=== PATIENT | male | born 1965 | race Caucasian/White ===

== ENCOUNTER 2016-07-04 22:48 | Inpatient (IN) | payer OTHER ==
[2016-07-04] MEDS ORDERED: ATIVAN IV PRN (23:13)
[2016-07-04] MEDS ORDERED: ATIVAN PO PRN (23:13)
[2016-07-04] MEDS ORDERED: NACL 0.9% 1000 ML 1,000 ML IV ONE (23:13)
--- NOTE | 2016-07-04 23:17 | Emergency Department Report ---
ED Alcohol HPI - General Chief Complaint: Alcohol Stated Complaint: AMS/ETOH Time Seen by Provider: 07/04/16 23:06 Source: EMS Mode of arrival: Stretcher Limitations: Altered Mental Status - History of Present Illness Initial Comments: 51-year-old male presents to the emergency department via EMS for evaluation of altered mental status. Per report, the patient has been drinking alcohol heavily for the past 6 days. There has been nausea and vomiting. EMS reports the patient was unable to walk without assistance. There are no other complaints. MD Complaint: alcohol intoxication Last Drink: unknown Chronic Alcohol Use: Yes Previous Visits for Alcohol Intoxication?: No Recent Trauma: No Associated Symptoms: nausea, vomiting Treatments Prior to Arrival: none - Related Data Home Medications Medication Instructions Recorded Confirmed Last Taken Unobtainable 07/04/16 07/04/16 Unknown Allergies Allergy/AdvReac Type Severity Reaction Status Date / Time No Known Allergies Allergy Verified 07/04/16 22:53 ED Review of Systems ROS: Stated complaint: AMS/ETOH Other details as noted in HPI Comment: All other systems reviewed and negative Gastrointestinal: nausea, vomiting Psychiatric: as per HPI ED Past Medical Hx - Past Medical History Additional medical history: Unknown - Surgical History Additional Surgical History: Unknown - Social History Smoking Status: Unknown if ever smoked Substance Use Type: Alcohol - Medications Home Medications: Home Medications Medication Instructions Recorded Confirmed Last Taken Type Unobtainable 07/04/16 07/04/16 Unknown History ED Physical Exam - General Limitations: Language Barrier, Altered Mental Status General appearance: alert, in no apparent distress, appears intoxicated - Head Head exam: Present: atraumatic, normocephalic - Eye Eye exam: Present: normal appearance, PERRL, EOMI - ENT ENT exam: Present: normal exam, normal orophraynx, mucous membranes moist - Neck Neck exam: Present: normal inspection, full ROM. Absent: tenderness - Respiratory Respiratory exam: Present: normal lung sounds bilaterally. Absent: respiratory distress - Cardiovascular Cardiovascular Exam: Present: regular rate, normal rhythm, normal heart sounds - GI/Abdominal GI/Abdominal exam: Present: soft, normal bowel sounds. Absent: distended, tenderness - Extremities Exam Extremities exam: Present: normal inspection, full ROM. Absent: tenderness - Back Exam Back exam: Present: normal inspection, full ROM. Absent: tenderness - Neurological Exam Neurological exam: Present: alert, oriented X3. Absent: motor sensory deficit - Skin Skin exam: Present: warm, dry, intact ED Course Vital Signs 07/04/16 07/04/16 23:32 23:33 Temperature 97.3 F L Pulse Rate 79 Respiratory 18 Rate Blood Pressure 116/92 [Left] O2 Sat by Pulse 98 Oximetry ED Medical Decision Making - Lab Data Result diagrams: 07/04/16 23:27 07/04/16 23:27 - Medical Decision Making Lab results reviewed. Patient with a significant hyponatremia. It is likely that this is a subacute finding due to the patient's clinical findings. Obtaining a head CT. Administering normal saline for slow increase in serum sodium. I spoke with the hospitalist, who will admit. - Differential Diagnosis alcohol intoxication, alcoholic gastritis Critical care attestation.: If time is entered above; I have spent that time in minutes in the direct care of this critically ill patient, excluding procedure time. ED Disposition Clinical Impression: Hyponatremia Alcohol intoxication Qualifiers: Complication of substance-induced condition: uncomplicated Qualified Code(s): F10.120 - Alcohol abuse with intoxication, uncomplicated Disposition: OP ADMITTED IP TO THIS HOSP Is pt being admited?: Yes Condition: Stable Time of Disposition: 00:29
[2016-07-04 23:24] LABS: Urine Drugs of Abuse Note Disclamer
[2016-07-04 23:30] LABS: Bilirubin,Urine NEG (Negative); Blood,Urine MOD (Negative); Ketones,Urine 80 mg/dL (Negative); Leukocyte Esterase,Urine NEG (Negative); Nitrite,Urine NEG (Negative); Protein,Urine <15 mg/dL mg/dL (Negative); Urobilinogen,Urine < 2.0 mg/dL (<2.0)
[2016-07-04 23:52] LABS: Basophils % (Auto) 0.1 % (0.0-1.8); Mean Corpuscular HGB Conc 36 % (32-34); Mean Corpuscular Hemoglobin 31 pg (28-32); Mean Corpuscular Volume 86 fl (84-94); Platelet Count 260 K/mm3 (140-440); Red Blood Count 5.27 M/mm3 (3.65-5.03); Red Cell Distribution Width 13.1 % (13.2-15.2)
[2016-07-05 00:01] LABS: Alanine Aminotransferase 65 units/L (7-56); Albumin 3.8 g/dL (3.9-5); Albumin/Globulin Ratio 1.3 %; Alkaline Phosphatase 85 units/L (35-129); Bilirubin,Total 1.8 mg/dL (0.1-1.2); Blood Urea Nitrogen 9 mg/dL (9-20); Calcium 8.1 mg/dL (8.4-10.2); Carbon Dioxide 13 mmol/L (22-30); Chloride 70.3 mmol/L (98-107); Glucose 240 mg/dL (75-100); Magnesium 1.9 mg/dL (1.7-2.3); Potassium 3.9 mmol/L (3.6-5.0); Total Protein 6.8 g/dL (6.3-8.2)
[2016-07-05 00:03] LABS: Anion Gap 29 mmol/L
[2016-07-05 00:04] LABS: Sodium 108 mmol/L (137-145)
[2016-07-05 00:10] LABS: Hematocrit 45.1 % (35.5-45.6); Hemoglobin 16.2 gm/dl (11.8-15.2)
--- NOTE | 2016-07-05 01:09 | Admit Criteria Form ---
Admission Criteria Documentation: ALCOHOL AND PSYCHOACTIVE SUBSTANCE WITHDRAWAL Clinical Indications for Inpatient Care (Place ' X' for any and all applicable criteria): Ongoing inpatient care may be indicated for substance withdrawal[B][C] with ANY ONE of the following(1)(2)(3)(4)(21): [ ]I. Delirium due to alcohol or sedative[D] withdrawal is present. [ ]II. Marked signs of withdrawal are present as indicated by ANY ONE of the following(15)(22)(23) [ ]a) Heart rate greater than 120 beats per minute is present. [ ]b) Severe vomiting is present (eg, precludes maintenance of oral hydration). [ ]c) Grossly visible tremor is present. [ ]d) Profuse perspiration is present. [ ]e) Temperature greater than 101 degrees F (38.3 degrees C) is present. [ ]f) Other signs of severe withdrawal are present (eg, Altered mental status ) [ ]g) Severe withdrawal identified by standardized assessment score[A] [ ]III. Signs of withdrawal that require continued inpatient treatment as indicated by ANY ONE of the following(15)(22)(23): [ ]a) Inadequate response to pharmacotherapy (eg, benzodiazepines) [ ]b) Outpatient or lower level of care is not feasible or appropriate (eg, unavailable or inappropriate to patient condition or treatment history). [ ]IV. Withdrawal signs with high-risk indicator are present as manifested by ALL of the following[A](15)(22)(23) [ ]a) Signs of withdrawal are present as indicated by ANY ONE of the following: [ ]i. Tachycardia is present. [ ]ii. Nausea or vomiting is present. [ ]iii. Tremor is present. [ ]iv. Increased perspiration is present. [ ]v. Other signs of withdrawal are present. [ ]vi. Withdrawal identified by standardized assessment score [A] [ ]b) Elevated risk due to historical or comorbid factor is present as indicated by ANY ONE of the following: [ ]i. History of delirium due to withdrawal is present. [ ]ii. History of seizures due to withdrawal is present.[E] [ ]iii. Intrinsic seizure disorder (epilepsy) is present. [ ]iv. Patient is . [ ]v. Other significant medical history (eg, severe cardiac disease) is present, which is assessed to be at risk for destabilization due to withdrawal. [ X]V. Serious electrolyte abnormalities (eg, hyponatremia, hypokalemia, hypophosphatemia) requiring correction performable only in inpatient setting(6)(25) [ ]. Severe hypoglycemia requiring glucose infusions performable only in inpatient setting(6) [ ]VII. Drug toxicity or instability, such as Altered mental status, respiratory depression, or arrhythmias, that requires inpatient care [ ]VIII. Danger judged unmanageable at lower level of care because of ANY ONE of the following [ ]a) Danger to self [ ]b) Danger to others [ ]c) Grave disability (eg, inability to perform self-care necessary at lower level of care) The original [facility] Care Guidelines content created by [facility] Care Guidelines has been revised. The portions of the content which have been revised are identified through the use of italic text or in bold. [facility] Guidelines has neither reviewed nor approved the modified material. All other unmodified content is copyright [facility] Care Guidelines. Please see references footnoted in the original [facility] CareGuidelines edition 2016 Admission Criteria Met: Yes
[2016-07-05] MEDS ORDERED: NACL 3% 500 ML IV ONE ×2 (01:11→02:00)
--- NOTE | 2016-07-05 01:36 | History and Physical Report ---
History of Present Illness Date of examination: 07/05/16 Chief complaint: Altered mental status History of present illness: 51-year-old male presents to the emergency department via EMS for evaluation of altered mental status. Per report, the patient has been drinking alcohol heavily for the past 6 days. There has been nausea and vomiting. EMS reports the patient was unable to walk without assistance. There are no other complaints. Patient follows simple commands with communicating well. Past History Past Medical History: diabetes, hypertension Past Surgical History: Other (couldn't obtain because of altered mental status) Social history: other (couldn't obtain because of altered mental status) Family history: other (couldn't obtain because of altered mental status) Medications and Allergies Allergies Allergy/AdvReac Type Severity Reaction Status Date / Time No Known Allergies Allergy Verified 07/04/16 22:53 Home Medications Medication Instructions Recorded Confirmed Last Taken Type Unobtainable 07/04/16 07/04/16 Unknown History Active Meds: Active Medications Sodium Chloride (Nacl 3%) 250 mls @ 50 mls/hr IV DIRECT ASPEN Lorazepam (Ativan) 2 mg PO Q1HR PRN PRN Reason: CIWA-Ar 8-15 Lorazepam (Ativan) 4 mg PO Q1HR PRN PRN Reason: CIWA-Ar 16-25 Lorazepam (Ativan) 4 mg IV Q15MIN PRN PRN Reason: CIWA-Ar >25 Phenobarbital (Phenobarbital) 130 mg IV Q15M PRN PRN Reason: DT's refractory to BZD's Review of Systems ROS unobtainable: due to mental status (some bruising in his face, vomited on himself, smells alcohol) Exam - Physical Exam Narrative exam: patient is not communicating well smells alcohol vomited on himself Able to take care of his respiratory system. The patient appeared well nourished and normally developed. Vital signs as documented. Head exam is unremarkable. No scleral icterus . Neck is without jugular venous distension, thyromegaly, or carotid bruits. Lungs are clear to auscultation. Cardiac exam reveals regular rate and Rhythm. First and second heart sounds normal. No murmurs, rubs or gallops. Abdominal exam reveals normal bowel sounds, no masses, no organomegaly and no aortic enlargement. Extremities are nonedematous and both femoral and pedal pulses are normal. CLAY PUDDLER: Alert. - Constitutional Vitals: Temp Pulse Resp BP Pulse Ox 97.3 F L 100 H 21 116/92 100 07/04/16 23:32 07/05/16 01:01 07/05/16 01:01 07/04/16 23:33 07/05/16 01:01 Results - Labs CBC & Chem 7: 07/04/16 23:27 07/04/16 23: Labs: Laboratory Last Values WBC 20.0 K/mm3 (4.5-11.0) H 07/04/16 23: RBC 5.27 M/mm3 (3.65-5.03) H 07/04/16 23: Hgb 16.2 gm/dl (11.8-15.2) H 07/04/16: Hct 45.1 % (35.5-45.6) 07/04/16 23: MCV 86 fl (84-94) 07/04/16 23: MCH 31 pg (28-32) 07/04/16: MCHC 36 % (32-34) H 07/04/16 23: RDW 13.1 % (13.2-15.2) L 07/04/16 23: Plt Count 260 K/mm3 (140-440) 07/04/16 23: Lymph % (Auto) 6.6 % (13.4-35.0) L 07/04/16 23: Tama % (Auto) 5.1 % (0.0-7.3) 07/04/16: Eos % (Auto) 0.0 % (0.0-4.3) 07/04/16 23: Baso % (Auto) 0.1 % (0.0-1.8) 07/04/16: Lymph # 1.3 K/mm3 (1.2-5.4) 07/04/16 23: Tama # 1.0 K/mm3 (0.0-0.8) H 07/04/16 23: Eos # 0.0 K/mm3 (0.0-0.4) 07/04/16 23: Baso # 0.0 K/mm3 (0.0-0.1) 07/04/16 23:27 Seg Neutrophils % 88.2 % (40.0-70.0) H 07/04/16 23:27 Seg Neutrophils # 17.6 K/mm3 (1.8-7.7) H 07/04/16 23:27 Sodium 108 mmol/L (137-145) L* 07/04/16 23:27 Potassium 3.9 mmol/L (3.6-5.0) 07/04/16 23:27 Chloride 70.3 mmol/L (98-107) L 07/04/16 23:27 Carbon Dioxide 13 mmol/L (22-30) L 07/04/16 23:27 Anion Gap 29 mmol/L 07/04/16 23:27 BUN 9 mg/dL (9-20) 07/04/16 23:27 Creatinine 0.5 mg/dL (0.8-1.5) L 07/04/16 23:27 Estimated GFR > 60 ml/min 07/04/16 23: BUN/Creatinine Ratio 18.00 % 07/04/16 23: Glucose 240 mg/dL (75-100) H 07/04/16 23:27 Calcium 8.1 mg/dL (8.4-10.2) L 07/04/16 23: Magnesium 1.9 mg/dL (1.7-2.3) 07/04/16 23:27 Total Bilirubin 1.8 mg/dL (0.1-1.2) H 07/04/16 23:27 AST 62 units/L (5-40) H 07/04/16 23:27 ALT 65 units/L (7-56) H 07/04/16 23:27 Alkaline Phosphatase 85 units/L (35-129) 07/04/16 23:27 Total Protein 6.8 g/dL (6.3-8.2) 07/04/16 23:27 Albumin 3.8 g/dL (3.9-5) L 07/04/16 23:27 Albumin/Globulin Ratio 1.3 % 07/04/16 23:27 Urine Color Yellow (Yellow) 07/04/16 23:20 Urine Turbidity Clear (Clear) 07/04/16 23:20 Urine pH 6.0 (5.0-7.0) 07/04/16 23:20 Ur Specific [place] 1.024 (1.003-1.030) 07/04/16 23:20 Urine Protein <15 mg/dl mg/dL (Negative) 07/04/16 23:20 Urine Glucose (UA) >=500 mg/dL (Negative) 07/04/16 23:20 Urine Ketones 80 mg/dL (Negative) 07/04/16 23:20 Urine Blood Mod (Negative) 07/04/16 23:20 Urine Nitrite Neg (Negative) 07/04/16 23:20 Urine Bilirubin Neg (Negative) 07/04/16 23:20 Urine Urobilinogen < 2.0 mg/dL (<2.0) 07/04/16 23:20 Ur Leukocyte Esterase Neg (Negative) 07/04/16 23:20 Urine WBC (Auto) 1.0 /HPF (0.0-6.0) 07/04/16 23:20 Urine RBC (Auto) 1.0 /HPF (0.0-6.0) 07/04/16 23:20 Urine Opiates Screen Presumptive negative 07/04/16 23:20 Urine Methadone Screen Presumptive negative 07/04/16 23:20 Ur Barbiturates Screen Presumptive negative 07/04/16 23:20 Ur Phencyclidine Scrn Presumptive negative 07/04/16 23:20 Ur Amphetamines Screen Presumptive negative 07/04/16 23:20 U Benzodiazepines Scrn Presumptive negative 07/04/16 23:20 Urine Cocaine Screen Presumptive negative 07/04/16 23:20 U Marijuana (THC) Screen Presumptive negative 07/04/16 23:20 Drugs of Abuse Note Disclamer 07/04/16 23:20 Plasma/Serum Alcohol 0.17 gm% (0-0.07) H 07/04/16 23:27 - Imaging and Cardiology Chest x-ray: image reviewed (Right paracardiac haziness) Assessment and Plan Assessment and plan: Alcohol intoxication Severe hyponatremia Leukocytosis Pneumonia - Whiskey Filterer was consulted and given him 250 mL of 3% - BMP every 4 hours - IV normal saline to increase the sodium - Patient is on CIWA - On IV Zosyn DVT prophylaxis - Lovenox Disposition - Admit to ICU Advance Directives: Yes VTE prophylaxis?: Chemical Plan of care discussed with patient/family: Yes
[2016-07-05] MEDS ORDERED: D50W (25GM) IV PRN (01:44)
--- NOTE | 2016-07-05 01:57 | Cat Scan Report ---
FINAL REPORT PROCEDURE: CT HEAD/BRAIN WO CON TECHNIQUE: Computerized tomography of the head was performed without contrast material. HISTORY: altered mental status COMPARISON: No prior studies are available for comparison. FINDINGS: Skull and scalp: Normal. Paranasal sinuses: Normal. Ventricles and subarachnoid spaces: Normal. Cerebrum: No evidence of hemorrhage, acute infarction or mass . Cerebellum and brainstem: No evidence of hemorrhage, acute infarction or mass. Vasculature: Normal. Comments: None. IMPRESSION: Normal Examination
[2016-07-05] MEDS ORDERED: NACL 3% 250 ML IV SCH (02:00)
[2016-07-05 03:04] LABS: Anion Gap 28 mmol/L; Blood Urea Nitrogen 9 mg/dL (9-20); Calcium 8.1 mg/dL (8.4-10.2); Carbon Dioxide 13 mmol/L (22-30); Chloride 72.5 mmol/L (98-107); Glucose 190 mg/dL (75-100); Potassium 3.8 mmol/L (3.6-5.0)
[2016-07-05 03:12] LABS: Sodium 110 mmol/L (137-145)
[2016-07-05 03:39] LABS: Hematocrit 44.5 % (35.5-45.6); Hemoglobin 15.7 gm/dl (11.8-15.2); Mean Corpuscular HGB Conc 35 % (32-34); Mean Corpuscular Hemoglobin 31 pg (28-32); Mean Corpuscular Volume 86 fl (84-94); Platelet Count 230 K/mm3 (140-440); Red Blood Count 5.17 M/mm3 (3.65-5.03); Red Cell Distribution Width 13.1 % (13.2-15.2)
[2016-07-05 03:43] LABS: White Blood Count 20.7 K/mm3 (4.5-11.0)
[2016-07-05] MEDS ORDERED: NACL 0.9% 1000 ML 1,000 ML IV SCH (04:00)
[2016-07-05] MEDS ORDERED: ATIVAN ONE (04:30)
[2016-07-05] MEDS: ATIVAN PO PRN ×2 (04:46→08:15)
[2016-07-05 05:15] LABS: Basophils % (Manual) 0 % (0.0-1.8); Blastocytes % (Manual) 0 %; Diff Status Complete; Eosinophils % (Manual) 0 % (0.0-4.3); Hypochromasia Few
[2016-07-05] MEDS: ZOSYN/NS 3.375GM/50ML 50 ML IV SCH ×3 (06:15→17:35)
[2016-07-05] MEDS ORDERED: ZOFRAN IV PRN (06:28)
[2016-07-05 07:58] LABS: Anion Gap 28 mmol/L; Blood Urea Nitrogen 10 mg/dL (9-20); Calcium 7.8 mg/dL (8.4-10.2); Carbon Dioxide 12 mmol/L (22-30); Chloride 75.4 mmol/L (98-107); Glucose 177 mg/dL (75-100); Potassium 3.6 mmol/L (3.6-5.0)
[2016-07-05 08:22] LABS: Sodium 115 mmol/L (137-145)
--- NOTE | 2016-07-05 08:50 | XRay Report ---
FINAL REPORT EXAM: XR CHEST 1V AP HISTORY: fluid overload TECHNIQUE: Chest, portable semi upright PRIORS: None. FINDINGS: There is no cardiomegaly. There is no pulmonary vascular congestion, infiltrate or pleural effusion seen. There is no pneumothorax seen. IMPRESSION: There is no acute abnormality identified.
--- NOTE | 2016-07-05 09:48 | XRay Report ---
AP chest History: Fever, leukocytosis. Findings: Compared to 03/07/12. Mild cardiomegaly is suspected. There is poor inspiration but the lungs are grossly clear. No evidence for pneumonia, pleural effusion or pneumothorax. Impression: Borderline to mild cardiomegaly. No obvious pneumonia.
[2016-07-05] MEDS ORDERED: ATIVAN IV PRN (10:22)
[2016-07-05] MEDS ORDERED: ATIVAN IV ONE (10:22)
--- NOTE | 2016-07-05 10:41 | Consultation ---
History of Present Illness - Reason for Consult Consult date: 07/05/16 hyponatremia, hypokalemia, metabolic acidosis - History of Present Illness Patient is a 51 year old HM with history significant for Obesity, DM type and HTN male was brought into the emergency department via EMS for evaluation of altered mental status. Patient speaks only Cymro and information obtained through a granite fabricator. The patient has been drinking alcohol heavily for the past 6 days. He didnot eat any thing for the past few days. His daughter called EMS due to AMS. He has nausea and vomiting. Patient denies any MOSES, fever, abd pain, dysuria, hematuria, dizziness, cp, sob or syncope. He is found to have multiple electrolyte abnormalities including Sodium of 108. Most recent Na level is 115. Creatinine is normal. Past History Past Medical History: diabetes, hypertension Past Surgical History: Other (couldn't obtain because of altered mental status) Social history: other (couldn't obtain because of altered mental status) Family history: other (couldn't obtain because of altered mental status) Medications and Allergies Allergies Allergy/AdvReac Type Severity Reaction Status Date / Time No Known Allergies Allergy Verified 07/04/16 22:53 Home Medications Medication Instructions Recorded Confirmed Last Taken Type Unobtainable 07/04/16 07/04/16 Unknown History Active Meds: Active Medications Albuterol/Ipratropium (Duoneb 0.5 Mg-3 Mg/3 Ml Soln) 1 ampul IH Q6HRT [facility] Dextrose (D50w (25gm)) 50 ml IV PRN PRN PRN Reason: Hypoglycemia Enoxaparin Sodium (Lovenox) 40 mg SUB-Q QDAY [facility] Haloperidol Lactate (Haldol) 5 mg IV Q1H PRN PRN Reason: Unrespon. to mult. doses BZD's Sodium Chloride (Nacl 0.9% 1000 Ml) 1,000 mls @ 100 mls/hr IV DIRECT ASPEN Stop: 07/06/16 13:59 Last Admin: 07/05/16 06:54 Dose: 100 mls/hr Piperacillin Sod/Tazobactam Sod (Zosyn/Ns 3.375gm/50ml) 50 mls @ 100 mls/hr IV Q6HR [facility] Last Admin: 07/05/16 06:15 Dose: 100 mls/hr Insulin Aspart (Novolog) 0 units SUB-Q QHS ASPEN PRN Reason: Protocol Lorazepam (Ativan) 2 mg IV Q1H PRN PRN Reason: CIWA-Ar 8-15 Lorazepam (Ativan) 4 mg IV Q1H PRN PRN Reason: CIWA-Ar 16-25 Ondansetron HCl (Zofran) 4 mg IV Q6H PRN PRN Reason: Nausea And Vomiting Pantoprazole Sodium (Protonix) 40 mg IV QDAY [facility] Review of Systems Constitutional: fatigue Ears, nose, mouth and throat: no sinus pressure, no sinus pain Cardiovascular: no chest pain, no edema, no syncope, no lightheadedness, no shortness of breath Respiratory: no cough Gastrointestinal: nausea, vomiting, no abdominal pain, no diarrhea, no BRBPR, no melena Genitourinary Male: no dysuria, no hematuria Musculoskeletal: no neck stiffness Integumentary: no rash Neurological: no paralysis Hematologic/Lymphatic: no easy bleeding Exam - Vital Signs Vital signs: Vital Signs Temp Pulse 97.3 F L 79 07/04/16 23:32 07/04/16 23:32 - General Appearance General appearance: well-developed, well-nourished, obese, other (no distress) EENT: PERRL, mucous membranes dry, hearing intact, vision intact Neck: Present: neck supple, trachea midline Respiratory: Clear to Ascultation Heart: regular, tachycardia, S1S2 Gastrointestinal: Present: normoactive bowel sounds. Absent: tenderness, distended, guarding Integumentary: no rash, warm and dry Neurologic: no focal deficit, no asterixis, CN 3-12 intact Musculoskeletal: Present: other (no edema) Psychiatric: mood/affect appropriate, cooperative Results - Lab Results 07/05/16 03:27 07/05/16 07:24 Most recent lab results Calcium 7.8 mg/dL (8.4-10.2) L 07/05/16 07:24 Magnesium 1.9 mg/dL (1.7-2.3) 07/04/16 23:27 Assessment and Plan - Patient Problems (1) Hyponatremia Current Visit: Yes Status: Acute Plan to address problem: Hyponatremia in the setting of heavy alcohol consumption and decreased PO intake. Sodium level is improving with IV fluids. Monitor sodium level. (2) Metabolic acidosis Current Visit: Yes Status: Acute Plan to address problem: Will continue to monitor. (3) Hypokalemia Current Visit: Yes Status: Acute (4) Alcohol intoxication Current Visit: Yes Status: Acute Qualifiers: Complication of substance-induced condition: uncomplicated Qualified Code(s ): F10.120 - Alcohol abuse with intoxication, uncomplicated (5) DM type 2 (diabetes mellitus, type 2) Current Visit: Yes Status: Acute
--- NOTE | 2016-07-05 10:47 | XRay Report ---
AP CHEST: HISTORY: Shortness of breath AP view of the chest demonstrates a normal mediastinal and cardiac contour with clear lungs and normal bony and soft tissue structures. IMPRESSION: Unremarkable AP chest.
[2016-07-05] MEDS: DUONEB 0.5 MG-3 MG/3 ML SOLN IH SCH ×4 (10:52→19:26)
[2016-07-05] MEDS ORDERED: PROTONIX IV SCH (11:00)
[2016-07-05] MEDS ORDERED: HALDOL IV PRN (11:00)
--- NOTE | 2016-07-05 11:11 | Progress Note ---
Assessment and Plan Assessment and plan: Alcohol intoxication * cont Patient is on CIWA Severe hyponatremia * Instructor [employer] was consulted and given him 250 mL of 3% on admission * cont BMP every 4 hours * IV normal saline to increase the sodium * consult nephrology Leukocytosis, likely stress induced SIRS, r/o infection * On IV Zosyn for possible underlying infection Hypertension, uncontrolled * place on clonidine po DVT prophylaxis - Lovenox Disposition - monitor at ICU History Interval history: Patient seen and examined. Medical records and medication list reviewed. No acute event overnight noted by the RN. Patient denies any chest pain. He is coughing out YELLOWISH green sputum. Discussed plan of care at bedside with patient. Hospitalist Physical - Physical exam Narrative exam: GENERAL: well-developed obese male lying on bed appeared to be in moderate discomfort. HEENT: Normocephalic. Atraumatic. No conjunctival congestion or icterus. Patient has moist mucous membranes. His face appears to be plethoric with diaphoresis. NECK: Supple. Trachea midline. CHEST/LUNGS: Restricted breathing sound auscultated bilaterally, breathing nonlabored. No crackles or rhonchi. HEART/CARDIOVASCULAR: Tachycardic. S1 and S2 positive. ABDOMEN: Abdomen is soft, nontender. Patient has normal bowel sounds. SKIN: There is no rash. Warm and dry. NEURO: No focal motor deficit. Follows command. MUSCULOSKELETAL: No joint effusion or tenderness. EXTRIMITY: No edema, no cyanosis or clubbing. PSYCH: Cooperative. - Constitutional Vitals: Temp Pulse Resp BP Pulse Ox 98.9 F 123 H 16 166/94 97 07/05/16 07:41 07/05/16 10:52 07/05/16 10:52 07/05/16 08:00 07/05/16 10:45 Results - Labs CBC & Chem 7: 07/05/16 03:27 07/05/16 07:24 Labs: Laboratory Last Values WBC 20.7 K/mm3 (4.5-11.0) H 07/05/16 03:27 RBC 5.17 M/mm3 (3.65-5.03) H 07/05/16 03:27 Hgb 15.7 gm/dl (11.8-15.2) H 07/05/16 03:27 Hct 44.5 % (35.5-45.6) 07/05/16 03:27 MCV 86 fl (84-94) 07/05/16 03:27 MCH 31 pg (28-32) 07/05/16 03:27 MCHC 35 % (32-34) H 07/05/16 03:27 RDW 13.1 % (13.2-15.2) L 07/05/16 03:27 Plt Count 230 K/mm3 (140-440) 07/05/16 03:27 Lymph % (Auto) 6.6 % (13.4-35.0) L 07/04/16 23:27 [place] % (Auto) 5.1 % (0.0-7.3) 07/04/16 23:27 Eos % (Auto) 0.0 % (0.0-4.3) 07/04/16 23:27 Baso % (Auto) 0.1 % (0.0-1.8) 07/04/16 23:27 Lymph # 1.3 K/mm3 (1.2-5.4) 07/04/16 23:27 [place] # 1.0 K/mm3 (0.0-0.8) H 07/04/16 23:27 Eos # 0.0 K/mm3 (0.0-0.4) 07/04/16 23:27 Baso # 0.0 K/mm3 (0.0-0.1) 07/04/16 23:27 Add Manual Diff Complete 07/05/16 03:27 Total Counted 100 07/05/16 03:27 Seg Neutrophils % 88.2 % (40.0-70.0) H 07/04/16 23:27 Seg Neuts % (Manual) 61.0 % (40.0-70.0) 07/05/16 03:27 Band Neutrophils % 28.0 % 07/05/16 03:27 Lymphocytes % (Manual) 4.0 % (13.4-35.0) L 07/05/16 03:27 Reactive Lymphs % (Man) 0 % 07/05/16 03:27 Monocytes % (Manual) 7.0 % (0.0-7.3) 07/05/16 03:27 Eosinophils % (Manual) 0 % (0.0-4.3) 07/05/16 03:27 Basophils % (Manual) 0 % (0.0-1.8) 07/05/16 03:27 Metamyelocytes % 0 % 07/05/16 03:27 Myelocytes % 0 % 07/05/16 03:27 Promyelocytes % 0 % 07/05/16 03:27 Blast Cells % 0 % 07/05/16 03:27 Nucleated RBC % Not Reportable 07/05/16 03:27 Seg Neutrophils # 17.6 K/mm3 (1.8-7.7) H 07/04/16 23:27 Seg Neutrophils # Man 12.6 K/mm3 (1.8-7.7) H 07/05/16 03:27 Band Neutrophils # 5.8 K/mm3 07/05/16 03:27 Lymphocytes # (Manual) 0.8 K/mm3 (1.2-5.4) L 07/05/16 03:27 Abs React Lymphs (Man) 0.0 K/mm3 07/05/16 03:27 Monocytes # (Manual) 1.4 K/mm3 (0.0-0.8) H 07/05/16 03:27 Eosinophils # (Manual) 0.0 K/mm3 (0.0-0.4) 07/05/16 03:27 Basophils # (Manual) 0.0 K/mm3 (0.0-0.1) 07/05/16 03:27 Metamyelocytes # 0.0 K/mm3 07/05/16 03:27 Myelocytes # 0.0 K/mm3 07/05/16 03:27 Promyelocytes # 0.0 K/mm3 07/05/16 03:27 Blast Cells # 0.0 K/mm3 07/05/16 03:27 WBC Morphology Not Reportable 07/05/16 03:27 Hypersegmented Neuts Not Reportable 07/05/16 03:27 Hyposegmented Neuts Not Reportable 07/05/16 03:27 Hypogranular Neuts Not Reportable 07/05/16 03:27 Smudge Cells Not Reportable 07/05/16 03:27 Toxic Granulation Not Reportable 07/05/16 03:27 Toxic Vacuolation Not Reportable 07/05/16 03:27 Dohle Bodies Not Reportable 07/05/16 03:27 Pelger-Huet Anomaly Not Reportable 07/05/16 03:27 Maruqes Rods Not Reportable 07/05/16 03:27 Platelet Estimate Appears normal 07/05/16 03:27 Clumped Platelets Not Reportable 07/05/16 03:27 Plt Clumps, EDTA Not Reportable 07/05/16 03:27 Large Platelets Not Reportable 07/05/16 03:27 Giant Platelets Not Reportable 07/05/16 03:27 Platelet Satelliting Not Reportable 07/05/16 03:27 Plt Morphology Comment Not Reportable 07/05/16 03:27 RBC Morphology Not Reportable 07/05/16 03:27 Dimorphic RBCs Not Reportable 07/05/16 03:27 Polychromasia Not Reportable 07/05/16 03:27 Hypochromasia Few 07/05/16 03:27 Poikilocytosis Not Reportable 07/05/16 03:27 Anisocytosis Not Reportable 07/05/16 03:27 Microcytosis Not Reportable 07/05/16 03:27 Macrocytosis Not Reportable 07/05/16 03:27 Spherocytes Not Reportable 07/05/16 03:27 Pappenheimer Bodies Not Reportable 07/05/16 03:27 Sickle Cells Not Reportable 07/05/16 03:27 Target Cells Not Reportable 07/05/16 03:27 Tear Drop Cells Not Reportable 07/05/16 03:27 Ovalocytes Not Reportable 07/05/16 03:27 Helmet Cells Not Reportable 07/05/16 03:27 [place] Bodies Not Reportable 07/05/16 03:27 [place] Rings Not Reportable 07/05/16 03:27 Marcell Cells Not Reportable 07/05/16 03:27 Bite Cells Not Reportable 07/05/16 03:27 Crenated Cell Not Reportable 07/05/16 03:27 Elliptocytes Not Reportable 07/05/16 03:27 Acanthocytes (Spur) Not Reportable 07/05/16 03:27 Rouleaux Not Reportable 07/05/16 03:27 Hemoglobin C Crystals Not Reportable 07/05/16 03:27 Schistocytes Not Reportable 07/05/16 03:27 Malaria parasites Not Reportable 07/05/16 03:27 Danny Bodies Not Reportable 07/05/16 03:27 Hem Pathologist Commnt No 07/05/16 03:27 Sodium 115 mmol/L (137-145) L* 07/05/16 07:24 Potassium 3.6 mmol/L (3.6-5.0) 07/05/16 07:24 Chloride 75.4 mmol/L (98-107) L 07/05/16 07:24 Carbon Dioxide 12 mmol/L (22-30) L 07/05/16 07:24 Anion Gap 28 mmol/L 07/05/16 07:24 BUN 10 mg/dL (9-20) 07/05/16 07:24 Creatinine 0.5 mg/dL (0.8-1.5) L 07/05/16 07:24 Estimated GFR > 60 ml/min 07/05/16 07:24 BUN/Creatinine Ratio 20.00 % 07/05/16 07:24 Glucose 177 mg/dL (75-100) H 07/05/16 07:24 POC Glucose 158 (70-105) H 07/05/16 07:32 Calcium 7.8 mg/dL (8.4-10.2) L 07/05/16 07:24 Magnesium 1.9 mg/dL (1.7-2.3) 07/04/16 23:27 Total Bilirubin 1.8 mg/dL (0.1-1.2) H 07/04/16 23:27 AST 62 units/L (5-40) H 07/04/16 23:27 ALT 65 units/L (7-56) H 07/04/16 23:27 Alkaline Phosphatase 85 units/L (35-129) 07/04/16 23:27 Total Protein 6.8 g/dL (6.3-8.2) 07/04/16 23:27 Albumin 3.8 g/dL (3.9-5) L 07/04/16 23:27 Albumin/Globulin Ratio 1.3 % 07/04/16 23:27 Urine Color Yellow (Yellow) 07/04/16 23:20 Urine Turbidity Clear (Clear) 07/04/16 23:20 Urine pH 6.0 (5.0-7.0) 07/04/16 23:20 Ur Specific [place] 1.024 (1.003-1.030) 07/04/16 23:20 Urine Protein <15 mg/dl mg/dL (Negative) 07/04/16 23:20 Urine Glucose (UA) >=500 mg/dL (Negative) 07/04/16 23:20 Urine Ketones 80 mg/dL (Negative) 07/04/16 23:20 Urine Blood Mod (Negative) 07/04/16 23:20 Urine Nitrite Neg (Negative) 07/04/16 23:20 Urine Bilirubin Neg (Negative) 07/04/16 23:20 Urine Urobilinogen < 2.0 mg/dL (<2.0) 07/04/16 23:20 Ur Leukocyte Esterase Neg (Negative) 07/04/16 23:20 Urine WBC (Auto) 1.0 /HPF (0.0-6.0) 07/04/16 23:20 Urine RBC (Auto) 1.0 /HPF (0.0-6.0) 07/04/16 23:20 Urine Opiates Screen Presumptive negative 07/04/16 23:20 Urine Methadone Screen Presumptive negative 07/04/16 23:20 Ur Barbiturates Screen Presumptive negative 07/04/16 23:20 Ur Phencyclidine Scrn Presumptive negative 07/04/16 23:20 Ur Amphetamines Screen Presumptive negative 07/04/16 23:20 U Benzodiazepines Scrn Presumptive negative 07/04/16 23:20 Urine Cocaine Screen Presumptive negative 07/04/16 23:20 U Marijuana (THC) Screen Presumptive negative 07/04/16 23:20 Drugs of Abuse Note Disclamer 07/04/16 23:20 Plasma/Serum Alcohol 0.17 gm% (0-0.07) H 07/04/16 23:27
[2016-07-05] MEDS: ATIVAN IV PRN ×5 (11:18→20:43)
[2016-07-05 11:25] LABS: Anion Gap 27 mmol/L; Blood Urea Nitrogen 12 mg/dL (9-20); Calcium 7.6 mg/dL (8.4-10.2); Carbon Dioxide 12 mmol/L (22-30); Chloride 76.7 mmol/L (98-107); Glucose 195 mg/dL (75-100); Potassium 3.8 mmol/L (3.6-5.0)
[2016-07-05 11:27] LABS: Albumin 3.4 g/dL (3.9-5); Albumin/Globulin Ratio 1.2 %; Bilirubin,Direct 1.1 mg/dL (0-0.2); Bilirubin,Indirect 1.4 mg/dL; Bilirubin,Total 2.5 mg/dL (0.1-1.2); Magnesium 1.8 mg/dL (1.7-2.3); Phosphorous 2.3 mg/dL (2.5-4.5); Total Protein 6.3 g/dL (6.3-8.2)
[2016-07-05 11:29] LABS: Sodium 112 mmol/L (137-145)
[2016-07-05 11:31] LABS: ISTAT Base Excess -12; ISTAT HCO3 13.1; ISTAT PCO2 21.2 (35-45); ISTAT PH 7.399 (7.35-7.45); ISTAT PO2 90 (80-105); ISTAT SO2 97; ISTAT TCO2 14
[2016-07-05] MEDS ORDERED: CATAPRES PO SCH (12:00)
[2016-07-05] MEDS: LOVENOX SUB-Q SCH (12:23)
[2016-07-05] MEDS ORDERED: KPHOS 30 MMOL in NACL 0.9% 500 ML 500 ML IV ONE (12:24)
--- NOTE | 2016-07-05 13:19 | Consultation ---
History of Present Illness Consult date: 07/05/16 Reason for consult: other (Alcohol intoxication, Hyponatremia.) History of present illness: This is 51-year-old male presents to the emergency department via EMS for evaluation of altered mental status. Per report, the patient has been drinking alcohol heavily for the past 6 days. There has been nausea and vomiting. Patient electrolytes showed severe hyponatremia.Patient has history of hypertension and Diabetes. No known drug allergies. Patient intoxicated. Un able to give much history. Patients smoking history and alcohol history not known at this time. Patient is on 2 litres O2 and O2 satuaration 95%. No complaint of chest pain or shortness of breath. Past History Past Medical History: diabetes, hypertension Past Surgical History: Other (couldn't obtain because of altered mental status) Social history: other (couldn't obtain because of altered mental status) Family history: other (couldn't obtain because of altered mental status) Medications and Allergies Allergies Allergy/AdvReac Type Severity Reaction Status Date / Time No Known Allergies Allergy Verified 07/04/16 22:53 Home Medications Medication Instructions Recorded Confirmed Last Taken Type Unobtainable 07/04/16 07/04/16 Unknown History Active Meds: Active Medications Albuterol/Ipratropium (Duoneb 0.5 Mg-3 Mg/3 Ml Soln) 1 ampul IH Q6HRT [facility] Last Admin: 07/05/16 10:52 Dose: 1 ampul Clonidine HCl (Catapres) 0.1 mg PO Q12HR [facility] Last Admin: 07/05/16 12:23 Dose: 0.1 mg Dextrose (D50w (25gm)) 50 ml IV PRN PRN PRN Reason: Hypoglycemia Enoxaparin Sodium (Lovenox) 40 mg SUB-Q QDAY [facility] Last Admin: 07/05/16 12:23 Dose: 40 mg Haloperidol Lactate (Haldol) 5 mg IV Q1H PRN PRN Reason: Unrespon. to mult. doses BZD's Sodium Chloride (Nacl 0.9% 1000 Ml) 1,000 mls @ 100 mls/hr IV DIRECT [facility] Stop: 07/06/16 13:59 Last Admin: 07/05/16 06:54 Dose: 100 mls/hr Piperacillin Sod/Tazobactam Sod (Zosyn/Ns 3.375gm/50ml) 50 mls @ 100 mls/hr IV Q6HR [facility] Last Admin: 07/05/16 12:24 Dose: 100 mls/hr Potassium Phosphate 30 mmol/ (Sodium Chloride) 510 mls @ 83 mls/hr IV ONCE ONE Stop: 07/05/16 18:32 Insulin Aspart (Novolog) 0 units SUB-Q QHS [facility] PRN Reason: Protocol Lorazepam (Ativan) 2 mg IV Q1H PRN PRN Reason: [facility] 8-15 Last Admin: 07/05/16 12:24 Dose: 2 mg Lorazepam (Ativan) 4 mg IV Q1H PRN PRN Reason: [facility] 16-25 Ondansetron HCl (Zofran) 4 mg IV Q6H PRN PRN Reason: Nausea And Vomiting Pantoprazole Sodium (Protonix) 40 mg IV QDAY [facility] Last Admin: 07/05/16 12:23 Dose: 40 mg Review of Systems All systems: negative Physical Examination Vital signs: Vital Signs Temp Pulse 97.3 F L 79 07/04/16 23:32 07/04/16 23:32 General appearance: lethargic, asleep Eyes: non-icteric ENT: oropharynx moist Neck: supple, no JVD Ascultation: Bilateral: diminished breath sounds Cardiovascular: regular rate and rhythm Gastrointestinal: normoactive bowel sounds, soft, non-tender Integumentary: normal Extremities: no cyanosis, no edema Musculoskeletal: no deformities Gait: other (Can not assess at this time) unable to assess other (Unable assess, Patient intoxicated.) Results - Laboratory Findings CBC and BMP: 07/05/16 03:27 07/05/16 10:50 ABG POC ABG pH 7.399 (7.35-7.45) 07/05/16 10:45 POC ABG pCO2 21.2 (35-45) L 07/05/16 10:45 POC ABG pO2 90 (80-105) 07/05/16 10:45 POC ABG HCO3 13.1 07/05/16 10:45 POC ABG Total CO2 14 07/05/16 10:45 POC ABG O2 Sat 97 07/05/16 10:45 Abnormal lab findings: Abnormal Labs 07/05/16 07/05/16 07/05/16 02:11 03:27 03:27 WBC 20.7 H RBC 5.17 H Hgb 15.7 H MCHC 35 H RDW 13.1 L Lymphocytes % (Manual) 4.0 L Seg Neutrophils # Man 12.6 H Lymphocytes # (Manual) 0.8 L Monocytes # (Manual) 1.4 H POC ABG pCO2 Sodium 110 L* 110 L* Chloride 72.5 L Carbon Dioxide 13 L Creatinine 0.5 L Glucose 190 H POC Glucose Calcium 8.1 L Phosphorus Total Bilirubin Direct Bilirubin AST Albumin 07/05/16 07/05/16 07/05/16 07:24 07:32 10:45 WBC RBC Hgb MCHC RDW Lymphocytes % (Manual) Seg Neutrophils # Man Lymphocytes # (Manual) Monocytes # (Manual) POC ABG pCO2 21.2 L Sodium 115 L* Chloride 75.4 L Carbon Dioxide 12 L Creatinine 0.5 L Glucose 177 H POC Glucose 158 H Calcium 7.8 L Phosphorus Total Bilirubin Direct Bilirubin AST Albumin 07/05/16 07/05/16 07/05/16 10:50 10:50 10:50 WBC RBC Hgb MCHC RDW Lymphocytes % (Manual) Seg Neutrophils # Man Lymphocytes # (Manual) Monocytes # (Manual) POC ABG pCO2 Sodium 112 L* Chloride 76.7 L Carbon Dioxide 12 L Creatinine 0.5 L Glucose 195 H POC Glucose Calcium 7.6 L Phosphorus 2.3 L Total Bilirubin 2.5 H Direct Bilirubin 1.1 H AST 55 H Albumin 3.5 L 3.4 L 07/05/16 12:00 WBC RBC Hgb MCHC RDW Lymphocytes % (Manual) Seg Neutrophils # Man Lymphocytes # (Manual) Monocytes # (Manual) POC ABG pCO2 Sodium Chloride Carbon Dioxide Creatinine Glucose POC Glucose 242 H Calcium Phosphorus Total Bilirubin Direct Bilirubin AST Albumin - Diagnostic Findings Chest x-ray: report reviewed (Unremarkable AP chest.), image reviewed Assessment and Plan This is 51-year-old male presents to the emergency department via EMS for evaluation of altered mental status. Per report, the patient has been drinking alcohol heavily for the past 6 days. There has been nausea and vomiting. Patient electrolytes showed severe hyponatremia.Patient has history of hypertension and Diabetes. No known drug allergies. Patient intoxicated. Un able to give much history. Patients smoking history and alcohol history not known at this time. Patients O2 satuaration 95% on 2 litres O2. No complaint of chest pain or shortness of breath. - Patient Problems (1) Alcohol intoxication Current Visit: Yes Status: Acute Qualifiers: Complication of substance-induced condition: uncomplicated Qualified Code(s ): F10.120 - Alcohol abuse with intoxication, uncomplicated Plan to address problem: Watch for DTs. Patient is on CIWA protocol. (2) DM type 2 (diabetes mellitus, type 2) Current Visit: Yes Status: Acute Plan to address problem: Management as per primary care. (3) Hyponatremia Current Visit: Yes Status: Acute Plan to address problem: Management as per Nephrology. (4) Metabolic acidosis Current Visit: Yes Status: Acute Plan to address problem: Patients Bicarb is 12. However PH is compensated.
[2016-07-05 14:48] LABS: Anion Gap 27 mmol/L; BUN/Creatinine Ratio 21.66; Blood Urea Nitrogen 13 mg/dL (9-20); Calcium 7.7 mg/dL (8.4-10.2); Carbon Dioxide 12 mmol/L (22-30); Chloride 77.4 mmol/L (98-107); Glucose 207 mg/dL (75-100); Potassium 3.9 mmol/L (3.6-5.0)
[2016-07-05 14:53] LABS: Sodium 112 mmol/L (137-145)
[2016-07-05] MEDS ORDERED: NORMODYNE IV PRN (15:37)
[2016-07-05] MEDS ORDERED: CATAPRES-TTS PATCH TD SCH (16:00)
[2016-07-05] MEDS ORDERED: NACL 0.9% 1000 ML 1,000 ML with SODIUM BICARBONATE 50 MEQ IV SCH (16:00)
[2016-07-05] MEDS ORDERED: SODIUM BICARBONATE 50 MEQ in NACL 0.9% 1000 ML 1,000 ML IV SCH (17:00)
[2016-07-05 19:21] LABS: Blood Urea Nitrogen 14 mg/dL (9-20); Calcium 7.7 mg/dL (8.4-10.2); Carbon Dioxide 12 mmol/L (22-30); Chloride 80.6 mmol/L (98-107); Glucose 186 mg/dL (75-100); Potassium 4.5 mmol/L (3.6-5.0)
[2016-07-05 19:41] LABS: Anion Gap 27 mmol/L; Sodium 115 mmol/L (137-145)
[2016-07-05] MEDS ORDERED: PNEUMOVAX 23 IM ONE (20:57)
[2016-07-05] MEDS ORDERED: FLUARIX QUAD 2016-2017(36 MOS+) IM ONE (20:57)
[2016-07-05 22:41] LABS: Anion Gap 22 mmol/L; BUN/Creatinine Ratio 23.33; Blood Urea Nitrogen 14 mg/dL (9-20); Calcium 7.7 mg/dL (8.4-10.2); Carbon Dioxide 14 mmol/L (22-30); Chloride 81.7 mmol/L (98-107); Glucose 182 mg/dL (75-100); Potassium 3.8 mmol/L (3.6-5.0)
[2016-07-05 22:51] LABS: Sodium 114 mmol/L (137-145)
[2016-07-05] MEDS ORDERED: SODIUM BICARBONATE IV ONE (22:54)
[2016-07-06] MEDS: ZOSYN/NS 3.375GM/50ML 50 ML IV SCH ×4 (00:01→18:35)
[2016-07-06] MEDS: NOVOLOG SUB-Q SCH ×2 (01:19→22:45)
[2016-07-06] MEDS: DUONEB 0.5 MG-3 MG/3 ML SOLN IH SCH ×4 (01:46→19:21)
[2016-07-06] MEDS ORDERED: LOPRESSOR IV PRN (02:14)
[2016-07-06] MEDS ORDERED: NACL 0.9% 500 ML 500 ML ONE (03:33)
[2016-07-06] MEDS ORDERED: DIPRIVAN 10 MG/ML 100 ML IV ONE (03:35)
[2016-07-06] MEDS ORDERED: VERSED IV ONE (04:00)
[2016-07-06] MEDS ORDERED: ARTIFICIAL TEARS OPHTH OINT OU PRN (04:07)
[2016-07-06] MEDS ORDERED: VASELINE LIP THERAPY TP PRN (04:07)
--- NOTE | 2016-07-06 04:07 | Progress Note ---
Subjective Date of service: 07/06/16 Interval history: Help was requested by ICU/Pulmonary to intubate this obese male. Patient was admitted with alcohol intoxication, altered mental status and severe hyponatremia. Due to recurrent vomiting, intubation was needed for airway protection. Potassium was 3.8. After proper positioning the patient was given 200 mg of propofol and 120 mg of succinylcholine. He was intubated by direct laryngoscopy over a tube changer. Post procedure, there was positive ETCO2 and bilateral breath sounds. A CXR was requested. Objective - Constitutional Vitals: Vital Signs - 12hr 07/05/16 07/05/16 07/05/16 16:00 16:03 17:01 Temperature 98.4 F Pulse Rate 127 H 120 H 127 H Pulse Rate [ Posterior Throughout] Respiratory 20 15 Rate Respiratory Rate [Posterior Throughout] Blood Pressure 134/76 134/76 142/85 O2 Sat by Pulse 96 94 96 Oximetry 07/05/16 07/05/16 07/05/16 17:14 18:00 18:13 Temperature Pulse Rate 135 H 141 H 108 H Pulse Rate [ Posterior Throughout] Respiratory 22 29 H 30 H Rate Respiratory Rate [Posterior Throughout] Blood Pressure 152/81 142/85 149/98 O2 Sat by Pulse 95 91 95 Oximetry 07/05/16 07/05/16 07/05/16 18:19 19:00 19:28 Temperature Pulse Rate 137 H 112 H Pulse Rate [ 112 H Posterior Throughout] Respiratory 24 Rate Respiratory 23 Rate [Posterior Throughout] Blood Pressure 149/98 141/76 O2 Sat by Pulse 94 Oximetry 07/05/16 07/05/16 07/05/16 19:29 19:51 19:58 Temperature 99.6 F Pulse Rate Pulse Rate [ 112 H Posterior Throughout] Respiratory Rate Respiratory 23 Rate [Posterior Throughout] Blood Pressure O2 Sat by Pulse 98 Oximetry 07/05/16 07/05/16 07/06/16 20:00 21:54 00:00 Temperature 100.9 F H Pulse Rate 114 H 124 H Pulse Rate [ Posterior Throughout] Respiratory 18 25 H Rate Respiratory Rate [Posterior Throughout] Blood Pressure 150/82 131/91 O2 Sat by Pulse 96 96 Oximetry 07/06/16 07/06/16 01:46 01:56 Temperature Pulse Rate Pulse Rate [ 140 H 147 H Posterior Throughout] Respiratory Rate Respiratory 34 H 23 Rate [Posterior Throughout] Blood Pressure O2 Sat by Pulse Oximetry - Labs CBC & Chem 7: 07/05/16 03:27 07/05/16 21:13 Labs: Abnormal lab results 07/05/16 07/05/16 07/05/16 Range/Units 03:27 03:27 07:24 Lymphocytes % (Manual) 4.0 L (13.4-35.0) % Seg Neutrophils # Man 12.6 H (1.8-7.7) K/mm3 Lymphocytes # (Manual) 0.8 L (1.2-5.4) K/mm3 Monocytes # (Manual) 1.4 H (0.0-0.8) K/mm3 POC ABG pCO2 (35-45) Sodium 110 L* 115 L* (137-145) mmol/L Chloride 75.4 L (98-107) mmol/L Carbon Dioxide 12 L (22-30) mmol/L Creatinine 0.5 L (0.8-1.5) mg/dL Glucose 177 H (75-100) mg/dL POC Glucose (70-105) Calcium 7.8 L (8.4-10.2) mg/dL Phosphorus (2.5-4.5) mg/dL Total Bilirubin (0.1-1.2) mg/dL Direct Bilirubin (0-0.2) mg/dL AST (5-40) units/L Albumin (3.9-5) g/dL 07/05/16 07/05/16 07/05/16 Range/Units 07:32 10:45 10:50 Lymphocytes % (Manual) (13.4-35.0) % Seg Neutrophils # Man (1.8-7.7) K/mm3 Lymphocytes # (Manual) (1.2-5.4) K/mm3 Monocytes # (Manual) (0.0-0.8) K/mm3 POC ABG pCO2 21.2 L (35-45) Sodium 112 L* (137-145) mmol/L Chloride 76.7 L (98-107) mmol/L Carbon Dioxide 12 L (22-30) mmol/L Creatinine 0.5 L (0.8-1.5) mg/dL Glucose 195 H (75-100) mg/dL POC Glucose 158 H (70-105) Calcium 7.6 L (8.4-10.2) mg/dL Phosphorus (2.5-4.5) mg/dL Total Bilirubin (0.1-1.2) mg/dL Direct Bilirubin (0-0.2) mg/dL AST (5-40) units/L Albumin (3.9-5) g/dL 07/05/16 07/05/16 07/05/16 Range/Units 10:50 10:50 12:00 Lymphocytes % (Manual) (13.4-35.0) % Seg Neutrophils # Man (1.8-7.7) K/mm3 Lymphocytes # (Manual) (1.2-5.4) K/mm3 Monocytes # (Manual) (0.0-0.8) K/mm3 POC ABG pCO2 (35-45) Sodium (137-145) mmol/L Chloride (98-107) mmol/L Carbon Dioxide (22-30) mmol/L Creatinine (0.8-1.5) mg/dL Glucose (75-100) mg/dL POC Glucose 242 H (70-105) Calcium (8.4-10.2) mg/dL Phosphorus 2.3 L (2.5-4.5) mg/dL Total Bilirubin 2.5 H (0.1-1.2) mg/dL Direct Bilirubin 1.1 H (0-0.2) mg/dL AST 55 H (5-40) units/L Albumin 3.5 L 3.4 L (3.9-5) g/dL 07/05/16 07/05/16 07/05/16 Range/Units 13:57 16:13 18:26 Lymphocytes % (Manual) (13.4-35.0) % Seg Neutrophils # Man (1.8-7.7) K/mm3 Lymphocytes # (Manual) (1.2-5.4) K/mm3 Monocytes # (Manual) (0.0-0.8) K/mm3 POC ABG pCO2 (35-45) Sodium 112 L* 115 L* (137-145) mmol/L Chloride 77.4 L 80.6 L (98-107) mmol/L Carbon Dioxide 12 L 12 L (22-30) mmol/L Creatinine 0.6 L 0.4 L (0.8-1.5) mg/dL Glucose 207 H 186 H (75-100) mg/dL POC Glucose 139 H (70-105) Calcium 7.7 L 7.7 L (8.4-10.2) mg/dL Phosphorus (2.5-4.5) mg/dL Total Bilirubin (0.1-1.2) mg/dL Direct Bilirubin (0-0.2) mg/dL AST (5-40) units/L Albumin (3.9-5) g/dL 07/05/16 07/05/16 Range/Units 21:13 21:23 Lymphocytes % (Manual) (13.4-35.0) % Seg Neutrophils # Man (1.8-7.7) K/mm3 Lymphocytes # (Manual) (1.2-5.4) K/mm3 Monocytes # (Manual) (0.0-0.8) K/mm3 POC ABG pCO2 (35-45) Sodium 114 L* (137-145) mmol/L Chloride 81.7 L (98-107) mmol/L Carbon Dioxide 14 L (22-30) mmol/L Creatinine 0.6 L (0.8-1.5) mg/dL Glucose 182 H (75-100) mg/dL POC Glucose 154 H (70-105) Calcium 7.7 L (8.4-10.2) mg/dL Phosphorus (2.5-4.5) mg/dL Total Bilirubin (0.1-1.2) mg/dL Direct Bilirubin (0-0.2) mg/dL AST (5-40) units/L Albumin (3.9-5) g/dL
[2016-07-06] MEDS ORDERED: NACL 0.9% 500 ML IV SCH (05:00)
[2016-07-06 05:37] LABS: ISTAT Base Excess -2; ISTAT HCO3 21.7; ISTAT PCO2 31.7 (35-45); ISTAT PH 7.443 (7.35-7.45); ISTAT PO2 350 (80-105); ISTAT SO2 100; ISTAT TCO2 23
[2016-07-06 06:16] LABS: Basophils % (Auto) 0.1 % (0.0-1.8); Mean Corpuscular HGB Conc 36 % (32-34); Mean Corpuscular Hemoglobin 31 pg (28-32); Mean Corpuscular Volume 86 fl (84-94); Platelet Count 158 K/mm3 (140-440); Red Blood Count 4.62 M/mm3 (3.65-5.03); Red Cell Distribution Width 13.1 % (13.2-15.2); White Blood Count 13.7 K/mm3 (4.5-11.0)
[2016-07-06 06:19] LABS: Hematocrit 39.7 % (35.5-45.6); Hemoglobin 14.3 gm/dl (11.8-15.2)
[2016-07-06 06:37] LABS: Anion Gap 19 mmol/L; BUN/Creatinine Ratio 23.33; Blood Urea Nitrogen 14 mg/dL (9-20); Calcium 7.9 mg/dL (8.4-10.2); Carbon Dioxide 19 mmol/L (22-30); Glucose 189 mg/dL (75-100); Magnesium 2.1 mg/dL (1.7-2.3); Sodium 122 mmol/L (137-145)
[2016-07-06] MEDS ORDERED: DIPRIVAN 10 MG/ML IV ONE (08:00)
--- NOTE | 2016-07-06 08:33 | Progress Note ---
Assessment and Plan - Patient Problems (1) Hyponatremia Current Visit: Yes Status: Acute Plan to address problem: Hyponatremia in the setting of heavy alcohol consumption and decreased PO intake. Sodium level is improving with IV fluids. Monitor sodium level. (2) Metabolic acidosis Current Visit: Yes Status: Acute Plan to address problem: Improving. (3) Hypokalemia Current Visit: Yes Status: Acute (4) Respiratory failure Current Visit: Yes Status: Acute Plan to address problem: Patient is intuabted and on vent. (5) Alcohol intoxication Current Visit: Yes Status: Acute Qualifiers: Complication of substance-induced condition: uncomplicated Qualified Code(s ): F10.120 - Alcohol abuse with intoxication, uncomplicated (6) DM type 2 (diabetes mellitus, type 2) Current Visit: Yes Status: Acute Subjective Date of service: 07/06/16 Interval history: Patient is intubated. Objective - Vital Signs Vital signs: Vital Signs - 12hr 07/05/16 07/06/16 07/06/16 21:54 00:00 01:46 Temperature 100.9 F H Pulse Rate 124 H Pulse Rate [ 140 H Posterior Throughout] Respiratory 25 H Rate Respiratory 34 H Rate [Posterior Throughout] Blood Pressure 131/91 O2 Sat by Pulse 96 Oximetry 07/06/16 07/06/16 07/06/16 01:56 04:00 04:14 Temperature 100.2 F H Pulse Rate 116 H Pulse Rate [ 147 H Posterior Throughout] Respiratory Rate Respiratory 23 Rate [Posterior Throughout] Blood Pressure 127/74 O2 Sat by Pulse 98 Oximetry 07/06/16 07/06/16 07/06/16 04:20 05:46 07:07 Temperature Pulse Rate 145 H 116 H 116 H Pulse Rate [ Posterior Throughout] Respiratory Rate Respiratory Rate [Posterior Throughout] Blood Pressure 167/89 111/75 121/76 O2 Sat by Pulse 97 97 Oximetry 07/06/16 07/06/16 07/06/16 07:12 07:27 08:00 Temperature 99.8 F H Pulse Rate Pulse Rate [ 116 H 118 H Posterior Throughout] Respiratory Rate Respiratory 19 19 Rate [Posterior Throughout] Blood Pressure O2 Sat by Pulse Oximetry - General Appearance General appearance: well-developed, well-nourished, obese, sedated on ventilator (FiO2 50%), intubated EENT: PERRL Neck: no carotid bruit, supple Respiratory: Present: Other (coarse breath sounds) Cardiology: regular, S1S2, no murmurs Gastrointestinal: normoactive bowel sounds, no tenderness, no distended, no guarding Integumentary: no rash Neurologic: other (sedated) Musculoskeletal: other (no edema) Psychiatric: other (sedated) - Lab 07/06/16 06:06 07/06/16 06:06 Most recent lab results Calcium 7.9 mg/dL (8.4-10.2) L 07/06/16 06:06 Phosphorus 2.0 mg/dL (2.5-4.5) L 07/06/16 06:06 Magnesium 2.1 mg/dL (1.7-2.3) 07/06/16 06:06
[2016-07-06] MEDS ORDERED: QUELICIN ONE (08:34)
[2016-07-06] MEDS ORDERED: KPHOS 15 MMOL in NACL 0.9% 250ML 250 ML IV ONE (09:53)
[2016-07-06] MEDS: NACL 0.9% 1000 ML 1,000 ML IV SCH (10:03)
[2016-07-06] MEDS: LOVENOX SUB-Q SCH (10:04)
[2016-07-06] MEDS: PEPCID IV SCH ×2 (10:05→22:45)
--- NOTE | 2016-07-06 10:13 | Progress Note ---
Assessment and Plan Acute hypoxic respiratory failure on MVS * Likely due to delirium tremens, with possible aspiration. Did not tolerated BIPAP and was intubated for failed NIPPV * Vent settings- AC-VC 18/500/5/50% with adequate gas excchange. * Lung protective strategies * HOB >30, aspiration precautions * Initiate enteral feeding, with accucheck and glycemic control * Araujo catheter * Bronchodilators with airway clearance techniques * VTE/Stress ulcer prophylaxis * SBTs and SATs to be initiated in the morning * Analgesia and Sedation * Wean off as tolerated Alcohol intoxication with delirium tremens * cont Patient is on CIWA Severe hyponatremia- probably related to alcohhol and intravascular volume depletion * s/p 250 mL of 3% on admission * cont BMP every 4 hours * Nephrology following, sodium level improving Leukocytosis, likely stress induced SIRS, r/o infection * On IV Zosyn for possible aspiration * Blood culture so far negative * De-escalate antibiotics if no source of infection identified. Hypertension * Currently acceptable control, probably related to alcohol withdrawal DVT prophylaxis - Lovenox - Patient Problems (1) Respiratory failure Current Visit: Yes Status: Acute (2) Hyponatremia Current Visit: Yes Status: Acute (3) Alcohol intoxication Current Visit: Yes Status: Acute Qualifiers: Complication of substance-induced condition: uncomplicated Qualified Code(s ): F10.120 - Alcohol abuse with intoxication, uncomplicated Subjective Date of service: 07/06/16 Interval history: This is 51-year-old male presented to the emergency department via EMS for evaluation of altered mental status. Past medical history of diabetes and HTN Per report, the patient has been drinking alcohol heavily for the past 6 days. There has been nausea and vomiting. Patient electrolytes showed severe hyponatremia. No documented drug allergies. Patient had been placed on NIPPV but required intubation and mechanical ventilatory support for de-saturations and encephalopathy this morning Objective - Exam Narrative Exam: GENERAL: well-developed obese male lying on bed appeared to be in no discomfort. HEENT: Normocephalic. Atraumatic. No conjunctival congestion or icterus. Patient has moist mucous membranes. His face appears to be plethoric with diaphoresis. NECK: Supple. Trachea midline. ET tube on place CHEST/LUNGS: Restricted breathing sound auscultated bilaterally, breathing nonlabored. No crackles or rhonchi. HEART/CARDIOVASCULAR: Tachycardic. S1 and S2 positive. ABDOMEN: Abdomen is soft, nontender. Patient has normal bowel sounds. SKIN: There is no rash. Warm and dry. NEURO: No focal motor deficit. Follows command. MUSCULOSKELETAL: No joint effusion or tenderness. EXTREMITY: No edema, no cyanosis or clubbing. Vital Signs - 12hr 07/05/16 07/06/16 07/06/16 23:00 00:00 01:00 Temperature 100.9 F H Pulse Rate 146 H 137 H 138 H Pulse Rate [ Left Radial] Pulse Rate [ Posterior Throughout] Respiratory 19 29 H 17 Rate Respiratory Rate [Posterior Throughout] Blood Pressure 147/84 159/87 144/83 O2 Sat by Pulse 98 93 93 Oximetry 07/06/16 07/06/16 07/06/16 01:46 01:56 02:00 Temperature Pulse Rate 147 H Pulse Rate [ Left Radial] Pulse Rate [ 140 H 147 H Posterior Throughout] Respiratory 39 H Rate Respiratory 34 H 23 Rate [Posterior Throughout] Blood Pressure 144/83 O2 Sat by Pulse 94 Oximetry 07/06/16 07/06/16 07/06/16 03:00 04:00 04:14 Temperature 100.2 F H Pulse Rate 140 H 116 H 116 H Pulse Rate [ 145 H Left Radial] Pulse Rate [ Posterior Throughout] Respiratory 34 H 25 H Rate Respiratory Rate [Posterior Throughout] Blood Pressure 130/108 125/83 127/74 O2 Sat by Pulse 94 96 98 Oximetry 07/06/16 07/06/16 07/06/16 04:20 05:00 05:46 Temperature Pulse Rate 145 H 119 H 116 H Pulse Rate [ Left Radial] Pulse Rate [ Posterior Throughout] Respiratory 22 Rate Respiratory Rate [Posterior Throughout] Blood Pressure 167/89 112/77 111/75 O2 Sat by Pulse 97 97 Oximetry 07/06/16 07/06/16 07/06/16 06:00 07:00 07:07 Temperature Pulse Rate 116 H 113 H 116 H Pulse Rate [ Left Radial] Pulse Rate [ Posterior Throughout] Respiratory 18 20 Rate Respiratory Rate [Posterior Throughout] Blood Pressure 116/73 121/76 121/76 O2 Sat by Pulse 94 95 97 Oximetry 07/06/16 07/06/16 07/06/16 07:12 07:27 08:00 Temperature 99.8 F H Pulse Rate 116 H Pulse Rate [ Left Radial] Pulse Rate [ 116 H 118 H Posterior Throughout] Respiratory 19 Rate Respiratory 19 19 Rate [Posterior Throughout] Blood Pressure 116/76 O2 Sat by Pulse 95 Oximetry 07/06/16 09:00 Temperature Pulse Rate 118 H Pulse Rate [ Left Radial] Pulse Rate [ Posterior Throughout] Respiratory 18 Rate Respiratory Rate [Posterior Throughout] Blood Pressure 116/68 O2 Sat by Pulse 93 Oximetry Constitutional: lethargic, asleep Eyes: non-icteric ENT: oropharynx moist Neck: supple, no JVD Ascultation: Bilateral: diminished breath sounds Cardiovascular: regular rate and rhythm Gastrointestinal: normoactive bowel sounds, soft, non-tender Integumentary: normal Extremities: no cyanosis, no edema Neurologic: unable to assess Psychiatric: other (Unable assess, Patient intoxicated.) CBC and BMP: 07/06/16 06:06 07/06/16 19:03 ABG, PT/INR, D-dimer: ABG POC ABG pH 7.443 (7.35-7.45) 07/06/16 05:03 POC ABG pCO2 31.7 (35-45) L 07/06/16 05:03 POC ABG pO2 350 (80-105) H 07/06/16 05:03 POC ABG HCO3 21.7 07/06/16 05:03 POC ABG Total CO2 23 07/06/16 05:03 POC ABG O2 Sat 100 07/06/16 05:03 Abnormal lab findings: Abnormal Labs 07/05/16 07/05/16 07/05/16 02:11 03:27 03:27 WBC 20.7 H RBC 5.17 H Hgb 15.7 H MCHC 35 H RDW 13.1 L Lymph % (Auto) Lymph # Seg Neutrophils % Lymphocytes % (Manual) 4.0 L Seg Neutrophils # Seg Neutrophils # Man 12.6 H Lymphocytes # (Manual) 0.8 L Monocytes # (Manual) 1.4 H POC ABG pCO2 POC ABG pO2 Sodium 110 L* 110 L* Chloride 72.5 L Carbon Dioxide 13 L Creatinine 0.5 L Glucose 190 H POC Glucose Calcium 8.1 L Phosphorus Total Bilirubin Direct Bilirubin AST Albumin 07/05/16 07/05/16 07/05/16 07:24 07:32 10:45 WBC RBC Hgb MCHC RDW Lymph % (Auto) Lymph # Seg Neutrophils % Lymphocytes % (Manual) Seg Neutrophils # Seg Neutrophils # Man Lymphocytes # (Manual) Monocytes # (Manual) POC ABG pCO2 21.2 L POC ABG pO2 Sodium 115 L* Chloride 75.4 L Carbon Dioxide 12 L Creatinine 0.5 L Glucose 177 H POC Glucose 158 H Calcium 7.8 L Phosphorus Total Bilirubin Direct Bilirubin AST Albumin 07/05/16 07/05/16 07/05/16 10:50 10:50 10:50 WBC RBC Hgb MCHC RDW Lymph % (Auto) Lymph # Seg Neutrophils % Lymphocytes % (Manual) Seg Neutrophils # Seg Neutrophils # Man Lymphocytes # (Manual) Monocytes # (Manual) POC ABG pCO2 POC ABG pO2 Sodium 112 L* Chloride 76.7 L Carbon Dioxide 12 L Creatinine 0.5 L Glucose 195 H POC Glucose Calcium 7.6 L Phosphorus 2.3 L Total Bilirubin 2.5 H Direct Bilirubin 1.1 H AST 55 H Albumin 3.5 L 3.4 L 07/05/16 07/05/16 07/05/16 12:00 13:57 16:13 WBC RBC Hgb MCHC RDW Lymph % (Auto) Lymph # Seg Neutrophils % Lymphocytes % (Manual) Seg Neutrophils # Seg Neutrophils # Man Lymphocytes # (Manual) Monocytes # (Manual) POC ABG pCO2 POC ABG pO2 Sodium 112 L* Chloride 77.4 L Carbon Dioxide 12 L Creatinine 0.6 L Glucose 207 H POC Glucose 242 H 139 H Calcium 7.7 L Phosphorus Total Bilirubin Direct Bilirubin AST Albumin 07/05/16 07/05/16 07/05/16 18:26 21:13 21:23 WBC RBC Hgb MCHC RDW Lymph % (Auto) Lymph # Seg Neutrophils % Lymphocytes % (Manual) Seg Neutrophils # Seg Neutrophils # Man Lymphocytes # (Manual) Monocytes # (Manual) POC ABG pCO2 POC ABG pO2 Sodium 115 L* 114 L* Chloride 80.6 L 81.7 L Carbon Dioxide 12 L 14 L Creatinine 0.4 L 0.6 L Glucose 186 H 182 H POC Glucose 154 H Calcium 7.7 L 7.7 L Phosphorus Total Bilirubin Direct Bilirubin AST Albumin 07/06/16 07/06/16 07/06/16 05:03 06:06 06:06 WBC 13.7 H RBC Hgb MCHC 36 H RDW 13.1 L Lymph % (Auto) 6.9 L Lymph # 0.9 L Seg Neutrophils % 87.0 H Lymphocytes % (Manual) Seg Neutrophils # 11.9 H Seg Neutrophils # Man Lymphocytes # (Manual) Monocytes # (Manual) POC ABG pCO2 31.7 L POC ABG pO2 350 H Sodium 122 L D Chloride 88.0 L Carbon Dioxide 19 L Creatinine 0.6 L Glucose 189 H POC Glucose Calcium 7.9 L Phosphorus 2.0 L Total Bilirubin Direct Bilirubin AST Albumin Chest x-ray: image reviewed
--- NOTE | 2016-07-06 10:26 | Progress Note ---
Assessment and Plan Assessment and plan: Acute hypoxic respiratory failure * Likely due to delirium tremens * Continue vent management by pulmonary * Periodic breathing treatment * Monitored with ABG * Wean off as tolerated Alcohol intoxication with delirium tremens * cont Patient is on CIWA * Currently getting sedated with Versed * Start on tube feeding Severe hyponatremia * Rate And Cost Analyst was consulted and given him 250 mL of 3% on admission * cont BMP every 4 hours * IV normal saline to increase the sodium * Nephrology following, sodium level improved Leukocytosis, likely stress induced SIRS, r/o infection * On IV Zosyn for possible underlying infection * Blood culture so far negative Hypertension * Blood pressure is uncontrolled initially and was placed on clonidine patch * BP normotensive now and getting IV fluid to prevent from dehydration DVT prophylaxis - Lovenox Disposition - monitor at ICU The high probability of a clinically significant, sudden or life threatening deterioration of the system(s) required my full and direct attention, intervention and personal management. The aggregate critical care time was [35] minutes. This time is in addition to time spent performing reported procedures but includes the following: [x] Data Review and interpretation [x] Patient assessment and monitoring of vital signs [x] Documentation [x] Medication orders and management History Interval history: Patient seen and examined. Medical records and medication list reviewed. Patient was placed on BiPAP last night but eventually he got intubated this morning Patient currently on fentanyl and Versed for sedation Sodium level improved today, still on CIWA protocol. Hospitalist Physical - Physical exam Narrative exam: GENERAL: well-developed obese male lying on bed appeared to be in no discomfort. HEENT: Normocephalic. Atraumatic. No conjunctival congestion or icterus. Patient has moist mucous membranes. His face appears to be plethoric with diaphoresis. NECK: Supple. Trachea midline. ET tube on place CHEST/LUNGS: Restricted breathing sound auscultated bilaterally, breathing nonlabored. No crackles or rhonchi. HEART/CARDIOVASCULAR: Tachycardic. S1 and S2 positive. ABDOMEN: Abdomen is soft, nontender. Patient has normal bowel sounds. SKIN: There is no rash. Warm and dry. NEURO: No focal motor deficit. Follows command. MUSCULOSKELETAL: No joint effusion or tenderness. EXTRIMITY: No edema, no cyanosis or clubbing. PSYCH: Cooperative. - Constitutional Vitals: Temp Pulse Resp BP Pulse Ox 99.8 F H 118 H 18 116/68 93 07/06/16 08:00 07/06/16 09:00 07/06/16 09:00 07/06/16 09:00 07/06/16 09:00 Results - Labs CBC & Chem 7: 07/06/16 06:06 07/06/16 15:17 Labs: Laboratory Last Values WBC 13.7 K/mm3 (4.5-11.0) H 07/06/16 06:06 RBC 4.62 M/mm3 (3.65-5.03) 07/06/16 06:06 Hgb 14.3 gm/dl (11.8-15.2) 07/06/16 06:06 Hct 39.7 % (35.5-45.6) 07/06/16 06:06 MCV 86 fl (84-94) 07/06/16 06:06 MCH 31 pg (28-32) 07/06/16 06:06 MCHC 36 % (32-34) H 07/06/16 06:06 RDW 13.1 % (13.2-15.2) L 07/06/16 06:06 Plt Count 158 K/mm3 (140-440) 07/06/16 06:06 Lymph % (Auto) 6.9 % (13.4-35.0) L 07/06/16 06:06 [place] % (Auto) 6.0 % (0.0-7.3) 07/06/16 06:06 Eos % (Auto) 0.0 % (0.0-4.3) 07/06/16 06:06 Baso % (Auto) 0.1 % (0.0-1.8) 07/06/16 06:06 Lymph # 0.9 K/mm3 (1.2-5.4) L 07/06/16 06:06 [place] # 0.8 K/mm3 (0.0-0.8) 07/06/16 06:06 Eos # 0.0 K/mm3 (0.0-0.4) 07/06/16 06:06 Baso # 0.0 K/mm3 (0.0-0.1) 07/06/16 06:06 Add Manual Diff Complete 07/05/16 03:27 Total Counted 100 07/05/16 03:27 Seg Neutrophils % 87.0 % (40.0-70.0) H 07/06/16 06:06 Seg Neuts % (Manual) 61.0 % (40.0-70.0) 07/05/16 03:27 Band Neutrophils % 28.0 % 07/05/16 03:27 Lymphocytes % (Manual) 4.0 % (13.4-35.0) L 07/05/16 03:27 Reactive Lymphs % (Man) 0 % 07/05/16 03:27 Monocytes % (Manual) 7.0 % (0.0-7.3) 07/05/16 03:27 Eosinophils % (Manual) 0 % (0.0-4.3) 07/05/16 03:27 Basophils % (Manual) 0 % (0.0-1.8) 07/05/16 03:27 Metamyelocytes % 0 % 07/05/16 03:27 Myelocytes % 0 % 07/05/16 03:27 Promyelocytes % 0 % 07/05/16 03:27 Blast Cells % 0 % 07/05/16 03:27 Nucleated RBC % Not Reportable 07/05/16 03:27 Seg Neutrophils # 11.9 K/mm3 (1.8-7.7) H 07/06/16 06:06 Seg Neutrophils # Man 12.6 K/mm3 (1.8-7.7) H 07/05/16 03:27 Band Neutrophils # 5.8 K/mm3 07/05/16 03:27 Lymphocytes # (Manual) 0.8 K/mm3 (1.2-5.4) L 07/05/16 03:27 Abs React Lymphs (Man) 0.0 K/mm3 07/05/16 03:27 Monocytes # (Manual) 1.4 K/mm3 (0.0-0.8) H 07/05/16 03:27 Eosinophils # (Manual) 0.0 K/mm3 (0.0-0.4) 07/05/16 03:27 Basophils # (Manual) 0.0 K/mm3 (0.0-0.1) 07/05/16 03:27 Metamyelocytes # 0.0 K/mm3 07/05/16 03:27 Myelocytes # 0.0 K/mm3 07/05/16 03:27 Promyelocytes # 0.0 K/mm3 07/05/16 03:27 Blast Cells # 0.0 K/mm3 07/05/16 03:27 WBC Morphology Not Reportable 07/05/16 03:27 Hypersegmented Neuts Not Reportable 07/05/16 03:27 Hyposegmented Neuts Not Reportable 07/05/16 03:27 Hypogranular Neuts Not Reportable 07/05/16 03:27 Smudge Cells Not Reportable 07/05/16 03:27 Toxic Granulation Not Reportable 07/05/16 03:27 Toxic Vacuolation Not Reportable 07/05/16 03:27 Dohle Bodies Not Reportable 07/05/16 03:27 Pelger-Huet Anomaly Not Reportable 07/05/16 03:27 Marques Rods Not Reportable 07/05/16 03:27 Platelet Estimate Appears normal 07/05/16 03:27 Clumped Platelets Not Reportable 07/05/16 03:27 Plt Clumps, EDTA Not Reportable 07/05/16 03:27 Large Platelets Not Reportable 07/05/16 03:27 Giant Platelets Not Reportable 07/05/16 03:27 Platelet Satelliting Not Reportable 07/05/16 03:27 Plt Morphology Comment Not Reportable 07/05/16 03:27 RBC Morphology Not Reportable 07/05/16 03:27 Dimorphic RBCs Not Reportable 07/05/16 03:27 Polychromasia Not Reportable 07/05/16 03:27 Hypochromasia Few 07/05/16 03:27 Poikilocytosis Not Reportable 07/05/16 03:27 Anisocytosis Not Reportable 07/05/16 03:27 Microcytosis Not Reportable 07/05/16 03:27 Macrocytosis Not Reportable 07/05/16 03:27 Spherocytes Not Reportable 07/05/16 03:27 Pappenheimer Bodies Not Reportable 07/05/16 03:27 Sickle Cells Not Reportable 07/05/16 03:27 Target Cells Not Reportable 07/05/16 03:27 Tear Drop Cells Not Reportable 07/05/16 03:27 Ovalocytes Not Reportable 07/05/16 03:27 Helmet Cells Not Reportable 07/05/16 03:27 [place] Bodies Not Reportable 07/05/16 03:27 [place] Rings Not Reportable 07/05/16 03:27 [place] Cells Not Reportable 07/05/16 03:27 Bite Cells Not Reportable 07/05/16 03:27 Crenated Cell Not Reportable 07/05/16 03:27 Elliptocytes Not Reportable 07/05/16 03:27 Acanthocytes (Spur) Not Reportable 07/05/16 03:27 Rouleaux Not Reportable 07/05/16 03:27 Hemoglobin C Crystals Not Reportable 07/05/16 03:27 Schistocytes Not Reportable 07/05/16 03:27 Malaria parasites Not Reportable 07/05/16 03:27 [place] Bodies Not Reportable 07/05/16 03:27 Hem Pathologist Commnt No 07/05/16 03:27 POC ABG pH 7.443 (7.35-7.45) 07/06/16 05:03 POC ABG pCO2 31.7 (35-45) L 07/06/16 05:03 POC ABG pO2 350 (80-105) H 07/06/16 05:03 POC ABG HCO3 21.7 07/06/16 05:03 POC ABG Total CO2 23 07/06/16 05:03 POC ABG O2 Sat 100 07/06/16 05:03 POC ABG Base Excess -2 07/06/16 05:03 FiO2 100 % 07/06/16 05:03 Sodium 122 mmol/L (137-145) L D 07/06/16 06:06 Potassium 4.0 mmol/L (3.6-5.0) 07/06/16 06:06 Chloride 88.0 mmol/L (98-107) L 07/06/16 06:06 Carbon Dioxide 19 mmol/L (22-30) L 07/06/16 06:06 Anion Gap 19 mmol/L 07/06/16 06:06 BUN 14 mg/dL (9-20) 07/06/16 06:06 Creatinine 0.6 mg/dL (0.8-1.5) L 07/06/16 06:06 Estimated GFR > 60 ml/min 07/06/16 06:06 BUN/Creatinine Ratio 23.33 % 07/06/16 06:06 Glucose 189 mg/dL (75-100) H 07/06/16 06:06 POC Glucose 154 (70-105) H 07/05/16 21:23 Calcium 7.9 mg/dL (8.4-10.2) L 07/06/16 06:06 Phosphorus 2.0 mg/dL (2.5-4.5) L 07/06/16 06:06 Magnesium 2.1 mg/dL (1.7-2.3) 07/06/16 06:06 Total Bilirubin 2.5 mg/dL (0.1-1.2) H 07/05/16 10:50 Direct Bilirubin 1.1 mg/dL (0-0.2) H 07/05/16 10:50 Indirect Bilirubin 1.4 mg/dL 07/05/16 10:50 AST 55 units/L (5-40) H 07/05/16 10:50 ALT 55 units/L (7-56) 07/05/16 10:50 Alkaline Phosphatase 72 units/L (35-129) 07/05/16 10:50 Ammonia 58.0 umol/L (25-60) 07/05/16 10:50 Total Protein 6.3 g/dL (6.3-8.2) 07/05/16 10:50 Albumin 3.4 g/dL (3.9-5) L 07/05/16 10:50 Albumin/Globulin Ratio 1.2 % 07/05/16 10:50 Urine Color Yellow (Yellow) 07/04/16 23:20 Urine Turbidity Clear (Clear) 07/04/16 23:20 Urine pH 6.0 (5.0-7.0) 07/04/16 23:20 Ur Specific [place] 1.024 (1.003-1.030) 07/04/16 23:20 Urine Protein <15 mg/dl mg/dL (Negative) 07/04/16 23:20 Urine Glucose (UA) >=500 mg/dL (Negative) 07/04/16 23:20 Urine Ketones 80 mg/dL (Negative) 07/04/16 23:20 Urine Blood Mod (Negative) 07/04/16 23:20 Urine Nitrite Neg (Negative) 07/04/16 23:20 Urine Bilirubin Neg (Negative) 07/04/16 23:20 Urine Urobilinogen < 2.0 mg/dL (<2.0) 07/04/16 23:20 Ur Leukocyte Esterase Neg (Negative) 07/04/16 23:20 Urine WBC (Auto) 1.0 /HPF (0.0-6.0) 07/04/16 23:20 Urine RBC (Auto) 1.0 /HPF (0.0-6.0) 07/04/16 23:20 Urine Opiates Screen Presumptive negative 07/04/16 23:20 Urine Methadone Screen Presumptive negative 07/04/16 23:20 Ur Barbiturates Screen Presumptive negative 07/04/16 23:20 Ur Phencyclidine Scrn Presumptive negative 07/04/16 23:20 Ur Amphetamines Screen Presumptive negative 07/04/16 23:20 U Benzodiazepines Scrn Presumptive negative 07/04/16 23:20 Urine Cocaine Screen Presumptive negative 07/04/16 23:20 U Marijuana (THC) Screen Presumptive negative 07/04/16 23:20 Drugs of Abuse Note Disclamer 07/04/16 23:20 Plasma/Serum Alcohol 0.17 gm% (0-0.07) H 07/04/16 23:27
[2016-07-06] MEDS: ATIVAN IV PRN (11:29)
[2016-07-06] MEDS: fentaNYL DRIP Premix 100 ML IV SCH (11:29)
[2016-07-06] MEDS: VERSED/NS 100MG/100ML 100 ML IV SCH (11:48)
[2016-07-06] MEDS ORDERED: PNEUMOVAX 23 IM ONE (12:00)
[2016-07-06] MEDS ORDERED: FLUARIX QUAD 2016-2017(36 MOS+) IM ONE (12:00)
[2016-07-06] MEDS ORDERED: SODIUM BICARBONATE FEEDTUBE PRN (12:44)
[2016-07-06] MEDS ORDERED: PANCREAZE DR 10,500 UNIT FEEDTUBE PRN (12:44)
[2016-07-06] MEDS ORDERED: SIMPLE SYRUP FEEDTUBE PRN ×2 (12:44)
--- NOTE | 2016-07-06 15:07 | XRay Report ---
SUPINE KUB: History: Dobbhoff tube placement. The abdominal gas pattern is unremarkable. No masses or organomegaly is identified and there is no gross evidence of free air or fluid. No significant soft tissue calcifications are noted. A Dobbhoff tube has been inserted which terminates in the duodenal bulb. IMPRESSION: Normal study.
[2016-07-06 15:53] LABS: Anion Gap 17 mmol/L; BUN/Creatinine Ratio 21.42; Blood Urea Nitrogen 15 mg/dL (9-20); Calcium 7.6 mg/dL (8.4-10.2); Carbon Dioxide 20 mmol/L (22-30); Chloride 92.1 mmol/L (98-107); Glucose 184 mg/dL (75-100); Potassium 3.5 mmol/L (3.6-5.0); Sodium 126 mmol/L (137-145)
[2016-07-07] MEDS: ZOSYN/NS 3.375GM/50ML 50 ML IV SCH ×2 (00:45→06:05)
[2016-07-07] MEDS: fentaNYL DRIP Premix 100 ML IV SCH ×2 (00:47→09:30)
[2016-07-07] MEDS: DUONEB 0.5 MG-3 MG/3 ML SOLN IH SCH ×4 (01:53→20:33)
[2016-07-07 05:21] LABS: Anion Gap 16 mmol/L; BUN/Creatinine Ratio 27.14; Blood Urea Nitrogen 19 mg/dL (9-20); Calcium 7.8 mg/dL (8.4-10.2); Carbon Dioxide 22 mmol/L (22-30); Chloride 95.9 mmol/L (98-107); Glucose 165 mg/dL (75-100); Phosphorous 1.8 mg/dL (2.5-4.5); Potassium 3.7 mmol/L (3.6-5.0); Sodium 130 mmol/L (137-145)
[2016-07-07] MEDS ORDERED: KPHOS 30 MMOL in NACL 0.9% 500 ML 500 ML IV ONE (05:25)
--- NOTE | 2016-07-07 05:26 | Progress Note ---
Assessment and Plan - Patient Problems (1) Hyponatremia Current Visit: Yes Status: Acute Plan to address problem: Hyponatremia in the setting of heavy alcohol consumption and decreased PO intake. Sodium level has improved. Will follow labs only. (2) Metabolic acidosis Current Visit: Yes Status: Acute Plan to address problem: Improved. (3) Hypokalemia Current Visit: Yes Status: Acute Plan to address problem: K level is better. Replete K and Phos. (4) Respiratory failure Current Visit: Yes Status: Acute Plan to address problem: Patient is intuabted and on vent. (5) Alcohol intoxication Current Visit: Yes Status: Acute Qualifiers: Complication of substance-induced condition: uncomplicated Qualified Code(s ): F10.120 - Alcohol abuse with intoxication, uncomplicated (6) DM type 2 (diabetes mellitus, type 2) Current Visit: Yes Status: Acute Subjective Date of service: 07/07/16 Interval history: Patient is intubated. Objective - Vital Signs Vital signs: Vital Signs - 12hr 07/06/16 07/06/16 07/06/16 18:00 18:32 19:00 Temperature Pulse Rate 103 H 109 H 105 H Pulse Rate [ Anterior Bilateral] Pulse Rate [ Left Radial] Respiratory 21 13 14 Rate Respiratory Rate [Anterior Bilateral] Blood Pressure 99/62 113/75 109/73 O2 Sat by Pulse 98 98 99 Oximetry 07/06/16 07/06/16 07/06/16 19:21 19:31 19:46 Temperature Pulse Rate 107 H Pulse Rate [ 105 H 107 H Anterior Bilateral] Pulse Rate [ Left Radial] Respiratory Rate Respiratory 19 19 Rate [Anterior Bilateral] Blood Pressure 105/66 O2 Sat by Pulse 98 Oximetry 07/06/16 07/06/16 07/06/16 20:00 20:13 21:00 Temperature 98.7 F Pulse Rate 115 H 106 H Pulse Rate [ Anterior Bilateral] Pulse Rate [ 140 H Left Radial] Respiratory 15 14 Rate Respiratory Rate [Anterior Bilateral] Blood Pressure 107/67 100/64 O2 Sat by Pulse 98 Oximetry 07/06/16 07/06/16 07/06/16 22:00 23:00 23:10 Temperature Pulse Rate 107 H 106 H 109 H Pulse Rate [ Anterior Bilateral] Pulse Rate [ Left Radial] Respiratory 15 18 19 Rate Respiratory Rate [Anterior Bilateral] Blood Pressure 96/64 100/68 100/68 O2 Sat by Pulse 97 Oximetry 07/06/16 07/07/16 07/07/16 23:33 00:00 00:01 Temperature 99.5 F Pulse Rate 108 H 105 H Pulse Rate [ Anterior Bilateral] Pulse Rate [ Left Radial] Respiratory 18 Rate Respiratory Rate [Anterior Bilateral] Blood Pressure 103/70 101/68 O2 Sat by Pulse 98 98 Oximetry 07/07/16 07/07/16 07/07/16 01:00 01:08 01:50 Temperature Pulse Rate 106 H 106 H 112 H Pulse Rate [ Anterior Bilateral] Pulse Rate [ Left Radial] Respiratory 18 16 11 L Rate Respiratory Rate [Anterior Bilateral] Blood Pressure 112/67 112/67 109/73 O2 Sat by Pulse 98 92 Oximetry 07/07/16 07/07/16 07/07/16 01:53 02:00 02:02 Temperature Pulse Rate 110 H 110 H Pulse Rate [ 111 H Anterior Bilateral] Pulse Rate [ Left Radial] Respiratory 16 15 Rate Respiratory 18 Rate [Anterior Bilateral] Blood Pressure 105/71 109/73 O2 Sat by Pulse 98 99 Oximetry 07/07/16 07/07/16 07/07/16 02:08 03:00 04:18 Temperature 99.0 F Pulse Rate 109 H Pulse Rate [ 113 H Anterior Bilateral] Pulse Rate [ Left Radial] Respiratory 18 Rate Respiratory 18 Rate [Anterior Bilateral] Blood Pressure 103/63 O2 Sat by Pulse 96 Oximetry 07/07/16 05:10 Temperature Pulse Rate 109 H Pulse Rate [ Anterior Bilateral] Pulse Rate [ Left Radial] Respiratory Rate Respiratory Rate [Anterior Bilateral] Blood Pressure 102/64 O2 Sat by Pulse 97 Oximetry - General Appearance General appearance: well-developed, obese, sedated on ventilator (FiO2 50%), intubated EENT: PERRL Neck: no carotid bruit, supple Respiratory: Present: Other (coarse breath sounds) Cardiology: regular, S1S2, no murmurs Gastrointestinal: normoactive bowel sounds, no tenderness, no distended Integumentary: no rash, warm and dry Neurologic: other (sedated) Musculoskeletal: other (no edema) Psychiatric: other (sedated) - Lab 07/06/16 06:06 07/07/16 04:04 Most recent lab results Calcium 7.8 mg/dL (8.4-10.2) L 07/07/16 04:04 Phosphorus 1.8 mg/dL (2.5-4.5) L 07/07/16 04:04 Magnesium 2.1 mg/dL (1.7-2.3) 07/06/16 06:06
[2016-07-07 05:58] LABS: ISTAT Base Excess -5; ISTAT HCO3 21.5; ISTAT PH 7.317 (7.35-7.45); ISTAT PO2 77 (80-105); ISTAT SO2 94; ISTAT TCO2 23
--- NOTE | 2016-07-07 07:15 | XRay Report ---
AP CHEST: HISTORY: Follow-up respiratory failure. FINDINGS: An endotracheal tube has been inserted since yesterday's exam which terminates 3 cm superior to the kyle. There is poor inspiration. Heart size and pulmonary vascularity are grossly normal. Mild right perihilar opacity is identified which could represent a developing infiltrate or atelectatic changes. The remainder of the lungs are clear. No pleural effusion or pneumothorax.
--- NOTE | 2016-07-07 08:29 | XRay Report ---
AP CHEST: HISTORY: Follow-up respiratory failure. FINDINGS: The endotracheal tube remains in good position. A feeding tube has been inserted which is followed to the distal stomach. There is slightly better aeration of the lungs on today's exam. Right perihilar prominence has resolved. No new consolidation, pleural effusion or pneumothorax is appreciated. Heart size is stable.
--- NOTE | 2016-07-07 09:57 | Progress Note ---
Assessment and Plan - Patient Problems (1) Respiratory failure Current Visit: Yes Status: Acute Plan to address problem: Lung protective strategies ARDS net protocol VAP bundle addressed HOB>30 with aspiration precautions Airway clearance techniques Enteric feeding, accucheck with glycemic control VTE and stress ulcer prophylaxis Sedation and analgesia. Agitation management Araujo catheter for accurate intake and output monitoring. (2) Hyponatremia Current Visit: Yes Status: Acute Plan to address problem: Continue with saline infusion. monitor BMPs and seizure prophylaxis (3) Alcohol intoxication Current Visit: Yes Status: Acute Qualifiers: Complication of substance-induced condition: uncomplicated Qualified Code(s ): F10.120 - Alcohol abuse with intoxication, uncomplicated Subjective Date of service: 07/07/16 Interval history: This is 51-year-old male presented to the emergency department via EMS for evaluation of altered mental status. Past medical history of diabetes and HTN Per report, the patient has been drinking alcohol heavily for the past 6 days. There has been nausea and vomiting. Patient electrolytes showed severe hyponatremia. No documented drug allergies. Patient had been placed on NIPPV but required intubation and mechanical ventilatory support for de-saturations and encephalopathy this morning Objective Vital Signs - 12hr 07/06/16 07/06/16 07/06/16 22:00 23:00 23:10 Temperature Pulse Rate 107 H 106 H 109 H Pulse Rate [ Anterior Bilateral] Pulse Rate [ Left Radial] Respiratory 15 18 19 Rate Respiratory Rate [Anterior Bilateral] Blood Pressure 96/64 100/68 100/68 O2 Sat by Pulse 97 Oximetry 07/06/16 07/07/16 07/07/16 23:33 00:00 00:01 Temperature 99.5 F Pulse Rate 108 H 105 H Pulse Rate [ Anterior Bilateral] Pulse Rate [ Left Radial] Respiratory 18 Rate Respiratory Rate [Anterior Bilateral] Blood Pressure 103/70 101/68 O2 Sat by Pulse 98 98 Oximetry 07/07/16 07/07/16 07/07/16 01:00 01:08 01:50 Temperature Pulse Rate 106 H 106 H 112 H Pulse Rate [ Anterior Bilateral] Pulse Rate [ Left Radial] Respiratory 18 16 11 L Rate Respiratory Rate [Anterior Bilateral] Blood Pressure 112/67 112/67 109/73 O2 Sat by Pulse 98 92 Oximetry 07/07/16 07/07/16 07/07/16 01:53 02:00 02:02 Temperature Pulse Rate 110 H 110 H Pulse Rate [ 111 H Anterior Bilateral] Pulse Rate [ Left Radial] Respiratory 16 15 Rate Respiratory 18 Rate [Anterior Bilateral] Blood Pressure 105/71 109/73 O2 Sat by Pulse 98 99 Oximetry 07/07/16 07/07/16 07/07/16 02:08 03:00 03:24 Temperature Pulse Rate 109 H 106 H Pulse Rate [ 113 H Anterior Bilateral] Pulse Rate [ Left Radial] Respiratory 18 18 Rate Respiratory 18 Rate [Anterior Bilateral] Blood Pressure 103/63 99/62 O2 Sat by Pulse 96 96 Oximetry 07/07/16 07/07/16 07/07/16 04:00 04:02 04:18 Temperature 99.0 F Pulse Rate 109 H Pulse Rate [ Anterior Bilateral] Pulse Rate [ 108 H Left Radial] Respiratory 18 Rate Respiratory Rate [Anterior Bilateral] Blood Pressure 101/63 O2 Sat by Pulse 98 95 Oximetry 07/07/16 07/07/16 07/07/16 05:00 05:10 06:00 Temperature Pulse Rate 110 H 109 H 108 H Pulse Rate [ Anterior Bilateral] Pulse Rate [ Left Radial] Respiratory 18 18 Rate Respiratory Rate [Anterior Bilateral] Blood Pressure 102/64 102/64 105/63 O2 Sat by Pulse 95 97 94 Oximetry 07/07/16 07/07/16 07/07/16 06:34 06:58 07:41 Temperature Pulse Rate 108 H 108 H Pulse Rate [ 114 H Anterior Bilateral] Pulse Rate [ Left Radial] Respiratory 18 18 Rate Respiratory 18 Rate [Anterior Bilateral] Blood Pressure 99/64 104/61 O2 Sat by Pulse 97 97 Oximetry 07/07/16 07/07/16 07:42 08:00 Temperature 100.6 F H Pulse Rate 105 H Pulse Rate [ Anterior Bilateral] Pulse Rate [ 104 H Left Radial] Respiratory 18 Rate Respiratory Rate [Anterior Bilateral] Blood Pressure 103/63 O2 Sat by Pulse 97 97 Oximetry Constitutional: lethargic, asleep Eyes: non-icteric ENT: oropharynx moist Neck: supple, no JVD Ascultation: Bilateral: diminished breath sounds Cardiovascular: regular rate and rhythm Gastrointestinal: normoactive bowel sounds, soft, non-tender Integumentary: normal Extremities: no cyanosis, no edema Neurologic: unable to assess Psychiatric: other (Unable assess, Patient intoxicated.) CBC and BMP: 07/06/16 06:06 07/09/16 09:28 ABG, PT/INR, D-dimer: ABG POC ABG pH 7.317 (7.35-7.45) L 07/07/16 05:25 POC ABG pCO2 42.0 (35-45) 07/07/16 05:25 POC ABG pO2 77 (80-105) L 07/07/16 05:25 POC ABG HCO3 21.5 07/07/16 05:25 POC ABG Total CO2 23 07/07/16 05:25 POC ABG O2 Sat 94 07/07/16 05:25 Abnormal lab findings: Abnormal Labs 07/05/16 07/05/16 07/05/16 02:11 03:27 03:27 WBC 20.7 H RBC 5.17 H Hgb 15.7 H MCHC 35 H RDW 13.1 L Lymph % (Auto) Lymph # Seg Neutrophils % Lymphocytes % (Manual) 4.0 L Seg Neutrophils # Seg Neutrophils # Man 12.6 H Lymphocytes # (Manual) 0.8 L Monocytes # (Manual) 1.4 H POC ABG pH POC ABG pCO2 POC ABG pO2 Sodium 110 L* 110 L* Potassium Chloride 72.5 L Carbon Dioxide 13 L Creatinine 0.5 L Glucose 190 H POC Glucose Calcium 8.1 L Phosphorus Total Bilirubin Direct Bilirubin AST Albumin 07/05/16 07/05/16 07/05/16 07:24 07:32 10:45 WBC RBC Hgb MCHC RDW Lymph % (Auto) Lymph # Seg Neutrophils % Lymphocytes % (Manual) Seg Neutrophils # Seg Neutrophils # Man Lymphocytes # (Manual) Monocytes # (Manual) POC ABG pH POC ABG pCO2 21.2 L POC ABG pO2 Sodium 115 L* Potassium Chloride 75.4 L Carbon Dioxide 12 L Creatinine 0.5 L Glucose 177 H POC Glucose 158 H Calcium 7.8 L Phosphorus Total Bilirubin Direct Bilirubin AST Albumin 07/05/16 07/05/16 07/05/16 10:50 10:50 10:50 WBC RBC Hgb MCHC RDW Lymph % (Auto) Lymph # Seg Neutrophils % Lymphocytes % (Manual) Seg Neutrophils # Seg Neutrophils # Man Lymphocytes # (Manual) Monocytes # (Manual) POC ABG pH POC ABG pCO2 POC ABG pO2 Sodium 112 L* Potassium Chloride 76.7 L Carbon Dioxide 12 L Creatinine 0.5 L Glucose 195 H POC Glucose Calcium 7.6 L Phosphorus 2.3 L Total Bilirubin 2.5 H Direct Bilirubin 1.1 H AST 55 H Albumin 3.5 L 3.4 L 07/05/16 07/05/16 07/05/16 12:00 13:57 16:13 WBC RBC Hgb MCHC RDW Lymph % (Auto) Lymph # Seg Neutrophils % Lymphocytes % (Manual) Seg Neutrophils # Seg Neutrophils # Man Lymphocytes # (Manual) Monocytes # (Manual) POC ABG pH POC ABG pCO2 POC ABG pO2 Sodium 112 L* Potassium Chloride 77.4 L Carbon Dioxide 12 L Creatinine 0.6 L Glucose 207 H POC Glucose 242 H 139 H Calcium 7.7 L Phosphorus Total Bilirubin Direct Bilirubin AST Albumin 07/05/16 07/05/16 07/05/16 18:26 21:13 21:23 WBC RBC Hgb MCHC RDW Lymph % (Auto) Lymph # Seg Neutrophils % Lymphocytes % (Manual) Seg Neutrophils # Seg Neutrophils # Man Lymphocytes # (Manual) Monocytes # (Manual) POC ABG pH POC ABG pCO2 POC ABG pO2 Sodium 115 L* 114 L* Potassium Chloride 80.6 L 81.7 L Carbon Dioxide 12 L 14 L Creatinine 0.4 L 0.6 L Glucose 186 H 182 H POC Glucose 154 H Calcium 7.7 L 7.7 L Phosphorus Total Bilirubin Direct Bilirubin AST Albumin 07/06/16 07/06/16 07/06/16 05:03 06:06 06:06 WBC 13.7 H RBC Hgb MCHC 36 H RDW 13.1 L Lymph % (Auto) 6.9 L Lymph # 0.9 L Seg Neutrophils % 87.0 H Lymphocytes % (Manual) Seg Neutrophils # 11.9 H Seg Neutrophils # Man Lymphocytes # (Manual) Monocytes # (Manual) POC ABG pH POC ABG pCO2 31.7 L POC ABG pO2 350 H Sodium 122 L D Potassium Chloride 88.0 L Carbon Dioxide 19 L Creatinine 0.6 L Glucose 189 H POC Glucose Calcium 7.9 L Phosphorus 2.0 L Total Bilirubin Direct Bilirubin AST Albumin 07/06/16 07/06/16 07/06/16 08:00 10:57 15:17 WBC RBC Hgb MCHC RDW Lymph % (Auto) Lymph # Seg Neutrophils % Lymphocytes % (Manual) Seg Neutrophils # Seg Neutrophils # Man Lymphocytes # (Manual) Monocytes # (Manual) POC ABG pH POC ABG pCO2 POC ABG pO2 Sodium 126 L Potassium 3.5 L Chloride 92.1 L Carbon Dioxide 20 L Creatinine 0.7 L Glucose 184 H POC Glucose 164 H 156 H Calcium 7.6 L Phosphorus Total Bilirubin Direct Bilirubin AST Albumin 07/06/16 07/06/16 07/06/16 16:18 19:03 21:42 WBC RBC Hgb MCHC RDW Lymph % (Auto) Lymph # Seg Neutrophils % Lymphocytes % (Manual) Seg Neutrophils # Seg Neutrophils # Man Lymphocytes # (Manual) Monocytes # (Manual) POC ABG pH POC ABG pCO2 POC ABG pO2 Sodium 126 L Potassium Chloride Carbon Dioxide Creatinine Glucose POC Glucose 159 H 164 H Calcium Phosphorus Total Bilirubin Direct Bilirubin AST Albumin 07/07/16 07/07/16 04:04 05:25 WBC RBC Hgb MCHC RDW Lymph % (Auto) Lymph # Seg Neutrophils % Lymphocytes % (Manual) Seg Neutrophils # Seg Neutrophils # Man Lymphocytes # (Manual) Monocytes # (Manual) POC ABG pH 7.317 L POC ABG pCO2 POC ABG pO2 77 L Sodium 130 L Potassium Chloride 95.9 L Carbon Dioxide Creatinine 0.7 L Glucose 165 H POC Glucose Calcium 7.8 L Phosphorus 1.8 L Total Bilirubin Direct Bilirubin AST Albumin
[2016-07-07] MEDS: PEPCID PO SCH ×2 (10:14→21:21)
[2016-07-07] MEDS: LOVENOX SUB-Q SCH (10:14)
--- NOTE | 2016-07-07 11:55 | Progress Note ---
Assessment and Plan Assessment and plan: 1. Acute hypoxic respiratory failure * Likely due to delirium tremens * Continue vent management by pulmonary * Periodic breathing treatment * Monitored with ABG * Wean off as tolerated 2. Alcohol intoxication with delirium tremens * Currently sedated with Versed; when weaned off, will use CIWA protocol * Started on tube feeding 3. Severe hyponatremia on admission * 112; received 250 mL of 3% on admission * Now on NS * Improved significantly, 130 today * Continue to monitor * Nephrology following also 4. SIRS * Rule out infection * On empiric IV Zosyn 5. Hypertension * Blood pressure uncontrolled initially,so was placed on clonidine patch * Normotensive now 6. DM * Accu-Cheks and SSI 7. DVT prophylaxis * Lovenox 8. Disposition * Continue to monitor in ICU The high probability of a clinically significant, sudden or life threatening deterioration of the [] system(s) required my full and direct attention, intervention and personal management. The aggregate critical care time was [35] minutes. This time is in addition to time spent performing reported procedures but includes the following: [x] Data Review and interpretation [x] Patient assessment and monitoring of vital signs [x] Documentation [x] Medication orders and management History Interval history: intubated, sedated, no acute events overnight Hospitalist Physical - Constitutional Vitals: Temp Pulse Resp BP Pulse Ox 100.6 F H 96 H 18 95/59 96 07/07/16 08:00 07/07/16 11:00 07/07/16 11:00 07/07/16 11:00 07/07/16 11:00 General appearance: Present: no acute distress, obese - EENT Eyes: Present: PERRL - Neck Neck: Present: supple. Absent: enlarged thyroid, masses or JVD - Respiratory Respiratory effort: other (ETT in place) Respiratory: bilateral: CTA, negative: rhonchi, wheezing - Cardiovascular Rhythm: other (tachycardic) Heart Sounds: Present: S1 & S2. Absent: systolic murmur - Extremities Extremities: no ischemia - Abdominal General gastrointestinal: soft, non-tender, non-distended, normal bowel sounds - Psychiatric Psychiatric: other (sedated) - Neurologic Neurologic: other (unable to assess) Results - Labs CBC & Chem 7: 07/06/16 06:06 07/07/16 04:04 Labs: Laboratory Last Values WBC 13.7 K/mm3 (4.5-11.0) H 07/06/16 06:06 RBC 4.62 M/mm3 (3.65-5.03) 07/06/16 06:06 Hgb 14.3 gm/dl (11.8-15.2) 07/06/16 06:06 Hct 39.7 % (35.5-45.6) 07/06/16 06:06 MCV 86 fl (84-94) 07/06/16 06:06 MCH 31 pg (28-32) 07/06/16 06:06 MCHC 36 % (32-34) H 07/06/16 06:06 RDW 13.1 % (13.2-15.2) L 07/06/16 06:06 Plt Count 158 K/mm3 (140-440) 07/06/16 06:06 Lymph % (Auto) 6.9 % (13.4-35.0) L 07/06/16 06:06 [place] % (Auto) 6.0 % (0.0-7.3) 07/06/16 06:06 Eos % (Auto) 0.0 % (0.0-4.3) 07/06/16 06:06 Baso % (Auto) 0.1 % (0.0-1.8) 07/06/16 06:06 Lymph # 0.9 K/mm3 (1.2-5.4) L 07/06/16 06:06 [place] # 0.8 K/mm3 (0.0-0.8) 07/06/16 06:06 Eos # 0.0 K/mm3 (0.0-0.4) 07/06/16 06:06 Baso # 0.0 K/mm3 (0.0-0.1) 07/06/16 06:06 Add Manual Diff Complete 07/05/16 03:27 Total Counted 100 07/05/16 03:27 Seg Neutrophils % 87.0 % (40.0-70.0) H 07/06/16 06:06 Seg Neuts % (Manual) 61.0 % (40.0-70.0) 07/05/16 03:27 Band Neutrophils % 28.0 % 07/05/16 03:27 Lymphocytes % (Manual) 4.0 % (13.4-35.0) L 07/05/16 03:27 Reactive Lymphs % (Man) 0 % 07/05/16 03:27 Monocytes % (Manual) 7.0 % (0.0-7.3) 07/05/16 03:27 Eosinophils % (Manual) 0 % (0.0-4.3) 07/05/16 03:27 Basophils % (Manual) 0 % (0.0-1.8) 07/05/16 03:27 Metamyelocytes % 0 % 07/05/16 03:27 Myelocytes % 0 % 07/05/16 03:27 Promyelocytes % 0 % 07/05/16 03:27 Blast Cells % 0 % 07/05/16 03:27 Nucleated RBC % Not Reportable 07/05/16 03:27 Seg Neutrophils # 11.9 K/mm3 (1.8-7.7) H 07/06/16 06:06 Seg Neutrophils # Man 12.6 K/mm3 (1.8-7.7) H 07/05/16 03:27 Band Neutrophils # 5.8 K/mm3 07/05/16 03:27 Lymphocytes # (Manual) 0.8 K/mm3 (1.2-5.4) L 07/05/16 03:27 Abs React Lymphs (Man) 0.0 K/mm3 07/05/16 03:27 Monocytes # (Manual) 1.4 K/mm3 (0.0-0.8) H 07/05/16 03:27 Eosinophils # (Manual) 0.0 K/mm3 (0.0-0.4) 07/05/16 03:27 Basophils # (Manual) 0.0 K/mm3 (0.0-0.1) 07/05/16 03:27 Metamyelocytes # 0.0 K/mm3 07/05/16 03:27 Myelocytes # 0.0 K/mm3 07/05/16 03:27 Promyelocytes # 0.0 K/mm3 07/05/16 03:27 Blast Cells # 0.0 K/mm3 07/05/16 03:27 WBC Morphology Not Reportable 07/05/16 03:27 Hypersegmented Neuts Not Reportable 07/05/16 03:27 Hyposegmented Neuts Not Reportable 07/05/16 03:27 Hypogranular Neuts Not Reportable 07/05/16 03:27 Smudge Cells Not Reportable 07/05/16 03:27 Toxic Granulation Not Reportable 07/05/16 03:27 Toxic Vacuolation Not Reportable 07/05/16 03:27 Dohle Bodies Not Reportable 07/05/16 03:27 Pelger-Huet Anomaly Not Reportable 07/05/16 03:27 Marques Rods Not Reportable 07/05/16 03:27 Platelet Estimate Appears normal 07/05/16 03:27 Clumped Platelets Not Reportable 07/05/16 03:27 Plt Clumps, EDTA Not Reportable 07/05/16 03:27 Large Platelets Not Reportable 07/05/16 03:27 Giant Platelets Not Reportable 07/05/16 03:27 Platelet Satelliting Not Reportable 07/05/16 03:27 Plt Morphology Comment Not Reportable 07/05/16 03:27 RBC Morphology Not Reportable 07/05/16 03:27 Dimorphic RBCs Not Reportable 07/05/16 03:27 Polychromasia Not Reportable 07/05/16 03:27 Hypochromasia Few 07/05/16 03:27 Poikilocytosis Not Reportable 07/05/16 03:27 Anisocytosis Not Reportable 07/05/16 03:27 Microcytosis Not Reportable 07/05/16 03:27 Macrocytosis Not Reportable 07/05/16 03:27 Spherocytes Not Reportable 07/05/16 03:27 Pappenheimer Bodies Not Reportable 07/05/16 03:27 Sickle Cells Not Reportable 07/05/16 03:27 Target Cells Not Reportable 07/05/16 03:27 Tear Drop Cells Not Reportable 07/05/16 03:27 Ovalocytes Not Reportable 07/05/16 03:27 Helmet Cells Not Reportable 07/05/16 03:27 Villalpando-Montour Bodies Not Reportable 07/05/16 03:27 Gulliver Rings Not Reportable 07/05/16 03:27 Lenora Cells Not Reportable 07/05/16 03:27 Bite Cells Not Reportable 07/05/16 03:27 Crenated Cell Not Reportable 07/05/16 03:27 Elliptocytes Not Reportable 07/05/16 03:27 Acanthocytes (Spur) Not Reportable 07/05/16 03:27 Rouleaux Not Reportable 07/05/16 03:27 Hemoglobin C Crystals Not Reportable 07/05/16 03:27 Schistocytes Not Reportable 07/05/16 03:27 Malaria parasites Not Reportable 07/05/16 03:27 Danny Bodies Not Reportable 07/05/16 03:27 Hem Pathologist Commnt No 07/05/16 03:27 POC ABG pH 7.317 (7.35-7.45) L 07/07/16 05:25 POC ABG pCO2 42.0 (35-45) 07/07/16 05:25 POC ABG pO2 77 (80-105) L 07/07/16 05:25 POC ABG HCO3 21.5 07/07/16 05:25 POC ABG Total CO2 23 07/07/16 05:25 POC ABG O2 Sat 94 07/07/16 05:25 POC ABG Base Excess -5 07/07/16 05:25 FiO2 50 % 07/07/16 05:25 Sodium 130 mmol/L (137-145) L 07/07/16 04:04 Potassium 3.7 mmol/L (3.6-5.0) 07/07/16 04:04 Chloride 95.9 mmol/L (98-107) L 07/07/16 04:04 Carbon Dioxide 22 mmol/L (22-30) 07/07/16 04:04 Anion Gap 16 mmol/L 07/07/16 04:04 BUN 19 mg/dL (9-20) 07/07/16 04:04 Creatinine 0.7 mg/dL (0.8-1.5) L 07/07/16 04:04 Estimated GFR > 60 ml/min 07/07/16 04:04 BUN/Creatinine Ratio 27.14 % 07/07/16 04:04 Glucose 165 mg/dL (75-100) H 07/07/16 04:04 POC Glucose 164 (70-105) H 07/06/16 21:42 Calcium 7.8 mg/dL (8.4-10.2) L 07/07/16 04:04 Phosphorus 1.8 mg/dL (2.5-4.5) L 07/07/16 04:04 Magnesium 2.1 mg/dL (1.7-2.3) 07/06/16 06:06 Total Bilirubin 2.5 mg/dL (0.1-1.2) H 07/05/16 10:50 Direct Bilirubin 1.1 mg/dL (0-0.2) H 07/05/16 10:50 Indirect Bilirubin 1.4 mg/dL 07/05/16 10:50 AST 55 units/L (5-40) H 07/05/16 10:50 ALT 55 units/L (7-56) 07/05/16 10:50 Alkaline Phosphatase 72 units/L (35-129) 07/05/16 10:50 Ammonia 58.0 umol/L (25-60) 07/05/16 10:50 Total Protein 6.3 g/dL (6.3-8.2) 07/05/16 10:50 Albumin 3.4 g/dL (3.9-5) L 07/05/16 10:50 Albumin/Globulin Ratio 1.2 % 07/05/16 10:50 Urine Color Yellow (Yellow) 07/04/16 23:20 Urine Turbidity Clear (Clear) 07/04/16 23:20 Urine pH 6.0 (5.0-7.0) 07/04/16 23:20 Ur Specific [place] 1.024 (1.003-1.030) 07/04/16 23:20 Urine Protein <15 mg/dl mg/dL (Negative) 07/04/16 23:20 Urine Glucose (UA) >=500 mg/dL (Negative) 07/04/16 23:20 Urine Ketones 80 mg/dL (Negative) 07/04/16 23:20 Urine Blood Mod (Negative) 07/04/16 23:20 Urine Nitrite Neg (Negative) 07/04/16 23:20 Urine Bilirubin Neg (Negative) 07/04/16 23:20 Urine Urobilinogen < 2.0 mg/dL (<2.0) 07/04/16 23:20 Ur Leukocyte Esterase Neg (Negative) 07/04/16 23:20 Urine WBC (Auto) 1.0 /HPF (0.0-6.0) 07/04/16 23:20 Urine RBC (Auto) 1.0 /HPF (0.0-6.0) 07/04/16 23:20 Urine Opiates Screen Presumptive negative 07/04/16 23:20 Urine Methadone Screen Presumptive negative 07/04/16 23:20 Ur Barbiturates Screen Presumptive negative 07/04/16 23:20 Ur Phencyclidine Scrn Presumptive negative 07/04/16 23:20 Ur Amphetamines Screen Presumptive negative 07/04/16 23:20 U Benzodiazepines Scrn Presumptive negative 07/04/16 23:20 Urine Cocaine Screen Presumptive negative 07/04/16 23:20 U Marijuana (THC) Screen Presumptive negative 07/04/16 23:20 Drugs of Abuse Note Disclamer 07/04/16 23:20 Plasma/Serum Alcohol 0.17 gm% (0-0.07) H 07/04/16 23:27 - Imaging and Cardiology Chest x-ray: image reviewed (ETT and NGT good positions, no acute findings)
[2016-07-07] MEDS ORDERED: NOVOLOG SUB-Q SCH (12:00)
[2016-07-07] MEDS: NACL 0.9% 1000 ML 1,000 ML IV SCH (16:46)
[2016-07-07] MEDS: NOVOLOG SUB-Q SCH ×2 (16:48→17:50)
[2016-07-07] MEDS ORDERED: TYLENOL ONE (21:22)
[2016-07-08] MEDS: DUONEB 0.5 MG-3 MG/3 ML SOLN IH SCH ×4 (01:40→19:21)
[2016-07-08] MEDS: NOVOLOG SUB-Q SCH ×4 (03:01→18:15)
[2016-07-08 05:16] LABS: ISTAT Base Excess -1; ISTAT HCO3 24.5; ISTAT PCO2 40.9 (35-45); ISTAT PH 7.386 (7.35-7.45); ISTAT PO2 163 (80-105); ISTAT SO2 99; ISTAT TCO2 26
[2016-07-08 05:44] LABS: Anion Gap 14 mmol/L; Blood Urea Nitrogen 16 mg/dL (9-20); Calcium 7.8 mg/dL (8.4-10.2); Carbon Dioxide 24 mmol/L (22-30); Chloride 96.3 mmol/L (98-107); Glucose 172 mg/dL (75-100); Magnesium 2.1 mg/dL (1.7-2.3); Phosphorous 1.7 mg/dL (2.5-4.5); Potassium 3.7 mmol/L (3.6-5.0); Sodium 131 mmol/L (137-145)
[2016-07-08] MEDS ORDERED: KPHOS 30 MMOL in NACL 0.9% 500 ML 500 ML IV ONE (08:00)
--- NOTE | 2016-07-08 09:31 | XRay Report ---
PORTABLE CHEST: INDICATION: Follow-up respiratory failure. COMPARISON: Yesterday. FINDINGS: Portable, frontal chest radiograph, 2:06 AM, 07/08/2016 demonstrates stable cardiomediastinal silhouette, supporting devices, EKG leads and osseous structures. Minor changes in overall lung appearance with mild atelectasis/infiltrates again suspected in the right upper and left lower lung zones. CONCLUSION: Slight interval variation in overall appearance of the lungs, as described. Stable supporting devices. Thank you for the opportunity to participate in this patient's care.
[2016-07-08] MEDS: LOVENOX SUB-Q SCH (09:48)
[2016-07-08] MEDS: PEPCID PO SCH (09:48)
[2016-07-08] MEDS ORDERED: TYLENOL PO ONE (10:00)
[2016-07-08] MEDS: ATIVAN IV PRN ×2 (10:29→16:33)
--- NOTE | 2016-07-08 12:08 | Progress Note ---
Assessment and Plan Assessment and plan: 1. Acute hypoxic respiratory failure * Likely due to delirium tremens * Continue vent management by pulmonary * Periodic breathing treatment * Monitored with ABG * CPAP trial * Wean off as tolerated 2. Alcohol intoxication with delirium tremens * Currently sedated with Versed; when weaned off, will use CIWA protocol * Started on tube feeding 3. Severe hyponatremia on admission * 112; received 250 mL of 3% on admission * Now on NS * Improved significantly, 131 today * Continue to monitor * Nephrology following also 4. Hypophosphatemia * Continue replacement; recheck in a.m. 5. SIRS * Rule out infection * On empiric IV Zosyn 6. Hypertension * Blood pressure uncontrolled initially,so was placed on clonidine patch * Normotensive now 7. DM * Accu-Cheks and SSI 8. DVT prophylaxis * Lovenox 9. Disposition * Continue to monitor in ICU The high probability of a clinically significant, sudden or life threatening deterioration of the [] system(s) required my full and direct attention, intervention and personal management. The aggregate critical care time was [35] minutes. This time is in addition to time spent performing reported procedures but includes the following: [x] Data Review and interpretation [x] Patient assessment and monitoring of vital signs [x] Documentation [x] Medication orders and management History Interval history: Intubated, sedated, no acute events overnight Failed CPAP trial yesterday, plan to repeat today Becomes agitated when sedation of Hospitalist Physical - Constitutional Vitals: Temp Pulse Resp BP Pulse Ox 100.6 F H 101 H 16 135/85 98 07/08/16 04:00 07/08/16 11:00 07/08/16 11:00 07/08/16 11:23 07/08/16 11:23 General appearance: Present: no acute distress, obese - EENT Eyes: Present: PERRL - Neck Neck: Present: supple, normal ROM. Absent: masses or JVD - Respiratory Respiratory effort: other (intubated) Respiratory: bilateral: diminished, negative: rhonchi, wheezing - Cardiovascular Rhythm: other (tachycardia) Heart Sounds: Present: S1 & S2. Absent: systolic murmur - Extremities Extremities: no ischemia - Abdominal General gastrointestinal: soft, non-tender, non-distended, normal bowel sounds - Psychiatric Psychiatric: other (sedated) - Neurologic Neurologic: moves all extremities Results - Labs CBC & Chem 7: 07/06/16 06:06 07/08/16 04:27 Labs: Laboratory Last Values WBC 13.7 K/mm3 (4.5-11.0) H 07/06/16 06:06 RBC 4.62 M/mm3 (3.65-5.03) 07/06/16 06:06 Hgb 14.3 gm/dl (11.8-15.2) 07/06/16 06:06 Hct 39.7 % (35.5-45.6) 07/06/16 06:06 MCV 86 fl (84-94) 07/06/16 06:06 MCH 31 pg (28-32) 07/06/16 06:06 MCHC 36 % (32-34) H 07/06/16 06:06 RDW 13.1 % (13.2-15.2) L 07/06/16 06:06 Plt Count 158 K/mm3 (140-440) 07/06/16 06:06 Lymph % (Auto) 6.9 % (13.4-35.0) L 07/06/16 06:06 [place] % (Auto) 6.0 % (0.0-7.3) 07/06/16 06:06 Eos % (Auto) 0.0 % (0.0-4.3) 07/06/16 06:06 Baso % (Auto) 0.1 % (0.0-1.8) 07/06/16 06:06 Lymph # 0.9 K/mm3 (1.2-5.4) L 07/06/16 06:06 [place] # 0.8 K/mm3 (0.0-0.8) 07/06/16 06:06 Eos # 0.0 K/mm3 (0.0-0.4) 07/06/16 06:06 Baso # 0.0 K/mm3 (0.0-0.1) 07/06/16 06:06 Add Manual Diff Complete 07/05/16 03:27 Total Counted 100 07/05/16 03:27 Seg Neutrophils % 87.0 % (40.0-70.0) H 07/06/16 06:06 Seg Neuts % (Manual) 61.0 % (40.0-70.0) 07/05/16 03:27 Band Neutrophils % 28.0 % 07/05/16 03:27 Lymphocytes % (Manual) 4.0 % (13.4-35.0) L 07/05/16 03:27 Reactive Lymphs % (Man) 0 % 07/05/16 03:27 Monocytes % (Manual) 7.0 % (0.0-7.3) 07/05/16 03:27 Eosinophils % (Manual) 0 % (0.0-4.3) 07/05/16 03:27 Basophils % (Manual) 0 % (0.0-1.8) 07/05/16 03:27 Metamyelocytes % 0 % 07/05/16 03:27 Myelocytes % 0 % 07/05/16 03:27 Promyelocytes % 0 % 07/05/16 03:27 Blast Cells % 0 % 07/05/16 03:27 Nucleated RBC % Not Reportable 07/05/16 03:27 Seg Neutrophils # 11.9 K/mm3 (1.8-7.7) H 07/06/16 06:06 Seg Neutrophils # Man 12.6 K/mm3 (1.8-7.7) H 07/05/16 03:27 Band Neutrophils # 5.8 K/mm3 07/05/16 03:27 Lymphocytes # (Manual) 0.8 K/mm3 (1.2-5.4) L 07/05/16 03:27 Abs React Lymphs (Man) 0.0 K/mm3 07/05/16 03:27 Monocytes # (Manual) 1.4 K/mm3 (0.0-0.8) H 07/05/16 03:27 Eosinophils # (Manual) 0.0 K/mm3 (0.0-0.4) 07/05/16 03:27 Basophils # (Manual) 0.0 K/mm3 (0.0-0.1) 07/05/16 03:27 Metamyelocytes # 0.0 K/mm3 07/05/16 03:27 Myelocytes # 0.0 K/mm3 07/05/16 03:27 Promyelocytes # 0.0 K/mm3 07/05/16 03:27 Blast Cells # 0.0 K/mm3 07/05/16 03:27 WBC Morphology Not Reportable 07/05/16 03:27 Hypersegmented Neuts Not Reportable 01/15/17 03:27 Hyposegmented Neuts Not Reportable 07/05/16 03:27 Hypogranular Neuts Not Reportable 07/05/16 03:27 Smudge Cells Not Reportable 07/05/16 03:27 Toxic Granulation Not Reportable 07/05/16 03:27 Toxic Vacuolation Not Reportable 07/05/16 03:27 Dohle Bodies Not Reportable 07/05/16 03:27 Pelger-Huet Anomaly Not Reportable 07/05/16 03:27 Marques Rods Not Reportable 07/05/16 03:27 Platelet Estimate Appears normal 07/05/16 03:27 Clumped Platelets Not Reportable 07/05/16 03:27 Plt Clumps, EDTA Not Reportable 07/05/16 03:27 Large Platelets Not Reportable 07/05/16 03:27 Giant Platelets Not Reportable 07/05/16 03:27 Platelet Satelliting Not Reportable 07/05/16 03:27 Plt Morphology Comment Not Reportable 07/05/16 03:27 RBC Morphology Not Reportable 07/05/16 03:27 Dimorphic RBCs Not Reportable 07/05/16 03:27 Polychromasia Not Reportable 07/05/16 03:27 Hypochromasia Few 07/05/16 03:27 Poikilocytosis Not Reportable 07/05/16 03:27 Anisocytosis Not Reportable 07/05/16 03:27 Microcytosis Not Reportable 07/05/16 03:27 Macrocytosis Not Reportable 07/05/16 03:27 Spherocytes Not Reportable 07/05/16 03:27 Pappenheimer Bodies Not Reportable 07/05/16 03:27 Sickle Cells Not Reportable 07/05/16 03:27 Target Cells Not Reportable 07/05/16 03:27 Tear Drop Cells Not Reportable 07/05/16 03:27 Ovalocytes Not Reportable 07/05/16 03:27 Helmet Cells Not Reportable 07/05/16 03:27 [place] Bodies Not Reportable 07/05/16 03:27 [place] Rings Not Reportable 07/05/16 03:27 [place] Cells Not Reportable 07/05/16 03:27 Bite Cells Not Reportable 07/05/16 03:27 Crenated Cell Not Reportable 07/05/16 03:27 Elliptocytes Not Reportable 07/05/16 03:27 Acanthocytes (Spur) Not Reportable 07/05/16 03:27 Rouleaux Not Reportable 07/05/16 03:27 Hemoglobin C Crystals Not Reportable 07/05/16 03:27 Schistocytes Not Reportable 07/05/16 03:27 Malaria parasites Not Reportable 07/05/16 03:27 Danny Bodies Not Reportable 07/05/16 03:27 Hem Pathologist Commnt No 07/05/16 03:27 POC ABG pH 7.386 (7.35-7.45) 07/08/16 04:27 POC ABG pCO2 40.9 (35-45) 07/08/16 04:27 POC ABG pO2 163 (80-105) H 07/08/16 04:27 POC ABG HCO3 24.5 07/08/16 04:27 POC ABG Total CO2 26 07/08/16 04:27 POC ABG O2 Sat 99 07/08/16 04:27 POC ABG Base Excess -1 07/08/16 04:27 FiO2 50 % 07/08/16 04:27 Sodium 131 mmol/L (137-145) L 07/08/16 04:27 Potassium 3.7 mmol/L (3.6-5.0) 07/08/16 04:27 Chloride 96.3 mmol/L (98-107) L 07/08/16 04:27 Carbon Dioxide 24 mmol/L (22-30) 07/08/16 04:27 Anion Gap 14 mmol/L 07/08/16 04:27 BUN 16 mg/dL (9-20) 07/08/16 04:27 Creatinine 0.4 mg/dL (0.8-1.5) L 07/08/16 04:27 Estimated GFR > 60 ml/min 07/08/16 04:27 BUN/Creatinine Ratio 40.00 % 07/08/16 04:27 Glucose 172 mg/dL (75-100) H 07/08/16 04:27 POC Glucose 174 (70-105) H 07/07/16 23:35 Calcium 7.8 mg/dL (8.4-10.2) L 07/08/16 04:27 Phosphorus 1.7 mg/dL (2.5-4.5) L 07/08/16 04:27 Magnesium 2.1 mg/dL (1.7-2.3) 07/08/16 04:27 Total Bilirubin 2.5 mg/dL (0.1-1.2) H 07/05/16 10:50 Direct Bilirubin 1.1 mg/dL (0-0.2) H 07/05/16 10:50 Indirect Bilirubin 1.4 mg/dL 07/05/16 10:50 AST 55 units/L (5-40) H 07/05/16 10:50 ALT 55 units/L (7-56) 07/05/16 10:50 Alkaline Phosphatase 72 units/L (35-129) 07/05/16 10:50 Ammonia 58.0 umol/L (25-60) 07/05/16 10:50 Total Protein 6.3 g/dL (6.3-8.2) 07/05/16 10:50 Albumin 3.4 g/dL (3.9-5) L 07/05/16 10:50 Albumin/Globulin Ratio 1.2 % 07/05/16 10:50 Urine Color Yellow (Yellow) 07/04/16 23:20 Urine Turbidity Clear (Clear) 07/04/16 23:20 Urine pH 6.0 (5.0-7.0) 07/04/16 23:20 Ur Specific [place] 1.024 (1.003-1.030) 07/04/16 23:20 Urine Protein <15 mg/dl mg/dL (Negative) 07/04/16 23:20 Urine Glucose (UA) >=500 mg/dL (Negative) 07/04/16 23:20 Urine Ketones 80 mg/dL (Negative) 07/04/16 23:20 Urine Blood Mod (Negative) 07/04/16 23:20 Urine Nitrite Neg (Negative) 07/04/16 23:20 Urine Bilirubin Neg (Negative) 07/04/16 23:20 Urine Urobilinogen < 2.0 mg/dL (<2.0) 07/04/16 23:20 Ur Leukocyte Esterase Neg (Negative) 07/04/16 23:20 Urine WBC (Auto) 1.0 /HPF (0.0-6.0) 07/04/16 23:20 Urine RBC (Auto) 1.0 /HPF (0.0-6.0) 07/04/16 23:20 Urine Opiates Screen Presumptive negative 07/04/16 23:20 Urine Methadone Screen Presumptive negative 07/04/16 23:20 Ur Barbiturates Screen Presumptive negative 07/04/16 23:20 Ur Phencyclidine Scrn Presumptive negative 07/04/16 23:20 Ur Amphetamines Screen Presumptive negative 07/04/16 23:20 U Benzodiazepines Scrn Presumptive negative 07/04/16 23:20 Urine Cocaine Screen Presumptive negative 07/04/16 23:20 U Marijuana (THC) Screen Presumptive negative 07/04/16 23:20 Drugs of Abuse Note Disclamer 07/04/16 23:20 Plasma/Serum Alcohol 0.17 gm% (0-0.07) H 07/04/16 23:27
--- NOTE | 2016-07-08 15:03 | Progress Note ---
Assessment and Plan Acute hypoxic respiratory failure on MVS * Likely due to delirium tremens, with possible aspiration. Did not tolerated BIPAP and was intubated for failed NIPPV * Vent settings- AC-VC 18/500/5/50% with adequate gas excchange. * Lung protective strategies * HOB >30, aspiration precautions * Initiate enteral feeding, with accucheck and glycemic control * Araujo catheter * Bronchodilators with airway clearance techniques * VTE/Stress ulcer prophylaxis * SBTs and SATs to be initiated in the morning * Analgesia and Sedation * Wean off as tolerated Alcohol intoxication with delirium tremens * cont Patient is on CIWA Severe hyponatremia- probably related to alcohhol and intravascular volume depletion * s/p 250 mL of 3% on admission * cont BMP * Nephrology following, sodium level improving Leukocytosis, likely stress induced SIRS, r/o infection * On IV Zosyn for possible aspiration * Blood culture so far negative * De-escalate antibiotics if no source of infection identified. Hypertension * Currently acceptable control, probably related to alcohol withdrawal DVT prophylaxis - Lovenox - Patient Problems (1) Respiratory failure Current Visit: Yes Status: Acute (2) Hyponatremia Current Visit: Yes Status: Acute (3) Alcohol intoxication Current Visit: Yes Status: Acute Qualifiers: Complication of substance-induced condition: uncomplicated Qualified Code(s ): F10.120 - Alcohol abuse with intoxication, uncomplicated Subjective Date of service: 07/08/16 Interval history: This is 51-year-old male presented to the emergency department via EMS for evaluation of altered mental status. Past medical history of diabetes and HTN Per report, the patient has been drinking alcohol heavily for the past 6 days. There has been nausea and vomiting. Patient electrolytes showed severe hyponatremia. No documented drug allergies. Patient had been placed on NIPPV but required intubation and mechanical ventilatory support for de-saturations and encephalopathy More awake and alert today, obeying one step commands. Objective - Exam Narrative Exam: GENERAL: well-developed obese male lying on bed appeared to be in no discomfort. HEENT: Normocephalic. Atraumatic. No conjunctival congestion or icterus. Patient has moist mucous membranes. His face appears to be plethoric with diaphoresis. NECK: Supple. Trachea midline. ET tube on place CHEST/LUNGS: Restricted breathing sound auscultated bilaterally, breathing nonlabored. No crackles or rhonchi. HEART/CARDIOVASCULAR: Tachycardic. S1 and S2 positive. ABDOMEN: Abdomen is soft, nontender. Patient has normal bowel sounds. SKIN: There is no rash. Warm and dry. NEURO: No focal motor deficit. Follows commands. MUSCULOSKELETAL: No joint effusion or tenderness. EXTREMITY: No edema, no cyanosis or clubbing. Vital Signs - 12hr 07/08/16 07/08/16 07/08/16 04:00 04:20 05:00 Temperature 100.6 F H Pulse Rate 100 H 105 H 98 H Pulse Rate [ Anterior Bilateral] Respiratory 16 18 Rate Respiratory Rate [Anterior Bilateral] Blood Pressure 127/76 127/76 114/67 O2 Sat by Pulse 99 99 98 Oximetry 07/08/16 07/08/16 07/08/16 05:16 06:00 06:24 Temperature Pulse Rate 93 H 106 H 97 H Pulse Rate [ Anterior Bilateral] Respiratory 18 15 18 Rate Respiratory Rate [Anterior Bilateral] Blood Pressure 114/67 127/80 127/80 O2 Sat by Pulse 98 97 98 Oximetry 07/08/16 07/08/16 07/08/16 07:00 07:18 07:38 Temperature Pulse Rate 101 H 99 H Pulse Rate [ 104 H Anterior Bilateral] Respiratory 18 17 Rate Respiratory 18 Rate [Anterior Bilateral] Blood Pressure 120/76 120/76 O2 Sat by Pulse 97 98 Oximetry 07/08/16 07/08/16 07/08/16 07:39 07:55 08:00 Temperature Pulse Rate 106 H 113 H Pulse Rate [ Anterior Bilateral] Respiratory 19 17 Rate Respiratory Rate [Anterior Bilateral] Blood Pressure 136/87 138/94 O2 Sat by Pulse 98 97 97 Oximetry 07/08/16 07/08/16 07/08/16 08:06 09:00 10:00 Temperature Pulse Rate 104 H 97 H 98 H Pulse Rate [ Anterior Bilateral] Respiratory 17 17 17 Rate Respiratory Rate [Anterior Bilateral] Blood Pressure 138/94 127/75 129/83 O2 Sat by Pulse 98 98 96 Oximetry 07/08/16 07/08/16 07/08/16 10:34 11:00 11:23 Temperature Pulse Rate 99 H 101 H Pulse Rate [ Anterior Bilateral] Respiratory 17 16 Rate Respiratory Rate [Anterior Bilateral] Blood Pressure 131/85 135/85 135/85 O2 Sat by Pulse 97 96 98 Oximetry 07/08/16 07/08/16 07/08/16 11:48 12:00 12:18 Temperature Pulse Rate 97 H 100 H 104 H Pulse Rate [ Anterior Bilateral] Respiratory 17 16 17 Rate Respiratory Rate [Anterior Bilateral] Blood Pressure 140/96 130/88 130/88 O2 Sat by Pulse 99 99 99 Oximetry 07/08/16 07/08/16 07/08/16 13:00 13:55 13:58 Temperature Pulse Rate 106 H 112 H Pulse Rate [ 95 H Anterior Bilateral] Respiratory 17 Rate Respiratory 16 Rate [Anterior Bilateral] Blood Pressure 147/88 155/96 O2 Sat by Pulse 98 99 Oximetry 07/08/16 07/08/16 14:00 14:28 Temperature Pulse Rate 117 H 97 H Pulse Rate [ Anterior Bilateral] Respiratory 15 Rate Respiratory Rate [Anterior Bilateral] Blood Pressure 147/88 155/96 O2 Sat by Pulse 100 100 Oximetry Constitutional: lethargic, asleep Eyes: non-icteric ENT: oropharynx moist Neck: supple, no JVD Ascultation: Bilateral: diminished breath sounds Cardiovascular: regular rate and rhythm Gastrointestinal: normoactive bowel sounds, soft, non-tender Integumentary: normal Extremities: no cyanosis, no edema Neurologic: unable to assess Psychiatric: other (Unable assess, Patient intoxicated.) CBC and BMP: 07/06/16 06:06 07/08/16 04:27 ABG, PT/INR, D-dimer: ABG POC ABG pH 7.386 (7.35-7.45) 07/08/16 04:27 POC ABG pCO2 40.9 (35-45) 07/08/16 04:27 POC ABG pO2 163 (80-105) H 07/08/16 04:27 POC ABG HCO3 24.5 07/08/16 04:27 POC ABG Total CO2 26 07/08/16 04:27 POC ABG O2 Sat 99 07/08/16 04:27 Abnormal lab findings: Abnormal Labs 07/05/16 07/05/16 07/05/16 02:11 03:27 03:27 WBC 20.7 H RBC 5.17 H Hgb 15.7 H MCHC 35 H RDW 13.1 L Lymph % (Auto) Lymph # Seg Neutrophils % Lymphocytes % (Manual) 4.0 L Seg Neutrophils # Seg Neutrophils # Man 12.6 H Lymphocytes # (Manual) 0.8 L Monocytes # (Manual) 1.4 H POC ABG pH POC ABG pCO2 POC ABG pO2 Sodium 110 L* 110 L* Potassium Chloride 72.5 L Carbon Dioxide 13 L Creatinine 0.5 L Glucose 190 H POC Glucose Calcium 8.1 L Phosphorus Total Bilirubin Direct Bilirubin AST Albumin 07/05/16 07/05/16 07/05/16 07:24 07:32 10:45 WBC RBC Hgb MCHC RDW Lymph % (Auto) Lymph # Seg Neutrophils % Lymphocytes % (Manual) Seg Neutrophils # Seg Neutrophils # Man Lymphocytes # (Manual) Monocytes # (Manual) POC ABG pH POC ABG pCO2 21.2 L POC ABG pO2 Sodium 115 L* Potassium Chloride 75.4 L Carbon Dioxide 12 L Creatinine 0.5 L Glucose 177 H POC Glucose 158 H Calcium 7.8 L Phosphorus Total Bilirubin Direct Bilirubin AST Albumin 07/05/16 07/05/16 07/05/16 10:50 10:50 10:50 WBC RBC Hgb MCHC RDW Lymph % (Auto) Lymph # Seg Neutrophils % Lymphocytes % (Manual) Seg Neutrophils # Seg Neutrophils # Man Lymphocytes # (Manual) Monocytes # (Manual) POC ABG pH POC ABG pCO2 POC ABG pO2 Sodium 112 L* Potassium Chloride 76.7 L Carbon Dioxide 12 L Creatinine 0.5 L Glucose 195 H POC Glucose Calcium 7.6 L Phosphorus 2.3 L Total Bilirubin 2.5 H Direct Bilirubin 1.1 H AST 55 H Albumin 3.5 L 3.4 L 07/05/16 07/05/16 07/05/16 12:00 13:57 16:13 WBC RBC Hgb MCHC RDW Lymph % (Auto) Lymph # Seg Neutrophils % Lymphocytes % (Manual) Seg Neutrophils # Seg Neutrophils # Man Lymphocytes # (Manual) Monocytes # (Manual) POC ABG pH POC ABG pCO2 POC ABG pO2 Sodium 112 L* Potassium Chloride 77.4 L Carbon Dioxide 12 L Creatinine 0.6 L Glucose 207 H POC Glucose 242 H 139 H Calcium 7.7 L Phosphorus Total Bilirubin Direct Bilirubin AST Albumin 07/05/16 07/05/16 07/05/16 18:26 21:13 21:23 WBC RBC Hgb MCHC RDW Lymph % (Auto) Lymph # Seg Neutrophils % Lymphocytes % (Manual) Seg Neutrophils # Seg Neutrophils # Man Lymphocytes # (Manual) Monocytes # (Manual) POC ABG pH POC ABG pCO2 POC ABG pO2 Sodium 115 L* 114 L* Potassium Chloride 80.6 L 81.7 L Carbon Dioxide 12 L 14 L Creatinine 0.4 L 0.6 L Glucose 186 H 182 H POC Glucose 154 H Calcium 7.7 L 7.7 L Phosphorus Total Bilirubin Direct Bilirubin AST Albumin 07/06/16 07/06/16 07/06/16 05:03 06:06 06:06 WBC 13.7 H RBC Hgb MCHC 36 H RDW 13.1 L Lymph % (Auto) 6.9 L Lymph # 0.9 L Seg Neutrophils % 87.0 H Lymphocytes % (Manual) Seg Neutrophils # 11.9 H Seg Neutrophils # Man Lymphocytes # (Manual) Monocytes # (Manual) POC ABG pH POC ABG pCO2 31.7 L POC ABG pO2 350 H Sodium 122 L D Potassium Chloride 88.0 L Carbon Dioxide 19 L Creatinine 0.6 L Glucose 189 H POC Glucose Calcium 7.9 L Phosphorus 2.0 L Total Bilirubin Direct Bilirubin AST Albumin 07/06/16 07/06/16 07/06/16 08:00 10:57 15:17 WBC RBC Hgb MCHC RDW Lymph % (Auto) Lymph # Seg Neutrophils % Lymphocytes % (Manual) Seg Neutrophils # Seg Neutrophils # Man Lymphocytes # (Manual) Monocytes # (Manual) POC ABG pH POC ABG pCO2 POC ABG pO2 Sodium 126 L Potassium 3.5 L Chloride 92.1 L Carbon Dioxide 20 L Creatinine 0.7 L Glucose 184 H POC Glucose 164 H 156 H Calcium 7.6 L Phosphorus Total Bilirubin Direct Bilirubin AST Albumin 07/06/16 07/06/16 07/06/16 16:18 19:03 21:42 WBC RBC Hgb MCHC RDW Lymph % (Auto) Lymph # Seg Neutrophils % Lymphocytes % (Manual) Seg Neutrophils # Seg Neutrophils # Man Lymphocytes # (Manual) Monocytes # (Manual) POC ABG pH POC ABG pCO2 POC ABG pO2 Sodium 126 L Potassium Chloride Carbon Dioxide Creatinine Glucose POC Glucose 159 H 164 H Calcium Phosphorus Total Bilirubin Direct Bilirubin AST Albumin 07/07/16 07/07/16 07/07/16 04:04 05:25 12:04 WBC RBC Hgb MCHC RDW Lymph % (Auto) Lymph # Seg Neutrophils % Lymphocytes % (Manual) Seg Neutrophils # Seg Neutrophils # Man Lymphocytes # (Manual) Monocytes # (Manual) POC ABG pH 7.317 L POC ABG pCO2 POC ABG pO2 77 L Sodium 130 L Potassium Chloride 95.9 L Carbon Dioxide Creatinine 0.7 L Glucose 165 H POC Glucose 160 H Calcium 7.8 L Phosphorus 1.8 L Total Bilirubin Direct Bilirubin AST Albumin 07/07/16 07/07/16 07/08/16 17:39 23:35 04:27 WBC RBC Hgb MCHC RDW Lymph % (Auto) Lymph # Seg Neutrophils % Lymphocytes % (Manual) Seg Neutrophils # Seg Neutrophils # Man Lymphocytes # (Manual) Monocytes # (Manual) POC ABG pH POC ABG pCO2 POC ABG pO2 Sodium 131 L Potassium Chloride 96.3 L Carbon Dioxide Creatinine 0.4 L Glucose 172 H POC Glucose 157 H 174 H Calcium 7.8 L Phosphorus 1.7 L Total Bilirubin Direct Bilirubin AST Albumin 07/08/16 07/08/16 07/08/16 04:27 05:40 12:14 WBC RBC Hgb MCHC RDW Lymph % (Auto) Lymph # Seg Neutrophils % Lymphocytes % (Manual) Seg Neutrophils # Seg Neutrophils # Man Lymphocytes # (Manual) Monocytes # (Manual) POC ABG pH POC ABG pCO2 POC ABG pO2 163 H Sodium Potassium Chloride Carbon Dioxide Creatinine Glucose POC Glucose 158 H 171 H Calcium Phosphorus Total Bilirubin Direct Bilirubin AST Albumin
[2016-07-08] MEDS: VERSED/NS 100MG/100ML 100 ML IV SCH (19:01)
[2016-07-09] MEDS: NOVOLOG SUB-Q SCH ×5 (00:20→23:53)
[2016-07-09] MEDS: DUONEB 0.5 MG-3 MG/3 ML SOLN IH SCH ×4 (01:35→20:05)
[2016-07-09 04:50] LABS: ISTAT Base Excess -1; ISTAT HCO3 23.6; ISTAT PCO2 39.5 (35-45); ISTAT PH 7.384 (7.35-7.45); ISTAT PO2 87 (80-105); ISTAT SO2 96; ISTAT TCO2 25
--- NOTE | 2016-07-09 08:04 | XRay Report ---
AP CHEST: HISTORY: Follow-up respiratory failure. FINDINGS: Lines and support devices remain in adequate position. Mild cardiomegaly and pulmonary venous congestion are stable. Subtle increase in a right upper lobe opacity is demonstrated which could represent segmental atelectasis or developing infiltrate. Small left pleural effusion is suspected. No pneumothorax.
[2016-07-09] MEDS: LOVENOX SUB-Q SCH (09:27)
[2016-07-09] MEDS: PEPCID PO SCH ×2 (09:27→22:14)
[2016-07-09] MEDS: fentaNYL DRIP Premix 100 ML IV SCH (09:51)
[2016-07-09 10:34] LABS: Anion Gap 15 mmol/L; Blood Urea Nitrogen 16 mg/dL (9-20); Calcium 7.7 mg/dL (8.4-10.2); Carbon Dioxide 24 mmol/L (22-30); Chloride 98.4 mmol/L (98-107); Glucose 189 mg/dL (75-100); Potassium 3.7 mmol/L (3.6-5.0); Sodium 134 mmol/L (137-145)
--- NOTE | 2016-07-09 10:38 | Progress Note ---
Assessment and Plan - Patient Problems (1) Alcohol intoxication Current Visit: Yes Status: Acute Qualifiers: Complication of substance-induced condition: uncomplicated Qualified Code(s ): F10.120 - Alcohol abuse with intoxication, uncomplicated Plan to address problem: - now in withdrawal likely - begin thiamine, folate and MVI - add seroquel and wean of other IV sedation - continue CIWA protocol (2) DM type 2 (diabetes mellitus, type 2) Current Visit: Yes Status: Acute Plan to address problem: - continue SSI (3) Acute hypoxemic respiratory failure Current Visit: Yes Status: Acute Plan to address problem: - continue bronchodilators & pulmonary toilet - continue aspiration precautions/VAP bundles - Daily PSV trials as tolerated - wean oxygen to keep sats >/= 94% (4) Discharge planning issues Current Visit: Yes Status: Acute Plan to address problem: - hopefully weans off ventilator and can be discharged home - remains critically ill on life sustaining interventions including MVS and at risk for further deterioration ......32' CCT Subjective Date of service: 07/09/16 Principal diagnosis: Acute Hypoxemic Respiratory Failure Interval history: seen and examined at bedside; 24hour events reviewed; nursing and respiratory care staff consulted; no adverse overnight events reported to me; remains on MVS ; delirium persistent during sedation vacations; no emesis or overt aspiration; hyponatremia noted Objective Vital Signs - 12hr 07/08/16 07/09/16 07/09/16 23:00 00:00 00:07 Temperature 99.0 F Pulse Rate 123 H 103 H 109 H Pulse Rate [ Anterior Bilateral] Respiratory 17 19 Rate Respiratory Rate [Anterior Bilateral] Blood Pressure 142/92 128/78 128/78 O2 Sat by Pulse 96 99 98 Oximetry 07/09/16 07/09/16 07/09/16 00:09 01:01 01:36 Temperature Pulse Rate 105 H 130 H Pulse Rate [ 98 H Anterior Bilateral] Respiratory 19 20 Rate Respiratory 19 Rate [Anterior Bilateral] Blood Pressure 128/78 160/100 O2 Sat by Pulse 98 97 Oximetry 07/09/16 07/09/16 07/09/16 01:43 02:01 03:00 Temperature Pulse Rate 129 H 119 H Pulse Rate [ 101 H Anterior Bilateral] Respiratory 24 20 Rate Respiratory 20 Rate [Anterior Bilateral] Blood Pressure 114/78 119/86 O2 Sat by Pulse 97 95 Oximetry 01/07/09/16 07/09/16 03:11 03:52 03:54 Temperature 99.2 F Pulse Rate 109 H 104 H Pulse Rate [ Anterior Bilateral] Respiratory 21 Rate Respiratory Rate [Anterior Bilateral] Blood Pressure 119/86 127/72 O2 Sat by Pulse 98 98 Oximetry 07/09/16 07/09/16 07/09/16 04:00 05:00 05:13 Temperature Pulse Rate 103 H 95 H 93 H Pulse Rate [ Anterior Bilateral] Respiratory 20 14 17 Rate Respiratory Rate [Anterior Bilateral] Blood Pressure 126/73 98/56 98/56 O2 Sat by Pulse 96 98 99 Oximetry 07/09/16 07/09/16 07/09/16 06:00 06:11 07:01 Temperature Pulse Rate 92 H 95 H 117 H Pulse Rate [ Anterior Bilateral] Respiratory 18 17 26 H Rate Respiratory Rate [Anterior Bilateral] Blood Pressure 90/52 90/52 139/83 O2 Sat by Pulse 96 99 95 Oximetry 07/09/16 07/09/16 07/09/16 07:09 07:17 07:43 Temperature Pulse Rate 115 H 98 H Pulse Rate [ 112 H Anterior Bilateral] Respiratory 21 Rate Respiratory 23 Rate [Anterior Bilateral] Blood Pressure 139/83 121/72 O2 Sat by Pulse 99 98 Oximetry 07/09/16 07/09/16 07/09/16 07:45 07:50 08:00 Temperature 98.8 F Pulse Rate 111 H Pulse Rate [ Anterior Bilateral] Respiratory 20 Rate Respiratory Rate [Anterior Bilateral] Blood Pressure 140/101 O2 Sat by Pulse 98 96 Oximetry 07/09/16 07/09/16 07/09/16 08:03 09:00 09:29 Temperature Pulse Rate 106 H 97 H 93 H Pulse Rate [ Anterior Bilateral] Respiratory 22 22 17 Rate Respiratory Rate [Anterior Bilateral] Blood Pressure 140/101 115/72 147/97 O2 Sat by Pulse 98 97 98 Oximetry 07/09/16 07/09/16 09:57 10:00 Temperature Pulse Rate 90 89 Pulse Rate [ Anterior Bilateral] Respiratory 19 18 Rate Respiratory Rate [Anterior Bilateral] Blood Pressure 130/81 140/77 O2 Sat by Pulse 97 96 Oximetry Constitutional: other (sedated) Eyes: non-icteric ENT: oropharynx moist Neck: supple, no JVD Effort: mildly labored Ascultation: Bilateral: diminished breath sounds, rhonchi Cardiovascular: regular rate and rhythm Gastrointestinal: normoactive bowel sounds, soft, non-tender, non-distended Integumentary: normal Extremities: no cyanosis, no edema, pulses normal Neurologic: unable to assess Psychiatric: other (Unable t9o assess re: AMS.) CBC and BMP: 07/10/16 10:37 07/09/16 09:28 ABG, PT/INR, D-dimer: ABG POC ABG pH 7.384 (7.35-7.45) 07/09/16 03:57 POC ABG pCO2 39.5 (35-45) 07/09/16 03:57 POC ABG pO2 87 (80-105) 07/09/16 03:57 POC ABG HCO3 23.6 07/09/16 03:57 POC ABG Total CO2 25 07/09/16 03:57 POC ABG O2 Sat 96 07/09/16 03:57 Abnormal lab findings: Abnormal Labs 07/05/16 07/05/16 07/05/16 02:11 03:27 03:27 WBC 20.7 H RBC 5.17 H Hgb 15.7 H MCHC 35 H RDW 13.1 L Lymph % (Auto) Lymph # Seg Neutrophils % Lymphocytes % (Manual) 4.0 L Seg Neutrophils # Seg Neutrophils # Man 12.6 H Lymphocytes # (Manual) 0.8 L Monocytes # (Manual) 1.4 H POC ABG pH POC ABG pCO2 POC ABG pO2 Sodium 110 L* 110 L* Potassium Chloride 72.5 L Carbon Dioxide 13 L Creatinine 0.5 L Glucose 190 H POC Glucose Calcium 8.1 L Phosphorus Total Bilirubin Direct Bilirubin AST Albumin 07/05/16 07/05/16 07/05/16 07:24 07:32 10:45 WBC RBC Hgb MCHC RDW Lymph % (Auto) Lymph # Seg Neutrophils % Lymphocytes % (Manual) Seg Neutrophils # Seg Neutrophils # Man Lymphocytes # (Manual) Monocytes # (Manual) POC ABG pH POC ABG pCO2 21.2 L POC ABG pO2 Sodium 115 L* Potassium Chloride 75.4 L Carbon Dioxide 12 L Creatinine 0.5 L Glucose 177 H POC Glucose 158 H Calcium 7.8 L Phosphorus Total Bilirubin Direct Bilirubin AST Albumin 07/05/16 07/05/16 07/05/16 10:50 10:50 10:50 WBC RBC Hgb MCHC RDW Lymph % (Auto) Lymph # Seg Neutrophils % Lymphocytes % (Manual) Seg Neutrophils # Seg Neutrophils # Man Lymphocytes # (Manual) Monocytes # (Manual) POC ABG pH POC ABG pCO2 POC ABG pO2 Sodium 112 L* Potassium Chloride 76.7 L Carbon Dioxide 12 L Creatinine 0.5 L Glucose 195 H POC Glucose Calcium 7.6 L Phosphorus 2.3 L Total Bilirubin 2.5 H Direct Bilirubin 1.1 H AST 55 H Albumin 3.5 L 3.4 L 07/05/16 07/05/16 07/05/16 12:00 13:57 16:13 WBC RBC Hgb MCHC RDW Lymph % (Auto) Lymph # Seg Neutrophils % Lymphocytes % (Manual) Seg Neutrophils # Seg Neutrophils # Man Lymphocytes # (Manual) Monocytes # (Manual) POC ABG pH POC ABG pCO2 POC ABG pO2 Sodium 112 L* Potassium Chloride 77.4 L Carbon Dioxide 12 L Creatinine 0.6 L Glucose 207 H POC Glucose 242 H 139 H Calcium 7.7 L Phosphorus Total Bilirubin Direct Bilirubin AST Albumin 07/05/16 07/05/16 07/05/16 18:26 21:13 21:23 WBC RBC Hgb MCHC RDW Lymph % (Auto) Lymph # Seg Neutrophils % Lymphocytes % (Manual) Seg Neutrophils # Seg Neutrophils # Man Lymphocytes # (Manual) Monocytes # (Manual) POC ABG pH POC ABG pCO2 POC ABG pO2 Sodium 115 L* 114 L* Potassium Chloride 80.6 L 81.7 L Carbon Dioxide 12 L 14 L Creatinine 0.4 L 0.6 L Glucose 186 H 182 H POC Glucose 154 H Calcium 7.7 L 7.7 L Phosphorus Total Bilirubin Direct Bilirubin AST Albumin 07/06/16 07/06/16 07/06/16 05:03 06:06 06:06 WBC 13.7 H RBC Hgb MCHC 36 H RDW 13.1 L Lymph % (Auto) 6.9 L Lymph # 0.9 L Seg Neutrophils % 87.0 H Lymphocytes % (Manual) Seg Neutrophils # 11.9 H Seg Neutrophils # Man Lymphocytes # (Manual) Monocytes # (Manual) POC ABG pH POC ABG pCO2 31.7 L POC ABG pO2 350 H Sodium 122 L D Potassium Chloride 88.0 L Carbon Dioxide 19 L Creatinine 0.6 L Glucose 189 H POC Glucose Calcium 7.9 L Phosphorus 2.0 L Total Bilirubin Direct Bilirubin AST Albumin 07/06/16 07/06/16 07/06/16 08:00 10:57 15:17 WBC RBC Hgb MCHC RDW Lymph % (Auto) Lymph # Seg Neutrophils % Lymphocytes % (Manual) Seg Neutrophils # Seg Neutrophils # Man Lymphocytes # (Manual) Monocytes # (Manual) POC ABG pH POC ABG pCO2 POC ABG pO2 Sodium 126 L Potassium 3.5 L Chloride 92.1 L Carbon Dioxide 20 L Creatinine 0.7 L Glucose 184 H POC Glucose 164 H 156 H Calcium 7.6 L Phosphorus Total Bilirubin Direct Bilirubin AST Albumin 07/06/16 07/06/16 07/06/16 16:18 19:03 21:42 WBC RBC Hgb MCHC RDW Lymph % (Auto) Lymph # Seg Neutrophils % Lymphocytes % (Manual) Seg Neutrophils # Seg Neutrophils # Man Lymphocytes # (Manual) Monocytes # (Manual) POC ABG pH POC ABG pCO2 POC ABG pO2 Sodium 126 L Potassium Chloride Carbon Dioxide Creatinine Glucose POC Glucose 159 H 164 H Calcium Phosphorus Total Bilirubin Direct Bilirubin AST Albumin 07/07/16 07/07/16 07/07/16 04:04 05:25 12:04 WBC RBC Hgb MCHC RDW Lymph % (Auto) Lymph # Seg Neutrophils % Lymphocytes % (Manual) Seg Neutrophils # Seg Neutrophils # Man Lymphocytes # (Manual) Monocytes # (Manual) POC ABG pH 7.317 L POC ABG pCO2 POC ABG pO2 77 L Sodium 130 L Potassium Chloride 95.9 L Carbon Dioxide Creatinine 0.7 L Glucose 165 H POC Glucose 160 H Calcium 7.8 L Phosphorus 1.8 L Total Bilirubin Direct Bilirubin AST Albumin 07/07/16 07/07/16 07/08/16 17:39 23:35 04:27 WBC RBC Hgb MCHC RDW Lymph % (Auto) Lymph # Seg Neutrophils % Lymphocytes % (Manual) Seg Neutrophils # Seg Neutrophils # Man Lymphocytes # (Manual) Monocytes # (Manual) POC ABG pH POC ABG pCO2 POC ABG pO2 Sodium 131 L Potassium Chloride 96.3 L Carbon Dioxide Creatinine 0.4 L Glucose 172 H POC Glucose 157 H 174 H Calcium 7.8 L Phosphorus 1.7 L Total Bilirubin Direct Bilirubin AST Albumin 07/08/16 07/08/16 07/08/16 04:27 05:40 12:14 WBC RBC Hgb MCHC RDW Lymph % (Auto) Lymph # Seg Neutrophils % Lymphocytes % (Manual) Seg Neutrophils # Seg Neutrophils # Man Lymphocytes # (Manual) Monocytes # (Manual) POC ABG pH POC ABG pCO2 POC ABG pO2 163 H Sodium Potassium Chloride Carbon Dioxide Creatinine Glucose POC Glucose 158 H 171 H Calcium Phosphorus Total Bilirubin Direct Bilirubin AST Albumin 07/08/16 07/08/16 07/09/16 17:29 23:45 04:25 WBC RBC Hgb MCHC RDW Lymph % (Auto) Lymph # Seg Neutrophils % Lymphocytes % (Manual) Seg Neutrophils # Seg Neutrophils # Man Lymphocytes # (Manual) Monocytes # (Manual) POC ABG pH POC ABG pCO2 POC ABG pO2 Sodium Potassium Chloride Carbon Dioxide Creatinine Glucose POC Glucose 178 H 181 H Calcium Phosphorus 2.2 L D Total Bilirubin Direct Bilirubin AST Albumin 07/09/16 07/09/16 05:20 09:28 WBC RBC Hgb MCHC RDW Lymph % (Auto) Lymph # Seg Neutrophils % Lymphocytes % (Manual) Seg Neutrophils # Seg Neutrophils # Man Lymphocytes # (Manual) Monocytes # (Manual) POC ABG pH POC ABG pCO2 POC ABG pO2 Sodium 134 L Potassium Chloride Carbon Dioxide Creatinine 0.5 L Glucose 189 H POC Glucose 184 H Calcium 7.7 L Phosphorus Total Bilirubin Direct Bilirubin AST Albumin Chest x-ray: image reviewed
[2016-07-09] MEDS: Centrum Liq PO SCH (12:19)
[2016-07-09] MEDS: VITAMIN B-1 PO SCH (12:19)
[2016-07-09] MEDS: FOLVITE PO SCH (12:20)
[2016-07-09] MEDS ORDERED: SODIUM PHOSPHATE 30 MMOL in NACL 0.9% 500 ML 500 ML IV ONE (13:00)
--- NOTE | 2016-07-09 13:11 | Progress Note ---
Assessment and Plan Assessment and plan: 1. Acute hypoxic respiratory failure * Likely due to delirium tremens * Continue vent management by pulmonary * Prn breathing treatment * CPAP trial daily * Wean off vent as tolerated 2. Alcohol intoxication with delirium tremens * Currently sedated with Versed; when weaned off, will use CIWA protocol * Started on tube feeding 3. Severe hyponatremia on admission * 112; received 250 mL of 3% on admission * Now on NS * Resolved 4. Hypophosphatemia * Continue replacement; recheck 5. SIRS * Rule out infection * On empiric IV Zosyn 6. Hypertension * Blood pressure uncontrolled initially,so was placed on clonidine patch * Normotensive now 7. DM * Accu-Cheks and SSI 8. DVT prophylaxis * Lovenox 9. Disposition * Continue to monitor in ICU The high probability of a clinically significant, sudden or life threatening deterioration of the [] system(s) required my full and direct attention, intervention and personal management. The aggregate critical care time was [35] minutes. This time is in addition to time spent performing reported procedures but includes the following: [x] Data Review and interpretation [x] Patient assessment and monitoring of vital signs [x] Documentation [x] Medication orders and management History Interval history: Agitated this morning, tachycardic, sedation increased Plan to repeat CPAP trial later Hospitalist Physical - Constitutional Vitals: Temp Pulse Resp BP Pulse Ox 99.0 F 94 H 16 148/85 99 07/09/16 11:57 07/09/16 12:00 07/09/16 12:00 07/09/16 12:00 07/09/16 12:00 General appearance: Present: no acute distress, obese - Neck Neck: Present: supple. Absent: enlarged thyroid, masses or JVD - Respiratory Respiratory effort: other (intubated) Respiratory: bilateral: diminished, negative: rhonchi, wheezing - Cardiovascular Rhythm: other (tachycardic) Heart Sounds: Present: S1 & S2. Absent: systolic murmur - Extremities Extremities: no ischemia - Abdominal General gastrointestinal: soft, non-tender, non-distended, normal bowel sounds - Psychiatric Psychiatric: other (sedated) - Neurologic Neurologic: moves all extremities Results - Labs CBC & Chem 7: 07/06/16 06:06 07/09/16 09:28 Labs: Laboratory Last Values WBC 13.7 K/mm3 (4.5-11.0) H 07/06/16 06:06 RBC 4.62 M/mm3 (3.65-5.03) 07/06/16 06:06 Hgb 14.3 gm/dl (11.8-15.2) 07/06/16 06:06 Hct 39.7 % (35.5-45.6) 07/06/16 06:06 MCV 86 fl (84-94) 07/06/16 06:06 MCH 31 pg (28-32) 07/06/16 06:06 MCHC 36 % (32-34) H 07/06/16 06:06 RDW 13.1 % (13.2-15.2) L 07/06/16 06:06 Plt Count 158 K/mm3 (140-440) 07/06/16 06:06 Lymph % (Auto) 6.9 % (13.4-35.0) L 07/06/16 06:06 [place] % (Auto) 6.0 % (0.0-7.3) 07/06/16 06:06 Eos % (Auto) 0.0 % (0.0-4.3) 07/06/16 06:06 Baso % (Auto) 0.1 % (0.0-1.8) 07/06/16 06:06 Lymph # 0.9 K/mm3 (1.2-5.4) L 07/06/16 06:06 [place] # 0.8 K/mm3 (0.0-0.8) 07/06/16 06:06 Eos # 0.0 K/mm3 (0.0-0.4) 07/06/16 06:06 Baso # 0.0 K/mm3 (0.0-0.1) 07/06/16 06:06 Add Manual Diff Complete 07/05/16 03:27 Total Counted 100 07/05/16 03:27 Seg Neutrophils % 87.0 % (40.0-70.0) H 07/06/16 06:06 Seg Neuts % (Manual) 61.0 % (40.0-70.0) 07/05/16 03:27 Band Neutrophils % 28.0 % 07/05/16 03:27 Lymphocytes % (Manual) 4.0 % (13.4-35.0) L 07/05/16 03:27 Reactive Lymphs % (Man) 0 % 07/05/16 03:27 Monocytes % (Manual) 7.0 % (0.0-7.3) 07/05/16 03:27 Eosinophils % (Manual) 0 % (0.0-4.3) 07/05/16 03:27 Basophils % (Manual) 0 % (0.0-1.8) 07/05/16 03:27 Metamyelocytes % 0 % 07/05/16 03:27 Myelocytes % 0 % 07/05/16 03:27 Promyelocytes % 0 % 07/05/16 03:27 Blast Cells % 0 % 07/05/16 03:27 Nucleated RBC % Not Reportable 07/05/16 03:27 Seg Neutrophils # 11.9 K/mm3 (1.8-7.7) H 07/06/16 06:06 Seg Neutrophils # Man 12.6 K/mm3 (1.8-7.7) H 07/05/16 03:27 Band Neutrophils # 5.8 K/mm3 07/05/16 03:27 Lymphocytes # (Manual) 0.8 K/mm3 (1.2-5.4) L 07/05/16 03:27 Abs React Lymphs (Man) 0.0 K/mm3 07/05/16 03:27 Monocytes # (Manual) 1.4 K/mm3 (0.0-0.8) H 07/05/16 03:27 Eosinophils # (Manual) 0.0 K/mm3 (0.0-0.4) 07/05/16 03:27 Basophils # (Manual) 0.0 K/mm3 (0.0-0.1) 07/05/16 03:27 Metamyelocytes # 0.0 K/mm3 07/05/16 03:27 Myelocytes # 0.0 K/mm3 07/05/16 03:27 Promyelocytes # 0.0 K/mm3 07/05/16 03:27 Blast Cells # 0.0 K/mm3 07/05/16 03:27 WBC Morphology Not Reportable 07/05/16 03:27 Hypersegmented Neuts Not Reportable 07/05/16 03:27 Hyposegmented Neuts Not Reportable 07/05/16 03:27 Hypogranular Neuts Not Reportable 07/05/16 03:27 Smudge Cells Not Reportable 07/05/16 03:27 Toxic Granulation Not Reportable 07/05/16 03:27 Toxic Vacuolation Not Reportable 07/05/16 03:27 Dohle Bodies Not Reportable 07/05/16 03:27 Pelger-Huet Anomaly Not Reportable 07/05/16 03:27 [place] Rods Not Reportable 07/05/16 03:27 Platelet Estimate Appears normal 07/05/16 03:27 Clumped Platelets Not Reportable 07/05/16 03:27 Plt Clumps, EDTA Not Reportable 07/05/16 03:27 Large Platelets Not Reportable 07/05/16 03:27 Giant Platelets Not Reportable 07/05/16 03:27 Platelet Satelliting Not Reportable 07/05/16 03:27 Plt Morphology Comment Not Reportable 07/05/16 03:27 RBC Morphology Not Reportable 07/05/16 03:27 Dimorphic RBCs Not Reportable 07/05/16 03:27 Polychromasia Not Reportable 07/05/16 03:27 Hypochromasia Few 07/05/16 03:27 Poikilocytosis Not Reportable 07/05/16 03:27 Anisocytosis Not Reportable 07/05/16 03:27 Microcytosis Not Reportable 07/05/16 03:27 Macrocytosis Not Reportable 07/05/16 03:27 Spherocytes Not Reportable 07/05/16 03:27 Pappenheimer Bodies Not Reportable 07/05/16 03:27 Sickle Cells Not Reportable 07/05/16 03:27 Target Cells Not Reportable 07/05/16 03:27 Tear Drop Cells Not Reportable 07/05/16 03:27 Ovalocytes Not Reportable 07/05/16 03:27 Helmet Cells Not Reportable 07/05/16 03:27 [place] Bodies Not Reportable 07/05/16 03:27 [place] Rings Not Reportable 07/05/16 03:27 [place] Cells Not Reportable 07/05/16 03:27 Bite Cells Not Reportable 07/05/16 03:27 Crenated Cell Not Reportable 07/05/16 03:27 Elliptocytes Not Reportable 07/05/16 03:27 Acanthocytes (Spur) Not Reportable 07/05/16 03:27 Rouleaux Not Reportable 07/05/16 03:27 Hemoglobin C Crystals Not Reportable 07/05/16 03:27 Schistocytes Not Reportable 07/05/16 03:27 Malaria parasites Not Reportable 07/05/16 03:27 Danny Bodies Not Reportable 07/05/16 03:27 Hem Pathologist Commnt No 07/05/16 03:27 POC ABG pH 7.384 (7.35-7.45) 07/09/16 03:57 POC ABG pCO2 39.5 (35-45) 07/09/16 03:57 POC ABG pO2 87 (80-105) 07/09/16 03:57 POC ABG HCO3 23.6 07/09/16 03:57 POC ABG Total CO2 25 07/09/16 03:57 POC ABG O2 Sat 96 07/09/16 03:57 POC ABG Base Excess -1 07/09/16 03:57 FiO2 35 % 07/09/16 03:57 Sodium 134 mmol/L (137-145) L 07/09/16 09:28 Potassium 3.7 mmol/L (3.6-5.0) 07/09/16 09:28 Chloride 98.4 mmol/L (98-107) 07/09/16 09:28 Carbon Dioxide 24 mmol/L (22-30) 07/09/16 09:28 Anion Gap 15 mmol/L 07/09/16 09:28 BUN 16 mg/dL (9-20) 07/09/16 09:28 Creatinine 0.5 mg/dL (0.8-1.5) L 07/09/16 09:28 Estimated GFR > 60 ml/min 07/09/16 09:28 BUN/Creatinine Ratio 32.00 % 07/09/16 09:28 Glucose 189 mg/dL (75-100) H 07/09/16 09:28 POC Glucose 176 (70-105) H 07/09/16 11:10 Calcium 7.7 mg/dL (8.4-10.2) L 07/09/16 09:28 Phosphorus 2.2 mg/dL (2.5-4.5) L D 07/09/16 04:25 Magnesium 2.1 mg/dL (1.7-2.3) 07/08/16 04:27 Total Bilirubin 2.5 mg/dL (0.1-1.2) H 07/05/16 10:50 Direct Bilirubin 1.1 mg/dL (0-0.2) H 07/05/16 10:50 Indirect Bilirubin 1.4 mg/dL 07/05/16 10:50 AST 55 units/L (5-40) H 07/05/16 10:50 ALT 55 units/L (7-56) 07/05/16 10:50 Alkaline Phosphatase 72 units/L (35-129) 07/05/16 10:50 Ammonia 58.0 umol/L (25-60) 07/05/16 10:50 Total Protein 6.3 g/dL (6.3-8.2) 07/05/16 10:50 Albumin 3.4 g/dL (3.9-5) L 07/05/16 10:50 Albumin/Globulin Ratio 1.2 % 07/05/16 10:50 Urine Color Yellow (Yellow) 07/04/16 23:20 Urine Turbidity Clear (Clear) 07/04/16 23:20 Urine pH 6.0 (5.0-7.0) 07/04/16 23:20 Ur Specific [place] 1.024 (1.003-1.030) 07/04/16 23:20 Urine Protein <15 mg/dl mg/dL (Negative) 07/04/16 23:20 Urine Glucose (UA) >=500 mg/dL (Negative) 07/04/16 23:20 Urine Ketones 80 mg/dL (Negative) 07/04/16 23:20 Urine Blood Mod (Negative) 07/04/16 23:20 Urine Nitrite Neg (Negative) 07/04/16 23:20 Urine Bilirubin Neg (Negative) 07/04/16 23:20 Urine Urobilinogen < 2.0 mg/dL (<2.0) 07/04/16 23:20 Ur Leukocyte Esterase Neg (Negative) 07/04/16 23:20 Urine WBC (Auto) 1.0 /HPF (0.0-6.0) 07/04/16 23:20 Urine RBC (Auto) 1.0 /HPF (0.0-6.0) 07/04/16 23:20 Urine Opiates Screen Presumptive negative 07/04/16 23:20 Urine Methadone Screen Presumptive negative 07/04/16 23:20 Ur Barbiturates Screen Presumptive negative 07/04/16 23:20 Ur Phencyclidine Scrn Presumptive negative 07/04/16 23:20 Ur Amphetamines Screen Presumptive negative 07/04/16 23:20 U Benzodiazepines Scrn Presumptive negative 07/04/16 23:20 Urine Cocaine Screen Presumptive negative 07/04/16 23:20 U Marijuana (THC) Screen Presumptive negative 07/04/16 23:20 Drugs of Abuse Note Disclamer 07/04/16 23:20 Plasma/Serum Alcohol 0.17 gm% (0-0.07) H 07/04/16 23:27
[2016-07-09] MEDS: SUBLIMAZE 2,000 MCG in NACL 0.9% 60 ML IV SCH (20:15)
[2016-07-10] MEDS: DUONEB 0.5 MG-3 MG/3 ML SOLN IH SCH ×4 (02:21→20:24)
[2016-07-10] MEDS: VERSED/NS 100MG/100ML 100 ML IV SCH (05:36)
[2016-07-10] MEDS: SUBLIMAZE 2,000 MCG in NACL 0.9% 60 ML IV SCH (05:56)
[2016-07-10] MEDS: NOVOLOG SUB-Q SCH ×3 (06:05→18:28)
[2016-07-10 06:31] LABS: ISTAT Base Excess 1; ISTAT HCO3 26.3; ISTAT PCO2 48.3 (35-45); ISTAT PH 7.344 (7.35-7.45); ISTAT PO2 81 (80-105); ISTAT SO2 95; ISTAT TCO2 28
[2016-07-10] MEDS: VITAMIN B-1 PO SCH (09:16)
[2016-07-10] MEDS: LOVENOX SUB-Q SCH (09:16)
[2016-07-10] MEDS: Centrum Liq PO SCH (09:16)
[2016-07-10] MEDS: PEPCID PO SCH ×2 (09:17→21:37)
[2016-07-10] MEDS: FOLVITE PO SCH (09:17)
--- NOTE | 2016-07-10 09:28 | XRay Report ---
PORTABLE CHEST INDICATION: Follow up respiratory failure. COMPARISON: Yesterday. FINDINGS: Portable, frontal chest radiograph, 1:59 AM, 07/10/2016 again demonstrates hypoinflation with stable to slight increased atelectasis/infiltrate in inferior aspect of the right upper lobe, marginated by the fissure. Left basilar opacification with obscured left hemidiaphragm also again seen. No large right pleural effusion suspected. Stable cardiomediastinal silhouette, supporting devices, EKG leads and osseous structures. CONCLUSION: No significant interval change, allowing for the difference in technique with right upper lobe and left lower lung opacities again noted, as described. Thank you for the opportunity to participate in this patient's care.
[2016-07-10] MEDS ORDERED: VANCOMYCIN VIAL IV ONE (10:04)
--- NOTE | 2016-07-10 10:22 | Progress Note ---
Assessment and Plan Acute hypoxic respiratory failure on MVS * Likely due to delirium tremens, with possible aspiration. Did not tolerated BIPAP and was intubated for failed NIPPV * Vent settings- AC-VC 18/500/5/50% with adequate gas exchange. * Lung protective strategies * HOB >30, aspiration precautions * Hold enteral feeding, get KUB and continue with accucheck and glycemic control * Araujo catheter * Bronchodilators with airway clearance techniques * VTE/Stress ulcer prophylaxis * SBTs and SATs to be initiated in the morning * Analgesia and Sedation * Wean off as tolerated * Get CXR today, CBC- patient has a new RUL infiltrate. * Initiate empiric antibiotic therapy * Obtain deep tracheal cultures. Alcohol intoxication with delirium tremens * cont Patient is on CIWA Severe hyponatremia- probably related to alcohhol and intravascular volume depletion * s/p 250 mL of 3% on admission * cont BMP * Nephrology following, sodium level improving Leukocytosis, likely stress induced SIRS, r/o infection * Restart Zosyn and add vancomycin for aspiration * Blood culture so far negative Hypertension * Currently acceptable control, probably related to alcohol withdrawal DVT prophylaxis/Stress ulcer prophylaxis - Lovenox/Famotidine - Patient Problems (1) Respiratory failure Current Visit: Yes Status: Acute (2) Hyponatremia Current Visit: Yes Status: Acute (3) Alcohol intoxication Current Visit: Yes Status: Acute Qualifiers: Complication of substance-induced condition: uncomplicated Qualified Code(s ): F10.120 - Alcohol abuse with intoxication, uncomplicated Subjective Date of service: 07/10/16 Principal diagnosis: Acute Hypoxemic Respiratory Failure Interval history: This is 51-year-old male presented to the emergency department via EMS for evaluation of altered mental status. Past medical history of diabetes and HTN Per report, the patient has been drinking alcohol heavily for the past 6 days. There has been nausea and vomiting. Patient electrolytes showed severe hyponatremia. No documented drug allergies. Patient had been placed on NIPPV but required intubation and mechanical ventilatory support for de-saturations and encephalopathy 07/06/2016 Today 07/10/2016 yellow tracheal secretions and oral secretions. Residuals are high, more agitated. CXR from yesterday showed a new right upper lobe infiltrate. No reported fevers. Objective - Exam Narrative Exam: GENERAL: well-developed obese male lying on bed appeared to be in no discomfort. HEENT: Normocephalic. Atraumatic. No conjunctival congestion or icterus. Patient has moist mucous membranes. His face appears to be plethoric with diaphoresis. NECK: Supple. Trachea midline. ET tube on place- thick yellow oral secretions CHEST/LUNGS: Restricted breathing sound auscultated bilaterally, breathing nonlabored. No crackles or rhonchi. HEART/CARDIOVASCULAR: Tachycardic. S1 and S2 positive. ABDOMEN: Abdomen is soft, nontender. Patient has normal bowel sounds. SKIN: There is no rash. Warm and dry. NEURO: No focal motor deficit. Follows commands. MUSCULOSKELETAL: No joint effusion or tenderness. EXTREMITY: No edema, no cyanosis or clubbing. Vital Signs - 12hr 07/09/16 07/09/16 07/10/16 23:00 23:02 00:00 Temperature Pulse Rate 98 H 99 H 99 H Pulse Rate [ Anterior Bilateral Throughout] Pulse Rate [ Anterior Bilateral] Respiratory 18 18 18 Rate Respiratory Rate [Anterior Bilateral Throughout] Respiratory Rate [Anterior Bilateral] Blood Pressure 116/70 115/70 114/69 O2 Sat by Pulse 96 97 95 Oximetry 07/10/16 07/10/16 07/10/16 01:00 01:57 02:00 Temperature Pulse Rate 100 H 90 93 H Pulse Rate [ Anterior Bilateral Throughout] Pulse Rate [ Anterior Bilateral] Respiratory 18 18 Rate Respiratory Rate [Anterior Bilateral Throughout] Respiratory Rate [Anterior Bilateral] Blood Pressure 110/65 108/61 108/61 O2 Sat by Pulse 96 97 96 Oximetry 07/10/16 07/10/16 07/10/16 02:20 02:31 03:00 Temperature Pulse Rate 96 H Pulse Rate [ Anterior Bilateral Throughout] Pulse Rate [ 94 H 92 H Anterior Bilateral] Respiratory 18 Rate Respiratory Rate [Anterior Bilateral Throughout] Respiratory 18 17 Rate [Anterior Bilateral] Blood Pressure 113/62 O2 Sat by Pulse 96 Oximetry 07/10/16 07/10/16 07/10/16 04:00 04:03 04:43 Temperature 99.2 F Pulse Rate 107 H 100 H Pulse Rate [ Anterior Bilateral Throughout] Pulse Rate [ Anterior Bilateral] Respiratory 18 Rate Respiratory Rate [Anterior Bilateral Throughout] Respiratory Rate [Anterior Bilateral] Blood Pressure 114/66 114/67 O2 Sat by Pulse 98 96 97 Oximetry 07/10/16 07/10/16 07/10/16 05:00 05:56 06:00 Temperature Pulse Rate 99 H 95 H Pulse Rate [ Anterior Bilateral Throughout] Pulse Rate [ Anterior Bilateral] Respiratory 18 18 18 Rate Respiratory Rate [Anterior Bilateral Throughout] Respiratory Rate [Anterior Bilateral] Blood Pressure 113/64 113/69 117/70 O2 Sat by Pulse 95 95 Oximetry 07/10/16 07/10/16 07/10/16 06:27 07:00 07:26 Temperature Pulse Rate 94 H 91 H 91 H Pulse Rate [ 91 H Anterior Bilateral Throughout] Pulse Rate [ Anterior Bilateral] Respiratory 18 18 Rate Respiratory 18 Rate [Anterior Bilateral Throughout] Respiratory Rate [Anterior Bilateral] Blood Pressure 117/70 113/64 113/64 O2 Sat by Pulse 97 95 97 Oximetry 07/10/16 07/10/16 07/10/16 07:33 07:50 08:00 Temperature 99.5 F Pulse Rate 96 H Pulse Rate [ 91 H Anterior Bilateral Throughout] Pulse Rate [ Anterior Bilateral] Respiratory 18 Rate Respiratory 18 Rate [Anterior Bilateral Throughout] Respiratory Rate [Anterior Bilateral] Blood Pressure 112/62 O2 Sat by Pulse 93 Oximetry 07/10/16 07/10/16 08:25 09:00 Temperature Pulse Rate 98 H 96 H Pulse Rate [ Anterior Bilateral Throughout] Pulse Rate [ Anterior Bilateral] Respiratory 18 18 Rate Respiratory Rate [Anterior Bilateral Throughout] Respiratory Rate [Anterior Bilateral] Blood Pressure 112/62 110/66 O2 Sat by Pulse 95 94 Oximetry Constitutional: lethargic, asleep Eyes: non-icteric ENT: oropharynx moist Neck: supple, no JVD Ascultation: Bilateral: diminished breath sounds Cardiovascular: regular rate and rhythm Gastrointestinal: normoactive bowel sounds, soft, non-tender Integumentary: normal Extremities: no cyanosis, no edema Neurologic: unable to assess Psychiatric: other (Unable assess, Patient intoxicated.) CBC and BMP: 07/10/16 10:37 07/11/16 04:21 ABG, PT/INR, D-dimer: ABG POC ABG pH 7.344 (7.35-7.45) L 07/10/16 04:44 POC ABG pCO2 48.3 (35-45) H 07/10/16 04:44 POC ABG pO2 81 (80-105) 07/10/16 04:44 POC ABG HCO3 26.3 07/10/16 04:44 POC ABG Total CO2 28 07/10/16 04:44 POC ABG O2 Sat 95 07/10/16 04:44 Abnormal lab findings: Abnormal Labs 07/05/16 07/05/16 07/05/16 02:11 03:27 03:27 WBC 20.7 H RBC 5.17 H Hgb 15.7 H MCHC 35 H RDW 13.1 L Lymph % (Auto) Lymph # Seg Neutrophils % Lymphocytes % (Manual) 4.0 L Seg Neutrophils # Seg Neutrophils # Man 12.6 H Lymphocytes # (Manual) 0.8 L Monocytes # (Manual) 1.4 H POC ABG pH POC ABG pCO2 POC ABG pO2 Sodium 110 L* 110 L* Potassium Chloride 72.5 L Carbon Dioxide 13 L Creatinine 0.5 L Glucose 190 H POC Glucose Calcium 8.1 L Phosphorus Total Bilirubin Direct Bilirubin AST Albumin 07/05/16 07/05/16 07/05/16 07:24 07:32 10:45 WBC RBC Hgb MCHC RDW Lymph % (Auto) Lymph # Seg Neutrophils % Lymphocytes % (Manual) Seg Neutrophils # Seg Neutrophils # Man Lymphocytes # (Manual) Monocytes # (Manual) POC ABG pH POC ABG pCO2 21.2 L POC ABG pO2 Sodium 115 L* Potassium Chloride 75.4 L Carbon Dioxide 12 L Creatinine 0.5 L Glucose 177 H POC Glucose 158 H Calcium 7.8 L Phosphorus Total Bilirubin Direct Bilirubin AST Albumin 07/05/16 07/05/16 07/05/16 10:50 10:50 10:50 WBC RBC Hgb MCHC RDW Lymph % (Auto) Lymph # Seg Neutrophils % Lymphocytes % (Manual) Seg Neutrophils # Seg Neutrophils # Man Lymphocytes # (Manual) Monocytes # (Manual) POC ABG pH POC ABG pCO2 POC ABG pO2 Sodium 112 L* Potassium Chloride 76.7 L Carbon Dioxide 12 L Creatinine 0.5 L Glucose 195 H POC Glucose Calcium 7.6 L Phosphorus 2.3 L Total Bilirubin 2.5 H Direct Bilirubin 1.1 H AST 55 H Albumin 3.5 L 3.4 L 07/05/16 07/05/16 07/05/16 12:00 13:57 16:13 WBC RBC Hgb MCHC RDW Lymph % (Auto) Lymph # Seg Neutrophils % Lymphocytes % (Manual) Seg Neutrophils # Seg Neutrophils # Man Lymphocytes # (Manual) Monocytes # (Manual) POC ABG pH POC ABG pCO2 POC ABG pO2 Sodium 112 L* Potassium Chloride 77.4 L Carbon Dioxide 12 L Creatinine 0.6 L Glucose 207 H POC Glucose 242 H 139 H Calcium 7.7 L Phosphorus Total Bilirubin Direct Bilirubin AST Albumin 07/05/16 07/05/16 07/05/16 18:26 21:13 21:23 WBC RBC Hgb MCHC RDW Lymph % (Auto) Lymph # Seg Neutrophils % Lymphocytes % (Manual) Seg Neutrophils # Seg Neutrophils # Man Lymphocytes # (Manual) Monocytes # (Manual) POC ABG pH POC ABG pCO2 POC ABG pO2 Sodium 115 L* 114 L* Potassium Chloride 80.6 L 81.7 L Carbon Dioxide 12 L 14 L Creatinine 0.4 L 0.6 L Glucose 186 H 182 H POC Glucose 154 H Calcium 7.7 L 7.7 L Phosphorus Total Bilirubin Direct Bilirubin AST Albumin 07/06/16 07/06/16 07/06/16 05:03 06:06 06:06 WBC 13.7 H RBC Hgb MCHC 36 H RDW 13.1 L Lymph % (Auto) 6.9 L Lymph # 0.9 L Seg Neutrophils % 87.0 H Lymphocytes % (Manual) Seg Neutrophils # 11.9 H Seg Neutrophils # Man Lymphocytes # (Manual) Monocytes # (Manual) POC ABG pH POC ABG pCO2 31.7 L POC ABG pO2 350 H Sodium 122 L D Potassium Chloride 88.0 L Carbon Dioxide 19 L Creatinine 0.6 L Glucose 189 H POC Glucose Calcium 7.9 L Phosphorus 2.0 L Total Bilirubin Direct Bilirubin AST Albumin 07/06/16 07/06/16 07/06/16 08:00 10:57 15:17 WBC RBC Hgb MCHC RDW Lymph % (Auto) Lymph # Seg Neutrophils % Lymphocytes % (Manual) Seg Neutrophils # Seg Neutrophils # Man Lymphocytes # (Manual) Monocytes # (Manual) POC ABG pH POC ABG pCO2 POC ABG pO2 Sodium 126 L Potassium 3.5 L Chloride 92.1 L Carbon Dioxide 20 L Creatinine 0.7 L Glucose 184 H POC Glucose 164 H 156 H Calcium 7.6 L Phosphorus Total Bilirubin Direct Bilirubin AST Albumin 07/06/16 07/06/16 07/06/16 16:18 19:03 21:42 WBC RBC Hgb MCHC RDW Lymph % (Auto) Lymph # Seg Neutrophils % Lymphocytes % (Manual) Seg Neutrophils # Seg Neutrophils # Man Lymphocytes # (Manual) Monocytes # (Manual) POC ABG pH POC ABG pCO2 POC ABG pO2 Sodium 126 L Potassium Chloride Carbon Dioxide Creatinine Glucose POC Glucose 159 H 164 H Calcium Phosphorus Total Bilirubin Direct Bilirubin AST Albumin 07/07/16 07/07/16 07/07/16 04:04 05:25 12:04 WBC RBC Hgb MCHC RDW Lymph % (Auto) Lymph # Seg Neutrophils % Lymphocytes % (Manual) Seg Neutrophils # Seg Neutrophils # Man Lymphocytes # (Manual) Monocytes # (Manual) POC ABG pH 7.317 L POC ABG pCO2 POC ABG pO2 77 L Sodium 130 L Potassium Chloride 95.9 L Carbon Dioxide Creatinine 0.7 L Glucose 165 H POC Glucose 160 H Calcium 7.8 L Phosphorus 1.8 L Total Bilirubin Direct Bilirubin AST Albumin 07/07/16 07/07/16 07/08/16 17:39 23:35 04:27 WBC RBC Hgb MCHC RDW Lymph % (Auto) Lymph # Seg Neutrophils % Lymphocytes % (Manual) Seg Neutrophils # Seg Neutrophils # Man Lymphocytes # (Manual) Monocytes # (Manual) POC ABG pH POC ABG pCO2 POC ABG pO2 Sodium 131 L Potassium Chloride 96.3 L Carbon Dioxide Creatinine 0.4 L Glucose 172 H POC Glucose 157 H 174 H Calcium 7.8 L Phosphorus 1.7 L Total Bilirubin Direct Bilirubin AST Albumin 07/08/16 07/08/16 07/08/16 04:27 05:40 12:14 WBC RBC Hgb MCHC RDW Lymph % (Auto) Lymph # Seg Neutrophils % Lymphocytes % (Manual) Seg Neutrophils # Seg Neutrophils # Man Lymphocytes # (Manual) Monocytes # (Manual) POC ABG pH POC ABG pCO2 POC ABG pO2 163 H Sodium Potassium Chloride Carbon Dioxide Creatinine Glucose POC Glucose 158 H 171 H Calcium Phosphorus Total Bilirubin Direct Bilirubin AST Albumin 07/08/16 07/08/16 07/09/16 17:29 23:45 04:25 WBC RBC Hgb MCHC RDW Lymph % (Auto) Lymph # Seg Neutrophils % Lymphocytes % (Manual) Seg Neutrophils # Seg Neutrophils # Man Lymphocytes # (Manual) Monocytes # (Manual) POC ABG pH POC ABG pCO2 POC ABG pO2 Sodium Potassium Chloride Carbon Dioxide Creatinine Glucose POC Glucose 178 H 181 H Calcium Phosphorus 2.2 L D Total Bilirubin Direct Bilirubin AST Albumin 07/09/16 07/09/16 07/09/16 05:20 09:28 11:10 WBC RBC Hgb MCHC RDW Lymph % (Auto) Lymph # Seg Neutrophils % Lymphocytes % (Manual) Seg Neutrophils # Seg Neutrophils # Man Lymphocytes # (Manual) Monocytes # (Manual) POC ABG pH POC ABG pCO2 POC ABG pO2 Sodium 134 L Potassium Chloride Carbon Dioxide Creatinine 0.5 L Glucose 189 H POC Glucose 184 H 176 H Calcium 7.7 L Phosphorus Total Bilirubin Direct Bilirubin AST Albumin 07/09/16 07/09/16 07/09/16 17:27 23:45 23:58 WBC RBC Hgb MCHC RDW Lymph % (Auto) Lymph # Seg Neutrophils % Lymphocytes % (Manual) Seg Neutrophils # Seg Neutrophils # Man Lymphocytes # (Manual) Monocytes # (Manual) POC ABG pH POC ABG pCO2 POC ABG pO2 Sodium Potassium Chloride Carbon Dioxide Creatinine Glucose POC Glucose 170 H 230 H 187 H Calcium Phosphorus Total Bilirubin Direct Bilirubin AST Albumin 07/10/16 07/10/16 04:44 05:55 WBC RBC Hgb MCHC RDW Lymph % (Auto) Lymph # Seg Neutrophils % Lymphocytes % (Manual) Seg Neutrophils # Seg Neutrophils # Man Lymphocytes # (Manual) Monocytes # (Manual) POC ABG pH 7.344 L POC ABG pCO2 48.3 H POC ABG pO2 Sodium Potassium Chloride Carbon Dioxide Creatinine Glucose POC Glucose 166 H Calcium Phosphorus Total Bilirubin Direct Bilirubin AST Albumin Chest x-ray: image reviewed (low lung volumes, new RUL infiltrate)
[2016-07-10 10:45] LABS: Hematocrit 37.7 % (35.5-45.6); Hemoglobin 13.2 gm/dl (11.8-15.2); Mean Corpuscular HGB Conc 35 % (32-34); Mean Corpuscular Hemoglobin 32 pg (28-32); Mean Corpuscular Volume 90 fl (84-94); Platelet Count 259 K/mm3 (140-440); Red Blood Count 4.17 M/mm3 (3.65-5.03); Red Cell Distribution Width 13.3 % (13.2-15.2); White Blood Count 10.6 K/mm3 (4.5-11.0)
--- NOTE | 2016-07-10 11:22 | XRay Report ---
ABDOMEN RADIOGRAPHS: INDICATION: Aspiration. COMPARISON: 07/06/2016 FINDINGS: Frontal abdominal radiographs demonstrate interval change in Dobbhoff tube appearance, possibly retracted to about the mid stomach and partly folded upon itself. Nonobstructive bowel gas pattern with increased ascending colon stool as also remainder colonic air. Possible air-containing sigmoid rising into the abdomen with caliber of approximately 6 cm noted. No focal suspicious calcifications or pneumatosis. Lung bases incompletely imaged. Mild multilevel spinal degenerative changes. CONCLUSION: Few incidental findings, as above. Thank you for the opportunity to participate in this patient's care.
[2016-07-10 11:30] LABS: Basophils % (Manual) 0 % (0.0-1.8); Blastocytes % (Manual) 0 %; Diff Status Complete; Eosinophils % (Manual) 0 % (0.0-4.3); RBC Morphology Normal
[2016-07-10] MEDS ORDERED: VANCOMYCIN VIAL 1,500 MG in NACL 0.9% 500 ML 500 ML IV ONE (14:00)
[2016-07-10] MEDS ORDERED: VANCOMYCIN PHARMACY TO DOSE IV SCH (14:00)
[2016-07-10] MEDS: ZOSYN/NS 4.5GM/100ML 100 ML IV SCH ×2 (17:19→23:37)
[2016-07-10] MEDS: fentaNYL DRIP Premix 100 ML IV SCH (18:03)
--- NOTE | 2016-07-10 20:53 | Progress Note ---
Assessment and Plan Assessment and plan: 1. Acute hypoxic respiratory failure * Likely due to delirium tremens * Continue vent management by pulmonary * Prn breathing treatment * CPAP trial daily * Wean off vent as tolerated 2. Alcohol intoxication with delirium tremens * Currently sedated with Versed; on CIWA protocol * On thiamine, folate 3. Severe hyponatremia on admission * 112; received 250 mL of 3% on admission, then NS * Now resolved 4. Hypophosphatemia * Replaced * Continue to monitor 5. SIRS * On empiric IV Zosyn 6. Hypertension * Blood pressure uncontrolled initially,so was placed on clonidine patch * Normotensive now 7. DM * Accu-Cheks and SSI 8. DVT prophylaxis * Lovenox 9. Disposition * Continue to monitor in ICU The high probability of a clinically significant, sudden or life threatening deterioration of the [] system(s) required my full and direct attention, intervention and personal management. The aggregate critical care time was [35] minutes. This time is in addition to time spent performing reported procedures but includes the following: [x] Data Review and interpretation [x] Patient assessment and monitoring of vital signs [x] Documentation [x] Medication orders and management History Interval history: in withdrawal, remains intubated, trying to wean and decrease sedation Hospitalist Physical - Constitutional Vitals: Temp Pulse Resp BP Pulse Ox 99.3 F 88 18 93/60 96 07/10/16 20:00 07/10/16 20:29 07/10/16 20:29 07/10/16 20:24 07/10/16 20:24 General appearance: Present: no acute distress, obese - Neck Neck: Present: supple. Absent: enlarged thyroid, masses or JVD - Respiratory Respiratory effort: other (intubated) Respiratory: bilateral: diminished, negative: rhonchi, wheezing - Cardiovascular Rhythm: other (tachycardic) Heart Sounds: Present: S1 & S2. Absent: systolic murmur - Extremities Extremities: no ischemia - Abdominal General gastrointestinal: soft, non-tender, non-distended, normal bowel sounds - Psychiatric Psychiatric: other (sedated) Results - Labs CBC & Chem 7: 07/10/16 10:37 07/09/16 09:28 Labs: Laboratory Last Values WBC 10.6 K/mm3 (4.5-11.0) 07/10/16 10:37 RBC 4.17 M/mm3 (3.65-5.03) 07/10/16 10:37 Hgb 13.2 gm/dl (11.8-15.2) 07/10/16 10:37 Hct 37.7 % (35.5-45.6) 07/10/16 10:37 MCV 90 fl (84-94) 07/10/16 10:37 MCH 32 pg (28-32) 07/10/16 10:37 MCHC 35 % (32-34) H 07/10/16 10:37 RDW 13.3 % (13.2-15.2) 07/10/16 10:37 Plt Count 259 K/mm3 (140-440) 07/10/16 10:37 Lymph % (Auto) 6.9 % (13.4-35.0) L 07/06/16 06:06 [place] % (Auto) 6.0 % (0.0-7.3) 07/06/16 06:06 Eos % (Auto) 0.0 % (0.0-4.3) 07/06/16 06:06 Baso % (Auto) 0.1 % (0.0-1.8) 07/06/16 06:06 Lymph # 0.9 K/mm3 (1.2-5.4) L 07/06/16 06:06 [place] # 0.8 K/mm3 (0.0-0.8) 07/06/16 06:06 Eos # 0.0 K/mm3 (0.0-0.4) 07/06/16 06:06 Baso # 0.0 K/mm3 (0.0-0.1) 07/06/16 06:06 Add Manual Diff Complete 07/10/16 10:37 Total Counted 100 07/10/16 10:37 Seg Neutrophils % 87.0 % (40.0-70.0) H 07/06/16 06:06 Seg Neuts % (Manual) 58.0 % (40.0-70.0) 07/10/16 10:37 Band Neutrophils % 5.0 % 07/10/16 10:37 Lymphocytes % (Manual) 17.0 % (13.4-35.0) 07/10/16 10:37 Reactive Lymphs % (Man) 0 % 07/10/16 10:37 Monocytes % (Manual) 16.0 % (0.0-7.3) H 07/10/16 10:37 Eosinophils % (Manual) 0 % (0.0-4.3) 07/10/16 10:37 Basophils % (Manual) 0 % (0.0-1.8) 07/10/16 10:37 Metamyelocytes % 4.0 % 07/10/16 10:37 Myelocytes % 0 % 07/10/16 10:37 Promyelocytes % 0 % 07/10/16 10:37 Blast Cells % 0 % 07/10/16 10:37 Nucleated RBC % Not Reportable 07/10/16 10:37 Seg Neutrophils # 11.9 K/mm3 (1.8-7.7) H 07/06/16 06:06 Seg Neutrophils # Man 6.1 K/mm3 (1.8-7.7) 07/10/16 10:37 Band Neutrophils # 0.5 K/mm3 07/10/16 10:37 Lymphocytes # (Manual) 1.8 K/mm3 (1.2-5.4) 07/10/16 10:37 Abs React Lymphs (Man) 0.0 K/mm3 07/10/16 10:37 Monocytes # (Manual) 1.7 K/mm3 (0.0-0.8) H 07/10/16 10:37 Eosinophils # (Manual) 0.0 K/mm3 (0.0-0.4) 07/10/16 10:37 Basophils # (Manual) 0.0 K/mm3 (0.0-0.1) 07/10/16 10:37 Metamyelocytes # 0.4 K/mm3 07/10/16 10:37 Myelocytes # 0.0 K/mm3 07/10/16 10:37 Promyelocytes # 0.0 K/mm3 07/10/16 10:37 Blast Cells # 0.0 K/mm3 07/10/16 10:37 WBC Morphology Not Reportable 07/10/16 10:37 Hypersegmented Neuts Not Reportable 07/10/16 10:37 Hyposegmented Neuts Not Reportable 07/10/16 10:37 Hypogranular Neuts Not Reportable 07/10/16 10:37 Smudge Cells Not Reportable 07/10/16 10:37 Toxic Granulation Not Reportable 07/10/16 10:37 Toxic Vacuolation Not Reportable 07/10/16 10:37 Dohle Bodies Not Reportable 07/10/16 10:37 Pelger-Huet Anomaly Not Reportable 07/10/16 10:37 Marques Rods Not Reportable 07/10/16 10:37 Platelet Estimate Appears normal 07/10/16 10:37 Clumped Platelets Not Reportable 07/10/16 10:37 Plt Clumps, EDTA Not Reportable 07/10/16 10:37 Large Platelets Not Reportable 07/10/16 10:37 Giant Platelets Not Reportable 07/10/16 10:37 Platelet Satelliting Not Reportable 07/10/16 10:37 Plt Morphology Comment Not Reportable 07/10/16 10:37 RBC Morphology Normal 07/10/16 10:37 Dimorphic RBCs Not Reportable 07/10/16 10:37 Polychromasia Not Reportable 07/10/16 10:37 Hypochromasia Not Reportable 07/10/16 10:37 Poikilocytosis Not Reportable 07/10/16 10:37 Anisocytosis Not Reportable 07/10/16 10:37 Microcytosis Not Reportable 07/10/16 10:37 Macrocytosis Not Reportable 07/10/16 10:37 Spherocytes Not Reportable 07/10/16 10:37 Pappenheimer Bodies Not Reportable 07/10/16 10:37 Sickle Cells Not Reportable 07/10/16 10:37 Target Cells Not Reportable 07/10/16 10:37 Tear Drop Cells Not Reportable 07/10/16 10:37 Ovalocytes Not Reportable 07/10/16 10:37 Helmet Cells Not Reportable 07/10/16 10:37 [place] Bodies Not Reportable 07/10/16 10:37 [place] Rings Not Reportable 07/10/16 10:37 [place] Cells Not Reportable 07/10/16 10:37 Bite Cells Not Reportable 07/10/16 10:37 Crenated Cell Not Reportable 07/10/16 10:37 Elliptocytes Not Reportable 07/10/16 10:37 Acanthocytes (Spur) Not Reportable 07/10/16 10:37 Rouleaux Not Reportable 07/10/16 10:37 Hemoglobin C Crystals Not Reportable 07/10/16 10:37 Schistocytes Not Reportable 07/10/16 10:37 Malaria parasites Not Reportable 07/10/16 10:37 Danny Bodies Not Reportable 07/10/16 10:37 Hem Pathologist Commnt No 07/10/16 10:37 POC ABG pH 7.344 (7.35-7.45) L 07/10/16 04:44 POC ABG pCO2 48.3 (35-45) H 07/10/16 04:44 POC ABG pO2 81 (80-105) 07/10/16 04:44 POC ABG HCO3 26.3 07/10/16 04:44 POC ABG Total CO2 28 07/10/16 04:44 POC ABG O2 Sat 95 07/10/16 04:44 POC ABG Base Excess 1 07/10/16 04:44 FiO2 35 % 07/10/16 04:44 Sodium 134 mmol/L (137-145) L 07/09/16 09:28 Potassium 3.7 mmol/L (3.6-5.0) 07/09/16 09:28 Chloride 98.4 mmol/L (98-107) 07/09/16 09:28 Carbon Dioxide 24 mmol/L (22-30) 07/09/16 09:28 Anion Gap 15 mmol/L 07/09/16 09:28 BUN 16 mg/dL (9-20) 07/09/16 09:28 Creatinine 0.5 mg/dL (0.8-1.5) L 07/09/16 09:28 Estimated GFR > 60 ml/min 07/09/16 09:28 BUN/Creatinine Ratio 32.00 % 07/09/16 09:28 Glucose 189 mg/dL (75-100) H 07/09/16 09:28 POC Glucose 171 (70-105) H 07/10/16 18:08 Calcium 7.7 mg/dL (8.4-10.2) L 07/09/16 09:28 Phosphorus 2.2 mg/dL (2.5-4.5) L D 07/09/16 04:25 Magnesium 2.1 mg/dL (1.7-2.3) 07/08/16 04:27 Total Bilirubin 2.5 mg/dL (0.1-1.2) H 07/05/16 10:50 Direct Bilirubin 1.1 mg/dL (0-0.2) H 07/05/16 10:50 Indirect Bilirubin 1.4 mg/dL 07/05/16 10:50 AST 55 units/L (5-40) H 07/05/16 10:50 ALT 55 units/L (7-56) 07/05/16 10:50 Alkaline Phosphatase 72 units/L (35-129) 07/05/16 10:50 Ammonia 58.0 umol/L (25-60) 07/05/16 10:50 Total Protein 6.3 g/dL (6.3-8.2) 07/05/16 10:50 Albumin 3.4 g/dL (3.9-5) L 07/05/16 10:50 Albumin/Globulin Ratio 1.2 % 07/05/16 10:50 Urine Color Yellow (Yellow) 07/04/16 23:20 Urine Turbidity Clear (Clear) 07/04/16 23:20 Urine pH 6.0 (5.0-7.0) 07/04/16 23:20 Ur Specific [place] 1.024 (1.003-1.030) 07/04/16 23:20 Urine Protein <15 mg/dl mg/dL (Negative) 07/04/16 23:20 Urine Glucose (UA) >=500 mg/dL (Negative) 07/04/16 23:20 Urine Ketones 80 mg/dL (Negative) 07/04/16 23:20 Urine Blood Mod (Negative) 07/04/16 23:20 Urine Nitrite Neg (Negative) 07/04/16 23:20 Urine Bilirubin Neg (Negative) 07/04/16 23:20 Urine Urobilinogen < 2.0 mg/dL (<2.0) 07/04/16 23:20 Ur Leukocyte Esterase Neg (Negative) 07/04/16 23:20 Urine WBC (Auto) 1.0 /HPF (0.0-6.0) 07/04/16 23:20 Urine RBC (Auto) 1.0 /HPF (0.0-6.0) 07/04/16 23:20 Urine Opiates Screen Presumptive negative 07/04/16 23:20 Urine Methadone Screen Presumptive negative 07/04/16 23:20 Ur Barbiturates Screen Presumptive negative 07/04/16 23:20 Ur Phencyclidine Scrn Presumptive negative 07/04/16 23:20 Ur Amphetamines Screen Presumptive negative 07/04/16 23:20 U Benzodiazepines Scrn Presumptive negative 07/04/16 23:20 Urine Cocaine Screen Presumptive negative 07/04/16 23:20 U Marijuana (THC) Screen Presumptive negative 07/04/16 23:20 Drugs of Abuse Note Disclamer 07/04/16 23:20 Plasma/Serum Alcohol 0.17 gm% (0-0.07) H 07/04/16 23:27
[2016-07-11] MEDS: NOVOLOG SUB-Q SCH ×4 (00:35→18:34)
[2016-07-11] MEDS: DUONEB 0.5 MG-3 MG/3 ML SOLN IH SCH ×4 (01:54→19:17)
[2016-07-11] MEDS: SUBLIMAZE 2,000 MCG in NACL 0.9% 60 ML IV SCH (02:00)
[2016-07-11] MEDS: VANCOMYCIN VIAL 1,500 MG in NACL 0.9% 500 ML 500 ML IV SCH ×2 (02:15→14:00)
[2016-07-11 05:13] LABS: Alanine Aminotransferase 63 units/L (7-56); Albumin 2.5 g/dL (3.9-5); Albumin/Globulin Ratio 0.9 %; Alkaline Phosphatase 46 units/L (35-129); BUN/Creatinine Ratio 32.85; Bilirubin,Total 0.7 mg/dL (0.1-1.2); Blood Urea Nitrogen 23 mg/dL (9-20); Calcium 7.6 mg/dL (8.4-10.2); Carbon Dioxide 26 mmol/L (22-30); Chloride 100.1 mmol/L (98-107); Glucose 138 mg/dL (75-100); Magnesium 2.1 mg/dL (1.7-2.3); Phosphorous 2.8 mg/dL (2.5-4.5); Potassium 3.8 mmol/L (3.6-5.0); Sodium 136 mmol/L (137-145); Total Protein 5.4 g/dL (6.3-8.2)
[2016-07-11 05:14] LABS: Anion Gap 14 mmol/L
[2016-07-11 05:54] LABS: ISTAT Base Excess 0; ISTAT HCO3 25.4; ISTAT PCO2 41.6 (35-45); ISTAT PH 7.393 (7.35-7.45); ISTAT PO2 78 (80-105); ISTAT SO2 95; ISTAT TCO2 27
[2016-07-11] MEDS: LOVENOX SUB-Q SCH (09:37)
[2016-07-11] MEDS: FOLVITE PO SCH (09:38)
[2016-07-11] MEDS: VITAMIN B-1 PO SCH (09:38)
[2016-07-11] MEDS: ZOSYN/NS 4.5GM/100ML 100 ML IV SCH ×3 (09:38→23:47)
[2016-07-11] MEDS: PEPCID PO SCH ×3 (09:38→22:03)
--- NOTE | 2016-07-11 09:40 | XRay Report ---
Single view chest: Compared to 07/10/16. History: Followup of respiratory failure. Findings: Cardiomegaly. Trachea is midline. Support system in place. Decrease in airspace opacity right upper lobe compared to previous study. Impression: Partial resolution of consolidation right upper lobe compared to previous study
[2016-07-11 11:46] LABS: ISTAT Base Excess 2; ISTAT HCO3 26.7; ISTAT PH 7.422 (7.35-7.45); ISTAT PO2 60 (80-105); ISTAT SO2 91; ISTAT TCO2 28
[2016-07-11] MEDS: Centrum Liq PO SCH (13:05)
--- NOTE | 2016-07-11 15:36 | Progress Note ---
Assessment and Plan Assessment and plan: 1. Acute hypoxic respiratory failure * Likely due to delirium tremens * Continue vent management by pulmonary * Prn breathing treatment * CPAP trial daily * Wean off vent as tolerated 2. Alcohol intoxication with delirium tremens * Currently sedated with Versed; on CIWA protocol * On thiamine, folate 3. Severe hyponatremia on admission * 112; received 250 mL of 3% on admission, then NS * Now resolved 4. Hypophosphatemia * Replaced * Continue to monitor 5. SIRS * On empiric IV Zosyn * Sputum culture positive for staph; will discuss with pulmonary if Vancomycin needed 6. Hypertension * Blood pressure uncontrolled initially,so was placed on clonidine patch * Normotensive now 7. DM * Accu-Cheks and SSI 8. DVT prophylaxis * Lovenox 9. Disposition * Continue to monitor in ICU The high probability of a clinically significant, sudden or life threatening deterioration of the [] system(s) required my full and direct attention, intervention and personal management. The aggregate critical care time was [35] minutes. This time is in addition to time spent performing reported procedures but includes the following: [x] Data Review and interpretation [x] Patient assessment and monitoring of vital signs [x] Documentation [x] Medication orders and management History Interval history: no acute events and no issues overnight; sedated; plan CPAP trial Hospitalist Physical - Constitutional Vitals: Temp Pulse Resp BP Pulse Ox 99.3 F 107 H 14 121/83 93 07/11/16 12:00 07/11/16 12:00 07/11/16 12:00 07/11/16 12:00 07/11/16 12:00 General appearance: Present: mild distress, obese - Neck Neck: Present: supple. Absent: enlarged thyroid, masses or JVD - Respiratory Respiratory effort: other (intubated) Respiratory: bilateral: diminished, rhonchi, negative: wheezing - Cardiovascular Rhythm: regular Heart Sounds: Present: S1 & S2. Absent: systolic murmur - Extremities Extremities: no ischemia - Abdominal General gastrointestinal: soft, non-tender, non-distended, normal bowel sounds, other (protuberant) - Psychiatric Psychiatric: other (sedated) - Neurologic Neurologic: moves all extremities Results - Labs CBC & Chem 7: 07/10/16 10:37 07/11/16 04:21 Labs: Laboratory Last Values WBC 10.6 K/mm3 (4.5-11.0) 07/10/16 10:37 RBC 4.17 M/mm3 (3.65-5.03) 07/10/16 10:37 Hgb 13.2 gm/dl (11.8-15.2) 07/10/16 10:37 Hct 37.7 % (35.5-45.6) 07/10/16 10:37 MCV 90 fl (84-94) 07/10/16 10:37 MCH 32 pg (28-32) 07/10/16 10:37 MCHC 35 % (32-34) H 07/10/16 10:37 RDW 13.3 % (13.2-15.2) 07/10/16 10:37 Plt Count 259 K/mm3 (140-440) 07/10/16 10:37 Lymph % (Auto) 6.9 % (13.4-35.0) L 07/06/16 06:06 [place] % (Auto) 6.0 % (0.0-7.3) 07/06/16 06:06 Eos % (Auto) 0.0 % (0.0-4.3) 07/06/16 06:06 Baso % (Auto) 0.1 % (0.0-1.8) 07/06/16 06:06 Lymph # 0.9 K/mm3 (1.2-5.4) L 07/06/16 06:06 [place] # 0.8 K/mm3 (0.0-0.8) 07/06/16 06:06 Eos # 0.0 K/mm3 (0.0-0.4) 07/06/16 06:06 Baso # 0.0 K/mm3 (0.0-0.1) 07/06/16 06:06 Add Manual Diff Complete 07/10/16 10:37 Total Counted 100 07/10/16 10:37 Seg Neutrophils % 87.0 % (40.0-70.0) H 07/06/16 06:06 Seg Neuts % (Manual) 58.0 % (40.0-70.0) 07/10/16 10:37 Band Neutrophils % 5.0 % 07/10/16 10:37 Lymphocytes % (Manual) 17.0 % (13.4-35.0) 07/10/16 10:37 Reactive Lymphs % (Man) 0 % 07/10/16 10:37 Monocytes % (Manual) 16.0 % (0.0-7.3) H 07/10/16 10:37 Eosinophils % (Manual) 0 % (0.0-4.3) 07/10/16 10:37 Basophils % (Manual) 0 % (0.0-1.8) 07/10/16 10:37 Metamyelocytes % 4.0 % 07/10/16 10:37 Myelocytes % 0 % 07/10/16 10:37 Promyelocytes % 0 % 07/10/16 10:37 Blast Cells % 0 % 07/10/16 10:37 Nucleated RBC % Not Reportable 07/10/16 10:37 Seg Neutrophils # 11.9 K/mm3 (1.8-7.7) H 07/06/16 06:06 Seg Neutrophils # Man 6.1 K/mm3 (1.8-7.7) 07/10/16 10:37 Band Neutrophils # 0.5 K/mm3 07/10/16 10:37 Lymphocytes # (Manual) 1.8 K/mm3 (1.2-5.4) 07/10/16 10:37 Abs React Lymphs (Man) 0.0 K/mm3 07/10/16 10:37 Monocytes # (Manual) 1.7 K/mm3 (0.0-0.8) H 07/10/16 10:37 Eosinophils # (Manual) 0.0 K/mm3 (0.0-0.4) 07/10/16 10:37 Basophils # (Manual) 0.0 K/mm3 (0.0-0.1) 07/10/16 10:37 Metamyelocytes # 0.4 K/mm3 07/10/16 10:37 Myelocytes # 0.0 K/mm3 07/10/16 10:37 Promyelocytes # 0.0 K/mm3 07/10/16 10:37 Blast Cells # 0.0 K/mm3 07/10/16 10:37 WBC Morphology Not Reportable 07/10/16 10:37 Hypersegmented Neuts Not Reportable 07/10/16 10:37 Hyposegmented Neuts Not Reportable 07/10/16 10:37 Hypogranular Neuts Not Reportable 07/10/16 10:37 Smudge Cells Not Reportable 07/10/16 10:37 Toxic Granulation Not Reportable 07/10/16 10:37 Toxic Vacuolation Not Reportable 07/10/16 10:37 Dohle Bodies Not Reportable 07/10/16 10:37 Pelger-Huet Anomaly Not Reportable 07/10/16 10:37 Marques Rods Not Reportable 07/10/16 10:37 Platelet Estimate Appears normal 07/10/16 10:37 Clumped Platelets Not Reportable 07/10/16 10:37 Plt Clumps, EDTA Not Reportable 07/10/16 10:37 Large Platelets Not Reportable 07/10/16 10:37 Giant Platelets Not Reportable 07/10/16 10:37 Platelet Satelliting Not Reportable 07/10/16 10:37 Plt Morphology Comment Not Reportable 07/10/16 10:37 RBC Morphology Normal 07/10/16 10:37 Dimorphic RBCs Not Reportable 07/10/16 10:37 Polychromasia Not Reportable 07/10/16 10:37 Hypochromasia Not Reportable 07/10/16 10:37 Poikilocytosis Not Reportable 07/10/16 10:37 Anisocytosis Not Reportable 07/10/16 10:37 Microcytosis Not Reportable 07/10/16 10:37 Macrocytosis Not Reportable 07/10/16 10:37 Spherocytes Not Reportable 07/10/16 10:37 Pappenheimer Bodies Not Reportable 07/10/16 10:37 Sickle Cells Not Reportable 07/10/16 10:37 Target Cells Not Reportable 07/10/16 10:37 Tear Drop Cells Not Reportable 07/10/16 10:37 Ovalocytes Not Reportable 07/10/16 10:37 Helmet Cells Not Reportable 07/10/16 10:37 [place] Bodies Not Reportable 07/10/16 10:37 [place] Rings Not Reportable 07/10/16 10:37 [place] Cells Not Reportable 07/10/16 10:37 Bite Cells Not Reportable 07/10/16 10:37 Crenated Cell Not Reportable 07/10/16 10:37 Elliptocytes Not Reportable 07/10/16 10:37 Acanthocytes (Spur) Not Reportable 07/10/16 10:37 Rouleaux Not Reportable 07/10/16 10:37 Hemoglobin C Crystals Not Reportable 07/10/16 10:37 Schistocytes Not Reportable 07/10/16 10:37 Malaria parasites Not Reportable 07/10/16 10:37 Danny Bodies Not Reportable 07/10/16 10:37 Hem Pathologist Commnt No 07/10/16 10:37 POC ABG pH 7.422 (7.35-7.45) 07/11/16 11:32 POC ABG pCO2 41.0 (35-45) 07/11/16 11:32 POC ABG pO2 60 (80-105) L 07/11/16 11:32 POC ABG HCO3 26.7 07/11/16 11:32 POC ABG Total CO2 28 07/11/16 11:32 POC ABG O2 Sat 91 07/11/16 11:32 POC ABG Base Excess 2 07/11/16 11:32 FiO2 30 % 07/11/16 11:32 Sodium 136 mmol/L (137-145) L 07/11/16 04:21 Potassium 3.8 mmol/L (3.6-5.0) 07/11/16 04:21 Chloride 100.1 mmol/L (98-107) 07/11/16 04:21 Carbon Dioxide 26 mmol/L (22-30) 07/11/16 04:21 Anion Gap 14 mmol/L 07/11/16 04:21 BUN 23 mg/dL (9-20) H 07/11/16 04:21 Creatinine 0.7 mg/dL (0.8-1.5) L 07/11/16 04:21 Estimated GFR > 60 ml/min 07/11/16 04:21 BUN/Creatinine Ratio 32.85 % 07/11/16 04:21 Glucose 138 mg/dL (75-100) H 07/11/16 04:21 POC Glucose 143 (70-105) H 07/11/16 05:15 Calcium 7.6 mg/dL (8.4-10.2) L 07/11/16 04:21 Phosphorus 2.8 mg/dL (2.5-4.5) 07/11/16 04:21 Magnesium 2.1 mg/dL (1.7-2.3) 07/11/16 04:21 Total Bilirubin 0.7 mg/dL (0.1-1.2) 07/11/16 04:21 Direct Bilirubin 1.1 mg/dL (0-0.2) H 07/05/16 10:50 Indirect Bilirubin 1.4 mg/dL 07/05/16 10:50 AST 41 units/L (5-40) H 07/11/16 04:21 ALT 63 units/L (7-56) H 07/11/16 04:21 Alkaline Phosphatase 46 units/L (35-129) 07/11/16 04:21 Ammonia 58.0 umol/L (25-60) 07/05/16 10:50 Total Protein 5.4 g/dL (6.3-8.2) L 07/11/16 04:21 Albumin 2.5 g/dL (3.9-5) L 07/11/16 04:21 Albumin/Globulin Ratio 0.9 % 07/11/16 04:21 Urine Color Yellow (Yellow) 07/04/16 23:20 Urine Turbidity Clear (Clear) 07/04/16 23:20 Urine pH 6.0 (5.0-7.0) 07/04/16 23:20 Ur Specific [place] 1.024 (1.003-1.030) 07/04/16 23:20 Urine Protein <15 mg/dl mg/dL (Negative) 07/04/16 23:20 Urine Glucose (UA) >=500 mg/dL (Negative) 07/04/16 23:20 Urine Ketones 80 mg/dL (Negative) 07/04/16 23:20 Urine Blood Mod (Negative) 07/04/16 23:20 Urine Nitrite Neg (Negative) 07/04/16 23:20 Urine Bilirubin Neg (Negative) 07/04/16 23:20 Urine Urobilinogen < 2.0 mg/dL (<2.0) 07/04/16 23:20 Ur Leukocyte Esterase Neg (Negative) 07/04/16 23:20 Urine WBC (Auto) 1.0 /HPF (0.0-6.0) 07/04/16 23:20 Urine RBC (Auto) 1.0 /HPF (0.0-6.0) 07/04/16 23:20 Urine Opiates Screen Presumptive negative 07/04/16 23:20 Urine Methadone Screen Presumptive negative 07/04/16 23:20 Ur Barbiturates Screen Presumptive negative 07/04/16 23:20 Ur Phencyclidine Scrn Presumptive negative 07/04/16 23:20 Ur Amphetamines Screen Presumptive negative 07/04/16 23:20 U Benzodiazepines Scrn Presumptive negative 07/04/16 23:20 Urine Cocaine Screen Presumptive negative 07/04/16 23:20 U Marijuana (THC) Screen Presumptive negative 07/04/16 23:20 Drugs of Abuse Note Disclamer 07/04/16 23:20 Plasma/Serum Alcohol 0.17 gm% (0-0.07) H 07/04/16 23:27
[2016-07-11] MEDS ORDERED: LASIX IV ONE (16:33)
--- NOTE | 2016-07-11 16:56 | Progress Note ---
Assessment and Plan Acute hypoxic respiratory failure on MVS * Likely due to delirium tremens, with possible aspiration. Did not tolerated BIPAP and was intubated for failed NIPPV * Vent settings- AC-VC 18/500/5/50% with adequate gas exchange. * Lung protective strategies * HOB >30, aspiration precautions * Enteral feeding, get KUB and continue with accucheck and glycemic control * Araujo catheter * Bronchodilators with airway clearance techniques * VTE/Stress ulcer prophylaxis * SBTs and SATs to be initiated in the morning * Analgesia and Sedation * Wean as tolerated. Place back on full support and resume PSV today. * One dose of lasix today * Obtain deep tracheal cultures- positive for Staph, currently on Vancomycin being dosed by pharmacy for trough 10-15 Alcohol intoxication with delirium tremens * much improved Severe hyponatremia- probably related to alcohhol and intravascular volume depletion * s/p 250 mL of 3% on admission * cont BMP * Nephrology following, sodium level improved Leukocytosis, likely stress induced SIRS, r/o infection * On Zosyn and add vancomycin for aspiration * Blood cultures -negative to date Hypertension * Currently acceptable control, probably related to alcohol withdrawal DVT prophylaxis/Stress ulcer prophylaxis - Lovenox/Famotidine - Patient Problems (1) Respiratory failure Current Visit: Yes Status: Acute Plan to address problem: Lung protective strategies ARDS net protocol VAP bundle addressed HOB>30 with aspiration precautions Airway clearance techniques Enteric feeding, accucheck with glycemic control VTE and stress ulcer prophylaxis Sedation and analgesia. Agitation management Araujo catheter for accurate intake and output monitoring. (2) Hyponatremia Current Visit: Yes Status: Acute Plan to address problem: Continue with saline infusion. monitor BMPs and seizure prophylaxis (3) Alcohol intoxication Current Visit: Yes Status: Acute Qualifiers: Complication of substance-induced condition: uncomplicated Qualified Code(s ): F10.120 - Alcohol abuse with intoxication, uncomplicated Subjective Date of service: 07/11/16 Principal diagnosis: Acute Hypoxemic Respiratory Failure Interval history: This is 51-year-old male presented to the emergency department via EMS for evaluation of altered mental status. Past medical history of diabetes and HTN Per report, the patient has been drinking alcohol heavily for the past 6 days. There has been nausea and vomiting. Patient electrolytes showed severe hyponatremia. No documented drug allergies. Patient had been placed on NIPPV but required intubation and mechanical ventilatory support for de-saturations and encephalopathy 07/06/2016 Today 07/10/2016 yellow tracheal secretions and oral secretions. Residuals are high, more agitated. CXR from yesterday showed a new right upper lobe infiltrate. No reported fevers Today 07/11/2016 some hypoxemia on ABG. Tolerating PSV but has some agitation and tachycardia. Inadvertently dislodged SBFT. Awake and alert, motioning to me.. Objective - Exam Narrative Exam: GENERAL: well-developed obese male lying on bed appeared to be in no discomfort. HEENT: Normocephalic. Atraumatic. No conjunctival congestion or icterus. Patient has moist mucous membranes. His face appears to be plethoric with diaphoresis. NECK: Supple. Trachea midline. ET tube on place- thick yellow oral secretions CHEST/LUNGS: Restricted breathing sound auscultated bilaterally, breathing non labored. No crackles or rhonchi. HEART/CARDIOVASCULAR: Tachycardic. S1 and S2 positive. ABDOMEN: Abdomen is soft, non tender. Patient has normal bowel sounds. SKIN: There is no rash. Warm and dry. NEURO: No focal motor deficit. Follows commands. MUSCULOSKELETAL: No joint effusion or tenderness. EXTREMITY: No edema, no cyanosis or clubbing. Vital Signs - 12hr 07/11/16 07/11/16 07/11/16 04:53 04:55 05:00 Temperature Pulse Rate 95 H 93 H 93 H Pulse Rate [ Anterior Bilateral Throughout] Respiratory 18 18 18 Rate Respiratory Rate [Anterior Bilateral Throughout] Blood Pressure 110/75 105/67 O2 Sat by Pulse 96 95 94 Oximetry 07/11/16 07/11/16 07/11/16 06:00 06:33 06:47 Temperature Pulse Rate 88 87 87 Pulse Rate [ Anterior Bilateral Throughout] Respiratory 18 18 18 Rate Respiratory Rate [Anterior Bilateral Throughout] Blood Pressure 100/65 99/63 99/63 O2 Sat by Pulse 95 96 96 Oximetry 07/11/16 07/11/16 07/11/16 06:49 07:00 07:15 Temperature Pulse Rate 86 85 84 Pulse Rate [ 84 Anterior Bilateral Throughout] Respiratory 18 18 Rate Respiratory 18 Rate [Anterior Bilateral Throughout] Blood Pressure 99/63 97/65 97/65 O2 Sat by Pulse 96 94 96 Oximetry 07/11/16 07/11/16 07/11/16 07:30 08:00 09:00 Temperature 99.7 F H Pulse Rate 91 H 88 Pulse Rate [ 88 Anterior Bilateral Throughout] Respiratory 18 18 Rate Respiratory 18 Rate [Anterior Bilateral Throughout] Blood Pressure 98/62 100/66 O2 Sat by Pulse 96 95 Oximetry 07/11/16 07/11/16 07/11/16 10:00 10:08 10:37 Temperature Pulse Rate 90 89 96 H Pulse Rate [ Anterior Bilateral Throughout] Respiratory 16 15 12 Rate Respiratory Rate [Anterior Bilateral Throughout] Blood Pressure 111/75 111/75 113/75 O2 Sat by Pulse 96 98 95 Oximetry 07/11/16 07/11/16 07/11/16 11:00 11:20 12:00 Temperature 99.3 F Pulse Rate 143 H 103 H 107 H Pulse Rate [ Anterior Bilateral Throughout] Respiratory 20 14 14 Rate Respiratory Rate [Anterior Bilateral Throughout] Blood Pressure 115/98 115/98 121/83 O2 Sat by Pulse 96 92 93 Oximetry 07/11/16 07/11/16 07/11/16 12:30 13:00 14:00 Temperature Pulse Rate 107 H 117 H 107 H Pulse Rate [ Anterior Bilateral Throughout] Respiratory 15 17 16 Rate Respiratory Rate [Anterior Bilateral Throughout] Blood Pressure 124/79 137/97 140/88 O2 Sat by Pulse 93 94 97 Oximetry 07/11/16 07/11/16 07/11/16 15:00 15:54 16:00 Temperature Pulse Rate 99 H 134 H 131 H Pulse Rate [ 134 H Anterior Bilateral Throughout] Respiratory 15 22 18 Rate Respiratory 25 H Rate [Anterior Bilateral Throughout] Blood Pressure 137/90 143/93 127/94 O2 Sat by Pulse 96 97 95 Oximetry 07/11/16 16:09 Temperature Pulse Rate Pulse Rate [ 138 H Anterior Bilateral Throughout] Respiratory Rate Respiratory 20 Rate [Anterior Bilateral Throughout] Blood Pressure O2 Sat by Pulse Oximetry Constitutional: no acute distress, alert, lethargic, asleep Eyes: non-icteric ENT: oropharynx moist Neck: supple, no JVD Effort: mildly labored Ascultation: Bilateral: diminished breath sounds, rhonchi Cardiovascular: regular rate and rhythm Gastrointestinal: normoactive bowel sounds, soft, non-tender, non-distended Integumentary: normal Extremities: no cyanosis, no edema, edema Neurologic: non-focal exam, unable to assess Psychiatric: other (Unable assess, Patient intoxicated.) CBC and BMP: 07/10/16 10:37 07/11/16 04:21 ABG, PT/INR, D-dimer: ABG POC ABG pH 7.422 (7.35-7.45) 07/11/16 11:32 POC ABG pCO2 41.0 (35-45) 07/11/16 11:32 POC ABG pO2 60 (80-105) L 07/11/16 11:32 POC ABG HCO3 26.7 07/11/16 11:32 POC ABG Total CO2 28 07/11/16 11:32 POC ABG O2 Sat 91 07/11/16 11:32 Abnormal lab findings: Abnormal Labs 07/05/16 07/05/16 07/05/16 02:11 03:27 03:27 WBC 20.7 H RBC 5.17 H Hgb 15.7 H MCHC 35 H RDW 13.1 L Lymph % (Auto) Lymph # Seg Neutrophils % Lymphocytes % (Manual) 4.0 L Monocytes % (Manual) Seg Neutrophils # Seg Neutrophils # Man 12.6 H Lymphocytes # (Manual) 0.8 L Monocytes # (Manual) 1.4 H POC ABG pH POC ABG pCO2 POC ABG pO2 Sodium 110 L* 110 L* Potassium Chloride 72.5 L Carbon Dioxide 13 L BUN Creatinine 0.5 L Glucose 190 H POC Glucose Calcium 8.1 L Phosphorus Total Bilirubin Direct Bilirubin AST ALT Total Protein Albumin 07/05/16 07/05/16 07/05/16 07:24 07:32 10:45 WBC RBC Hgb MCHC RDW Lymph % (Auto) Lymph # Seg Neutrophils % Lymphocytes % (Manual) Monocytes % (Manual) Seg Neutrophils # Seg Neutrophils # Man Lymphocytes # (Manual) Monocytes # (Manual) POC ABG pH POC ABG pCO2 21.2 L POC ABG pO2 Sodium 115 L* Potassium Chloride 75.4 L Carbon Dioxide 12 L BUN Creatinine 0.5 L Glucose 177 H POC Glucose 158 H Calcium 7.8 L Phosphorus Total Bilirubin Direct Bilirubin AST ALT Total Protein Albumin 07/05/16 07/05/16 07/05/16 10:50 10:50 10:50 WBC RBC Hgb MCHC RDW Lymph % (Auto) Lymph # Seg Neutrophils % Lymphocytes % (Manual) Monocytes % (Manual) Seg Neutrophils # Seg Neutrophils # Man Lymphocytes # (Manual) Monocytes # (Manual) POC ABG pH POC ABG pCO2 POC ABG pO2 Sodium 112 L* Potassium Chloride 76.7 L Carbon Dioxide 12 L BUN Creatinine 0.5 L Glucose 195 H POC Glucose Calcium 7.6 L Phosphorus 2.3 L Total Bilirubin 2.5 H Direct Bilirubin 1.1 H AST 55 H ALT Total Protein Albumin 3.5 L 3.4 L 07/05/16 07/05/16 07/05/16 12:00 13:57 16:13 WBC RBC Hgb MCHC RDW Lymph % (Auto) Lymph # Seg Neutrophils % Lymphocytes % (Manual) Monocytes % (Manual) Seg Neutrophils # Seg Neutrophils # Man Lymphocytes # (Manual) Monocytes # (Manual) POC ABG pH POC ABG pCO2 POC ABG pO2 Sodium 112 L* Potassium Chloride 77.4 L Carbon Dioxide 12 L BUN Creatinine 0.6 L Glucose 207 H POC Glucose 242 H 139 H Calcium 7.7 L Phosphorus Total Bilirubin Direct Bilirubin AST ALT Total Protein Albumin 07/05/16 07/05/16 07/05/16 18:26 21:13 21:23 WBC RBC Hgb MCHC RDW Lymph % (Auto) Lymph # Seg Neutrophils % Lymphocytes % (Manual) Monocytes % (Manual) Seg Neutrophils # Seg Neutrophils # Man Lymphocytes # (Manual) Monocytes # (Manual) POC ABG pH POC ABG pCO2 POC ABG pO2 Sodium 115 L* 114 L* Potassium Chloride 80.6 L 81.7 L Carbon Dioxide 12 L 14 L BUN Creatinine 0.4 L 0.6 L Glucose 186 H 182 H POC Glucose 154 H Calcium 7.7 L 7.7 L Phosphorus Total Bilirubin Direct Bilirubin AST ALT Total Protein Albumin 07/06/16 07/06/16 07/06/16 05:03 06:06 06:06 WBC 13.7 H RBC Hgb MCHC 36 H RDW 13.1 L Lymph % (Auto) 6.9 L Lymph # 0.9 L Seg Neutrophils % 87.0 H Lymphocytes % (Manual) Monocytes % (Manual) Seg Neutrophils # 11.9 H Seg Neutrophils # Man Lymphocytes # (Manual) Monocytes # (Manual) POC ABG pH POC ABG pCO2 31.7 L POC ABG pO2 350 H Sodium 122 L D Potassium Chloride 88.0 L Carbon Dioxide 19 L BUN Creatinine 0.6 L Glucose 189 H POC Glucose Calcium 7.9 L Phosphorus 2.0 L Total Bilirubin Direct Bilirubin AST ALT Total Protein Albumin 07/06/16 07/06/16 07/06/16 08:00 10:57 15:17 WBC RBC Hgb MCHC RDW Lymph % (Auto) Lymph # Seg Neutrophils % Lymphocytes % (Manual) Monocytes % (Manual) Seg Neutrophils # Seg Neutrophils # Man Lymphocytes # (Manual) Monocytes # (Manual) POC ABG pH POC ABG pCO2 POC ABG pO2 Sodium 126 L Potassium 3.5 L Chloride 92.1 L Carbon Dioxide 20 L BUN Creatinine 0.7 L Glucose 184 H POC Glucose 164 H 156 H Calcium 7.6 L Phosphorus Total Bilirubin Direct Bilirubin AST ALT Total Protein Albumin 07/06/16 07/06/16 07/06/16 16:18 19:03 21:42 WBC RBC Hgb MCHC RDW Lymph % (Auto) Lymph # Seg Neutrophils % Lymphocytes % (Manual) Monocytes % (Manual) Seg Neutrophils # Seg Neutrophils # Man Lymphocytes # (Manual) Monocytes # (Manual) POC ABG pH POC ABG pCO2 POC ABG pO2 Sodium 126 L Potassium Chloride Carbon Dioxide BUN Creatinine Glucose POC Glucose 159 H 164 H Calcium Phosphorus Total Bilirubin Direct Bilirubin AST ALT Total Protein Albumin 07/07/16 07/07/16 07/07/16 04:04 05:25 12:04 WBC RBC Hgb MCHC RDW Lymph % (Auto) Lymph # Seg Neutrophils % Lymphocytes % (Manual) Monocytes % (Manual) Seg Neutrophils # Seg Neutrophils # Man Lymphocytes # (Manual) Monocytes # (Manual) POC ABG pH 7.317 L POC ABG pCO2 POC ABG pO2 77 L Sodium 130 L Potassium Chloride 95.9 L Carbon Dioxide BUN Creatinine 0.7 L Glucose 165 H POC Glucose 160 H Calcium 7.8 L Phosphorus 1.8 L Total Bilirubin Direct Bilirubin AST ALT Total Protein Albumin 07/07/16 07/07/16 07/08/16 17:39 23:35 04:27 WBC RBC Hgb MCHC RDW Lymph % (Auto) Lymph # Seg Neutrophils % Lymphocytes % (Manual) Monocytes % (Manual) Seg Neutrophils # Seg Neutrophils # Man Lymphocytes # (Manual) Monocytes # (Manual) POC ABG pH POC ABG pCO2 POC ABG pO2 Sodium 131 L Potassium Chloride 96.3 L Carbon Dioxide BUN Creatinine 0.4 L Glucose 172 H POC Glucose 157 H 174 H Calcium 7.8 L Phosphorus 1.7 L Total Bilirubin Direct Bilirubin AST ALT Total Protein Albumin 07/08/16 07/08/16 07/08/16 04:27 05:40 12:14 WBC RBC Hgb MCHC RDW Lymph % (Auto) Lymph # Seg Neutrophils % Lymphocytes % (Manual) Monocytes % (Manual) Seg Neutrophils # Seg Neutrophils # Man Lymphocytes # (Manual) Monocytes # (Manual) POC ABG pH POC ABG pCO2 POC ABG pO2 163 H Sodium Potassium Chloride Carbon Dioxide BUN Creatinine Glucose POC Glucose 158 H 171 H Calcium Phosphorus Total Bilirubin Direct Bilirubin AST ALT Total Protein Albumin 07/08/16 07/08/16 07/09/16 17:29 23:45 04:25 WBC RBC Hgb MCHC RDW Lymph % (Auto) Lymph # Seg Neutrophils % Lymphocytes % (Manual) Monocytes % (Manual) Seg Neutrophils # Seg Neutrophils # Man Lymphocytes # (Manual) Monocytes # (Manual) POC ABG pH POC ABG pCO2 POC ABG pO2 Sodium Potassium Chloride Carbon Dioxide BUN Creatinine Glucose POC Glucose 178 H 181 H Calcium Phosphorus 2.2 L D Total Bilirubin Direct Bilirubin AST ALT Total Protein Albumin 07/09/16 07/09/16 07/09/16 05:20 09:28 11:10 WBC RBC Hgb MCHC RDW Lymph % (Auto) Lymph # Seg Neutrophils % Lymphocytes % (Manual) Monocytes % (Manual) Seg Neutrophils # Seg Neutrophils # Man Lymphocytes # (Manual) Monocytes # (Manual) POC ABG pH POC ABG pCO2 POC ABG pO2 Sodium 134 L Potassium Chloride Carbon Dioxide BUN Creatinine 0.5 L Glucose 189 H POC Glucose 184 H 176 H Calcium 7.7 L Phosphorus Total Bilirubin Direct Bilirubin AST ALT Total Protein Albumin 07/09/16 07/09/16 07/09/16 17:27 23:45 23:58 WBC RBC Hgb MCHC RDW Lymph % (Auto) Lymph # Seg Neutrophils % Lymphocytes % (Manual) Monocytes % (Manual) Seg Neutrophils # Seg Neutrophils # Man Lymphocytes # (Manual) Monocytes # (Manual) POC ABG pH POC ABG pCO2 POC ABG pO2 Sodium Potassium Chloride Carbon Dioxide BUN Creatinine Glucose POC Glucose 170 H 230 H 187 H Calcium Phosphorus Total Bilirubin Direct Bilirubin AST ALT Total Protein Albumin 07/10/16 07/10/16 07/10/16 04:44 05:55 10:37 WBC RBC Hgb MCHC 35 H RDW Lymph % (Auto) Lymph # Seg Neutrophils % Lymphocytes % (Manual) Monocytes % (Manual) 16.0 H Seg Neutrophils # Seg Neutrophils # Man Lymphocytes # (Manual) Monocytes # (Manual) 1.7 H POC ABG pH 7.344 L POC ABG pCO2 48.3 H POC ABG pO2 Sodium Potassium Chloride Carbon Dioxide BUN Creatinine Glucose POC Glucose 166 H Calcium Phosphorus Total Bilirubin Direct Bilirubin AST ALT Total Protein Albumin 07/10/16 07/10/16 07/11/16 11:32 18:08 04:21 WBC RBC Hgb MCHC RDW Lymph % (Auto) Lymph # Seg Neutrophils % Lymphocytes % (Manual) Monocytes % (Manual) Seg Neutrophils # Seg Neutrophils # Man Lymphocytes # (Manual) Monocytes # (Manual) POC ABG pH POC ABG pCO2 POC ABG pO2 Sodium 136 L Potassium Chloride Carbon Dioxide BUN 23 H Creatinine 0.7 L Glucose 138 H POC Glucose 156 H 171 H Calcium 7.6 L Phosphorus Total Bilirubin Direct Bilirubin AST 41 H ALT 63 H Total Protein 5.4 L Albumin 2.5 L 07/11/16 07/11/16 07/11/16 04:53 05:15 11:32 WBC RBC Hgb MCHC RDW Lymph % (Auto) Lymph # Seg Neutrophils % Lymphocytes % (Manual) Monocytes % (Manual) Seg Neutrophils # Seg Neutrophils # Man Lymphocytes # (Manual) Monocytes # (Manual) POC ABG pH POC ABG pCO2 POC ABG pO2 78 L 60 L Sodium Potassium Chloride Carbon Dioxide BUN Creatinine Glucose POC Glucose 143 H Calcium Phosphorus Total Bilirubin Direct Bilirubin AST ALT Total Protein Albumin
[2016-07-11] MEDS: fentaNYL DRIP Premix 100 ML IV SCH (17:18)
--- NOTE | 2016-07-11 17:48 | XRay Report ---
FINAL REPORT EXAM: XR ABDOMEN 1V AP HISTORY: dobhoff placement COMPARISON: None available. FINDINGS: AP view of the upper abdomen obtained. Distal tip of feeding tube projects over the proximal to mid stomach. This could be advanced another 20 centimeters to be within the proximal duodenum. IMPRESSION: Distal tip of feeding tube projects over the proximal to mid stomach.
[2016-07-12] MEDS: NOVOLOG SUB-Q SCH ×4 (00:32→21:14)
[2016-07-12] MEDS: DUONEB 0.5 MG-3 MG/3 ML SOLN IH SCH ×4 (01:26→20:53)
[2016-07-12] MEDS: VANCOMYCIN VIAL 1,500 MG in NACL 0.9% 500 ML 500 ML IV SCH ×2 (02:15→14:24)
[2016-07-12] MEDS: fentaNYL DRIP Premix 100 ML IV SCH (02:19)
[2016-07-12] MEDS: VERSED/NS 100MG/100ML 100 ML IV SCH (02:22)
[2016-07-12 06:40] LABS: BUN/Creatinine Ratio 33.33; Blood Urea Nitrogen 20 mg/dL (9-20); Calcium 7.7 mg/dL (8.4-10.2); Carbon Dioxide 28 mmol/L (22-30); Glucose 162 mg/dL (75-100); Potassium 3.5 mmol/L (3.6-5.0); Sodium 136 mmol/L (137-145)
[2016-07-12 06:42] LABS: Hematocrit 36.8 % (35.5-45.6); Hemoglobin 12.7 gm/dl (11.8-15.2); Mean Corpuscular HGB Conc 35 % (32-34); Mean Corpuscular Hemoglobin 31 pg (28-32); Mean Corpuscular Volume 90 fl (84-94); Platelet Count 276 K/mm3 (140-440); Red Blood Count 4.07 M/mm3 (3.65-5.03); Red Cell Distribution Width 13.2 % (13.2-15.2); White Blood Count 6.6 K/mm3 (4.5-11.0)
[2016-07-12 06:44] LABS: Anion Gap 15 mmol/L
[2016-07-12 07:48] LABS: Blastocytes % (Manual) 0 %
[2016-07-12 07:49] LABS: Basophils % (Manual) 0 % (0.0-1.8)
[2016-07-12 07:51] LABS: Anisocytosis 1+; Diff Status Complete
[2016-07-12] MEDS ORDERED: CATAPRES-TTS PATCH TD SCH (08:00)
[2016-07-12] MEDS: ZOSYN/NS 4.5GM/100ML 100 ML IV SCH ×2 (09:10→17:19)
[2016-07-12] MEDS: FOLVITE PO SCH (09:11)
[2016-07-12] MEDS: LOVENOX SUB-Q SCH (09:11)
[2016-07-12] MEDS: Centrum Liq PO SCH (09:11)
[2016-07-12] MEDS: VITAMIN B-1 PO SCH (09:11)
[2016-07-12] MEDS: PEPCID PO SCH ×2 (09:12→21:13)
[2016-07-12] MEDS ORDERED: LASIX IV ONE (10:36)
--- NOTE | 2016-07-12 10:38 | Progress Note ---
Assessment and Plan - Patient Problems (1) Respiratory failure Current Visit: Yes Status: Acute (2) Hyponatremia Current Visit: Yes Status: Acute (3) Alcohol intoxication Current Visit: Yes Status: Acute Qualifiers: Complication of substance-induced condition: uncomplicated Qualified Code(s ): F10.120 - Alcohol abuse with intoxication, uncomplicated Subjective Date of service: 07/12/16 Principal diagnosis: Acute Hypoxemic Respiratory Failure Interval history: This is 51-year-old male presented to the emergency department via EMS for evaluation of altered mental status. Past medical history of diabetes and HTN Per report, the patient has been drinking alcohol heavily for the past 6 days. There has been nausea and vomiting. Patient electrolytes showed severe hyponatremia. No documented drug allergies. Patient had been placed on NIPPV but required intubation and mechanical ventilatory support for de-saturations and encephalopathy 07/06/2016 Today 07/10/2016 yellow tracheal secretions and oral secretions. Residuals are high, more agitated. CXR from yesterday showed a new right upper lobe infiltrate. No reported fevers Today 07/11/2016 some hypoxemia on ABG. Tolerating PSV but has some agitation and tachycardia. Inadvertently dislodged SBFT. Awake and alert, motioning to me.. Today 07/12/2016- tolerating SBT , awake and alert. No agitation. Get weaning parameters if acceptable plan to liberate from the ventilator. Objective Vital Signs - 12hr 07/11/16 07/11/16 07/12/16 23:00 23:31 00:00 Temperature 100.6 F H Pulse Rate 90 89 89 Pulse Rate [ Anterior Bilateral Throughout] Pulse Rate [ From Monitor] Respiratory 18 18 Rate Respiratory Rate [Anterior Bilateral Throughout] Blood Pressure 99/66 99/64 99/63 O2 Sat by Pulse 95 97 95 Oximetry 07/12/16 07/12/16 07/12/16 00:03 00:42 00:54 Temperature Pulse Rate 89 82 Pulse Rate [ Anterior Bilateral Throughout] Pulse Rate [ 85 From Monitor] Respiratory 18 18 Rate Respiratory Rate [Anterior Bilateral Throughout] Blood Pressure 99/63 O2 Sat by Pulse 96 Oximetry 07/12/16 07/12/16 07/12/16 01:00 01:26 01:35 Temperature Pulse Rate 82 Pulse Rate [ 83 86 Anterior Bilateral Throughout] Pulse Rate [ From Monitor] Respiratory 18 Rate Respiratory 18 23 Rate [Anterior Bilateral Throughout] Blood Pressure 92/56 O2 Sat by Pulse 97 Oximetry 07/12/16 07/12/16 07/12/16 02:00 03:00 04:00 Temperature 98.9 F Pulse Rate 93 H 94 H 74 Pulse Rate [ Anterior Bilateral Throughout] Pulse Rate [ 74 From Monitor] Respiratory 20 22 18 Rate Respiratory Rate [Anterior Bilateral Throughout] Blood Pressure 102/62 95/74 99/69 O2 Sat by Pulse 95 96 98 Oximetry 07/12/16 07/12/16 07/12/16 04:03 04:24 05:00 Temperature Pulse Rate 75 74 72 Pulse Rate [ Anterior Bilateral Throughout] Pulse Rate [ From Monitor] Respiratory 18 18 Rate Respiratory Rate [Anterior Bilateral Throughout] Blood Pressure 99/69 93/62 96/62 O2 Sat by Pulse 98 97 98 Oximetry 07/12/16 07/12/16 07/12/16 05:45 06:00 06:35 Temperature Pulse Rate 85 79 Pulse Rate [ Anterior Bilateral Throughout] Pulse Rate [ From Monitor] Respiratory 8 L 18 Rate Respiratory Rate [Anterior Bilateral Throughout] Blood Pressure 102/70 103/72 O2 Sat by Pulse 95 97 95 Oximetry 07/12/16 07/12/16 07/12/16 07:00 08:00 08:30 Temperature 98.1 F Pulse Rate 78 81 Pulse Rate [ 98 H Anterior Bilateral Throughout] Pulse Rate [ From Monitor] Respiratory 14 15 Rate Respiratory 15 Rate [Anterior Bilateral Throughout] Blood Pressure 96/67 136/86 O2 Sat by Pulse 96 97 Oximetry 07/12/16 08:40 Temperature Pulse Rate Pulse Rate [ 106 H Anterior Bilateral Throughout] Pulse Rate [ From Monitor] Respiratory Rate Respiratory 19 Rate [Anterior Bilateral Throughout] Blood Pressure O2 Sat by Pulse Oximetry Constitutional: no acute distress, alert, lethargic, asleep Eyes: non-icteric ENT: oropharynx moist Neck: supple, no JVD Effort: mildly labored Ascultation: Bilateral: diminished breath sounds, rhonchi Cardiovascular: regular rate and rhythm Gastrointestinal: normoactive bowel sounds, soft, non-tender, non-distended Integumentary: normal Extremities: no cyanosis, no edema, edema Neurologic: non-focal exam, unable to assess Psychiatric: other (Unable assess, Patient intoxicated.) CBC and BMP: 07/12/16 06:04 07/12/16 06:04 ABG, PT/INR, D-dimer: ABG POC ABG pH 7.422 (7.35-7.45) 07/11/16 11:32 POC ABG pCO2 41.0 (35-45) 07/11/16 11:32 POC ABG pO2 60 (80-105) L 07/11/16 11:32 POC ABG HCO3 26.7 07/11/16 11:32 POC ABG Total CO2 28 07/11/16 11:32 POC ABG O2 Sat 91 07/11/16 11:32 Abnormal lab findings: Abnormal Labs 07/05/16 07/05/16 07/05/16 02:11 03:27 03:27 WBC 20.7 H RBC 5.17 H Hgb 15.7 H MCHC 35 H RDW 13.1 L Lymph % (Auto) Lymph # Seg Neutrophils % Lymphocytes % (Manual) 4.0 L Monocytes % (Manual) Eosinophils % (Manual) Seg Neutrophils # Seg Neutrophils # Man 12.6 H Lymphocytes # (Manual) 0.8 L Monocytes # (Manual) 1.4 H Eosinophils # (Manual) POC ABG pH POC ABG pCO2 POC ABG pO2 Sodium 110 L* 110 L* Potassium Chloride 72.5 L Carbon Dioxide 13 L BUN Creatinine 0.5 L Glucose 190 H POC Glucose Calcium 8.1 L Phosphorus Total Bilirubin Direct Bilirubin AST ALT Total Protein Albumin 07/05/16 07/05/16 07/05/16 07:24 07:32 10:45 WBC RBC Hgb MCHC RDW Lymph % (Auto) Lymph # Seg Neutrophils % Lymphocytes % (Manual) Monocytes % (Manual) Eosinophils % (Manual) Seg Neutrophils # Seg Neutrophils # Man Lymphocytes # (Manual) Monocytes # (Manual) Eosinophils # (Manual) POC ABG pH POC ABG pCO2 21.2 L POC ABG pO2 Sodium 115 L* Potassium Chloride 75.4 L Carbon Dioxide 12 L BUN Creatinine 0.5 L Glucose 177 H POC Glucose 158 H Calcium 7.8 L Phosphorus Total Bilirubin Direct Bilirubin AST ALT Total Protein Albumin 07/05/16 07/05/16 07/05/16 10:50 10:50 10:50 WBC RBC Hgb MCHC RDW Lymph % (Auto) Lymph # Seg Neutrophils % Lymphocytes % (Manual) Monocytes % (Manual) Eosinophils % (Manual) Seg Neutrophils # Seg Neutrophils # Man Lymphocytes # (Manual) Monocytes # (Manual) Eosinophils # (Manual) POC ABG pH POC ABG pCO2 POC ABG pO2 Sodium 112 L* Potassium Chloride 76.7 L Carbon Dioxide 12 L BUN Creatinine 0.5 L Glucose 195 H POC Glucose Calcium 7.6 L Phosphorus 2.3 L Total Bilirubin 2.5 H Direct Bilirubin 1.1 H AST 55 H ALT Total Protein Albumin 3.5 L 3.4 L 07/05/16 07/05/16 07/05/16 12:00 13:57 16:13 WBC RBC Hgb MCHC RDW Lymph % (Auto) Lymph # Seg Neutrophils % Lymphocytes % (Manual) Monocytes % (Manual) Eosinophils % (Manual) Seg Neutrophils # Seg Neutrophils # Man Lymphocytes # (Manual) Monocytes # (Manual) Eosinophils # (Manual) POC ABG pH POC ABG pCO2 POC ABG pO2 Sodium 112 L* Potassium Chloride 77.4 L Carbon Dioxide 12 L BUN Creatinine 0.6 L Glucose 207 H POC Glucose 242 H 139 H Calcium 7.7 L Phosphorus Total Bilirubin Direct Bilirubin AST ALT Total Protein Albumin 07/05/16 07/05/16 07/05/16 18:26 21:13 21:23 WBC RBC Hgb MCHC RDW Lymph % (Auto) Lymph # Seg Neutrophils % Lymphocytes % (Manual) Monocytes % (Manual) Eosinophils % (Manual) Seg Neutrophils # Seg Neutrophils # Man Lymphocytes # (Manual) Monocytes # (Manual) Eosinophils # (Manual) POC ABG pH POC ABG pCO2 POC ABG pO2 Sodium 115 L* 114 L* Potassium Chloride 80.6 L 81.7 L Carbon Dioxide 12 L 14 L BUN Creatinine 0.4 L 0.6 L Glucose 186 H 182 H POC Glucose 154 H Calcium 7.7 L 7.7 L Phosphorus Total Bilirubin Direct Bilirubin AST ALT Total Protein Albumin 07/06/16 07/06/16 07/06/16 05:03 06:06 06:06 WBC 13.7 H RBC Hgb MCHC 36 H RDW 13.1 L Lymph % (Auto) 6.9 L Lymph # 0.9 L Seg Neutrophils % 87.0 H Lymphocytes % (Manual) Monocytes % (Manual) Eosinophils % (Manual) Seg Neutrophils # 11.9 H Seg Neutrophils # Man Lymphocytes # (Manual) Monocytes # (Manual) Eosinophils # (Manual) POC ABG pH POC ABG pCO2 31.7 L POC ABG pO2 350 H Sodium 122 L D Potassium Chloride 88.0 L Carbon Dioxide 19 L BUN Creatinine 0.6 L Glucose 189 H POC Glucose Calcium 7.9 L Phosphorus 2.0 L Total Bilirubin Direct Bilirubin AST ALT Total Protein Albumin 07/06/16 07/06/16 07/06/16 08:00 10:57 15:17 WBC RBC Hgb MCHC RDW Lymph % (Auto) Lymph # Seg Neutrophils % Lymphocytes % (Manual) Monocytes % (Manual) Eosinophils % (Manual) Seg Neutrophils # Seg Neutrophils # Man Lymphocytes # (Manual) Monocytes # (Manual) Eosinophils # (Manual) POC ABG pH POC ABG pCO2 POC ABG pO2 Sodium 126 L Potassium 3.5 L Chloride 92.1 L Carbon Dioxide 20 L BUN Creatinine 0.7 L Glucose 184 H POC Glucose 164 H 156 H Calcium 7.6 L Phosphorus Total Bilirubin Direct Bilirubin AST ALT Total Protein Albumin 07/06/16 07/06/16 07/06/16 16:18 19:03 21:42 WBC RBC Hgb MCHC RDW Lymph % (Auto) Lymph # Seg Neutrophils % Lymphocytes % (Manual) Monocytes % (Manual) Eosinophils % (Manual) Seg Neutrophils # Seg Neutrophils # Man Lymphocytes # (Manual) Monocytes # (Manual) Eosinophils # (Manual) POC ABG pH POC ABG pCO2 POC ABG pO2 Sodium 126 L Potassium Chloride Carbon Dioxide BUN Creatinine Glucose POC Glucose 159 H 164 H Calcium Phosphorus Total Bilirubin Direct Bilirubin AST ALT Total Protein Albumin 07/07/16 07/07/16 07/07/16 04:04 05:25 12:04 WBC RBC Hgb MCHC RDW Lymph % (Auto) Lymph # Seg Neutrophils % Lymphocytes % (Manual) Monocytes % (Manual) Eosinophils % (Manual) Seg Neutrophils # Seg Neutrophils # Man Lymphocytes # (Manual) Monocytes # (Manual) Eosinophils # (Manual) POC ABG pH 7.317 L POC ABG pCO2 POC ABG pO2 77 L Sodium 130 L Potassium Chloride 95.9 L Carbon Dioxide BUN Creatinine 0.7 L Glucose 165 H POC Glucose 160 H Calcium 7.8 L Phosphorus 1.8 L Total Bilirubin Direct Bilirubin AST ALT Total Protein Albumin 07/07/16 07/07/16 07/08/16 17:39 23:35 04:27 WBC RBC Hgb MCHC RDW Lymph % (Auto) Lymph # Seg Neutrophils % Lymphocytes % (Manual) Monocytes % (Manual) Eosinophils % (Manual) Seg Neutrophils # Seg Neutrophils # Man Lymphocytes # (Manual) Monocytes # (Manual) Eosinophils # (Manual) POC ABG pH POC ABG pCO2 POC ABG pO2 Sodium 131 L Potassium Chloride 96.3 L Carbon Dioxide BUN Creatinine 0.4 L Glucose 172 H POC Glucose 157 H 174 H Calcium 7.8 L Phosphorus 1.7 L Total Bilirubin Direct Bilirubin AST ALT Total Protein Albumin 07/08/16 07/08/16 07/08/16 04:27 05:40 12:14 WBC RBC Hgb MCHC RDW Lymph % (Auto) Lymph # Seg Neutrophils % Lymphocytes % (Manual) Monocytes % (Manual) Eosinophils % (Manual) Seg Neutrophils # Seg Neutrophils # Man Lymphocytes # (Manual) Monocytes # (Manual) Eosinophils # (Manual) POC ABG pH POC ABG pCO2 POC ABG pO2 163 H Sodium Potassium Chloride Carbon Dioxide BUN Creatinine Glucose POC Glucose 158 H 171 H Calcium Phosphorus Total Bilirubin Direct Bilirubin AST ALT Total Protein Albumin 07/08/16 07/08/16 07/09/16 17:29 23:45 04:25 WBC RBC Hgb MCHC RDW Lymph % (Auto) Lymph # Seg Neutrophils % Lymphocytes % (Manual) Monocytes % (Manual) Eosinophils % (Manual) Seg Neutrophils # Seg Neutrophils # Man Lymphocytes # (Manual) Monocytes # (Manual) Eosinophils # (Manual) POC ABG pH POC ABG pCO2 POC ABG pO2 Sodium Potassium Chloride Carbon Dioxide BUN Creatinine Glucose POC Glucose 178 H 181 H Calcium Phosphorus 2.2 L D Total Bilirubin Direct Bilirubin AST ALT Total Protein Albumin 07/09/16 07/09/16 07/09/16 05:20 09:28 11:10 WBC RBC Hgb MCHC RDW Lymph % (Auto) Lymph # Seg Neutrophils % Lymphocytes % (Manual) Monocytes % (Manual) Eosinophils % (Manual) Seg Neutrophils # Seg Neutrophils # Man Lymphocytes # (Manual) Monocytes # (Manual) Eosinophils # (Manual) POC ABG pH POC ABG pCO2 POC ABG pO2 Sodium 134 L Potassium Chloride Carbon Dioxide BUN Creatinine 0.5 L Glucose 189 H POC Glucose 184 H 176 H Calcium 7.7 L Phosphorus Total Bilirubin Direct Bilirubin AST ALT Total Protein Albumin 07/09/16 07/09/16 07/09/16 17:27 23:45 23:58 WBC RBC Hgb MCHC RDW Lymph % (Auto) Lymph # Seg Neutrophils % Lymphocytes % (Manual) Monocytes % (Manual) Eosinophils % (Manual) Seg Neutrophils # Seg Neutrophils # Man Lymphocytes # (Manual) Monocytes # (Manual) Eosinophils # (Manual) POC ABG pH POC ABG pCO2 POC ABG pO2 Sodium Potassium Chloride Carbon Dioxide BUN Creatinine Glucose POC Glucose 170 H 230 H 187 H Calcium Phosphorus Total Bilirubin Direct Bilirubin AST ALT Total Protein Albumin 07/10/16 07/10/16 07/10/16 04:44 05:55 10:37 WBC RBC Hgb MCHC 35 H RDW Lymph % (Auto) Lymph # Seg Neutrophils % Lymphocytes % (Manual) Monocytes % (Manual) 16.0 H Eosinophils % (Manual) Seg Neutrophils # Seg Neutrophils # Man Lymphocytes # (Manual) Monocytes # (Manual) 1.7 H Eosinophils # (Manual) POC ABG pH 7.344 L POC ABG pCO2 48.3 H POC ABG pO2 Sodium Potassium Chloride Carbon Dioxide BUN Creatinine Glucose POC Glucose 166 H Calcium Phosphorus Total Bilirubin Direct Bilirubin AST ALT Total Protein Albumin 07/10/16 07/10/16 07/11/16 11:32 18:08 04:21 WBC RBC Hgb MCHC RDW Lymph % (Auto) Lymph # Seg Neutrophils % Lymphocytes % (Manual) Monocytes % (Manual) Eosinophils % (Manual) Seg Neutrophils # Seg Neutrophils # Man Lymphocytes # (Manual) Monocytes # (Manual) Eosinophils # (Manual) POC ABG pH POC ABG pCO2 POC ABG pO2 Sodium 136 L Potassium Chloride Carbon Dioxide BUN 23 H Creatinine 0.7 L Glucose 138 H POC Glucose 156 H 171 H Calcium 7.6 L Phosphorus Total Bilirubin Direct Bilirubin AST 41 H ALT 63 H Total Protein 5.4 L Albumin 2.5 L 07/11/16 07/11/16 07/11/16 04:53 05:15 11:32 WBC RBC Hgb MCHC RDW Lymph % (Auto) Lymph # Seg Neutrophils % Lymphocytes % (Manual) Monocytes % (Manual) Eosinophils % (Manual) Seg Neutrophils # Seg Neutrophils # Man Lymphocytes # (Manual) Monocytes # (Manual) Eosinophils # (Manual) POC ABG pH POC ABG pCO2 POC ABG pO2 78 L 60 L Sodium Potassium Chloride Carbon Dioxide BUN Creatinine Glucose POC Glucose 143 H Calcium Phosphorus Total Bilirubin Direct Bilirubin AST ALT Total Protein Albumin 07/11/16 07/11/16 07/11/16 11:43 18:07 23:24 WBC RBC Hgb MCHC RDW Lymph % (Auto) Lymph # Seg Neutrophils % Lymphocytes % (Manual) Monocytes % (Manual) Eosinophils % (Manual) Seg Neutrophils # Seg Neutrophils # Man Lymphocytes # (Manual) Monocytes # (Manual) Eosinophils # (Manual) POC ABG pH POC ABG pCO2 POC ABG pO2 Sodium Potassium Chloride Carbon Dioxide BUN Creatinine Glucose POC Glucose 184 H 190 H 190 H Calcium Phosphorus Total Bilirubin Direct Bilirubin AST ALT Total Protein Albumin 07/12/16 07/12/16 07/12/16 05:47 06:04 06:04 WBC RBC Hgb MCHC 35 H RDW Lymph % (Auto) Lymph # Seg Neutrophils % Lymphocytes % (Manual) 13.0 L Monocytes % (Manual) 17.0 H Eosinophils % (Manual) 7.0 H Seg Neutrophils # Seg Neutrophils # Man Lymphocytes # (Manual) 0.9 L Monocytes # (Manual) 1.1 H Eosinophils # (Manual) 0.5 H POC ABG pH POC ABG pCO2 POC ABG pO2 Sodium 136 L Potassium 3.5 L Chloride 97.0 L Carbon Dioxide BUN Creatinine 0.6 L Glucose 162 H POC Glucose 174 H Calcium 7.7 L Phosphorus Total Bilirubin Direct Bilirubin AST ALT Total Protein Albumin
--- NOTE | 2016-07-12 10:53 | Progress Note ---
Assessment and Plan Assessment and plan: 1. Acute hypoxic respiratory failure * Due to delirium tremens * Wean off vent; possible extubation today 2. Alcohol intoxication with delirium tremens * Sedated with Versed * Cn [facility] protocol * On thiamine, folate 3. Severe hyponatremia on admission * 112; received 250 mL of 3% on admission, then NS * Now resolved 4. Hypophosphatemia * Replaced * Continue to monitor 5. SIRS * On empiric IV Zosyn * Sputum culture positive for staph; started on Vancomycin 6. Hypertension * Blood pressure uncontrolled initially,so was placed on clonidine patch * Normotensive now 7. DM * Accu-Cheks and SSI 8. DVT prophylaxis * Lovenox 9. Disposition * Continue to monitor in ICU The high probability of a clinically significant, sudden or life threatening deterioration of the [] system(s) required my full and direct attention, intervention and personal management. The aggregate critical care time was [32] minutes. This time is in addition to time spent performing reported procedures but includes the following: [x] Data Review and interpretation [x] Patient assessment and monitoring of vital signs [x] Documentation [x] Medication orders and management History Interval history: sedation hold this morning, awake, alert, following commands, doing well; hopefully ready for extubation Hospitalist Physical - Constitutional Vitals: Temp Pulse Resp BP Pulse Ox 98.1 F 106 H 19 136/86 97 07/12/16 08:00 07/12/16 08:40 07/12/16 08:40 07/12/16 08:00 07/12/16 08:00 General appearance: Present: no acute distress, obese - EENT Eyes: Present: PERRL, EOM intact. Absent: scleral icterus, conjunctival injection - Neck Neck: Present: supple. Absent: enlarged thyroid, masses or JVD - Respiratory Respiratory effort: other (intubated) Respiratory: bilateral: diminished, negative: rhonchi, wheezing - Cardiovascular Rhythm: other (tachycardic) Heart Sounds: Present: S1 & S2. Absent: systolic murmur - Extremities Extremities: no ischemia - Abdominal General gastrointestinal: other (abdomen protuberant, soft, nontender, normal bowel sounds) - Psychiatric Psychiatric: cooperative - Neurologic Neurologic: moves all extremities Results - Labs CBC & Chem 7: 07/12/16 06:04 07/12/16 06:04 Labs: Laboratory Last Values WBC 6.6 K/mm3 (4.5-11.0) 07/12/16 06:04 RBC 4.07 M/mm3 (3.65-5.03) 07/12/16 06:04 Hgb 12.7 gm/dl (11.8-15.2) 07/12/16 06:04 Hct 36.8 % (35.5-45.6) 07/12/16 06:04 MCV 90 fl (84-94) 07/12/16 06:04 MCH 31 pg (28-32) 07/12/16 06:04 MCHC 35 % (32-34) H 07/12/16 06:04 RDW 13.2 % (13.2-15.2) 07/12/16 06:04 Plt Count 276 K/mm3 (140-440) 07/12/16 06:04 Lymph % (Auto) 6.9 % (13.4-35.0) L 07/06/16 06:06 [place] % (Auto) 6.0 % (0.0-7.3) 07/06/16 06:06 Eos % (Auto) 0.0 % (0.0-4.3) 07/06/16 06:06 Baso % (Auto) 0.1 % (0.0-1.8) 07/06/16 06:06 Lymph # 0.9 K/mm3 (1.2-5.4) L 07/06/16 06:06 [place] # 0.8 K/mm3 (0.0-0.8) 07/06/16 06:06 Eos # 0.0 K/mm3 (0.0-0.4) 07/06/16 06:06 Baso # 0.0 K/mm3 (0.0-0.1) 07/06/16 06:06 Add Manual Diff Complete 07/12/16 06:04 Total Counted 100 07/12/16 06:04 Seg Neutrophils % 87.0 % (40.0-70.0) H 07/06/16 06:06 Seg Neuts % (Manual) 46.0 % (40.0-70.0) 07/12/16 06:04 Band Neutrophils % 17.0 % 07/12/16 06:04 Lymphocytes % (Manual) 13.0 % (13.4-35.0) L 07/12/16 06:04 Reactive Lymphs % (Man) 0 % 07/12/16 06:04 Monocytes % (Manual) 17.0 % (0.0-7.3) H 07/12/16 06:04 Eosinophils % (Manual) 7.0 % (0.0-4.3) H 07/12/16 06:04 Basophils % (Manual) 0 % (0.0-1.8) 07/12/16 06:04 Metamyelocytes % 0 % 07/12/16 06:04 Myelocytes % 0 % 07/12/16 06:04 Promyelocytes % 0 % 07/12/16 06:04 Blast Cells % 0 % 07/12/16 06:04 Nucleated RBC % Not Reportable 07/12/16 06:04 Seg Neutrophils # 11.9 K/mm3 (1.8-7.7) H 07/06/16 06:06 Seg Neutrophils # Man 3.0 K/mm3 (1.8-7.7) 07/12/16 06:04 Band Neutrophils # 1.1 K/mm3 07/12/16 06:04 Lymphocytes # (Manual) 0.9 K/mm3 (1.2-5.4) L 07/12/16 06:04 Abs React Lymphs (Man) 0.0 K/mm3 07/12/16 06:04 Monocytes # (Manual) 1.1 K/mm3 (0.0-0.8) H 07/12/16 06:04 Eosinophils # (Manual) 0.5 K/mm3 (0.0-0.4) H 07/12/16 06:04 Basophils # (Manual) 0.0 K/mm3 (0.0-0.1) 07/12/16 06:04 Metamyelocytes # 0.0 K/mm3 07/12/16 06:04 Myelocytes # 0.0 K/mm3 07/12/16 06:04 Promyelocytes # 0.0 K/mm3 07/12/16 06:04 Blast Cells # 0.0 K/mm3 07/12/16 06:04 WBC Morphology Not Reportable 07/12/16 06:04 Hypersegmented Neuts Not Reportable 07/12/16 06:04 Hyposegmented Neuts Not Reportable 07/12/16 06:04 Hypogranular Neuts Not Reportable 07/12/16 06:04 Smudge Cells Not Reportable 07/12/16 06:04 Toxic Granulation Not Reportable 07/12/16 06:04 Toxic Vacuolation Not Reportable 07/12/16 06:04 Dohle Bodies Not Reportable 07/12/16 06:04 Pelger-Huet Anomaly Not Reportable 07/12/16 06:04 Marques Rods Not Reportable 07/12/16 06:04 Platelet Estimate Appears normal 07/12/16 06:04 Clumped Platelets Not Reportable 07/12/16 06:04 Plt Clumps, EDTA Not Reportable 07/12/16 06:04 Large Platelets Not Reportable 07/12/16 06:04 Giant Platelets Not Reportable 07/12/16 06:04 Platelet Satelliting Not Reportable 07/12/16 06:04 Plt Morphology Comment Not Reportable 07/12/16 06:04 RBC Morphology Not Reportable 07/12/16 06:04 Dimorphic RBCs Not Reportable 07/12/16 06:04 Polychromasia Not Reportable 07/12/16 06:04 Hypochromasia Not Reportable 07/12/16 06:04 Poikilocytosis Not Reportable 07/12/16 06:04 Anisocytosis 1+ 07/12/16 06:04 Microcytosis Not Reportable 07/12/16 06:04 Macrocytosis Not Reportable 07/12/16 06:04 Spherocytes Not Reportable 07/12/16 06:04 Pappenheimer Bodies Not Reportable 07/12/16 06:04 Sickle Cells Not Reportable 07/12/16 06:04 Target Cells Not Reportable 07/12/16 06:04 Tear Drop Cells Not Reportable 07/12/16 06:04 Ovalocytes Not Reportable 07/12/16 06:04 Helmet Cells Not Reportable 07/12/16 06:04 [place] Bodies Not Reportable 07/12/16 06:04 [place] Rings Not Reportable 07/12/16 06:04 [place] Cells Not Reportable 07/12/16 06:04 Bite Cells Not Reportable 07/12/16 06:04 Crenated Cell Not Reportable 07/12/16 06:04 Elliptocytes Not Reportable 07/12/16 06:04 Acanthocytes (Spur) Not Reportable 07/12/16 06:04 Rouleaux Not Reportable 07/12/16 06:04 Hemoglobin C Crystals Not Reportable 07/12/16 06:04 Schistocytes Not Reportable 07/12/16 06:04 Malaria parasites Not Reportable 07/12/16 06:04 Danny Bodies Not Reportable 07/12/16 06:04 Hem Pathologist Commnt No 07/12/16 06:04 POC ABG pH 7.422 (7.35-7.45) 07/11/16 11:32 POC ABG pCO2 41.0 (35-45) 07/11/16 11:32 POC ABG pO2 60 (80-105) L 07/11/16 11:32 POC ABG HCO3 26.7 07/11/16 11:32 POC ABG Total CO2 28 07/11/16 11:32 POC ABG O2 Sat 91 07/11/16 11:32 POC ABG Base Excess 2 07/11/16 11:32 FiO2 30 % 07/11/16 11:32 Sodium 136 mmol/L (137-145) L 07/12/16 06:04 Potassium 3.5 mmol/L (3.6-5.0) L 07/12/16 06:04 Chloride 97.0 mmol/L (98-107) L 07/12/16 06:04 Carbon Dioxide 28 mmol/L (22-30) 07/12/16 06:04 Anion Gap 15 mmol/L 07/12/16 06:04 BUN 20 mg/dL (9-20) 07/12/16 06:04 Creatinine 0.6 mg/dL (0.8-1.5) L 07/12/16 06:04 Estimated GFR > 60 ml/min 07/12/16 06:04 BUN/Creatinine Ratio 33.33 % 07/12/16 06:04 Glucose 162 mg/dL (75-100) H 07/12/16 06:04 POC Glucose 174 (70-105) H 07/12/16 05:47 Calcium 7.7 mg/dL (8.4-10.2) L 07/12/16 06:04 Phosphorus 2.8 mg/dL (2.5-4.5) 07/11/16 04:21 Magnesium 2.1 mg/dL (1.7-2.3) 07/11/16 04:21 Total Bilirubin 0.7 mg/dL (0.1-1.2) 07/11/16 04:21 Direct Bilirubin 1.1 mg/dL (0-0.2) H 07/05/16 10:50 Indirect Bilirubin 1.4 mg/dL 07/05/16 10:50 AST 41 units/L (5-40) H 07/11/16 04:21 ALT 63 units/L (7-56) H 07/11/16 04:21 Alkaline Phosphatase 46 units/L (35-129) 07/11/16 04:21 Ammonia 58.0 umol/L (25-60) 07/05/16 10:50 Total Protein 5.4 g/dL (6.3-8.2) L 07/11/16 04:21 Albumin 2.5 g/dL (3.9-5) L 07/11/16 04:21 Albumin/Globulin Ratio 0.9 % 07/11/16 04:21 Urine Color Yellow (Yellow) 07/04/16 23:20 Urine Turbidity Clear (Clear) 07/04/16 23:20 Urine pH 6.0 (5.0-7.0) 07/04/16 23:20 Ur Specific Denio 1.024 (1.003-1.030) 07/04/16 23:20 Urine Protein <15 mg/dl mg/dL (Negative) 07/04/16 23:20 Urine Glucose (UA) >=500 mg/dL (Negative) 07/04/16 23:20 Urine Ketones 80 mg/dL (Negative) 07/04/16 23:20 Urine Blood Mod (Negative) 07/04/16 23:20 Urine Nitrite Neg (Negative) 07/04/16 23:20 Urine Bilirubin Neg (Negative) 07/04/16 23:20 Urine Urobilinogen < 2.0 mg/dL (<2.0) 07/04/16 23:20 Ur Leukocyte Esterase Neg (Negative) 07/04/16 23:20 Urine WBC (Auto) 1.0 /HPF (0.0-6.0) 07/04/16 23:20 Urine RBC (Auto) 1.0 /HPF (0.0-6.0) 07/04/16 23:20 Urine Opiates Screen Presumptive negative 07/04/16 23:20 Urine Methadone Screen Presumptive negative 07/04/16 23:20 Ur Barbiturates Screen Presumptive negative 07/04/16 23:20 Ur Phencyclidine Scrn Presumptive negative 07/04/16 23:20 Ur Amphetamines Screen Presumptive negative 07/04/16 23:20 U Benzodiazepines Scrn Presumptive negative 07/04/16 23:20 Urine Cocaine Screen Presumptive negative 07/04/16 23:20 U Marijuana (THC) Screen Presumptive negative 07/04/16 23:20 Drugs of Abuse Note Disclamer 07/04/16 23:20 Plasma/Serum Alcohol 0.17 gm% (0-0.07) H 07/04/16 23:27
--- NOTE | 2016-07-12 12:27 | XRay Report ---
Single view chest: Compared to 07/11/16. History: Followup respiratory failure. Findings: Cardiomegaly. Trachea is midline. Right upper lobe consolidation this is old. There is suspicion of new right basilar infiltrates. Normal CP angles. Impression: Suspicion of new right basilar infiltrate.
[2016-07-13] MEDS: ZOSYN/NS 4.5GM/100ML 100 ML IV SCH ×2 (00:32→08:25)
[2016-07-13] MEDS: NOVOLOG SUB-Q SCH ×3 (00:32→13:49)
[2016-07-13] MEDS: VANCOMYCIN VIAL 1,500 MG in NACL 0.9% 500 ML 500 ML IV SCH (01:30)
[2016-07-13] MEDS: DUONEB 0.5 MG-3 MG/3 ML SOLN IH SCH ×2 (02:18→10:59)
--- NOTE | 2016-07-13 10:05 | Progress Note ---
Assessment and Plan - Patient Problems (1) Alcohol intoxication Current Visit: Yes Status: Acute Qualifiers: Complication of substance-induced condition: uncomplicated Qualified Code(s ): F10.120 - Alcohol abuse with intoxication, uncomplicated Plan to address problem: - resolved - continue thiamine, folate and MVI - titrate off seroquel - continue CIWA protocol (2) DM type 2 (diabetes mellitus, type 2) Current Visit: Yes Status: Acute Plan to address problem: - continue SSI (3) Acute hypoxemic respiratory failure Current Visit: Yes Status: Acute Plan to address problem: - extubated - wean oxygen for sats > 92% (4) Discharge planning issues Current Visit: Yes Status: Acute Plan to address problem: - transfer to floor Subjective Date of service: 07/13/16 Principal diagnosis: Acute Hypoxemic Respiratory Failure Interval history: seen and examined at bedside; 24hour events reviewed; nursing and respiratory care staff consulted; no adverse overnight events reported to me;looks and feels better; denies acute chest pains or increased SOB; no emesis or overt aspiration and no gross bleeding Objective Vital Signs - 12hr 07/12/16 07/13/16 07/13/16 23:00 00:00 01:00 Temperature Pulse Rate 103 H 94 H 97 H Pulse Rate [ 97 H From Monitor] Respiratory 19 17 19 Rate Blood Pressure 112/73 123/88 127/86 O2 Sat by Pulse 97 97 97 Oximetry 07/13/16 07/13/16 07/13/16 02:00 03:00 03:36 Temperature Pulse Rate 103 H 97 H 94 H Pulse Rate [ From Monitor] Respiratory 20 19 21 Rate Blood Pressure 103/61 128/83 128/83 O2 Sat by Pulse 97 96 99 Oximetry 07/13/16 07/13/16 07/13/16 04:00 04:20 04:26 Temperature Pulse Rate 92 H 88 Pulse Rate [ 97 H From Monitor] Respiratory 18 22 20 Rate Blood Pressure 122/75 122/75 O2 Sat by Pulse 96 99 98 Oximetry 07/13/16 07/13/16 07/13/16 05:00 05:07 06:00 Temperature 98.5 F Pulse Rate 98 H 87 Pulse Rate [ From Monitor] Respiratory 22 25 H Rate Blood Pressure 118/75 128/80 O2 Sat by Pulse 97 96 Oximetry 07/13/16 07/13/16 07/13/16 07:00 07:04 08:00 Temperature 98.1 F Pulse Rate 33 L 96 H Pulse Rate [ From Monitor] Respiratory 21 22 14 Rate Blood Pressure 114/76 114/76 129/85 O2 Sat by Pulse 95 95 99 Oximetry 07/13/16 09:00 Temperature Pulse Rate 91 H Pulse Rate [ From Monitor] Respiratory 18 Rate Blood Pressure 99/45 O2 Sat by Pulse 97 Oximetry Constitutional: no acute distress, alert Eyes: non-icteric ENT: oropharynx moist Neck: supple, no JVD Effort: normal Ascultation: Bilateral: clear, diminished breath sounds Cardiovascular: regular rate and rhythm Gastrointestinal: normoactive bowel sounds, soft, non-tender, non-distended Integumentary: normal Extremities: no cyanosis, pink and warm, pulses normal, no ischemia or petechiae Neurologic: normal mental status, non-focal exam, pupils equal and round, motor strength normal and Psychiatric: mood appropriate, affect normal CBC and BMP: 07/12/16 06:04 07/12/16 06:04 ABG, PT/INR, D-dimer: ABG POC ABG pH 7.422 (7.35-7.45) 07/11/16 11:32 POC ABG pCO2 41.0 (35-45) 07/11/16 11:32 POC ABG pO2 60 (80-105) L 07/11/16 11:32 POC ABG HCO3 26.7 07/11/16 11:32 POC ABG Total CO2 28 07/11/16 11:32 POC ABG O2 Sat 91 07/11/16 11:32 Abnormal lab findings: Abnormal Labs 07/05/16 07/05/16 07/05/16 02:11 03:27 03:27 WBC 20.7 H RBC 5.17 H Hgb 15.7 H MCHC 35 H RDW 13.1 L Lymph % (Auto) Lymph # Seg Neutrophils % Lymphocytes % (Manual) 4.0 L Monocytes % (Manual) Eosinophils % (Manual) Seg Neutrophils # Seg Neutrophils # Man 12.6 H Lymphocytes # (Manual) 0.8 L Monocytes # (Manual) 1.4 H Eosinophils # (Manual) POC ABG pH POC ABG pCO2 POC ABG pO2 Sodium 110 L* 110 L* Potassium Chloride 72.5 L Carbon Dioxide 13 L BUN Creatinine 0.5 L Glucose 190 H POC Glucose Calcium 8.1 L Phosphorus Total Bilirubin Direct Bilirubin AST ALT Total Protein Albumin 07/05/16 07/05/16 07/05/16 07:24 07:32 10:45 WBC RBC Hgb MCHC RDW Lymph % (Auto) Lymph # Seg Neutrophils % Lymphocytes % (Manual) Monocytes % (Manual) Eosinophils % (Manual) Seg Neutrophils # Seg Neutrophils # Man Lymphocytes # (Manual) Monocytes # (Manual) Eosinophils # (Manual) POC ABG pH POC ABG pCO2 21.2 L POC ABG pO2 Sodium 115 L* Potassium Chloride 75.4 L Carbon Dioxide 12 L BUN Creatinine 0.5 L Glucose 177 H POC Glucose 158 H Calcium 7.8 L Phosphorus Total Bilirubin Direct Bilirubin AST ALT Total Protein Albumin 07/05/16 07/05/16 07/05/16 10:50 10:50 10:50 WBC RBC Hgb MCHC RDW Lymph % (Auto) Lymph # Seg Neutrophils % Lymphocytes % (Manual) Monocytes % (Manual) Eosinophils % (Manual) Seg Neutrophils # Seg Neutrophils # Man Lymphocytes # (Manual) Monocytes # (Manual) Eosinophils # (Manual) POC ABG pH POC ABG pCO2 POC ABG pO2 Sodium 112 L* Potassium Chloride 76.7 L Carbon Dioxide 12 L BUN Creatinine 0.5 L Glucose 195 H POC Glucose Calcium 7.6 L Phosphorus 2.3 L Total Bilirubin 2.5 H Direct Bilirubin 1.1 H AST 55 H ALT Total Protein Albumin 3.5 L 3.4 L 07/05/16 07/05/16 07/05/16 12:00 13:57 16:13 WBC RBC Hgb MCHC RDW Lymph % (Auto) Lymph # Seg Neutrophils % Lymphocytes % (Manual) Monocytes % (Manual) Eosinophils % (Manual) Seg Neutrophils # Seg Neutrophils # Man Lymphocytes # (Manual) Monocytes # (Manual) Eosinophils # (Manual) POC ABG pH POC ABG pCO2 POC ABG pO2 Sodium 112 L* Potassium Chloride 77.4 L Carbon Dioxide 12 L BUN Creatinine 0.6 L Glucose 207 H POC Glucose 242 H 139 H Calcium 7.7 L Phosphorus Total Bilirubin Direct Bilirubin AST ALT Total Protein Albumin 07/05/16 07/05/16 07/05/16 18:26 21:13 21:23 WBC RBC Hgb MCHC RDW Lymph % (Auto) Lymph # Seg Neutrophils % Lymphocytes % (Manual) Monocytes % (Manual) Eosinophils % (Manual) Seg Neutrophils # Seg Neutrophils # Man Lymphocytes # (Manual) Monocytes # (Manual) Eosinophils # (Manual) POC ABG pH POC ABG pCO2 POC ABG pO2 Sodium 115 L* 114 L* Potassium Chloride 80.6 L 81.7 L Carbon Dioxide 12 L 14 L BUN Creatinine 0.4 L 0.6 L Glucose 186 H 182 H POC Glucose 154 H Calcium 7.7 L 7.7 L Phosphorus Total Bilirubin Direct Bilirubin AST ALT Total Protein Albumin 07/06/16 07/06/16 07/06/16 05:03 06:06 06:06 WBC 13.7 H RBC Hgb MCHC 36 H RDW 13.1 L Lymph % (Auto) 6.9 L Lymph # 0.9 L Seg Neutrophils % 87.0 H Lymphocytes % (Manual) Monocytes % (Manual) Eosinophils % (Manual) Seg Neutrophils # 11.9 H Seg Neutrophils # Man Lymphocytes # (Manual) Monocytes # (Manual) Eosinophils # (Manual) POC ABG pH POC ABG pCO2 31.7 L POC ABG pO2 350 H Sodium 122 L D Potassium Chloride 88.0 L Carbon Dioxide 19 L BUN Creatinine 0.6 L Glucose 189 H POC Glucose Calcium 7.9 L Phosphorus 2.0 L Total Bilirubin Direct Bilirubin AST ALT Total Protein Albumin 07/06/16 07/06/16 07/06/16 08:00 10:57 15:17 WBC RBC Hgb MCHC RDW Lymph % (Auto) Lymph # Seg Neutrophils % Lymphocytes % (Manual) Monocytes % (Manual) Eosinophils % (Manual) Seg Neutrophils # Seg Neutrophils # Man Lymphocytes # (Manual) Monocytes # (Manual) Eosinophils # (Manual) POC ABG pH POC ABG pCO2 POC ABG pO2 Sodium 126 L Potassium 3.5 L Chloride 92.1 L Carbon Dioxide 20 L BUN Creatinine 0.7 L Glucose 184 H POC Glucose 164 H 156 H Calcium 7.6 L Phosphorus Total Bilirubin Direct Bilirubin AST ALT Total Protein Albumin 07/06/16 07/06/16 07/06/16 16:18 19:03 21:42 WBC RBC Hgb MCHC RDW Lymph % (Auto) Lymph # Seg Neutrophils % Lymphocytes % (Manual) Monocytes % (Manual) Eosinophils % (Manual) Seg Neutrophils # Seg Neutrophils # Man Lymphocytes # (Manual) Monocytes # (Manual) Eosinophils # (Manual) POC ABG pH POC ABG pCO2 POC ABG pO2 Sodium 126 L Potassium Chloride Carbon Dioxide BUN Creatinine Glucose POC Glucose 159 H 164 H Calcium Phosphorus Total Bilirubin Direct Bilirubin AST ALT Total Protein Albumin 07/07/16 07/07/16 07/07/16 04:04 05:25 12:04 WBC RBC Hgb MCHC RDW Lymph % (Auto) Lymph # Seg Neutrophils % Lymphocytes % (Manual) Monocytes % (Manual) Eosinophils % (Manual) Seg Neutrophils # Seg Neutrophils # Man Lymphocytes # (Manual) Monocytes # (Manual) Eosinophils # (Manual) POC ABG pH 7.317 L POC ABG pCO2 POC ABG pO2 77 L Sodium 130 L Potassium Chloride 95.9 L Carbon Dioxide BUN Creatinine 0.7 L Glucose 165 H POC Glucose 160 H Calcium 7.8 L Phosphorus 1.8 L Total Bilirubin Direct Bilirubin AST ALT Total Protein Albumin 07/07/16 07/07/16 07/08/16 17:39 23:35 04:27 WBC RBC Hgb MCHC RDW Lymph % (Auto) Lymph # Seg Neutrophils % Lymphocytes % (Manual) Monocytes % (Manual) Eosinophils % (Manual) Seg Neutrophils # Seg Neutrophils # Man Lymphocytes # (Manual) Monocytes # (Manual) Eosinophils # (Manual) POC ABG pH POC ABG pCO2 POC ABG pO2 Sodium 131 L Potassium Chloride 96.3 L Carbon Dioxide BUN Creatinine 0.4 L Glucose 172 H POC Glucose 157 H 174 H Calcium 7.8 L Phosphorus 1.7 L Total Bilirubin Direct Bilirubin AST ALT Total Protein Albumin 07/08/16 07/08/16 07/08/16 04:27 05:40 12:14 WBC RBC Hgb MCHC RDW Lymph % (Auto) Lymph # Seg Neutrophils % Lymphocytes % (Manual) Monocytes % (Manual) Eosinophils % (Manual) Seg Neutrophils # Seg Neutrophils # Man Lymphocytes # (Manual) Monocytes # (Manual) Eosinophils # (Manual) POC ABG pH POC ABG pCO2 POC ABG pO2 163 H Sodium Potassium Chloride Carbon Dioxide BUN Creatinine Glucose POC Glucose 158 H 171 H Calcium Phosphorus Total Bilirubin Direct Bilirubin AST ALT Total Protein Albumin 07/08/16 07/08/16 07/09/16 17:29 23:45 04:25 WBC RBC Hgb MCHC RDW Lymph % (Auto) Lymph # Seg Neutrophils % Lymphocytes % (Manual) Monocytes % (Manual) Eosinophils % (Manual) Seg Neutrophils # Seg Neutrophils # Man Lymphocytes # (Manual) Monocytes # (Manual) Eosinophils # (Manual) POC ABG pH POC ABG pCO2 POC ABG pO2 Sodium Potassium Chloride Carbon Dioxide BUN Creatinine Glucose POC Glucose 178 H 181 H Calcium Phosphorus 2.2 L D Total Bilirubin Direct Bilirubin AST ALT Total Protein Albumin 07/09/16 07/09/16 07/09/16 05:20 09:28 11:10 WBC RBC Hgb MCHC RDW Lymph % (Auto) Lymph # Seg Neutrophils % Lymphocytes % (Manual) Monocytes % (Manual) Eosinophils % (Manual) Seg Neutrophils # Seg Neutrophils # Man Lymphocytes # (Manual) Monocytes # (Manual) Eosinophils # (Manual) POC ABG pH POC ABG pCO2 POC ABG pO2 Sodium 134 L Potassium Chloride Carbon Dioxide BUN Creatinine 0.5 L Glucose 189 H POC Glucose 184 H 176 H Calcium 7.7 L Phosphorus Total Bilirubin Direct Bilirubin AST ALT Total Protein Albumin 07/09/16 07/09/16 07/09/16 17:27 23:45 23:58 WBC RBC Hgb MCHC RDW Lymph % (Auto) Lymph # Seg Neutrophils % Lymphocytes % (Manual) Monocytes % (Manual) Eosinophils % (Manual) Seg Neutrophils # Seg Neutrophils # Man Lymphocytes # (Manual) Monocytes # (Manual) Eosinophils # (Manual) POC ABG pH POC ABG pCO2 POC ABG pO2 Sodium Potassium Chloride Carbon Dioxide BUN Creatinine Glucose POC Glucose 170 H 230 H 187 H Calcium Phosphorus Total Bilirubin Direct Bilirubin AST ALT Total Protein Albumin 07/10/16 07/10/16 07/10/16 04:44 05:55 10:37 WBC RBC Hgb MCHC 35 H RDW Lymph % (Auto) Lymph # Seg Neutrophils % Lymphocytes % (Manual) Monocytes % (Manual) 16.0 H Eosinophils % (Manual) Seg Neutrophils # Seg Neutrophils # Man Lymphocytes # (Manual) Monocytes # (Manual) 1.7 H Eosinophils # (Manual) POC ABG pH 7.344 L POC ABG pCO2 48.3 H POC ABG pO2 Sodium Potassium Chloride Carbon Dioxide BUN Creatinine Glucose POC Glucose 166 H Calcium Phosphorus Total Bilirubin Direct Bilirubin AST ALT Total Protein Albumin 07/10/16 07/10/16 07/11/16 11:32 18:08 04:21 WBC RBC Hgb MCHC RDW Lymph % (Auto) Lymph # Seg Neutrophils % Lymphocytes % (Manual) Monocytes % (Manual) Eosinophils % (Manual) Seg Neutrophils # Seg Neutrophils # Man Lymphocytes # (Manual) Monocytes # (Manual) Eosinophils # (Manual) POC ABG pH POC ABG pCO2 POC ABG pO2 Sodium 136 L Potassium Chloride Carbon Dioxide BUN 23 H Creatinine 0.7 L Glucose 138 H POC Glucose 156 H 171 H Calcium 7.6 L Phosphorus Total Bilirubin Direct Bilirubin AST 41 H ALT 63 H Total Protein 5.4 L Albumin 2.5 L 07/11/16 07/11/16 07/11/16 04:53 05:15 11:32 WBC RBC Hgb MCHC RDW Lymph % (Auto) Lymph # Seg Neutrophils % Lymphocytes % (Manual) Monocytes % (Manual) Eosinophils % (Manual) Seg Neutrophils # Seg Neutrophils # Man Lymphocytes # (Manual) Monocytes # (Manual) Eosinophils # (Manual) POC ABG pH POC ABG pCO2 POC ABG pO2 78 L 60 L Sodium Potassium Chloride Carbon Dioxide BUN Creatinine Glucose POC Glucose 143 H Calcium Phosphorus Total Bilirubin Direct Bilirubin AST ALT Total Protein Albumin 07/11/16 07/11/16 07/11/16 11:43 18:07 23:24 WBC RBC Hgb MCHC RDW Lymph % (Auto) Lymph # Seg Neutrophils % Lymphocytes % (Manual) Monocytes % (Manual) Eosinophils % (Manual) Seg Neutrophils # Seg Neutrophils # Man Lymphocytes # (Manual) Monocytes # (Manual) Eosinophils # (Manual) POC ABG pH POC ABG pCO2 POC ABG pO2 Sodium Potassium Chloride Carbon Dioxide BUN Creatinine Glucose POC Glucose 184 H 190 H 190 H Calcium Phosphorus Total Bilirubin Direct Bilirubin AST ALT Total Protein Albumin 07/12/16 07/12/16 07/12/16 05:47 06:04 06:04 WBC RBC Hgb MCHC 35 H RDW Lymph % (Auto) Lymph # Seg Neutrophils % Lymphocytes % (Manual) 13.0 L Monocytes % (Manual) 17.0 H Eosinophils % (Manual) 7.0 H Seg Neutrophils # Seg Neutrophils # Man Lymphocytes # (Manual) 0.9 L Monocytes # (Manual) 1.1 H Eosinophils # (Manual) 0.5 H POC ABG pH POC ABG pCO2 POC ABG pO2 Sodium 136 L Potassium 3.5 L Chloride 97.0 L Carbon Dioxide BUN Creatinine 0.6 L Glucose 162 H POC Glucose 174 H Calcium 7.7 L Phosphorus Total Bilirubin Direct Bilirubin AST ALT Total Protein Albumin 07/12/16 07/12/16 07/12/16 11:42 17:45 21:48 WBC RBC Hgb MCHC RDW Lymph % (Auto) Lymph # Seg Neutrophils % Lymphocytes % (Manual) Monocytes % (Manual) Eosinophils % (Manual) Seg Neutrophils # Seg Neutrophils # Man Lymphocytes # (Manual) Monocytes # (Manual) Eosinophils # (Manual) POC ABG pH POC ABG pCO2 POC ABG pO2 Sodium Potassium Chloride Carbon Dioxide BUN Creatinine Glucose POC Glucose 204 H 183 H 198 H Calcium Phosphorus Total Bilirubin Direct Bilirubin AST ALT Total Protein Albumin 07/13/16 07/13/16 00:47 06:24 WBC RBC Hgb MCHC RDW Lymph % (Auto) Lymph # Seg Neutrophils % Lymphocytes % (Manual) Monocytes % (Manual) Eosinophils % (Manual) Seg Neutrophils # Seg Neutrophils # Man Lymphocytes # (Manual) Monocytes # (Manual) Eosinophils # (Manual) POC ABG pH POC ABG pCO2 POC ABG pO2 Sodium Potassium Chloride Carbon Dioxide BUN Creatinine Glucose POC Glucose 196 H 147 H Calcium Phosphorus Total Bilirubin Direct Bilirubin AST ALT Total Protein Albumin
--- NOTE | 2016-07-13 10:31 | XRay Report ---
SINGLE VIEW CHEST: HISTORY: Follow-up of respiratory failure. FINDINGS: Cardiomegaly. Trachea is midline. No consolidation, pneumothorax or pleural effusion. IMPRESSION: No acute cardiopulmonary findings.
[2016-07-13] MEDS ORDERED: DUONEB 0.5 MG-3 MG/3 ML SOLN IH PRN (10:41)
--- NOTE | 2016-07-13 11:00 | Progress Note ---
Assessment and Plan Assessment and plan: 1. Acute hypoxic respiratory failure * Due to delirium tremens * Resolved, extubated 07/12; on O2 per NC, weaning off 2. Alcohol intoxication with delirium tremens * Cn [facility] protocol * On thiamine, folate * Needs further counseling 3. Severe hyponatremia on admission * 112; received 250 mL of 3% on admission, then NS * Now resolved 4. Hypophosphatemia * Replaced 5. SIRS * Sputum culture positive for MSSA * Discontinue Vanc and Zosyn; switch to Ancef 6. Hypertension * Blood pressure uncontrolled initially,so was placed on clonidine patch * Normotensive now 7. DM * Accu-Cheks and SSI 8. DVT prophylaxis * Lovenox 9. Disposition * Transfer to medical floor History Interval history: extubated yesterday, doing well, no complaints Hospitalist Physical - Constitutional Vitals: Temp Pulse Resp BP Pulse Ox 98.1 F 91 H 18 99/45 92 07/13/16 08:00 07/13/16 09:00 07/13/16 09:00 07/13/16 09:00 07/13/16 10:48 General appearance: Present: no acute distress, obese - EENT Eyes: Present: PERRL, EOM intact. Absent: scleral icterus, conjunctival injection - Neck Neck: Present: supple, normal ROM. Absent: masses or JVD - Respiratory Respiratory effort: normal Respiratory: bilateral: CTA, negative: rales, rhonchi, wheezing - Cardiovascular Rhythm: other (tachycardic) Heart Sounds: Present: S1 & S2. Absent: systolic murmur - Extremities Extremities: no ischemia - Abdominal General gastrointestinal: soft, non-tender, non-distended, normal bowel sounds - Integumentary Integumentary: Present: warm, dry. Absent: jaundice, rash - Psychiatric Psychiatric: cooperative - Neurologic Neurologic: CNII-XII intact, no focal deficits Results - Labs CBC & Chem 7: 07/12/16 06:04 07/12/16 06:04 Labs: Laboratory Last Values WBC 6.6 K/mm3 (4.5-11.0) 07/12/16 06:04 RBC 4.07 M/mm3 (3.65-5.03) 07/12/16 06:04 Hgb 12.7 gm/dl (11.8-15.2) 07/12/16 06:04 Hct 36.8 % (35.5-45.6) 07/12/16 06:04 MCV 90 fl (84-94) 07/12/16 06:04 MCH 31 pg (28-32) 07/12/16 06:04 MCHC 35 % (32-34) H 07/12/16 06:04 RDW 13.2 % (13.2-15.2) 07/12/16 06:04 Plt Count 276 K/mm3 (140-440) 07/12/16 06:04 Lymph % (Auto) 6.9 % (13.4-35.0) L 07/06/16 06:06 [place] % (Auto) 6.0 % (0.0-7.3) 07/06/16 06:06 Eos % (Auto) 0.0 % (0.0-4.3) 07/06/16 06:06 Baso % (Auto) 0.1 % (0.0-1.8) 07/06/16 06:06 Lymph # 0.9 K/mm3 (1.2-5.4) L 07/06/16 06:06 [place] # 0.8 K/mm3 (0.0-0.8) 07/06/16 06:06 Eos # 0.0 K/mm3 (0.0-0.4) 07/06/16 06:06 Baso # 0.0 K/mm3 (0.0-0.1) 07/06/16 06:06 Add Manual Diff Complete 07/12/16 06:04 Total Counted 100 07/12/16 06:04 Seg Neutrophils % 87.0 % (40.0-70.0) H 07/06/16 06:06 Seg Neuts % (Manual) 46.0 % (40.0-70.0) 07/12/16 06:04 Band Neutrophils % 17.0 % 07/12/16 06:04 Lymphocytes % (Manual) 13.0 % (13.4-35.0) L 07/12/16 06:04 Reactive Lymphs % (Man) 0 % 07/12/16 06:04 Monocytes % (Manual) 17.0 % (0.0-7.3) H 07/12/16 06:04 Eosinophils % (Manual) 7.0 % (0.0-4.3) H 07/12/16 06:04 Basophils % (Manual) 0 % (0.0-1.8) 07/12/16 06:04 Metamyelocytes % 0 % 07/12/16 06:04 Myelocytes % 0 % 07/12/16 06:04 Promyelocytes % 0 % 07/12/16 06:04 Blast Cells % 0 % 07/12/16 06:04 Nucleated RBC % Not Reportable 07/12/16 06:04 Seg Neutrophils # 11.9 K/mm3 (1.8-7.7) H 07/06/16 06:06 Seg Neutrophils # Man 3.0 K/mm3 (1.8-7.7) 07/12/16 06:04 Band Neutrophils # 1.1 K/mm3 07/12/16 06:04 Lymphocytes # (Manual) 0.9 K/mm3 (1.2-5.4) L 07/12/16 06:04 Abs React Lymphs (Man) 0.0 K/mm3 07/12/16 06:04 Monocytes # (Manual) 1.1 K/mm3 (0.0-0.8) H 07/12/16 06:04 Eosinophils # (Manual) 0.5 K/mm3 (0.0-0.4) H 07/12/16 06:04 Basophils # (Manual) 0.0 K/mm3 (0.0-0.1) 07/12/16 06:04 Metamyelocytes # 0.0 K/mm3 07/12/16 06:04 Myelocytes # 0.0 K/mm3 07/12/16 06:04 Promyelocytes # 0.0 K/mm3 07/12/16 06:04 Blast Cells # 0.0 K/mm3 07/12/16 06:04 WBC Morphology Not Reportable 07/12/16 06:04 Hypersegmented Neuts Not Reportable 07/12/16 06:04 Hyposegmented Neuts Not Reportable 07/12/16 06:04 Hypogranular Neuts Not Reportable 07/12/16 06:04 Smudge Cells Not Reportable 07/12/16 06:04 Toxic Granulation Not Reportable 07/12/16 06:04 Toxic Vacuolation Not Reportable 07/12/16 06:04 Dohle Bodies Not Reportable 07/12/16 06:04 Pelger-Huet Anomaly Not Reportable 07/12/16 06:04 Marques Rods Not Reportable 07/12/16 06:04 Platelet Estimate Appears normal 07/12/16 06:04 Clumped Platelets Not Reportable 07/12/16 06:04 Plt Clumps, EDTA Not Reportable 07/12/16 06:04 Large Platelets Not Reportable 07/12/16 06:04 Giant Platelets Not Reportable 07/12/16 06:04 Platelet Satelliting Not Reportable 07/12/16 06:04 Plt Morphology Comment Not Reportable 07/12/16 06:04 RBC Morphology Not Reportable 07/12/16 06:04 Dimorphic RBCs Not Reportable 07/12/16 06:04 Polychromasia Not Reportable 07/12/16 06:04 Hypochromasia Not Reportable 07/12/16 06:04 Poikilocytosis Not Reportable 07/12/16 06:04 Anisocytosis 1+ 07/12/16 06:04 Microcytosis Not Reportable 07/12/16 06:04 Macrocytosis Not Reportable 07/12/16 06:04 Spherocytes Not Reportable 07/12/16 06:04 Pappenheimer Bodies Not Reportable 07/12/16 06:04 Sickle Cells Not Reportable 07/12/16 06:04 Target Cells Not Reportable 07/12/16 06:04 Tear Drop Cells Not Reportable 07/12/16 06:04 Ovalocytes Not Reportable 07/12/16 06:04 Helmet Cells Not Reportable 07/12/16 06:04 [place] Bodies Not Reportable 07/12/16 06:04 [place] Rings Not Reportable 07/12/16 06:04 [place] Cells Not Reportable 07/12/16 06:04 Bite Cells Not Reportable 07/12/16 06:04 Crenated Cell Not Reportable 07/12/16 06:04 Elliptocytes Not Reportable 07/12/16 06:04 Acanthocytes (Spur) Not Reportable 07/12/16 06:04 Rouleaux Not Reportable 07/12/16 06:04 Hemoglobin C Crystals Not Reportable 07/12/16 06:04 Schistocytes Not Reportable 07/12/16 06:04 Malaria parasites Not Reportable 07/12/16 06:04 Danny Bodies Not Reportable 07/12/16 06:04 Hem Pathologist Commnt No 07/12/16 06:04 POC ABG pH 7.422 (7.35-7.45) 07/11/16 11:32 POC ABG pCO2 41.0 (35-45) 07/11/16 11:32 POC ABG pO2 60 (80-105) L 07/11/16 11:32 POC ABG HCO3 26.7 07/11/16 11:32 POC ABG Total CO2 28 07/11/16 11:32 POC ABG O2 Sat 91 07/11/16 11:32 POC ABG Base Excess 2 07/11/16 11:32 FiO2 30 % 07/11/16 11:32 Sodium 136 mmol/L (137-145) L 07/12/16 06:04 Potassium 3.5 mmol/L (3.6-5.0) L 07/12/16 06:04 Chloride 97.0 mmol/L (98-107) L 07/12/16 06:04 Carbon Dioxide 28 mmol/L (22-30) 07/12/16 06:04 Anion Gap 15 mmol/L 07/12/16 06:04 BUN 20 mg/dL (9-20) 07/12/16 06:04 Creatinine 0.6 mg/dL (0.8-1.5) L 07/12/16 06:04 Estimated GFR > 60 ml/min 07/12/16 06:04 BUN/Creatinine Ratio 33.33 % 07/12/16 06:04 Glucose 162 mg/dL (75-100) H 07/12/16 06:04 POC Glucose 147 (70-105) H 07/13/16 06:24 Calcium 7.7 mg/dL (8.4-10.2) L 07/12/16 06:04 Phosphorus 2.8 mg/dL (2.5-4.5) 07/11/16 04:21 Magnesium 2.1 mg/dL (1.7-2.3) 07/11/16 04:21 Total Bilirubin 0.7 mg/dL (0.1-1.2) 07/11/16 04:21 Direct Bilirubin 1.1 mg/dL (0-0.2) H 07/05/16 10:50 Indirect Bilirubin 1.4 mg/dL 07/05/16 10:50 AST 41 units/L (5-40) H 07/11/16 04:21 ALT 63 units/L (7-56) H 07/11/16 04:21 Alkaline Phosphatase 46 units/L (35-129) 07/11/16 04:21 Ammonia 58.0 umol/L (25-60) 07/05/16 10:50 Total Protein 5.4 g/dL (6.3-8.2) L 07/11/16 04:21 Albumin 2.5 g/dL (3.9-5) L 07/11/16 04:21 Albumin/Globulin Ratio 0.9 % 07/11/16 04:21 Urine Color Yellow (Yellow) 07/04/16 23:20 Urine Turbidity Clear (Clear) 07/04/16 23:20 Urine pH 6.0 (5.0-7.0) 07/04/16 23:20 Ur Specific [place] 1.024 (1.003-1.030) 07/04/16 23:20 Urine Protein <15 mg/dl mg/dL (Negative) 07/04/16 23:20 Urine Glucose (UA) >=500 mg/dL (Negative) 07/04/16 23:20 Urine Ketones 80 mg/dL (Negative) 07/04/16 23:20 Urine Blood Mod (Negative) 07/04/16 23:20 Urine Nitrite Neg (Negative) 07/04/16 23:20 Urine Bilirubin Neg (Negative) 07/04/16 23:20 Urine Urobilinogen < 2.0 mg/dL (<2.0) 07/04/16 23:20 Ur Leukocyte Esterase Neg (Negative) 07/04/16 23:20 Urine WBC (Auto) 1.0 /HPF (0.0-6.0) 07/04/16 23:20 Urine RBC (Auto) 1.0 /HPF (0.0-6.0) 07/04/16 23:20 Vancomycin Trough 15.6 ug/mL (5.0-20.0) 07/13/16 01:16 Urine Opiates Screen Presumptive negative 07/04/16 23:20 Urine Methadone Screen Presumptive negative 07/04/16 23:20 Ur Barbiturates Screen Presumptive negative 07/04/16 23:20 Ur Phencyclidine Scrn Presumptive negative 07/04/16 23:20 Ur Amphetamines Screen Presumptive negative 07/04/16 23:20 U Benzodiazepines Scrn Presumptive negative 07/04/16 23:20 Urine Cocaine Screen Presumptive negative 07/04/16 23:20 U Marijuana (THC) Screen Presumptive negative 07/04/16 23:20 Drugs of Abuse Note Disclamer 07/04/16 23:20 Plasma/Serum Alcohol 0.17 gm% (0-0.07) H 07/04/16 23:27
[2016-07-13] MEDS: LOVENOX SUB-Q SCH (11:36)
[2016-07-13] MEDS: Centrum Liq PO SCH (11:36)
[2016-07-13] MEDS: FOLVITE PO SCH (11:36)
[2016-07-13] MEDS: VITAMIN B-1 PO SCH (11:36)
[2016-07-13] MEDS: PEPCID PO SCH ×2 (11:37→21:21)
[2016-07-13] MEDS ORDERED: PROVENTIL IH PRN (12:21)
[2016-07-13] MEDS: ANCEF/NS 1 GM/50 ML 50 ML IV SCH ×2 (14:50→21:16)
[2016-07-14] MEDS: ANCEF/NS 1 GM/50 ML 50 ML IV SCH ×2 (05:48→14:05)
[2016-07-14] MEDS: NOVOLOG SUB-Q SCH ×5 (07:58→17:50)
[2016-07-14 09:04] LABS: Anion Gap 18 mmol/L; BUN/Creatinine Ratio 28.33; Blood Urea Nitrogen 17 mg/dL (9-20); Carbon Dioxide 23 mmol/L (22-30); Chloride 103.5 mmol/L (98-107); Glucose 152 mg/dL (75-100); Potassium 3.5 mmol/L (3.6-5.0); Sodium 141 mmol/L (137-145)
[2016-07-14] MEDS: Centrum Liq PO SCH (10:41)
[2016-07-14] MEDS: PEPCID PO SCH (10:41)
[2016-07-14] MEDS: FOLVITE PO SCH (10:41)
[2016-07-14] MEDS: LOVENOX SUB-Q SCH (10:41)
[2016-07-14] MEDS: VITAMIN B-1 PO SCH (10:41)
--- NOTE | 2016-07-14 13:53 | Progress Note ---
Assessment and Plan This is 51-year-old male presents to the emergency department via EMS for evaluation of altered mental status. Per report, the patient has been drinking alcohol heavily for the past 6 days. There has been nausea and vomiting. Patient electrolytes showed severe hyponatremia.Patient has history of hypertension and Diabetes. No known drug allergies. Patient intoxicated. Un able to give much history. Patients smoking history and alcohol history not known at this time. Patient subsequently intubated and extubated. Patient transfered to the floor Patient resting on room air. No acute respiratory distress. O2 satuaration 100% on room air. - Patient Problems (1) Alcohol intoxication Current Visit: Yes Status: Acute Qualifiers: Complication of substance-induced condition: uncomplicated Qualified Code(s ): F10.120 - Alcohol abuse with intoxication, uncomplicated Plan to address problem: Watch for DTs. Patient is on CIWA protocol. 07/14/16 Patient appears out of DTs. Recommend to consult psychiatry for alcohol rehabilitation. (2) DM type 2 (diabetes mellitus, type 2) Current Visit: Yes Status: Acute Plan to address problem: Management as per primary care. (3) Hyponatremia Current Visit: Yes Status: Acute Plan to address problem: Management as per Nephrology. 07/14/16 Improved. Na+ 141 (4) Metabolic acidosis Current Visit: Yes Status: Acute Plan to address problem: Patients Bicarb is 12. However PH is compensated. 07/14/16 Improved; Subjective Date of service: 07/14/16 Principal diagnosis: Acute Hypoxemic Respiratory Failure Interval history: Patient transfered to the floor.Patient resting on room air. No acute respiratory distress. O2 satuaration 100% on room air. Objective Vital Signs - 12hr 07/14/16 08:00 Temperature 98.9 F Pulse Rate [ 87 Apical] Respiratory 16 Rate Blood Pressure 128/85 [Left Arm] O2 Sat by Pulse 100 Oximetry Constitutional: no acute distress, alert Eyes: non-icteric ENT: oropharynx moist Neck: supple, no JVD Effort: normal Ascultation: Bilateral: diminished breath sounds, rhonchi Cardiovascular: regular rate and rhythm Gastrointestinal: normoactive bowel sounds, soft, non-tender, non-distended Integumentary: normal Extremities: no cyanosis, pink and warm, pulses normal, no ischemia or petechiae Neurologic: normal mental status, non-focal exam, pupils equal and round, motor strength normal and Psychiatric: mood appropriate, affect normal CBC and BMP: 07/12/16 06:04 07/14/16 08:18 ABG, PT/INR, D-dimer: ABG POC ABG pH 7.422 (7.35-7.45) 07/11/16 11:32 POC ABG pCO2 41.0 (35-45) 07/11/16 11:32 POC ABG pO2 60 (80-105) L 07/11/16 11:32 POC ABG HCO3 26.7 07/11/16 11:32 POC ABG Total CO2 28 07/11/16 11:32 POC ABG O2 Sat 91 07/11/16 11:32 Abnormal lab findings: Abnormal Labs 07/05/16 07/05/16 07/05/16 02:11 03:27 03:27 WBC 20.7 H RBC 5.17 H Hgb 15.7 H MCHC 35 H RDW 13.1 L Lymph % (Auto) Lymph # Seg Neutrophils % Lymphocytes % (Manual) 4.0 L Monocytes % (Manual) Eosinophils % (Manual) Seg Neutrophils # Seg Neutrophils # Man 12.6 H Lymphocytes # (Manual) 0.8 L Monocytes # (Manual) 1.4 H Eosinophils # (Manual) POC ABG pH POC ABG pCO2 POC ABG pO2 Sodium 110 L* 110 L* Potassium Chloride 72.5 L Carbon Dioxide 13 L BUN Creatinine 0.5 L Glucose 190 H POC Glucose Calcium 8.1 L Phosphorus Total Bilirubin Direct Bilirubin AST ALT Total Protein Albumin 07/05/16 07/05/16 07/05/16 07:24 07:32 10:45 WBC RBC Hgb MCHC RDW Lymph % (Auto) Lymph # Seg Neutrophils % Lymphocytes % (Manual) Monocytes % (Manual) Eosinophils % (Manual) Seg Neutrophils # Seg Neutrophils # Man Lymphocytes # (Manual) Monocytes # (Manual) Eosinophils # (Manual) POC ABG pH POC ABG pCO2 21.2 L POC ABG pO2 Sodium 115 L* Potassium Chloride 75.4 L Carbon Dioxide 12 L BUN Creatinine 0.5 L Glucose 177 H POC Glucose 158 H Calcium 7.8 L Phosphorus Total Bilirubin Direct Bilirubin AST ALT Total Protein Albumin 07/05/16 07/05/16 07/05/16 10:50 10:50 10:50 WBC RBC Hgb MCHC RDW Lymph % (Auto) Lymph # Seg Neutrophils % Lymphocytes % (Manual) Monocytes % (Manual) Eosinophils % (Manual) Seg Neutrophils # Seg Neutrophils # Man Lymphocytes # (Manual) Monocytes # (Manual) Eosinophils # (Manual) POC ABG pH POC ABG pCO2 POC ABG pO2 Sodium 112 L* Potassium Chloride 76.7 L Carbon Dioxide 12 L BUN Creatinine 0.5 L Glucose 195 H POC Glucose Calcium 7.6 L Phosphorus 2.3 L Total Bilirubin 2.5 H Direct Bilirubin 1.1 H AST 55 H ALT Total Protein Albumin 3.5 L 3.4 L 07/05/16 07/05/16 07/05/16 12:00 13:57 16:13 WBC RBC Hgb MCHC RDW Lymph % (Auto) Lymph # Seg Neutrophils % Lymphocytes % (Manual) Monocytes % (Manual) Eosinophils % (Manual) Seg Neutrophils # Seg Neutrophils # Man Lymphocytes # (Manual) Monocytes # (Manual) Eosinophils # (Manual) POC ABG pH POC ABG pCO2 POC ABG pO2 Sodium 112 L* Potassium Chloride 77.4 L Carbon Dioxide 12 L BUN Creatinine 0.6 L Glucose 207 H POC Glucose 242 H 139 H Calcium 7.7 L Phosphorus Total Bilirubin Direct Bilirubin AST ALT Total Protein Albumin 07/05/16 07/05/16 07/05/16 18:26 21:13 21:23 WBC RBC Hgb MCHC RDW Lymph % (Auto) Lymph # Seg Neutrophils % Lymphocytes % (Manual) Monocytes % (Manual) Eosinophils % (Manual) Seg Neutrophils # Seg Neutrophils # Man Lymphocytes # (Manual) Monocytes # (Manual) Eosinophils # (Manual) POC ABG pH POC ABG pCO2 POC ABG pO2 Sodium 115 L* 114 L* Potassium Chloride 80.6 L 81.7 L Carbon Dioxide 12 L 14 L BUN Creatinine 0.4 L 0.6 L Glucose 186 H 182 H POC Glucose 154 H Calcium 7.7 L 7.7 L Phosphorus Total Bilirubin Direct Bilirubin AST ALT Total Protein Albumin 07/06/16 07/06/16 07/06/16 05:03 06:06 06:06 WBC 13.7 H RBC Hgb MCHC 36 H RDW 13.1 L Lymph % (Auto) 6.9 L Lymph # 0.9 L Seg Neutrophils % 87.0 H Lymphocytes % (Manual) Monocytes % (Manual) Eosinophils % (Manual) Seg Neutrophils # 11.9 H Seg Neutrophils # Man Lymphocytes # (Manual) Monocytes # (Manual) Eosinophils # (Manual) POC ABG pH POC ABG pCO2 31.7 L POC ABG pO2 350 H Sodium 122 L D Potassium Chloride 88.0 L Carbon Dioxide 19 L BUN Creatinine 0.6 L Glucose 189 H POC Glucose Calcium 7.9 L Phosphorus 2.0 L Total Bilirubin Direct Bilirubin AST ALT Total Protein Albumin 07/06/16 07/06/16 07/06/16 08:00 10:57 15:17 WBC RBC Hgb MCHC RDW Lymph % (Auto) Lymph # Seg Neutrophils % Lymphocytes % (Manual) Monocytes % (Manual) Eosinophils % (Manual) Seg Neutrophils # Seg Neutrophils # Man Lymphocytes # (Manual) Monocytes # (Manual) Eosinophils # (Manual) POC ABG pH POC ABG pCO2 POC ABG pO2 Sodium 126 L Potassium 3.5 L Chloride 92.1 L Carbon Dioxide 20 L BUN Creatinine 0.7 L Glucose 184 H POC Glucose 164 H 156 H Calcium 7.6 L Phosphorus Total Bilirubin Direct Bilirubin AST ALT Total Protein Albumin 07/06/16 07/06/16 07/06/16 16:18 19:03 21:42 WBC RBC Hgb MCHC RDW Lymph % (Auto) Lymph # Seg Neutrophils % Lymphocytes % (Manual) Monocytes % (Manual) Eosinophils % (Manual) Seg Neutrophils # Seg Neutrophils # Man Lymphocytes # (Manual) Monocytes # (Manual) Eosinophils # (Manual) POC ABG pH POC ABG pCO2 POC ABG pO2 Sodium 126 L Potassium Chloride Carbon Dioxide BUN Creatinine Glucose POC Glucose 159 H 164 H Calcium Phosphorus Total Bilirubin Direct Bilirubin AST ALT Total Protein Albumin 07/07/16 07/07/16 07/07/16 04:04 05:25 12:04 WBC RBC Hgb MCHC RDW Lymph % (Auto) Lymph # Seg Neutrophils % Lymphocytes % (Manual) Monocytes % (Manual) Eosinophils % (Manual) Seg Neutrophils # Seg Neutrophils # Man Lymphocytes # (Manual) Monocytes # (Manual) Eosinophils # (Manual) POC ABG pH 7.317 L POC ABG pCO2 POC ABG pO2 77 L Sodium 130 L Potassium Chloride 95.9 L Carbon Dioxide BUN Creatinine 0.7 L Glucose 165 H POC Glucose 160 H Calcium 7.8 L Phosphorus 1.8 L Total Bilirubin Direct Bilirubin AST ALT Total Protein Albumin 07/07/16 07/07/16 07/08/16 17:39 23:35 04:27 WBC RBC Hgb MCHC RDW Lymph % (Auto) Lymph # Seg Neutrophils % Lymphocytes % (Manual) Monocytes % (Manual) Eosinophils % (Manual) Seg Neutrophils # Seg Neutrophils # Man Lymphocytes # (Manual) Monocytes # (Manual) Eosinophils # (Manual) POC ABG pH POC ABG pCO2 POC ABG pO2 Sodium 131 L Potassium Chloride 96.3 L Carbon Dioxide BUN Creatinine 0.4 L Glucose 172 H POC Glucose 157 H 174 H Calcium 7.8 L Phosphorus 1.7 L Total Bilirubin Direct Bilirubin AST ALT Total Protein Albumin 07/08/16 07/08/16 07/08/16 04:27 05:40 12:14 WBC RBC Hgb MCHC RDW Lymph % (Auto) Lymph # Seg Neutrophils % Lymphocytes % (Manual) Monocytes % (Manual) Eosinophils % (Manual) Seg Neutrophils # Seg Neutrophils # Man Lymphocytes # (Manual) Monocytes # (Manual) Eosinophils # (Manual) POC ABG pH POC ABG pCO2 POC ABG pO2 163 H Sodium Potassium Chloride Carbon Dioxide BUN Creatinine Glucose POC Glucose 158 H 171 H Calcium Phosphorus Total Bilirubin Direct Bilirubin AST ALT Total Protein Albumin 07/08/16 07/08/16 07/09/16 17:29 23:45 04:25 WBC RBC Hgb MCHC RDW Lymph % (Auto) Lymph # Seg Neutrophils % Lymphocytes % (Manual) Monocytes % (Manual) Eosinophils % (Manual) Seg Neutrophils # Seg Neutrophils # Man Lymphocytes # (Manual) Monocytes # (Manual) Eosinophils # (Manual) POC ABG pH POC ABG pCO2 POC ABG pO2 Sodium Potassium Chloride Carbon Dioxide BUN Creatinine Glucose POC Glucose 178 H 181 H Calcium Phosphorus 2.2 L D Total Bilirubin Direct Bilirubin AST ALT Total Protein Albumin 07/09/16 07/09/16 07/09/16 05:20 09:28 11:10 WBC RBC Hgb MCHC RDW Lymph % (Auto) Lymph # Seg Neutrophils % Lymphocytes % (Manual) Monocytes % (Manual) Eosinophils % (Manual) Seg Neutrophils # Seg Neutrophils # Man Lymphocytes # (Manual) Monocytes # (Manual) Eosinophils # (Manual) POC ABG pH POC ABG pCO2 POC ABG pO2 Sodium 134 L Potassium Chloride Carbon Dioxide BUN Creatinine 0.5 L Glucose 189 H POC Glucose 184 H 176 H Calcium 7.7 L Phosphorus Total Bilirubin Direct Bilirubin AST ALT Total Protein Albumin 07/09/16 07/09/16 07/09/16 17:27 23:45 23:58 WBC RBC Hgb MCHC RDW Lymph % (Auto) Lymph # Seg Neutrophils % Lymphocytes % (Manual) Monocytes % (Manual) Eosinophils % (Manual) Seg Neutrophils # Seg Neutrophils # Man Lymphocytes # (Manual) Monocytes # (Manual) Eosinophils # (Manual) POC ABG pH POC ABG pCO2 POC ABG pO2 Sodium Potassium Chloride Carbon Dioxide BUN Creatinine Glucose POC Glucose 170 H 230 H 187 H Calcium Phosphorus Total Bilirubin Direct Bilirubin AST ALT Total Protein Albumin 07/10/16 07/10/16 07/10/16 04:44 05:55 10:37 WBC RBC Hgb MCHC 35 H RDW Lymph % (Auto) Lymph # Seg Neutrophils % Lymphocytes % (Manual) Monocytes % (Manual) 16.0 H Eosinophils % (Manual) Seg Neutrophils # Seg Neutrophils # Man Lymphocytes # (Manual) Monocytes # (Manual) 1.7 H Eosinophils # (Manual) POC ABG pH 7.344 L POC ABG pCO2 48.3 H POC ABG pO2 Sodium Potassium Chloride Carbon Dioxide BUN Creatinine Glucose POC Glucose 166 H Calcium Phosphorus Total Bilirubin Direct Bilirubin AST ALT Total Protein Albumin 07/10/16 07/10/16 07/11/16 11:32 18:08 04:21 WBC RBC Hgb MCHC RDW Lymph % (Auto) Lymph # Seg Neutrophils % Lymphocytes % (Manual) Monocytes % (Manual) Eosinophils % (Manual) Seg Neutrophils # Seg Neutrophils # Man Lymphocytes # (Manual) Monocytes # (Manual) Eosinophils # (Manual) POC ABG pH POC ABG pCO2 POC ABG pO2 Sodium 136 L Potassium Chloride Carbon Dioxide BUN 23 H Creatinine 0.7 L Glucose 138 H POC Glucose 156 H 171 H Calcium 7.6 L Phosphorus Total Bilirubin Direct Bilirubin AST 41 H ALT 63 H Total Protein 5.4 L Albumin 2.5 L 07/11/16 07/11/16 07/11/16 04:53 05:15 11:32 WBC RBC Hgb MCHC RDW Lymph % (Auto) Lymph # Seg Neutrophils % Lymphocytes % (Manual) Monocytes % (Manual) Eosinophils % (Manual) Seg Neutrophils # Seg Neutrophils # Man Lymphocytes # (Manual) Monocytes # (Manual) Eosinophils # (Manual) POC ABG pH POC ABG pCO2 POC ABG pO2 78 L 60 L Sodium Potassium Chloride Carbon Dioxide BUN Creatinine Glucose POC Glucose 143 H Calcium Phosphorus Total Bilirubin Direct Bilirubin AST ALT Total Protein Albumin 01/21/17 01/21/17 01/21/17 11:43 18:07 23:24 WBC RBC Hgb MCHC RDW Lymph % (Auto) Lymph # Seg Neutrophils % Lymphocytes % (Manual) Monocytes % (Manual) Eosinophils % (Manual) Seg Neutrophils # Seg Neutrophils # Man Lymphocytes # (Manual) Monocytes # (Manual) Eosinophils # (Manual) POC ABG pH POC ABG pCO2 POC ABG pO2 Sodium Potassium Chloride Carbon Dioxide BUN Creatinine Glucose POC Glucose 184 H 190 H 190 H Calcium Phosphorus Total Bilirubin Direct Bilirubin AST ALT Total Protein Albumin 07/12/16 07/12/16 07/12/16 05:47 06:04 06:04 WBC RBC Hgb MCHC 35 H RDW Lymph % (Auto) Lymph # Seg Neutrophils % Lymphocytes % (Manual) 13.0 L Monocytes % (Manual) 17.0 H Eosinophils % (Manual) 7.0 H Seg Neutrophils # Seg Neutrophils # Man Lymphocytes # (Manual) 0.9 L Monocytes # (Manual) 1.1 H Eosinophils # (Manual) 0.5 H POC ABG pH POC ABG pCO2 POC ABG pO2 Sodium 136 L Potassium 3.5 L Chloride 97.0 L Carbon Dioxide BUN Creatinine 0.6 L Glucose 162 H POC Glucose 174 H Calcium 7.7 L Phosphorus Total Bilirubin Direct Bilirubin AST ALT Total Protein Albumin 07/12/16 07/12/16 07/12/16 11:42 17:45 21:48 WBC RBC Hgb MCHC RDW Lymph % (Auto) Lymph # Seg Neutrophils % Lymphocytes % (Manual) Monocytes % (Manual) Eosinophils % (Manual) Seg Neutrophils # Seg Neutrophils # Man Lymphocytes # (Manual) Monocytes # (Manual) Eosinophils # (Manual) POC ABG pH POC ABG pCO2 POC ABG pO2 Sodium Potassium Chloride Carbon Dioxide BUN Creatinine Glucose POC Glucose 204 H 183 H 198 H Calcium Phosphorus Total Bilirubin Direct Bilirubin AST ALT Total Protein Albumin 07/13/16 07/13/16 07/13/16 00:47 06:24 12:11 WBC RBC Hgb MCHC RDW Lymph % (Auto) Lymph # Seg Neutrophils % Lymphocytes % (Manual) Monocytes % (Manual) Eosinophils % (Manual) Seg Neutrophils # Seg Neutrophils # Man Lymphocytes # (Manual) Monocytes # (Manual) Eosinophils # (Manual) POC ABG pH POC ABG pCO2 POC ABG pO2 Sodium Potassium Chloride Carbon Dioxide BUN Creatinine Glucose POC Glucose 196 H 147 H 173 H Calcium Phosphorus Total Bilirubin Direct Bilirubin AST ALT Total Protein Albumin 07/13/16 07/14/16 07/14/16 18:15 00:21 06:18 WBC RBC Hgb MCHC RDW Lymph % (Auto) Lymph # Seg Neutrophils % Lymphocytes % (Manual) Monocytes % (Manual) Eosinophils % (Manual) Seg Neutrophils # Seg Neutrophils # Man Lymphocytes # (Manual) Monocytes # (Manual) Eosinophils # (Manual) POC ABG pH POC ABG pCO2 POC ABG pO2 Sodium Potassium Chloride Carbon Dioxide BUN Creatinine Glucose POC Glucose 269 H 141 H 131 H Calcium Phosphorus Total Bilirubin Direct Bilirubin AST ALT Total Protein Albumin 07/14/16 07/14/16 08:18 11:33 WBC RBC Hgb MCHC RDW Lymph % (Auto) Lymph # Seg Neutrophils % Lymphocytes % (Manual) Monocytes % (Manual) Eosinophils % (Manual) Seg Neutrophils # Seg Neutrophils # Man Lymphocytes # (Manual) Monocytes # (Manual) Eosinophils # (Manual) POC ABG pH POC ABG pCO2 POC ABG pO2 Sodium Potassium 3.5 L Chloride Carbon Dioxide BUN Creatinine 0.6 L Glucose 152 H POC Glucose 149 H Calcium 8.0 L Phosphorus Total Bilirubin Direct Bilirubin AST ALT Total Protein Albumin Chest x-ray: report reviewed (No acute cardiopulmonary findings.), image reviewed
--- NOTE | 2016-07-14 17:13 | Progress Note ---
Assessment and Plan Assessment and plan: 1. Acute hypoxic respiratory failure * Due to delirium tremens * Resolved, extubated 07/12; on O2 per NC 2. Alcohol intoxication with delirium tremens * s/p CIWA protocol * cont On thiamine, folate * counseling done today for about 10 minutes 3. Severe hyponatremia on admission * admitted with Na of 112; received 250 mL of 3% on admission, then NS * Now resolved 4. Hypophosphatemia * Replaced 5. SIRS * Sputum culture positive for MSSA * Discontinue Vanc and Zosyn; continue on Ancef 6. Hypertension * Blood pressure uncontrolled initially, so was placed on clonidine patch * Normotensive now 7. DM * Accu-Cheks and SSI 8. DVT prophylaxis * Lovenox 9. deconditioning * PT eval History Interval history: Patient seen and examined. Medical records and medication list reviewed. No acute event overnight noted by the RN. Patient denies any chest pain or difficulty breathing. Patient is tolerating diet. c/o generalized weakness, counselled for alcohol cessation Discussed plan of care at bedside with patient and his family. Hospitalist Physical - Physical exam Narrative exam: GENERAL: well-developed and well-nourished male lying on bed appeared to be in no discomfort. HEENT: Normocephalic. Atraumatic. No conjunctival congestion or icterus. Patient has moist mucous membranes. NECK: Supple. Trachea midline. CHEST/LUNGS: Clear to auscultated bilaterally, breathing nonlabored. No wheezes crackles or rhonchi. HEART/CARDIOVASCULAR: Regular in rate and rhythm. S1 and S2 positive. ABDOMEN: Abdomen is soft, nontender. Patient has normal bowel sounds. SKIN: There is no rash. Warm and dry. NEURO: No focal motor deficit. Follows command. MUSCULOSKELETAL: No joint effusion or tenderness. EXTRIMITY: No edema, no cyanosis or clubbing. PSYCH: Cooperative. - Constitutional Vitals: Temp Pulse Resp BP Pulse Ox 98.9 F 87 16 128/85 100 07/14/16 08:00 07/14/16 08:00 07/14/16 08:00 07/14/16 08:00 07/14/16 08:00 General appearance: Present: no acute distress, obese Results - Labs CBC & Chem 7: 07/12/16 06:04 07/14/16 08:18 Labs: Laboratory Last Values WBC 6.6 K/mm3 (4.5-11.0) 07/12/16 06:04 RBC 4.07 M/mm3 (3.65-5.03) 07/12/16 06:04 Hgb 12.7 gm/dl (11.8-15.2) 07/12/16 06:04 Hct 36.8 % (35.5-45.6) 07/12/16 06:04 MCV 90 fl (84-94) 07/12/16 06:04 MCH 31 pg (28-32) 07/12/16 06:04 MCHC 35 % (32-34) H 07/12/16 06:04 RDW 13.2 % (13.2-15.2) 07/12/16 06:04 Plt Count 276 K/mm3 (140-440) 07/12/16 06:04 Lymph % (Auto) 6.9 % (13.4-35.0) L 07/06/16 06:06 [place] % (Auto) 6.0 % (0.0-7.3) 07/06/16 06:06 Eos % (Auto) 0.0 % (0.0-4.3) 07/06/16 06:06 Baso % (Auto) 0.1 % (0.0-1.8) 07/06/16 06:06 Lymph # 0.9 K/mm3 (1.2-5.4) L 07/06/16 06:06 [place] # 0.8 K/mm3 (0.0-0.8) 07/06/16 06:06 Eos # 0.0 K/mm3 (0.0-0.4) 07/06/16 06:06 Baso # 0.0 K/mm3 (0.0-0.1) 07/06/16 06:06 Add Manual Diff Complete 07/12/16 06:04 Total Counted 100 07/12/16 06:04 Seg Neutrophils % 87.0 % (40.0-70.0) H 07/06/16 06:06 Seg Neuts % (Manual) 46.0 % (40.0-70.0) 07/12/16 06:04 Band Neutrophils % 17.0 % 07/12/16 06:04 Lymphocytes % (Manual) 13.0 % (13.4-35.0) L 07/12/16 06:04 Reactive Lymphs % (Man) 0 % 07/12/16 06:04 Monocytes % (Manual) 17.0 % (0.0-7.3) H 07/12/16 06:04 Eosinophils % (Manual) 7.0 % (0.0-4.3) H 07/12/16 06:04 Basophils % (Manual) 0 % (0.0-1.8) 07/12/16 06:04 Metamyelocytes % 0 % 07/12/16 06:04 Myelocytes % 0 % 07/12/16 06:04 Promyelocytes % 0 % 07/12/16 06:04 Blast Cells % 0 % 07/12/16 06:04 Nucleated RBC % Not Reportable 07/12/16 06:04 Seg Neutrophils # 11.9 K/mm3 (1.8-7.7) H 07/06/16 06:06 Seg Neutrophils # Man 3.0 K/mm3 (1.8-7.7) 07/12/16 06:04 Band Neutrophils # 1.1 K/mm3 07/12/16 06:04 Lymphocytes # (Manual) 0.9 K/mm3 (1.2-5.4) L 07/12/16 06:04 Abs React Lymphs (Man) 0.0 K/mm3 07/12/16 06:04 Monocytes # (Manual) 1.1 K/mm3 (0.0-0.8) H 07/12/16 06:04 Eosinophils # (Manual) 0.5 K/mm3 (0.0-0.4) H 07/12/16 06:04 Basophils # (Manual) 0.0 K/mm3 (0.0-0.1) 07/12/16 06:04 Metamyelocytes # 0.0 K/mm3 07/12/16 06:04 Myelocytes # 0.0 K/mm3 07/12/16 06:04 Promyelocytes # 0.0 K/mm3 07/12/16 06:04 Blast Cells # 0.0 K/mm3 07/12/16 06:04 WBC Morphology Not Reportable 07/12/16 06:04 Hypersegmented Neuts Not Reportable 07/12/16 06:04 Hyposegmented Neuts Not Reportable 07/12/16 06:04 Hypogranular Neuts Not Reportable 07/12/16 06:04 Smudge Cells Not Reportable 07/12/16 06:04 Toxic Granulation Not Reportable 07/12/16 06:04 Toxic Vacuolation Not Reportable 07/12/16 06:04 Dohle Bodies Not Reportable 07/12/16 06:04 Pel[place]-Huet Anomaly Not Reportable 07/12/16 06:04 [place]ques Rods Not Reportable 07/12/16 06:04 Platelet Estimate Appears normal 07/12/16 06:04 Clumped Platelets Not Reportable 07/12/16 06:04 Plt Clumps, EDTA Not Reportable 07/12/16 06:04 Large Platelets Not Reportable 07/12/16 06:04 Giant Platelets Not Reportable 07/12/16 06:04 Platelet Satelliting Not Reportable 07/12/16 06:04 Plt Morphology Comment Not Reportable 07/12/16 06:04 RBC Morphology Not Reportable 07/12/16 06:04 Dimorphic RBCs Not Reportable 07/12/16 06:04 Polychromasia Not Reportable 07/12/16 06:04 Hypochromasia Not Reportable 07/12/16 06:04 Poikilocytosis Not Reportable 07/12/16 06:04 Anisocytosis 1+ 07/12/16 06:04 Microcytosis Not Reportable 07/12/16 06:04 Macrocytosis Not Reportable 07/12/16 06:04 Spherocytes Not Reportable 07/12/16 06:04 Pappenheimer Bodies Not Reportable 07/12/16 06:04 Sickle Cells Not Reportable 07/12/16 06:04 Target Cells Not Reportable 07/12/16 06:04 Tear Drop Cells Not Reportable 07/12/16 06:04 Ovalocytes Not Reportable 07/12/16 06:04 Helmet Cells Not Reportable 07/12/16 06:04 [place] Bodies Not Reportable 07/12/16 06:04 [place] Rings Not Reportable 07/12/16 06:04 [place] Cells Not Reportable 07/12/16 06:04 Bite Cells Not Reportable 07/12/16 06:04 Crenated Cell Not Reportable 07/12/16 06:04 Elliptocytes Not Reportable 07/12/16 06:04 Acanthocytes (Spur) Not Reportable 07/12/16 06:04 Rouleaux Not Reportable 07/12/16 06:04 Hemoglobin C Crystals Not Reportable 07/12/16 06:04 Schistocytes Not Reportable 07/12/16 06:04 Malaria parasites Not Reportable 07/12/16 06:04 Adnny Bodies Not Reportable 07/12/16 06:04 Hem Pathologist Commnt No 07/12/16 06:04 POC ABG pH 7.422 (7.35-7.45) 07/11/16 11:32 POC ABG pCO2 41.0 (35-45) 07/11/16 11:32 POC ABG pO2 60 (80-105) L 07/11/16 11:32 POC ABG HCO3 26.7 07/11/16 11:32 POC ABG Total CO2 28 07/11/16 11:32 POC ABG O2 Sat 91 07/11/16 11:32 POC ABG Base Excess 2 07/11/16 11:32 FiO2 30 % 07/11/16 11:32 Sodium 141 mmol/L (137-145) 07/14/16 08:18 Potassium 3.5 mmol/L (3.6-5.0) L 07/14/16 08:18 Chloride 103.5 mmol/L (98-107) 07/14/16 08:18 Carbon Dioxide 23 mmol/L (22-30) 07/14/16 08:18 Anion Gap 18 mmol/L 07/14/16 08:18 BUN 17 mg/dL (9-20) 07/14/16 08:18 Creatinine 0.6 mg/dL (0.8-1.5) L 07/14/16 08:18 Estimated GFR > 60 ml/min 07/14/16 08:18 BUN/Creatinine Ratio 28.33 % 07/14/16 08:18 Glucose 152 mg/dL (75-100) H 07/14/16 08:18 POC Glucose 149 (70-105) H 07/14/16 11:33 Calcium 8.0 mg/dL (8.4-10.2) L 07/14/16 08:18 Phosphorus 2.8 mg/dL (2.5-4.5) 07/11/16 04:21 Magnesium 2.1 mg/dL (1.7-2.3) 07/11/16 04:21 Total Bilirubin 0.7 mg/dL (0.1-1.2) 07/11/16 04:21 Direct Bilirubin 1.1 mg/dL (0-0.2) H 07/05/16 10:50 Indirect Bilirubin 1.4 mg/dL 07/05/16 10:50 AST 41 units/L (5-40) H 07/11/16 04:21 ALT 63 units/L (7-56) H 07/11/16 04:21 Alkaline Phosphatase 46 units/L (35-129) 07/11/16 04:21 Ammonia 58.0 umol/L (25-60) 07/05/16 10:50 Total Protein 5.4 g/dL (6.3-8.2) L 07/11/16 04:21 Albumin 2.5 g/dL (3.9-5) L 07/11/16 04:21 Albumin/Globulin Ratio 0.9 % 07/11/16 04:21 Urine Color Yellow (Yellow) 07/04/16 23:20 Urine Turbidity Clear (Clear) 07/04/16 23:20 Urine pH 6.0 (5.0-7.0) 07/04/16 23:20 Ur Specific [place] 1.024 (1.003-1.030) 07/04/16 23:20 Urine Protein <15 mg/dl mg/dL (Negative) 07/04/16 23:20 Urine Glucose (UA) >=500 mg/dL (Negative) 07/04/16 23:20 Urine Ketones 80 mg/dL (Negative) 07/04/16 23:20 Urine Blood Mod (Negative) 07/04/16 23:20 Urine Nitrite Neg (Negative) 07/04/16 23:20 Urine Bilirubin Neg (Negative) 07/04/16 23:20 Urine Urobilinogen < 2.0 mg/dL (<2.0) 07/04/16 23:20 Ur Leukocyte Esterase Neg (Negative) 07/04/16 23:20 Urine WBC (Auto) 1.0 /HPF (0.0-6.0) 07/04/16 23:20 Urine RBC (Auto) 1.0 /HPF (0.0-6.0) 07/04/16 23:20 Vancomycin Trough 15.6 ug/mL (5.0-20.0) 07/13/16 01:16 Urine Opiates Screen Presumptive negative 07/04/16 23:20 Urine Methadone Screen Presumptive negative 07/04/16 23:20 Ur Barbiturates Screen Presumptive negative 07/04/16 23:20 Ur Phencyclidine Scrn Presumptive negative 07/04/16 23:20 Ur Amphetamines Screen Presumptive negative 07/04/16 23:20 U Benzodiazepines Scrn Presumptive negative 07/04/16 23:20 Urine Cocaine Screen Presumptive negative 07/04/16 23:20 U Marijuana (THC) Screen Presumptive negative 07/04/16 23:20 Drugs of Abuse Note Disclamer 07/04/16 23:20 Plasma/Serum Alcohol 0.17 gm% (0-0.07) H 07/04/16 23:27
[2016-07-15] MEDS: ANCEF/NS 1 GM/50 ML 50 ML IV SCH ×4 (00:04→21:34)
[2016-07-15] MEDS: PEPCID PO SCH ×3 (00:05→21:35)
[2016-07-15] MEDS: NOVOLOG SUB-Q SCH ×4 (00:06→17:48)
[2016-07-15] MEDS: VITAMIN B-1 PO SCH (11:30)
[2016-07-15] MEDS: LOVENOX SUB-Q SCH (11:31)
[2016-07-15] MEDS: Centrum Liq PO SCH (11:31)
[2016-07-15] MEDS: FOLVITE PO SCH (11:31)
--- NOTE | 2016-07-15 17:23 | Progress Note ---
Assessment and Plan Assessment and plan: 1. Acute hypoxic respiratory failure * Due to delirium tremens * Resolved, extubated 07/12; on RA now 2. Alcohol intoxication with delirium tremens * s/p CIWA protocol * cont On thiamine, folate * counselled for cessation 3. Severe hyponatremia on admission * admitted with Na of 112; received 250 mL of 3% on admission, then NS * Now resolved 4. Hypophosphatemia * Replaced 5. SIRS * Sputum culture positive for MSSA * Discontinued Vanc and Zosyn; continue on Ancef 6. Hypertension * Blood pressure uncontrolled initially, so was placed on clonidine patch * Normotensive now 7. DM * Accu-Cheks and SSI 8. DVT prophylaxis * Lovenox 9. deconditioning * PT recommended subacute rehab, wait for family response History Interval history: Patient seen and examined. Medical records and medication list reviewed. No acute event overnight noted by the RN. Patient denies any chest pain or difficulty breathing. Patient is tolerating diet. c/o generalized weakness, counselled for alcohol cessation PT recommended subacute rehab, but has no insurance, CM notified Discussed plan of care at bedside with patient and his family. Hospitalist Physical - Physical exam Narrative exam: GENERAL: well-developed and well-nourished male lying on bed appeared to be in no discomfort. HEENT: Normocephalic. Atraumatic. No conjunctival congestion or icterus. Patient has moist mucous membranes. NECK: Supple. Trachea midline. CHEST/LUNGS: Clear to auscultated bilaterally, breathing nonlabored. No wheezes crackles or rhonchi. HEART/CARDIOVASCULAR: Regular in rate and rhythm. S1 and S2 positive. ABDOMEN: Abdomen is soft, nontender. Patient has normal bowel sounds. SKIN: There is no rash. Warm and dry. NEURO: No focal motor deficit. Follows command. MUSCULOSKELETAL: No joint effusion or tenderness. EXTRIMITY: No edema, no cyanosis or clubbing. PSYCH: Cooperative. - Constitutional Vitals: Temp Pulse Resp BP Pulse Ox 98.1 F 94 H 16 154/99 98 07/15/16 14:30 07/15/16 14:30 07/15/16 14:30 07/15/16 14:30 07/15/16 14:30 General appearance: Present: no acute distress, obese Results - Labs CBC & Chem 7: 07/12/16 06:04 07/14/16 08:18 Labs: Laboratory Last Values WBC 6.6 K/mm3 (4.5-11.0) 07/12/16 06:04 RBC 4.07 M/mm3 (3.65-5.03) 07/12/16 06:04 Hgb 12.7 gm/dl (11.8-15.2) 07/12/16 06:04 Hct 36.8 % (35.5-45.6) 07/12/16 06:04 MCV 90 fl (84-94) 07/12/16 06:04 MCH 31 pg (28-32) 07/12/16 06:04 MCHC 35 % (32-34) H 07/12/16 06:04 RDW 13.2 % (13.2-15.2) 07/12/16 06:04 Plt Count 276 K/mm3 (140-440) 07/12/16 06:04 Lymph % (Auto) 6.9 % (13.4-35.0) L 07/06/16 06:06 Wilson % (Auto) 6.0 % (0.0-7.3) 07/06/16 06:06 Eos % (Auto) 0.0 % (0.0-4.3) 07/06/16 06:06 Baso % (Auto) 0.1 % (0.0-1.8) 07/06/16 06:06 Lymph # 0.9 K/mm3 (1.2-5.4) L 07/06/16 06:06 Wilson # 0.8 K/mm3 (0.0-0.8) 07/06/16 06:06 Eos # 0.0 K/mm3 (0.0-0.4) 07/06/16 06:06 Baso # 0.0 K/mm3 (0.0-0.1) 07/06/16 06:06 Add Manual Diff Complete 07/12/16 06:04 Total Counted 100 07/12/16 06:04 Seg Neutrophils % 87.0 % (40.0-70.0) H 07/06/16 06:06 Seg Neuts % (Manual) 46.0 % (40.0-70.0) 07/12/16 06:04 Band Neutrophils % 17.0 % 07/12/16 06:04 Lymphocytes % (Manual) 13.0 % (13.4-35.0) L 07/12/16 06:04 Reactive Lymphs % (Man) 0 % 07/12/16 06:04 Monocytes % (Manual) 17.0 % (0.0-7.3) H 07/12/16 06:04 Eosinophils % (Manual) 7.0 % (0.0-4.3) H 07/12/16 06:04 Basophils % (Manual) 0 % (0.0-1.8) 07/12/16 06:04 Metamyelocytes % 0 % 07/12/16 06:04 Myelocytes % 0 % 07/12/16 06:04 Promyelocytes % 0 % 07/12/16 06:04 Blast Cells % 0 % 07/12/16 06:04 Nucleated RBC % Not Reportable 07/12/16 06:04 Seg Neutrophils # 11.9 K/mm3 (1.8-7.7) H 07/06/16 06:06 Seg Neutrophils # Man 3.0 K/mm3 (1.8-7.7) 07/12/16 06:04 Band Neutrophils # 1.1 K/mm3 07/12/16 06:04 Lymphocytes # (Manual) 0.9 K/mm3 (1.2-5.4) L 07/12/16 06:04 Abs React Lymphs (Man) 0.0 K/mm3 07/12/16 06:04 Monocytes # (Manual) 1.1 K/mm3 (0.0-0.8) H 07/12/16 06:04 Eosinophils # (Manual) 0.5 K/mm3 (0.0-0.4) H 07/12/16 06:04 Basophils # (Manual) 0.0 K/mm3 (0.0-0.1) 07/12/16 06:04 Metamyelocytes # 0.0 K/mm3 07/12/16 06:04 Myelocytes # 0.0 K/mm3 07/12/16 06:04 Promyelocytes # 0.0 K/mm3 07/12/16 06:04 Blast Cells # 0.0 K/mm3 07/12/16 06:04 WBC Morphology Not Reportable 07/12/16 06:04 Hypersegmented Neuts Not Reportable 07/12/16 06:04 Hyposegmented Neuts Not Reportable 07/12/16 06:04 Hypogranular Neuts Not Reportable 07/12/16 06:04 Smudge Cells Not Reportable 07/12/16 06:04 Toxic Granulation Not Reportable 07/12/16 06:04 Toxic Vacuolation Not Reportable 07/12/16 06:04 Dohle Bodies Not Reportable 07/12/16 06:04 Pelger-Huet Anomaly Not Reportable 07/12/16 06:04 Marques Rods Not Reportable 07/12/16 06:04 Platelet Estimate Appears normal 07/12/16 06:04 Clumped Platelets Not Reportable 07/12/16 06:04 Plt Clumps, EDTA Not Reportable 07/12/16 06:04 Large Platelets Not Reportable 07/12/16 06:04 Giant Platelets Not Reportable 07/12/16 06:04 Platelet Satelliting Not Reportable 07/12/16 06:04 Plt Morphology Comment Not Reportable 07/12/16 06:04 RBC Morphology Not Reportable 07/12/16 06:04 Dimorphic RBCs Not Reportable 07/12/16 06:04 Polychromasia Not Reportable 07/12/16 06:04 Hypochromasia Not Reportable 07/12/16 06:04 Poikilocytosis Not Reportable 07/12/16 06:04 Anisocytosis 1+ 07/12/16 06:04 Microcytosis Not Reportable 07/12/16 06:04 Macrocytosis Not Reportable 07/12/16 06:04 Spherocytes Not Reportable 07/12/16 06:04 Pappenheimer Bodies Not Reportable 07/12/16 06:04 Sickle Cells Not Reportable 07/12/16 06:04 Target Cells Not Reportable 07/12/16 06:04 Tear Drop Cells Not Reportable 07/12/16 06:04 Ovalocytes Not Reportable 07/12/16 06:04 Helmet Cells Not Reportable 07/12/16 06:04 [place] Bodies Not Reportable 07/12/16 06:04 [place] Rings Not Reportable 07/12/16 06:04 Lenora Cells Not Reportable 07/12/16 06:04 Bite Cells Not Reportable 07/12/16 06:04 Crenated Cell Not Reportable 07/12/16 06:04 Elliptocytes Not Reportable 07/12/16 06:04 Acanthocytes (Spur) Not Reportable 07/12/16 06:04 Rouleaux Not Reportable 07/12/16 06:04 Hemoglobin C Crystals Not Reportable 07/12/16 06:04 Schistocytes Not Reportable 07/12/16 06:04 Malaria parasites Not Reportable 07/12/16 06:04 Danny Bodies Not Reportable 07/12/16 06:04 Hem Pathologist Commnt No 07/12/16 06:04 POC ABG pH 7.422 (7.35-7.45) 07/11/16 11:32 POC ABG pCO2 41.0 (35-45) 07/11/16 11:32 POC ABG pO2 60 (80-105) L 07/11/16 11:32 POC ABG HCO3 26.7 07/11/16 11:32 POC ABG Total CO2 28 07/11/16 11:32 POC ABG O2 Sat 91 07/11/16 11:32 POC ABG Base Excess 2 07/11/16 11:32 FiO2 30 % 07/11/16 11:32 Sodium 141 mmol/L (137-145) 07/14/16 08:18 Potassium 3.5 mmol/L (3.6-5.0) L 07/14/16 08:18 Chloride 103.5 mmol/L (98-107) 07/14/16 08:18 Carbon Dioxide 23 mmol/L (22-30) 07/14/16 08:18 Anion Gap 18 mmol/L 07/14/16 08:18 BUN 17 mg/dL (9-20) 07/14/16 08:18 Creatinine 0.6 mg/dL (0.8-1.5) L 07/14/16 08:18 Estimated GFR > 60 ml/min 07/14/16 08:18 BUN/Creatinine Ratio 28.33 % 07/14/16 08:18 Glucose 152 mg/dL (75-100) H 07/14/16 08:18 POC Glucose 204 (70-105) H 07/15/16 16:59 Calcium 8.0 mg/dL (8.4-10.2) L 07/14/16 08:18 Phosphorus 2.8 mg/dL (2.5-4.5) 07/11/16 04:21 Magnesium 2.1 mg/dL (1.7-2.3) 07/11/16 04:21 Total Bilirubin 0.7 mg/dL (0.1-1.2) 07/11/16 04:21 Direct Bilirubin 1.1 mg/dL (0-0.2) H 07/05/16 10:50 Indirect Bilirubin 1.4 mg/dL 07/05/16 10:50 AST 41 units/L (5-40) H 07/11/16 04:21 ALT 63 units/L (7-56) H 07/11/16 04:21 Alkaline Phosphatase 46 units/L (35-129) 07/11/16 04:21 Ammonia 58.0 umol/L (25-60) 07/05/16 10:50 Total Protein 5.4 g/dL (6.3-8.2) L 07/11/16 04:21 Albumin 2.5 g/dL (3.9-5) L 07/11/16 04:21 Albumin/Globulin Ratio 0.9 % 07/11/16 04:21 Urine Color Yellow (Yellow) 07/04/16 23:20 Urine Turbidity Clear (Clear) 07/04/16 23:20 Urine pH 6.0 (5.0-7.0) 07/04/16 23:20 Ur Specific [place] 1.024 (1.003-1.030) 07/04/16 23:20 Urine Protein <15 mg/dl mg/dL (Negative) 07/04/16 23:20 Urine Glucose (UA) >=500 mg/dL (Negative) 07/04/16 23:20 Urine Ketones 80 mg/dL (Negative) 07/04/16 23:20 Urine Blood Mod (Negative) 07/04/16 23:20 Urine Nitrite Neg (Negative) 07/04/16 23:20 Urine Bilirubin Neg (Negative) 07/04/16 23:20 Urine Urobilinogen < 2.0 mg/dL (<2.0) 07/04/16 23:20 Ur Leukocyte Esterase Neg (Negative) 07/04/16 23:20 Urine WBC (Auto) 1.0 /HPF (0.0-6.0) 07/04/16 23:20 Urine RBC (Auto) 1.0 /HPF (0.0-6.0) 07/04/16 23:20 Vancomycin Trough 15.6 ug/mL (5.0-20.0) 07/13/16 01:16 Urine Opiates Screen Presumptive negative 07/04/16 23:20 Urine Methadone Screen Presumptive negative 07/04/16 23:20 Ur Barbiturates Screen Presumptive negative 07/04/16 23:20 Ur Phencyclidine Scrn Presumptive negative 07/04/16 23:20 Ur Amphetamines Screen Presumptive negative 07/04/16 23:20 U Benzodiazepines Scrn Presumptive negative 07/04/16 23:20 Urine Cocaine Screen Presumptive negative 07/04/16 23:20 U Marijuana (THC) Screen Presumptive negative 07/04/16 23:20 Drugs of Abuse Note Disclamer 07/04/16 23:20 Plasma/Serum Alcohol 0.17 gm% (0-0.07) H 07/04/16 23:27
--- NOTE | 2016-07-15 21:03 | Progress Note ---
Assessment and Plan This is 51-year-old male presents to the emergency department via EMS for evaluation of altered mental status. Per report, the patient has been drinking alcohol heavily for the past 6 days. There has been nausea and vomiting. Patient electrolytes showed severe hyponatremia.Patient has history of hypertension and Diabetes. No known drug allergies. Patient intoxicated. Un able to give much history. Patients smoking history and alcohol history not known at this time. Patient subsequently intubated and extubated. Patient transfered to the floor Patient resting on room air. No acute respiratory distress. O2 satuaration 100% on room air. 07/15/16 Patient alert,awake.Patient resting on room air. No acute respiratory distress. O2 satuaration 98% on room air. - Patient Problems (1) Alcohol intoxication Current Visit: Yes Status: Acute Qualifiers: Complication of substance-induced condition: uncomplicated Qualified Code(s ): F10.120 - Alcohol abuse with intoxication, uncomplicated Plan to address problem: Watch for DTs. Patient is on CIWA protocol. 07/14/16 Patient appears out of DTs. Recommend to consult psychiatry for alcohol rehabilitation. (2) DM type 2 (diabetes mellitus, type 2) Current Visit: Yes Status: Acute Plan to address problem: Management as per primary care. (3) Hyponatremia Current Visit: Yes Status: Acute Plan to address problem: Management as per Nephrology. 07/14/16 Improved. Na+ 141 (4) Metabolic acidosis Current Visit: Yes Status: Acute Plan to address problem: Patients Bicarb is 12. However PH is compensated. 07/14/16 Improved; Subjective Date of service: 07/15/16 Principal diagnosis: Acute Hypoxemic Respiratory Failure Interval history: Patient alert,awake.Patient resting on room air. No acute respiratory distress. O2 satuaration 98% on room air. Objective Vital Signs - 12hr 07/15/16 14:30 Temperature 98.1 F Pulse Rate [ 94 H Left Radial] Respiratory 16 Rate Blood Pressure 154/99 [Left Arm] O2 Sat by Pulse 98 Oximetry Constitutional: no acute distress, alert Eyes: non-icteric ENT: oropharynx moist Neck: supple, no JVD Effort: normal Ascultation: Bilateral: diminished breath sounds, rhonchi Cardiovascular: regular rate and rhythm Gastrointestinal: normoactive bowel sounds, soft, non-tender, non-distended Integumentary: normal Extremities: no cyanosis, pink and warm, pulses normal, no ischemia or petechiae Neurologic: normal mental status, non-focal exam, pupils equal and round, motor strength normal and Psychiatric: mood appropriate, affect normal CBC and BMP: 07/12/16 06:04 07/14/16 08:18 ABG, PT/INR, D-dimer: ABG POC ABG pH 7.422 (7.35-7.45) 07/11/16 11:32 POC ABG pCO2 41.0 (35-45) 07/11/16 11:32 POC ABG pO2 60 (80-105) L 07/11/16 11:32 POC ABG HCO3 26.7 07/11/16 11:32 POC ABG Total CO2 28 07/11/16 11:32 POC ABG O2 Sat 91 07/11/16 11:32 Abnormal lab findings: Abnormal Labs 07/05/16 07/05/16 07/05/16 02:11 03:27 03:27 WBC 20.7 H RBC 5.17 H Hgb 15.7 H MCHC 35 H RDW 13.1 L Lymph % (Auto) Lymph # Seg Neutrophils % Lymphocytes % (Manual) 4.0 L Monocytes % (Manual) Eosinophils % (Manual) Seg Neutrophils # Seg Neutrophils # Man 12.6 H Lymphocytes # (Manual) 0.8 L Monocytes # (Manual) 1.4 H Eosinophils # (Manual) POC ABG pH POC ABG pCO2 POC ABG pO2 Sodium 110 L* 110 L* Potassium Chloride 72.5 L Carbon Dioxide 13 L BUN Creatinine 0.5 L Glucose 190 H POC Glucose Calcium 8.1 L Phosphorus Total Bilirubin Direct Bilirubin AST ALT Total Protein Albumin 07/05/16 07/05/16 07/05/16 07:24 07:32 10:45 WBC RBC Hgb MCHC RDW Lymph % (Auto) Lymph # Seg Neutrophils % Lymphocytes % (Manual) Monocytes % (Manual) Eosinophils % (Manual) Seg Neutrophils # Seg Neutrophils # Man Lymphocytes # (Manual) Monocytes # (Manual) Eosinophils # (Manual) POC ABG pH POC ABG pCO2 21.2 L POC ABG pO2 Sodium 115 L* Potassium Chloride 75.4 L Carbon Dioxide 12 L BUN Creatinine 0.5 L Glucose 177 H POC Glucose 158 H Calcium 7.8 L Phosphorus Total Bilirubin Direct Bilirubin AST ALT Total Protein Albumin 07/05/16 07/05/16 07/05/16 10:50 10:50 10:50 WBC RBC Hgb MCHC RDW Lymph % (Auto) Lymph # Seg Neutrophils % Lymphocytes % (Manual) Monocytes % (Manual) Eosinophils % (Manual) Seg Neutrophils # Seg Neutrophils # Man Lymphocytes # (Manual) Monocytes # (Manual) Eosinophils # (Manual) POC ABG pH POC ABG pCO2 POC ABG pO2 Sodium 112 L* Potassium Chloride 76.7 L Carbon Dioxide 12 L BUN Creatinine 0.5 L Glucose 195 H POC Glucose Calcium 7.6 L Phosphorus 2.3 L Total Bilirubin 2.5 H Direct Bilirubin 1.1 H AST 55 H ALT Total Protein Albumin 3.5 L 3.4 L 07/05/16 07/05/16 07/05/16 12:00 13:57 16:13 WBC RBC Hgb MCHC RDW Lymph % (Auto) Lymph # Seg Neutrophils % Lymphocytes % (Manual) Monocytes % (Manual) Eosinophils % (Manual) Seg Neutrophils # Seg Neutrophils # Man Lymphocytes # (Manual) Monocytes # (Manual) Eosinophils # (Manual) POC ABG pH POC ABG pCO2 POC ABG pO2 Sodium 112 L* Potassium Chloride 77.4 L Carbon Dioxide 12 L BUN Creatinine 0.6 L Glucose 207 H POC Glucose 242 H 139 H Calcium 7.7 L Phosphorus Total Bilirubin Direct Bilirubin AST ALT Total Protein Albumin 07/05/16 07/05/16 07/05/16 18:26 21:13 21:23 WBC RBC Hgb MCHC RDW Lymph % (Auto) Lymph # Seg Neutrophils % Lymphocytes % (Manual) Monocytes % (Manual) Eosinophils % (Manual) Seg Neutrophils # Seg Neutrophils # Man Lymphocytes # (Manual) Monocytes # (Manual) Eosinophils # (Manual) POC ABG pH POC ABG pCO2 POC ABG pO2 Sodium 115 L* 114 L* Potassium Chloride 80.6 L 81.7 L Carbon Dioxide 12 L 14 L BUN Creatinine 0.4 L 0.6 L Glucose 186 H 182 H POC Glucose 154 H Calcium 7.7 L 7.7 L Phosphorus Total Bilirubin Direct Bilirubin AST ALT Total Protein Albumin 07/06/16 07/06/16 07/06/16 05:03 06:06 06:06 WBC 13.7 H RBC Hgb MCHC 36 H RDW 13.1 L Lymph % (Auto) 6.9 L Lymph # 0.9 L Seg Neutrophils % 87.0 H Lymphocytes % (Manual) Monocytes % (Manual) Eosinophils % (Manual) Seg Neutrophils # 11.9 H Seg Neutrophils # Man Lymphocytes # (Manual) Monocytes # (Manual) Eosinophils # (Manual) POC ABG pH POC ABG pCO2 31.7 L POC ABG pO2 350 H Sodium 122 L D Potassium Chloride 88.0 L Carbon Dioxide 19 L BUN Creatinine 0.6 L Glucose 189 H POC Glucose Calcium 7.9 L Phosphorus 2.0 L Total Bilirubin Direct Bilirubin AST ALT Total Protein Albumin 07/06/16 07/06/16 07/06/16 08:00 10:57 15:17 WBC RBC Hgb MCHC RDW Lymph % (Auto) Lymph # Seg Neutrophils % Lymphocytes % (Manual) Monocytes % (Manual) Eosinophils % (Manual) Seg Neutrophils # Seg Neutrophils # Man Lymphocytes # (Manual) Monocytes # (Manual) Eosinophils # (Manual) POC ABG pH POC ABG pCO2 POC ABG pO2 Sodium 126 L Potassium 3.5 L Chloride 92.1 L Carbon Dioxide 20 L BUN Creatinine 0.7 L Glucose 184 H POC Glucose 164 H 156 H Calcium 7.6 L Phosphorus Total Bilirubin Direct Bilirubin AST ALT Total Protein Albumin 07/06/16 07/06/16 07/06/16 16:18 19:03 21:42 WBC RBC Hgb MCHC RDW Lymph % (Auto) Lymph # Seg Neutrophils % Lymphocytes % (Manual) Monocytes % (Manual) Eosinophils % (Manual) Seg Neutrophils # Seg Neutrophils # Man Lymphocytes # (Manual) Monocytes # (Manual) Eosinophils # (Manual) POC ABG pH POC ABG pCO2 POC ABG pO2 Sodium 126 L Potassium Chloride Carbon Dioxide BUN Creatinine Glucose POC Glucose 159 H 164 H Calcium Phosphorus Total Bilirubin Direct Bilirubin AST ALT Total Protein Albumin 07/07/16 07/07/16 07/07/16 04:04 05:25 12:04 WBC RBC Hgb MCHC RDW Lymph % (Auto) Lymph # Seg Neutrophils % Lymphocytes % (Manual) Monocytes % (Manual) Eosinophils % (Manual) Seg Neutrophils # Seg Neutrophils # Man Lymphocytes # (Manual) Monocytes # (Manual) Eosinophils # (Manual) POC ABG pH 7.317 L POC ABG pCO2 POC ABG pO2 77 L Sodium 130 L Potassium Chloride 95.9 L Carbon Dioxide BUN Creatinine 0.7 L Glucose 165 H POC Glucose 160 H Calcium 7.8 L Phosphorus 1.8 L Total Bilirubin Direct Bilirubin AST ALT Total Protein Albumin 07/07/16 07/07/16 07/08/16 17:39 23:35 04:27 WBC RBC Hgb MCHC RDW Lymph % (Auto) Lymph # Seg Neutrophils % Lymphocytes % (Manual) Monocytes % (Manual) Eosinophils % (Manual) Seg Neutrophils # Seg Neutrophils # Man Lymphocytes # (Manual) Monocytes # (Manual) Eosinophils # (Manual) POC ABG pH POC ABG pCO2 POC ABG pO2 Sodium 131 L Potassium Chloride 96.3 L Carbon Dioxide BUN Creatinine 0.4 L Glucose 172 H POC Glucose 157 H 174 H Calcium 7.8 L Phosphorus 1.7 L Total Bilirubin Direct Bilirubin AST ALT Total Protein Albumin 07/08/16 07/08/16 07/08/16 04:27 05:40 12:14 WBC RBC Hgb MCHC RDW Lymph % (Auto) Lymph # Seg Neutrophils % Lymphocytes % (Manual) Monocytes % (Manual) Eosinophils % (Manual) Seg Neutrophils # Seg Neutrophils # Man Lymphocytes # (Manual) Monocytes # (Manual) Eosinophils # (Manual) POC ABG pH POC ABG pCO2 POC ABG pO2 163 H Sodium Potassium Chloride Carbon Dioxide BUN Creatinine Glucose POC Glucose 158 H 171 H Calcium Phosphorus Total Bilirubin Direct Bilirubin AST ALT Total Protein Albumin 07/08/16 07/08/16 07/09/16 17:29 23:45 04:25 WBC RBC Hgb MCHC RDW Lymph % (Auto) Lymph # Seg Neutrophils % Lymphocytes % (Manual) Monocytes % (Manual) Eosinophils % (Manual) Seg Neutrophils # Seg Neutrophils # Man Lymphocytes # (Manual) Monocytes # (Manual) Eosinophils # (Manual) POC ABG pH POC ABG pCO2 POC ABG pO2 Sodium Potassium Chloride Carbon Dioxide BUN Creatinine Glucose POC Glucose 178 H 181 H Calcium Phosphorus 2.2 L D Total Bilirubin Direct Bilirubin AST ALT Total Protein Albumin 07/09/16 07/09/16 07/09/16 05:20 09:28 11:10 WBC RBC Hgb MCHC RDW Lymph % (Auto) Lymph # Seg Neutrophils % Lymphocytes % (Manual) Monocytes % (Manual) Eosinophils % (Manual) Seg Neutrophils # Seg Neutrophils # Man Lymphocytes # (Manual) Monocytes # (Manual) Eosinophils # (Manual) POC ABG pH POC ABG pCO2 POC ABG pO2 Sodium 134 L Potassium Chloride Carbon Dioxide BUN Creatinine 0.5 L Glucose 189 H POC Glucose 184 H 176 H Calcium 7.7 L Phosphorus Total Bilirubin Direct Bilirubin AST ALT Total Protein Albumin 07/09/16 07/09/16 07/09/16 17:27 23:45 23:58 WBC RBC Hgb MCHC RDW Lymph % (Auto) Lymph # Seg Neutrophils % Lymphocytes % (Manual) Monocytes % (Manual) Eosinophils % (Manual) Seg Neutrophils # Seg Neutrophils # Man Lymphocytes # (Manual) Monocytes # (Manual) Eosinophils # (Manual) POC ABG pH POC ABG pCO2 POC ABG pO2 Sodium Potassium Chloride Carbon Dioxide BUN Creatinine Glucose POC Glucose 170 H 230 H 187 H Calcium Phosphorus Total Bilirubin Direct Bilirubin AST ALT Total Protein Albumin 07/10/16 07/10/16 07/10/16 04:44 05:55 10:37 WBC RBC Hgb MCHC 35 H RDW Lymph % (Auto) Lymph # Seg Neutrophils % Lymphocytes % (Manual) Monocytes % (Manual) 16.0 H Eosinophils % (Manual) Seg Neutrophils # Seg Neutrophils # Man Lymphocytes # (Manual) Monocytes # (Manual) 1.7 H Eosinophils # (Manual) POC ABG pH 7.344 L POC ABG pCO2 48.3 H POC ABG pO2 Sodium Potassium Chloride Carbon Dioxide BUN Creatinine Glucose POC Glucose 166 H Calcium Phosphorus Total Bilirubin Direct Bilirubin AST ALT Total Protein Albumin 07/10/16 07/10/16 07/11/16 11:32 18:08 04:21 WBC RBC Hgb MCHC RDW Lymph % (Auto) Lymph # Seg Neutrophils % Lymphocytes % (Manual) Monocytes % (Manual) Eosinophils % (Manual) Seg Neutrophils # Seg Neutrophils # Man Lymphocytes # (Manual) Monocytes # (Manual) Eosinophils # (Manual) POC ABG pH POC ABG pCO2 POC ABG pO2 Sodium 136 L Potassium Chloride Carbon Dioxide BUN 23 H Creatinine 0.7 L Glucose 138 H POC Glucose 156 H 171 H Calcium 7.6 L Phosphorus Total Bilirubin Direct Bilirubin AST 41 H ALT 63 H Total Protein 5.4 L Albumin 2.5 L 07/11/16 07/11/16 07/11/16 04:53 05:15 11:32 WBC RBC Hgb MCHC RDW Lymph % (Auto) Lymph # Seg Neutrophils % Lymphocytes % (Manual) Monocytes % (Manual) Eosinophils % (Manual) Seg Neutrophils # Seg Neutrophils # Man Lymphocytes # (Manual) Monocytes # (Manual) Eosinophils # (Manual) POC ABG pH POC ABG pCO2 POC ABG pO2 78 L 60 L Sodium Potassium Chloride Carbon Dioxide BUN Creatinine Glucose POC Glucose 143 H Calcium Phosphorus Total Bilirubin Direct Bilirubin AST ALT Total Protein Albumin 07/11/16 07/11/16 07/11/16 11:43 18:07 23:24 WBC RBC Hgb MCHC RDW Lymph % (Auto) Lymph # Seg Neutrophils % Lymphocytes % (Manual) Monocytes % (Manual) Eosinophils % (Manual) Seg Neutrophils # Seg Neutrophils # Man Lymphocytes # (Manual) Monocytes # (Manual) Eosinophils # (Manual) POC ABG pH POC ABG pCO2 POC ABG pO2 Sodium Potassium Chloride Carbon Dioxide BUN Creatinine Glucose POC Glucose 184 H 190 H 190 H Calcium Phosphorus Total Bilirubin Direct Bilirubin AST ALT Total Protein Albumin 07/12/16 07/12/16 07/12/16 05:47 06:04 06:04 WBC RBC Hgb MCHC 35 H RDW Lymph % (Auto) Lymph # Seg Neutrophils % Lymphocytes % (Manual) 13.0 L Monocytes % (Manual) 17.0 H Eosinophils % (Manual) 7.0 H Seg Neutrophils # Seg Neutrophils # Man Lymphocytes # (Manual) 0.9 L Monocytes # (Manual) 1.1 H Eosinophils # (Manual) 0.5 H POC ABG pH POC ABG pCO2 POC ABG pO2 Sodium 136 L Potassium 3.5 L Chloride 97.0 L Carbon Dioxide BUN Creatinine 0.6 L Glucose 162 H POC Glucose 174 H Calcium 7.7 L Phosphorus Total Bilirubin Direct Bilirubin AST ALT Total Protein Albumin 07/12/16 07/12/16 07/12/16 11:42 17:45 21:48 WBC RBC Hgb MCHC RDW Lymph % (Auto) Lymph # Seg Neutrophils % Lymphocytes % (Manual) Monocytes % (Manual) Eosinophils % (Manual) Seg Neutrophils # Seg Neutrophils # Man Lymphocytes # (Manual) Monocytes # (Manual) Eosinophils # (Manual) POC ABG pH POC ABG pCO2 POC ABG pO2 Sodium Potassium Chloride Carbon Dioxide BUN Creatinine Glucose POC Glucose 204 H 183 H 198 H Calcium Phosphorus Total Bilirubin Direct Bilirubin AST ALT Total Protein Albumin 07/13/16 07/13/16 07/13/16 00:47 06:24 12:11 WBC RBC Hgb MCHC RDW Lymph % (Auto) Lymph # Seg Neutrophils % Lymphocytes % (Manual) Monocytes % (Manual) Eosinophils % (Manual) Seg Neutrophils # Seg Neutrophils # Man Lymphocytes # (Manual) Monocytes # (Manual) Eosinophils # (Manual) POC ABG pH POC ABG pCO2 POC ABG pO2 Sodium Potassium Chloride Carbon Dioxide BUN Creatinine Glucose POC Glucose 196 H 147 H 173 H Calcium Phosphorus Total Bilirubin Direct Bilirubin AST ALT Total Protein Albumin 07/13/16 07/14/16 07/14/16 18:15 00:21 06:18 WBC RBC Hgb MCHC RDW Lymph % (Auto) Lymph # Seg Neutrophils % Lymphocytes % (Manual) Monocytes % (Manual) Eosinophils % (Manual) Seg Neutrophils # Seg Neutrophils # Man Lymphocytes # (Manual) Monocytes # (Manual) Eosinophils # (Manual) POC ABG pH POC ABG pCO2 POC ABG pO2 Sodium Potassium Chloride Carbon Dioxide BUN Creatinine Glucose POC Glucose 269 H 141 H 131 H Calcium Phosphorus Total Bilirubin Direct Bilirubin AST ALT Total Protein Albumin 07/14/16 07/14/16 07/14/16 08:18 11:33 16:07 WBC RBC Hgb MCHC RDW Lymph % (Auto) Lymph # Seg Neutrophils % Lymphocytes % (Manual) Monocytes % (Manual) Eosinophils % (Manual) Seg Neutrophils # Seg Neutrophils # Man Lymphocytes # (Manual) Monocytes # (Manual) Eosinophils # (Manual) POC ABG pH POC ABG pCO2 POC ABG pO2 Sodium Potassium 3.5 L Chloride Carbon Dioxide BUN Creatinine 0.6 L Glucose 152 H POC Glucose 149 H 259 H Calcium 8.0 L Phosphorus Total Bilirubin Direct Bilirubin AST ALT Total Protein Albumin 07/14/16 07/15/16 07/15/16 21:09 06:07 11:08 WBC RBC Hgb MCHC RDW Lymph % (Auto) Lymph # Seg Neutrophils % Lymphocytes % (Manual) Monocytes % (Manual) Eosinophils % (Manual) Seg Neutrophils # Seg Neutrophils # Man Lymphocytes # (Manual) Monocytes # (Manual) Eosinophils # (Manual) POC ABG pH POC ABG pCO2 POC ABG pO2 Sodium Potassium Chloride Carbon Dioxide BUN Creatinine Glucose POC Glucose 194 H 124 H 170 H Calcium Phosphorus Total Bilirubin Direct Bilirubin AST ALT Total Protein Albumin 07/15/16 16:59 WBC RBC Hgb MCHC RDW Lymph % (Auto) Lymph # Seg Neutrophils % Lymphocytes % (Manual) Monocytes % (Manual) Eosinophils % (Manual) Seg Neutrophils # Seg Neutrophils # Man Lymphocytes # (Manual) Monocytes # (Manual) Eosinophils # (Manual) POC ABG pH POC ABG pCO2 POC ABG pO2 Sodium Potassium Chloride Carbon Dioxide BUN Creatinine Glucose POC Glucose 204 H Calcium Phosphorus Total Bilirubin Direct Bilirubin AST ALT Total Protein Albumin
[2016-07-16] MEDS: ANCEF/NS 1 GM/50 ML 50 ML IV SCH ×2 (05:30→13:29)
[2016-07-16] MEDS: NOVOLOG SUB-Q SCH ×2 (09:01→12:53)
--- NOTE | 2016-07-16 09:59 | Progress Note ---
Assessment and Plan - Patient Problems (1) Alcohol intoxication Current Visit: Yes Status: Acute Qualifiers: Complication of substance-induced condition: uncomplicated Qualified Code(s ): F10.120 - Alcohol abuse with intoxication, uncomplicated (2) DM type 2 (diabetes mellitus, type 2) Current Visit: Yes Status: Acute (3) Acute hypoxemic respiratory failure Current Visit: Yes Status: Acute (4) Discharge planning issues Current Visit: Yes Status: Acute Subjective Date of service: 07/16/16 Principal diagnosis: Acute Hypoxemic Respiratory Failure Interval history: Seen and examined at bedside; 24 hour events reviewed; nursing and respiratory care staff consulted; no adverse overnight events reported to me; Objective Vital Signs - 12hr 07/16/16 07/16/16 00:00 07:15 Temperature 98.7 F 98.6 F Pulse Rate [ 86 78 From Monitor] Respiratory 20 18 Rate Blood Pressure 132/90 133/83 [Left Arm] O2 Sat by Pulse 95 Oximetry Constitutional: no acute distress, alert Eyes: non-icteric ENT: oropharynx moist Neck: supple, no JVD Effort: normal Ascultation: Bilateral: clear, diminished breath sounds, rhonchi Cardiovascular: regular rate and rhythm Gastrointestinal: normoactive bowel sounds, soft, non-tender, non-distended Integumentary: normal Extremities: no cyanosis, pink and warm, pulses normal, no ischemia or petechiae Neurologic: normal mental status, non-focal exam, pupils equal and round, motor strength normal and Psychiatric: mood appropriate, affect normal CBC and BMP: 07/12/16 06:04 07/14/16 08:18 ABG, PT/INR, D-dimer: ABG POC ABG pH 7.422 (7.35-7.45) 07/11/16 11:32 POC ABG pCO2 41.0 (35-45) 07/11/16 11:32 POC ABG pO2 60 (80-105) L 07/11/16 11:32 POC ABG HCO3 26.7 07/11/16 11:32 POC ABG Total CO2 28 07/11/16 11:32 POC ABG O2 Sat 91 07/11/16 11:32 Abnormal lab findings: Abnormal Labs 07/05/16 07/05/16 07/05/16 02:11 03:27 03:27 WBC 20.7 H RBC 5.17 H Hgb 15.7 H MCHC 35 H RDW 13.1 L Lymph % (Auto) Lymph # Seg Neutrophils % Lymphocytes % (Manual) 4.0 L Monocytes % (Manual) Eosinophils % (Manual) Seg Neutrophils # Seg Neutrophils # Man 12.6 H Lymphocytes # (Manual) 0.8 L Monocytes # (Manual) 1.4 H Eosinophils # (Manual) POC ABG pH POC ABG pCO2 POC ABG pO2 Sodium 110 L* 110 L* Potassium Chloride 72.5 L Carbon Dioxide 13 L BUN Creatinine 0.5 L Glucose 190 H POC Glucose Calcium 8.1 L Phosphorus Total Bilirubin Direct Bilirubin AST ALT Total Protein Albumin 07/05/16 07/05/16 07/05/16 07:24 07:32 10:45 WBC RBC Hgb MCHC RDW Lymph % (Auto) Lymph # Seg Neutrophils % Lymphocytes % (Manual) Monocytes % (Manual) Eosinophils % (Manual) Seg Neutrophils # Seg Neutrophils # Man Lymphocytes # (Manual) Monocytes # (Manual) Eosinophils # (Manual) POC ABG pH POC ABG pCO2 21.2 L POC ABG pO2 Sodium 115 L* Potassium Chloride 75.4 L Carbon Dioxide 12 L BUN Creatinine 0.5 L Glucose 177 H POC Glucose 158 H Calcium 7.8 L Phosphorus Total Bilirubin Direct Bilirubin AST ALT Total Protein Albumin 07/05/16 07/05/16 07/05/16 10:50 10:50 10:50 WBC RBC Hgb MCHC RDW Lymph % (Auto) Lymph # Seg Neutrophils % Lymphocytes % (Manual) Monocytes % (Manual) Eosinophils % (Manual) Seg Neutrophils # Seg Neutrophils # Man Lymphocytes # (Manual) Monocytes # (Manual) Eosinophils # (Manual) POC ABG pH POC ABG pCO2 POC ABG pO2 Sodium 112 L* Potassium Chloride 76.7 L Carbon Dioxide 12 L BUN Creatinine 0.5 L Glucose 195 H POC Glucose Calcium 7.6 L Phosphorus 2.3 L Total Bilirubin 2.5 H Direct Bilirubin 1.1 H AST 55 H ALT Total Protein Albumin 3.5 L 3.4 L 07/05/16 07/05/16 07/05/16 12:00 13:57 16:13 WBC RBC Hgb MCHC RDW Lymph % (Auto) Lymph # Seg Neutrophils % Lymphocytes % (Manual) Monocytes % (Manual) Eosinophils % (Manual) Seg Neutrophils # Seg Neutrophils # Man Lymphocytes # (Manual) Monocytes # (Manual) Eosinophils # (Manual) POC ABG pH POC ABG pCO2 POC ABG pO2 Sodium 112 L* Potassium Chloride 77.4 L Carbon Dioxide 12 L BUN Creatinine 0.6 L Glucose 207 H POC Glucose 242 H 139 H Calcium 7.7 L Phosphorus Total Bilirubin Direct Bilirubin AST ALT Total Protein Albumin 07/05/16 07/05/16 07/05/16 18:26 21:13 21:23 WBC RBC Hgb MCHC RDW Lymph % (Auto) Lymph # Seg Neutrophils % Lymphocytes % (Manual) Monocytes % (Manual) Eosinophils % (Manual) Seg Neutrophils # Seg Neutrophils # Man Lymphocytes # (Manual) Monocytes # (Manual) Eosinophils # (Manual) POC ABG pH POC ABG pCO2 POC ABG pO2 Sodium 115 L* 114 L* Potassium Chloride 80.6 L 81.7 L Carbon Dioxide 12 L 14 L BUN Creatinine 0.4 L 0.6 L Glucose 186 H 182 H POC Glucose 154 H Calcium 7.7 L 7.7 L Phosphorus Total Bilirubin Direct Bilirubin AST ALT Total Protein Albumin 07/06/16 07/06/16 07/06/16 05:03 06:06 06:06 WBC 13.7 H RBC Hgb MCHC 36 H RDW 13.1 L Lymph % (Auto) 6.9 L Lymph # 0.9 L Seg Neutrophils % 87.0 H Lymphocytes % (Manual) Monocytes % (Manual) Eosinophils % (Manual) Seg Neutrophils # 11.9 H Seg Neutrophils # Man Lymphocytes # (Manual) Monocytes # (Manual) Eosinophils # (Manual) POC ABG pH POC ABG pCO2 31.7 L POC ABG pO2 350 H Sodium 122 L D Potassium Chloride 88.0 L Carbon Dioxide 19 L BUN Creatinine 0.6 L Glucose 189 H POC Glucose Calcium 7.9 L Phosphorus 2.0 L Total Bilirubin Direct Bilirubin AST ALT Total Protein Albumin 07/06/16 07/06/16 07/06/16 08:00 10:57 15:17 WBC RBC Hgb MCHC RDW Lymph % (Auto) Lymph # Seg Neutrophils % Lymphocytes % (Manual) Monocytes % (Manual) Eosinophils % (Manual) Seg Neutrophils # Seg Neutrophils # Man Lymphocytes # (Manual) Monocytes # (Manual) Eosinophils # (Manual) POC ABG pH POC ABG pCO2 POC ABG pO2 Sodium 126 L Potassium 3.5 L Chloride 92.1 L Carbon Dioxide 20 L BUN Creatinine 0.7 L Glucose 184 H POC Glucose 164 H 156 H Calcium 7.6 L Phosphorus Total Bilirubin Direct Bilirubin AST ALT Total Protein Albumin 07/06/16 07/06/16 07/06/16 16:18 19:03 21:42 WBC RBC Hgb MCHC RDW Lymph % (Auto) Lymph # Seg Neutrophils % Lymphocytes % (Manual) Monocytes % (Manual) Eosinophils % (Manual) Seg Neutrophils # Seg Neutrophils # Man Lymphocytes # (Manual) Monocytes # (Manual) Eosinophils # (Manual) POC ABG pH POC ABG pCO2 POC ABG pO2 Sodium 126 L Potassium Chloride Carbon Dioxide BUN Creatinine Glucose POC Glucose 159 H 164 H Calcium Phosphorus Total Bilirubin Direct Bilirubin AST ALT Total Protein Albumin 07/07/16 07/07/16 07/07/16 04:04 05:25 12:04 WBC RBC Hgb MCHC RDW Lymph % (Auto) Lymph # Seg Neutrophils % Lymphocytes % (Manual) Monocytes % (Manual) Eosinophils % (Manual) Seg Neutrophils # Seg Neutrophils # Man Lymphocytes # (Manual) Monocytes # (Manual) Eosinophils # (Manual) POC ABG pH 7.317 L POC ABG pCO2 POC ABG pO2 77 L Sodium 130 L Potassium Chloride 95.9 L Carbon Dioxide BUN Creatinine 0.7 L Glucose 165 H POC Glucose 160 H Calcium 7.8 L Phosphorus 1.8 L Total Bilirubin Direct Bilirubin AST ALT Total Protein Albumin 07/07/16 07/07/16 07/08/16 17:39 23:35 04:27 WBC RBC Hgb MCHC RDW Lymph % (Auto) Lymph # Seg Neutrophils % Lymphocytes % (Manual) Monocytes % (Manual) Eosinophils % (Manual) Seg Neutrophils # Seg Neutrophils # Man Lymphocytes # (Manual) Monocytes # (Manual) Eosinophils # (Manual) POC ABG pH POC ABG pCO2 POC ABG pO2 Sodium 131 L Potassium Chloride 96.3 L Carbon Dioxide BUN Creatinine 0.4 L Glucose 172 H POC Glucose 157 H 174 H Calcium 7.8 L Phosphorus 1.7 L Total Bilirubin Direct Bilirubin AST ALT Total Protein Albumin 07/08/16 07/08/16 07/08/16 04:27 05:40 12:14 WBC RBC Hgb MCHC RDW Lymph % (Auto) Lymph # Seg Neutrophils % Lymphocytes % (Manual) Monocytes % (Manual) Eosinophils % (Manual) Seg Neutrophils # Seg Neutrophils # Man Lymphocytes # (Manual) Monocytes # (Manual) Eosinophils # (Manual) POC ABG pH POC ABG pCO2 POC ABG pO2 163 H Sodium Potassium Chloride Carbon Dioxide BUN Creatinine Glucose POC Glucose 158 H 171 H Calcium Phosphorus Total Bilirubin Direct Bilirubin AST ALT Total Protein Albumin 07/08/16 07/08/16 07/09/16 17:29 23:45 04:25 WBC RBC Hgb MCHC RDW Lymph % (Auto) Lymph # Seg Neutrophils % Lymphocytes % (Manual) Monocytes % (Manual) Eosinophils % (Manual) Seg Neutrophils # Seg Neutrophils # Man Lymphocytes # (Manual) Monocytes # (Manual) Eosinophils # (Manual) POC ABG pH POC ABG pCO2 POC ABG pO2 Sodium Potassium Chloride Carbon Dioxide BUN Creatinine Glucose POC Glucose 178 H 181 H Calcium Phosphorus 2.2 L D Total Bilirubin Direct Bilirubin AST ALT Total Protein Albumin 07/09/16 07/09/16 07/09/16 05:20 09:28 11:10 WBC RBC Hgb MCHC RDW Lymph % (Auto) Lymph # Seg Neutrophils % Lymphocytes % (Manual) Monocytes % (Manual) Eosinophils % (Manual) Seg Neutrophils # Seg Neutrophils # Man Lymphocytes # (Manual) Monocytes # (Manual) Eosinophils # (Manual) POC ABG pH POC ABG pCO2 POC ABG pO2 Sodium 134 L Potassium Chloride Carbon Dioxide BUN Creatinine 0.5 L Glucose 189 H POC Glucose 184 H 176 H Calcium 7.7 L Phosphorus Total Bilirubin Direct Bilirubin AST ALT Total Protein Albumin 07/09/16 07/09/16 07/09/16 17:27 23:45 23:58 WBC RBC Hgb MCHC RDW Lymph % (Auto) Lymph # Seg Neutrophils % Lymphocytes % (Manual) Monocytes % (Manual) Eosinophils % (Manual) Seg Neutrophils # Seg Neutrophils # Man Lymphocytes # (Manual) Monocytes # (Manual) Eosinophils # (Manual) POC ABG pH POC ABG pCO2 POC ABG pO2 Sodium Potassium Chloride Carbon Dioxide BUN Creatinine Glucose POC Glucose 170 H 230 H 187 H Calcium Phosphorus Total Bilirubin Direct Bilirubin AST ALT Total Protein Albumin 07/10/16 07/10/16 07/10/16 04:44 05:55 10:37 WBC RBC Hgb MCHC 35 H RDW Lymph % (Auto) Lymph # Seg Neutrophils % Lymphocytes % (Manual) Monocytes % (Manual) 16.0 H Eosinophils % (Manual) Seg Neutrophils # Seg Neutrophils # Man Lymphocytes # (Manual) Monocytes # (Manual) 1.7 H Eosinophils # (Manual) POC ABG pH 7.344 L POC ABG pCO2 48.3 H POC ABG pO2 Sodium Potassium Chloride Carbon Dioxide BUN Creatinine Glucose POC Glucose 166 H Calcium Phosphorus Total Bilirubin Direct Bilirubin AST ALT Total Protein Albumin 07/10/16 07/10/16 07/11/16 11:32 18:08 04:21 WBC RBC Hgb MCHC RDW Lymph % (Auto) Lymph # Seg Neutrophils % Lymphocytes % (Manual) Monocytes % (Manual) Eosinophils % (Manual) Seg Neutrophils # Seg Neutrophils # Man Lymphocytes # (Manual) Monocytes # (Manual) Eosinophils # (Manual) POC ABG pH POC ABG pCO2 POC ABG pO2 Sodium 136 L Potassium Chloride Carbon Dioxide BUN 23 H Creatinine 0.7 L Glucose 138 H POC Glucose 156 H 171 H Calcium 7.6 L Phosphorus Total Bilirubin Direct Bilirubin AST 41 H ALT 63 H Total Protein 5.4 L Albumin 2.5 L 07/11/16 07/11/16 07/11/16 04:53 05:15 11:32 WBC RBC Hgb MCHC RDW Lymph % (Auto) Lymph # Seg Neutrophils % Lymphocytes % (Manual) Monocytes % (Manual) Eosinophils % (Manual) Seg Neutrophils # Seg Neutrophils # Man Lymphocytes # (Manual) Monocytes # (Manual) Eosinophils # (Manual) POC ABG pH POC ABG pCO2 POC ABG pO2 78 L 60 L Sodium Potassium Chloride Carbon Dioxide BUN Creatinine Glucose POC Glucose 143 H Calcium Phosphorus Total Bilirubin Direct Bilirubin AST ALT Total Protein Albumin 07/11/16 07/11/16 07/11/16 11:43 18:07 23:24 WBC RBC Hgb MCHC RDW Lymph % (Auto) Lymph # Seg Neutrophils % Lymphocytes % (Manual) Monocytes % (Manual) Eosinophils % (Manual) Seg Neutrophils # Seg Neutrophils # Man Lymphocytes # (Manual) Monocytes # (Manual) Eosinophils # (Manual) POC ABG pH POC ABG pCO2 POC ABG pO2 Sodium Potassium Chloride Carbon Dioxide BUN Creatinine Glucose POC Glucose 184 H 190 H 190 H Calcium Phosphorus Total Bilirubin Direct Bilirubin AST ALT Total Protein Albumin 07/12/16 07/12/16 07/12/16 05:47 06:04 06:04 WBC RBC Hgb MCHC 35 H RDW Lymph % (Auto) Lymph # Seg Neutrophils % Lymphocytes % (Manual) 13.0 L Monocytes % (Manual) 17.0 H Eosinophils % (Manual) 7.0 H Seg Neutrophils # Seg Neutrophils # Man Lymphocytes # (Manual) 0.9 L Monocytes # (Manual) 1.1 H Eosinophils # (Manual) 0.5 H POC ABG pH POC ABG pCO2 POC ABG pO2 Sodium 136 L Potassium 3.5 L Chloride 97.0 L Carbon Dioxide BUN Creatinine 0.6 L Glucose 162 H POC Glucose 174 H Calcium 7.7 L Phosphorus Total Bilirubin Direct Bilirubin AST ALT Total Protein Albumin 07/12/16 07/12/16 07/12/16 11:42 17:45 21:48 WBC RBC Hgb MCHC RDW Lymph % (Auto) Lymph # Seg Neutrophils % Lymphocytes % (Manual) Monocytes % (Manual) Eosinophils % (Manual) Seg Neutrophils # Seg Neutrophils # Man Lymphocytes # (Manual) Monocytes # (Manual) Eosinophils # (Manual) POC ABG pH POC ABG pCO2 POC ABG pO2 Sodium Potassium Chloride Carbon Dioxide BUN Creatinine Glucose POC Glucose 204 H 183 H 198 H Calcium Phosphorus Total Bilirubin Direct Bilirubin AST ALT Total Protein Albumin 07/13/16 07/13/16 07/13/16 00:47 06:24 12:11 WBC RBC Hgb MCHC RDW Lymph % (Auto) Lymph # Seg Neutrophils % Lymphocytes % (Manual) Monocytes % (Manual) Eosinophils % (Manual) Seg Neutrophils # Seg Neutrophils # Man Lymphocytes # (Manual) Monocytes # (Manual) Eosinophils # (Manual) POC ABG pH POC ABG pCO2 POC ABG pO2 Sodium Potassium Chloride Carbon Dioxide BUN Creatinine Glucose POC Glucose 196 H 147 H 173 H Calcium Phosphorus Total Bilirubin Direct Bilirubin AST ALT Total Protein Albumin 07/13/16 07/14/16 07/14/16 18:15 00:21 06:18 WBC RBC Hgb MCHC RDW Lymph % (Auto) Lymph # Seg Neutrophils % Lymphocytes % (Manual) Monocytes % (Manual) Eosinophils % (Manual) Seg Neutrophils # Seg Neutrophils # Man Lymphocytes # (Manual) Monocytes # (Manual) Eosinophils # (Manual) POC ABG pH POC ABG pCO2 POC ABG pO2 Sodium Potassium Chloride Carbon Dioxide BUN Creatinine Glucose POC Glucose 269 H 141 H 131 H Calcium Phosphorus Total Bilirubin Direct Bilirubin AST ALT Total Protein Albumin 07/14/16 07/14/16 07/14/16 08:18 11:33 16:07 WBC RBC Hgb MCHC RDW Lymph % (Auto) Lymph # Seg Neutrophils % Lymphocytes % (Manual) Monocytes % (Manual) Eosinophils % (Manual) Seg Neutrophils # Seg Neutrophils # Man Lymphocytes # (Manual) Monocytes # (Manual) Eosinophils # (Manual) POC ABG pH POC ABG pCO2 POC ABG pO2 Sodium Potassium 3.5 L Chloride Carbon Dioxide BUN Creatinine 0.6 L Glucose 152 H POC Glucose 149 H 259 H Calcium 8.0 L Phosphorus Total Bilirubin Direct Bilirubin AST ALT Total Protein Albumin 07/14/16 07/15/16 07/15/16 21:09 06:07 11:08 WBC RBC Hgb MCHC RDW Lymph % (Auto) Lymph # Seg Neutrophils % Lymphocytes % (Manual) Monocytes % (Manual) Eosinophils % (Manual) Seg Neutrophils # Seg Neutrophils # Man Lymphocytes # (Manual) Monocytes # (Manual) Eosinophils # (Manual) POC ABG pH POC ABG pCO2 POC ABG pO2 Sodium Potassium Chloride Carbon Dioxide BUN Creatinine Glucose POC Glucose 194 H 124 H 170 H Calcium Phosphorus Total Bilirubin Direct Bilirubin AST ALT Total Protein Albumin 07/15/16 07/15/16 16:59 21:03 WBC RBC Hgb MCHC RDW Lymph % (Auto) Lymph # Seg Neutrophils % Lymphocytes % (Manual) Monocytes % (Manual) Eosinophils % (Manual) Seg Neutrophils # Seg Neutrophils # Man Lymphocytes # (Manual) Monocytes # (Manual) Eosinophils # (Manual) POC ABG pH POC ABG pCO2 POC ABG pO2 Sodium Potassium Chloride Carbon Dioxide BUN Creatinine Glucose POC Glucose 204 H 179 H Calcium Phosphorus Total Bilirubin Direct Bilirubin AST ALT Total Protein Albumin
--- NOTE | 2016-07-16 10:40 | Discharge Summary ---
Providers - Providers Date of Admission: 07/05/16 01:37 Date of discharge: 07/16/16 Attending physician: KHALIF AVILA 07/05/16 01:45 Speech Therapy Evaluation and Treat [CONS] Routine Reason For Exam: AMS 07/05/16 04:31 Consult to Physician [CONS] Routine Consulting Provider: NHAN MARC Reason For Exam: ICU admission Place consult to:: Lucy Notified:: yes 07/05/16 09:59 Consult to Physician [CONS] Routine Consulting Provider: CHETNA CORRAL Reason For Exam: hyponatremia Place consult to:: Dr Corral (nephrology) Notified:: yes 07/06/16 04:08 Consult to Dietitian/Nutrition [CONS] Routine Physician Instructions: Reason For Exam: Reason for Consult: Write/Manage Tube Feeding 07/10/16 13:30 Consult to Wound/ET Nurse [CONS] Routine Reason For Exam: wound eval 07/14/16 09:47 Physical Therapy Evaluation and Treat [CONS] Routine Comment: Reason For Exam: placement Primary care physician: NETWORKING ENGINEER Hospitalization Condition: Stable Hospital course: HPI: Patient is a 51 year old HM with history significant for Obesity, DM type and HTN male was brought into the emergency department via EMS for evaluation of altered mental status. The patient has been drinking alcohol heavily for the past 6 days. He did not eat any thing for the past few days before admission. His daughter called EMS due to AMS. He had nausea and vomiting. He was found to have multiple electrolyte abnormalities including Sodium of 108, Creatinine was normal. He was admitted to ICU, placed on CIWA protocol. His respiratory status declined and eventually required intubation. CT head without contrast on admission was normal. Discharge diagnosis and management per Problem: 1. Acute hypoxic respiratory failure Due to delirium tremens, required intubation Resolved, extubated on 07/12; on RA now 2. Alcohol intoxication with delirium tremens s/p CIWA protocol cont On thiamine, folate counselled for cessation 3. Severe hyponatremia on admission admitted with Na of 112; received 250 mL of 3% on admission, then NS Now resolved 4. Hypophosphatemia Replaced 5. Sepsis Sputum culture positive for MSSA was on Vanc and Zosyn then continued on Ancef 6. Hypertension Blood pressure was uncontrolled initially, so was placed on clonidine patch Normotensive now 7. DM continued with Accu-Cheks and SSI placed on metformin on discharge 8. DVT prophylaxis Lovenox 9. deconditioning PT recommended subacute rehab, wait for family response Disposition: DC/TX HOME UNDER HOME HEALTH Time spent for discharge: 35 minutes Core Measure Documentation - Palliative Care Palliative Care/ Comfort Measures: Not Applicable - Core Measures Any of the following diagnoses?: none Exam - Physical Exam Narrative exam: GENERAL: well-developed and well-nourished male lying on bed appeared to be in no discomfort. HEENT: Normocephalic. Atraumatic. No conjunctival congestion or icterus. Patient has moist mucous membranes. NECK: Supple. Trachea midline. CHEST/LUNGS: Clear to auscultated bilaterally, breathing nonlabored. No wheezes crackles or rhonchi. HEART/CARDIOVASCULAR: Regular in rate and rhythm. S1 and S2 positive. ABDOMEN: Abdomen is soft, nontender. Patient has normal bowel sounds. SKIN: There is no rash. Warm and dry. NEURO: No focal motor deficit. Follows command. MUSCULOSKELETAL: No joint effusion or tenderness. EXTRIMITY: No edema, no cyanosis or clubbing. PSYCH: Cooperative. - Constitutional Vitals: Temp Pulse Resp BP Pulse Ox 98.6 F 78 18 133/83 95 07/16/16 07:15 07/16/16 07:15 07/16/16 07:15 07/16/16 07:15 07/16/16 10:16 Plan Activity: advance as tolerated, fall precautions Weight Bearing Status: Weight Bear as Tolerated Diet: low cholesterol, low salt, diabetic Follow up with: PRIMARY CARE, [Primary Care Provider] - 3-5 Days Prescriptions: Folic Acid [Folvite] 1 mg PO DAILY #30 tablet metFORMIN [Glucophage] 850 mg PO BID #60 tablet Thiamine [Vitamin B-1] 100 mg PO QDAY #30 tablet
[2016-07-16] MEDS: VITAMIN B-1 PO SCH (10:57)
[2016-07-16] MEDS: FOLVITE PO SCH (10:57)
[2016-07-16] MEDS: LOVENOX SUB-Q SCH (10:57)
[2016-07-16] MEDS: PEPCID PO SCH (10:57)
[2016-07-16] MEDS: Centrum Liq PO SCH (11:02)
[2016-07-16 13:39] VITALS: BP 133/84
== END 2016-07-16 14:34 | disposition home health service (06) | DRG 870 ==
LOC: ED 22:48 → CC1 07-05 01:37 → 3A 07-13 18:48
PROVIDERS: ADMIT Internal Medicine; ATTEND Internal Medicine
PROC: 5A1955Z Respiratory Ventilation, Greater than 96 Consecutive Hours (ICD-10-PCS; principal; 2016-07-06)
PROC: 0BH17EZ Insertion of Endotracheal Airway into Trachea, Via Natural or Artificial Opening (ICD-10-PCS; 2016-07-06)
DX: A41.01 Sepsis due to Methicillin susceptible Staphylococcus aureus (principal); J96.01 Acute respiratory failure with hypoxia; J18.9 Pneumonia, unspecified organism; F10.121 Alcohol abuse with intoxication delirium; E87.1 Hypo-osmolality and hyponatremia; E87.2 Acidosis; E11.9 Type 2 diabetes mellitus without complications; I10 Essential (primary) hypertension; E87.6 Hypokalemia; E83.39 Other disorders of phosphorus metabolism; E66.9 Obesity, unspecified; Z68.35 Body mass index [BMI] 35.0-35.9, adult
CPT/HCPCS: 31720; 36415; 36600; 51702; 70450; 71010; 74000; 80048; 80053; 80074; 80202; 80307; 80320; 81001; 82040; 82140; 82803; 82962; 83735; 84100; 84295; 85007; 85025; 86403; 87040; 87070; 87186; 87205; 90686; 90732; 94002; 94003; 94640; 94660; 94760; 96361; 96365; 96366; C9113; G0480; J0330; J0690; J1630; J1650; J1815; J1940; J2060; J2250; J2405; J2543; J2704; J3010; J3370; J7030; J7040; J7050